=== PATIENT | male | born 1935 | race Caucasian/White ===

== ENCOUNTER 2017-03-13 10:00 | Outpatient (RCR) | payer MEDICARE, SELFPAY ==
[2017-02-26 01:10] VITALS: BP 102/69; PULSE 99; RESP 16; TEMP 37.5; BMI 26.2
[2017-02-27 10:50] VITALS: BP 118/73; PULSE 98; RESP 16; TEMP 37.2; BMI 26.2
--- NOTE | 2017-02-27 23:27 | PN.PCM_ITS ---
Type of Wound Date of Service: 02/27/17 Chief Complaint: Nonhealing infected pressure sore, Stage IV, left upper medial back/scapular area. History of Wound: Surgery 01/24/17 - Surgical preparation left upper medial back /scapular area with incision and drainage and excision infected pressure sore, Stage IV, including necrotic muscle (76 cm2). Wound care - VAC. Operative culture - Staphylococcus haemolyticus, Methicillin resistant. He was placed on Doxycycline and has finished them. Urine culture - Pseudomonas aeroginosa. He was placed on Levaquin and has finished them. Prealbumin from 01/25/17 was 17.0. He takes nutritional supplementation with protein to help the healing process. Progress of Wound: Improved. - Physical Exam Vital Signs Temp Pulse Resp BP 98.9 F 98 16 118/73 02/27/17 10:50 02/27/17 10:50 02/27/17 10:50 02/27/17 10:50 Wound Measurements and Assessment WC - Nurse 1 - General Ulcer Measurement Start: 02/27/17 10:50 Freq: Status: Active Protocol: Activity Type Activity Date Activity User E-Sign Co-Sign Detail Recorded Client Recorded Date Recorded By Document 02/27/17 10:50 [facility] [id number] 02/27/17 11:04 [facility] 02/27/17 10:50 Wound Center Nurse 1 [Ulcer Assessment Protocol: WC.WD.LOC] #1- LT UPPER BACK -Combined with other wound No -Current Size (cm) - Length 5.8 -Current Size (cm) - Width 7.2 -Current Size (cm) - Depth 0.7 -Total Square Cm 41.76 -Date of Last Picture (Recall this 02/27/17 field) -Photo Taken Yes -Epithelialization Small 1-33% -Tunneling No -Undermining/Tunneling Yes -Undermining/Tunneling Starts (O' 4 clock) -Undermining/Tunneling Ends (O'clock) 9 -Maximum Distance (cm) 0.3 -Exudate Amt Large (67-100%) -Exudate Type Serosanguineous -Wound Margin Distinct, Outline Attached -Granulation Amt Large (67-100%) -Granulation Quality Pale Red -Slough/Fibrin Yes -Necrosis Amt Small (1-33%) -Necrotic Tissue Type Adherent Slough -Texture (Nilda-wound Skin Appearance) Scarring -Moisture (Nilda-wound Skin Appearance Maceration ) -Color (Nilda-wound Skin Appearance) Erythema -Temperature (Nilda-wound Skin No Abnormality Appearance) (Pt Warm) -Tenderness on Palpation (Nilda-wound No Skin Appearance) -Ulcer Cleansing Rinsed/ Irrigated with Saline -Foul Odor after Cleansing No -Anesthetic Used 4% Lidocaine Solution - Nurse 2 - General Ulcer CM Notes Start: 02/27/17 10:50 Freq: Status: Active Protocol: Activity Type Activity Date Activity User E-Sign Co-Sign Detail Recorded Client Recorded Date Recorded By Document 02/27/17 11:35 [id number] 02/27/17 11:36 02/27/17 11:35 Wound Center Nurse 2 [Procedure/Treatment] -Time 11:35 -Correct Patient Yes -Correct Side, Site, Position Yes -Correct Procedure Yes -Procedure Performed Yes -Type of Procedure Debridement -Clinical Debridement Subcutaneous -Post Debridement Size (cm) - Length 5.8 -Post Debridement Size (cm) - Width 7.3 -Post Debridement Size (cm) - Depth 0.7 -Total Square Cm 42.34 -Wound/Ulcer Outcome Not Healed -Ulcer Cleansing Rinsed/ Irrigated with Saline -Foul Odor after Cleansing No -Cetacaine [place] No -Bleeding Controlled with Pressure -Treatment Response Procedure Tolerated Well [See Physician Procedure note for Specifics] Pain Scale: 0-10 Numeric [Pain] -Is Patient Pain Free? Yes Debridement Note Post-Debridement Measurements/Treatment - Nurse 2 - General Ulcer CM Notes Start: 02/27/17 10:50 Freq: Status: Active Protocol: Activity Type Activity Date Activity User E-Sign Co-Sign Detail Recorded Client Recorded Date Recorded By Document 02/27/17 11:35 [id number] 02/27/17 11:36 02/27/17 11:35 Wound Center Nurse 2 #1- LT UPPER BACK -Time 11:35 -Correct Patient Yes -Correct Side, Site, Position Yes -Correct Procedure Yes -Procedure Performed Yes -Type of Procedure Debridement -Clinical Debridement Subcutaneous -Post Debridement Size (cm) - Length 5.8 -Post Debridement Size (cm) - Width 7.3 -Post Debridement Size (cm) - Depth 0.7 -Total Square Cm 42.34 -Wound/Ulcer Outcome Not Healed -Ulcer Cleansing Rinsed/ Irrigated with Saline -Foul Odor after Cleansing No -Cetacaine [place] No -Bleeding Controlled with Pressure -Treatment Response Procedure Tolerated Well Pain Scale: 0-10 Numeric Is Patient Pain Free? Yes Wound debrided: #1 Left upper medial back/scapular area. Laterality: Left Wound Grade/Stage: IV. Type of Debridement: Excisional debridement Anesthesia Used: 4% Lidocaine Solution Depth: Down to and including healthy tissue, in the subcutaneous layer Percentage of wound debrided: 100 Instrument Used: 7mm curette Tissue Removed: subcutaneous tissue. Severity: Fat Layer Exposed Amount of bleeding with debridement: Mild Bleeding Controlled with: Pressure Patient tolerated procedure well Assessment/Plan Assessment: Infected pressure ulcer left upper medial back/scapular area with underlying necrotic muscle, Stage IV. Plan: Continue VAC. Operative culture showed Staphylococcus haemolyticus, Methicillin resistant and urine culture showed Pseudomonas aeroginosa. He was placed on Doxycyline and Levaquin and has finished them. Prealbumin from was 17.0. He takes nutritional supplementation with protein to help the healing process. Patient states he has help at home to assist with the dressing changes. Will begin dischage planning at the [facility]. Followup 2 weeks.
[2017-03-13 10:23] VITALS: BP 123/77; PULSE 95; RESP 18; TEMP 37.1; BMI 26.2
--- NOTE | 2017-03-13 17:57 | PCM.WC.PN ---
Type of Wound Date of Service: 03/13/17 Chief Complaint: Nonhealing infected pressure sore, Stage IV, left upper medial back/scapular area. History of Wound: Surgery 01/24/17 - Surgical preparation left upper medial back/scapular area with incision and drainage and excision infected pressure sore, Stage IV, including necrotic muscle (76 cm2). Wound care - Silver. Operative culture - Staphylococcus haemolyticus, Methicillin resistant. He was placed on Doxycycline and has finished them. Urine culture - Pseudomonas aeroginosa. He was placed on Levaquin and has finished them. Prealbumin from 01/25/17 was 17.0. He takes nutritional supplementation with protein to help the healing process. The patient was recently discharged from the [facility] and is at home. The VAC was changed to Silver dressing changes. Today he denies any fever. His appetite is good. Progress of Wound: Improved. - Physical Exam Vital Signs Temp Pulse Resp BP 98.8 F 95 18 123/77 H 03/13/17 10:23 03/13/17 10:23 03/13/17 10:23 03/13/17 10:23 Wound Measurements and Assessment - Nurse 1 - General Ulcer Measurement Start: 02/27/17 10:50 Freq: Status: Active Protocol: Activity Type Activity Date Activity User E-Sign Co-Sign Detail Recorded Client Recorded Date Recorded By Document 03/13/17 10:23 DL [id number] 03/13/17 10:32 DL 03/13/17 10:23 Wound Center Nurse 1 [Ulcer Assessment Protocol: WC.WD.LOC] #1- LT UPPER BACK -Current Size (cm) - Length 5.9 -Current Size (cm) - Width 6 -Current Size (cm) - Depth 0.1 -Total Square Cm 35.4 -Photo Taken Yes -Undermining/Tunneling No -Exudate Amt Large (67-100%) -Exudate Type Yellow/Green -Wound Margin Distinct, Outline Attached -Granulation Amt Medium (34-66%) -Granulation Quality Hyper- granulation [place] -Necrosis Amt Medium (34-66%) -Necrotic Tissue Type Adherent Slough -Structure Exposed N/A -Texture (Nilda-wound Skin Appearance) Scarring -Moisture (Nilda-wound Skin Appearance No Abnormality ) -Color (Nilda-wound Skin Appearance) No Abnormality -Temperature (Nilda-wound Skin No Abnormality Appearance) (Pt Warm) -Tenderness on Palpation (Nilda-wound No Skin Appearance) -Ulcer Cleansing Wound Cleanser -Foul Odor after Cleansing No -Anesthetic Used 4% Lidocaine Solution - Nurse 2 - General Ulcer CM Notes Start: 02/27/17 10:50 Freq: Status: Active Protocol: Activity Type Activity Date Activity User E-Sign Co-Sign Detail Recorded Client Recorded Date Recorded By Document 03/13/17 10:56 [id number] 03/13/17 10:57 03/13/17 10:56 Wound Center Nurse 2 [Procedure/Treatment] -Time 10:56 -Correct Patient Yes -Correct Side, Site, Position Yes -Correct Procedure Yes -Procedure Performed Yes -Type of Procedure Debridement -Clinical Debridement Subcutaneous -Post Debridement Size (cm) - Length 6.0 -Post Debridement Size (cm) - Width 6 -Post Debridement Size (cm) - Depth 0.1 -Total Square Cm 36.0 -Wound/Ulcer Outcome Not Healed -Ulcer Cleansing Rinsed/ Irrigated with Saline -Foul Odor after Cleansing No -Bioengineered Tissue No -Cetacaine [place] No -Bleeding Controlled with Pressure -Treatment Response Procedure Tolerated Well [See Physician Procedure note for Specifics] Pain Scale: 0-10 Numeric [Pain] -Is Patient Pain Free? Yes Debridement Note Post-Debridement Measurements/Treatment - Nurse 2 - General Ulcer CM Notes Start: 02/27/17 10:50 Freq: Status: Active Protocol: Activity Type Activity Date Activity User E-Sign Co-Sign Detail Recorded Client Recorded Date Recorded By Document 02/27/17 11:35 [id number] 02/27/17 11:36 Document 03/13/17 10:56 [id number] 03/13/17 10:57 02/27/17 03/13/17 11:35 10:56 Wound Center Nurse 2 #1- LT UPPER BACK -Time 11:35 10:56 -Correct Patient Yes Yes -Correct Side, Site, Position Yes Yes -Correct Procedure Yes Yes -Procedure Performed Yes Yes -Type of Procedure Debridement Debridement -Clinical Debridement Subcutaneous Subcutaneous -Post Debridement Size (cm) - Length 5.8 6.0 -Post Debridement Size (cm) - Width 7.3 6 -Post Debridement Size (cm) - Depth 0.7 0.1 -Total Square Cm 42.34 36.0 -Wound/Ulcer Outcome Not Healed Not Healed -Ulcer Cleansing Rinsed/ Rinsed/ Irrigated with Irrigated with Saline Saline -Foul Odor after Cleansing No No -Bioengineered Tissue No -Cetacaine [place] No No -Bleeding Controlled with Pressure Pressure -Treatment Response Procedure Procedure Tolerated Well Tolerated Well Pain Scale: 0-10 Numeric Is Patient Pain Free? Yes Yes Wound debrided: #1 Left upper medial back/scapular area. Laterality: Left Wound Grade/Stage: IV. Type of Debridement: Excisional debridement Anesthesia Used: 4% Lidocaine Solution Depth: Down to and including healthy tissue, in the subcutaneous layer Percentage of wound debrided: 100 Instrument Used: 7mm curette Tissue Removed: subcutaneous tissue. Severity: Fat Layer Exposed Amount of bleeding with debridement: Mild Bleeding Controlled with: Pressure Patient tolerated procedure well Assessment/Plan Assessment: Infected pressure ulcer left upper medial back/scapular area with underlying necrotic muscle, Stage IV. Plan: Continue Silver dressing changes daily. Patient is at home and is doing ok. Operative culture showed Staphylococcus haemolyticus, Methicillin resistant and urine culture showed Pseudomonas aeroginosa. He was placed on Doxycyline and Levaquin and has finished them. Prealbumin from 01/25/17 was 17.0. He takes nutritional supplementation with protein to help the healing process. Followup 3 weeks.
== END 2017-03-26 23:59 ==
LOC: WC 10:00
PROVIDERS: Family Provider Family Medicine Geriatric Medicine; PCP Family Medicine Geriatric Medicine; Visit Provider Surgery
DX: L89.124 Pressure ulcer of left upper back, stage 4 (principal)
CPT/HCPCS: 11042; 11045

== ENCOUNTER 2017-04-24 10:30 | Outpatient (RCR) | payer MEDICARE, SELFPAY ==
[2017-03-27 01:20] VITALS: BP 123/77; PULSE 95; RESP 18; TEMP 37.1; BMI 26.2
[2017-04-24 11:01] VITALS: BP 146/84; PULSE 93; RESP 16; TEMP 36; BMI 26.2
--- NOTE | 2017-04-24 20:08 | PCM.WC.PN ---
Type of Wound Date of Service: 04/24/17 Chief Complaint: Nonhealing infected pressure sore, Stage IV, left upper medial back/scapular area. History of Wound: Surgery 01/24/17 - Surgical preparation left upper medial back/scapular area with incision and drainage and excision infected pressure sore, Stage IV, including necrotic muscle (76 cm2). Wound care - VAC. Operative culture - Staphylococcus haemolyticus, Methicillin resistant. He was placed on Doxycycline and has finished them. Urine culture - Pseudomonas aeroginosa. He was placed on Levaquin and has finished them. Prealbumin from 01/25/17 was 17.0. He takes nutritional supplementation with protein to help the healing process. - Physical Exam Vital Signs Temp Pulse Resp BP 96.8 F L 93 16 146/84 H 04/24/17 11:01 04/24/17 11:01 04/24/17 11:01 04/24/17 11:01 Debridement Note Post-Debridement Measurements/Treatment WC - Nurse 2 - General Ulcer CM Notes Start: 04/24/17 11:01 Freq: Status: Active Protocol: Activity Type Activity Date Activity User E-Sign Co-Sign Detail Recorded Client Recorded Date Recorded By Document 04/24/17 11:45 [id number] 04/24/17 11:46 [email or web address] 04/24/17 11:45 Wound Center Nurse 2 #1- LT UPPER BACK -Time 11:45 -Correct Patient Yes -Correct Side, Site, Position Yes -Correct Procedure Yes -Procedure Performed Yes -Type of Procedure Debridement -Clinical Debridement Subcutaneous -Post Debridement Size (cm) - Length 1.5 -Post Debridement Size (cm) - Width 0.8 -Post Debridement Size (cm) - Depth 0.1 -Total Square Cm 1.20 -Wound/Ulcer Outcome Not Healed -Ulcer Cleansing Rinsed/ Irrigated with Saline -Foul Odor after Cleansing No -Bioengineered Tissue No -Cetacaine [place] No -Bleeding Controlled with Pressure -Treatment Response Procedure Tolerated Well Pain Scale: 0-10 Numeric Is Patient Pain Free? Yes Wound debrided: #1 Left upper medial back/scapular area. Laterality: Left Wound Grade/Stage: IV. Type of Debridement: Excisional debridement Anesthesia Used: 4% Lidocaine Solution Depth: Down to and including healthy tissue, in the subcutaneous layer Percentage of wound debrided: 100 Instrument Used: 5mm curette Tissue Removed: subcutaneous tissue. Severity: Fat Layer Exposed Amount of bleeding with debridement: Mild Bleeding Controlled with: Pressure Patient tolerated procedure well Assessment/Plan Assessment: Infected pressure ulcer left upper medial back/scapular area with underlying necrotic muscle, Stage IV. Plan: Continue VAC. Operative culture showed Staphylococcus haemolyticus, Methicillin resistant and urine culture showed Pseudomonas aeroginosa. He was placed on Doxycyline and Levaquin and has finished them. Prealbumin from 01/25/17 was 17.0. He takes nutritional supplementation with protein to help the healing process. Followup 3 weeks.
--- NOTE | 2017-04-27 21:49 | PN.PCM_ITS ---
Type of Wound Date of Service: 04/24/17 Chief Complaint: Nonhealing infected pressure sore, Stage IV, left upper medial back/scapular area. History of Wound: Surgery 01/24/17 - Surgical preparation left upper medial back /scapular area with incision and drainage and excision infected pressure sore, Stage IV, including necrotic muscle (76 cm2). Wound care - VAC. Operative culture - Staphylococcus haemolyticus, Methicillin resistant. He was placed on Doxycycline and has finished them. Urine culture - Pseudomonas aeroginosa. He was placed on Levaquin and has finished them. Prealbumin from 01/25/17 was 17.0. He takes nutritional supplementation with protein to help the healing process. - Physical Exam Vital Signs Temp Pulse Resp BP 96.8 F L 93 16 146/84 H 04/24/17 11:01 04/24/17 11:01 04/24/17 11:01 04/24/17 11:01 Debridement Note Post-Debridement Measurements/Treatment WC - Nurse 2 - General Ulcer CM Notes Start: 04/24/17 11:01 Freq: Status: Active Protocol: Activity Type Activity Date Activity User E-Sign Co-Sign Detail Recorded Client Recorded Date Recorded By Document 04/24/17 11:45 [id number] 04/24/17 11:46 [email or web address] 04/24/17 11:45 Wound Center Nurse 2 #1- LT UPPER BACK -Time 11:45 -Correct Patient Yes -Correct Side, Site, Position Yes -Correct Procedure Yes -Procedure Performed Yes -Type of Procedure Debridement -Clinical Debridement Subcutaneous -Post Debridement Size (cm) - Length 1.5 -Post Debridement Size (cm) - Width 0.8 -Post Debridement Size (cm) - Depth 0.1 -Total Square Cm 1.20 -Wound/Ulcer Outcome Not Healed -Ulcer Cleansing Rinsed/ Irrigated with Saline -Foul Odor after Cleansing No -Bioengineered Tissue No -Cetacaine [place] No -Bleeding Controlled with Pressure -Treatment Response Procedure Tolerated Well Pain Scale: 0-10 Numeric Is Patient Pain Free? Yes Wound debrided: #1 Left upper medial back/scapular area. Laterality: Left Wound Grade/Stage: IV. Type of Debridement: Excisional debridement Anesthesia Used: 4% Lidocaine Solution Depth: Down to and including healthy tissue, in the subcutaneous layer Percentage of wound debrided: 100 Instrument Used: 5mm curette Tissue Removed: subcutaneous tissue. Severity: Fat Layer Exposed Amount of bleeding with debridement: Mild Bleeding Controlled with: Pressure Patient tolerated procedure well Assessment/Plan Assessment: Infected pressure ulcer left upper medial back/scapular area with underlying necrotic muscle, Stage IV. Plan: Continue VAC. Operative culture showed Staphylococcus haemolyticus, Methicillin resistant and urine culture showed Pseudomonas aeroginosa. He was placed on Doxycyline and Levaquin and has finished them. Prealbumin from was 17.0. He takes nutritional supplementation with protein to help the healing process. Followup 3 weeks.
== END 2017-04-26 23:59 ==
LOC: WC 10:30
PROVIDERS: Family Provider Family Medicine Geriatric Medicine; PCP Family Medicine Geriatric Medicine; Visit Provider Surgery
DX: L89.124 Pressure ulcer of left upper back, stage 4 (principal); L08.9 Local infection of the skin and subcutaneous tissue, unspecified
CPT/HCPCS: 11042

== ENCOUNTER 2017-05-15 10:49 | Outpatient (RCR) | payer MEDICARE, SELFPAY ==
[2017-04-24 11:01] VITALS: BP 146/84
[2017-04-27 00:45] VITALS: PULSE 93; RESP 16; TEMP 36
[2017-05-15 11:01] VITALS: BP 143/82; PULSE 94; RESP 16; TEMP 37.6; BMI 26.2
--- NOTE | 2017-05-15 19:22 | PCM.WC.PN ---
Type of Wound Date of Service: 05/15/17 Chief Complaint: Nonhealing infected pressure sore, Stage IV, left upper medial back/scapular area. History of Wound: Surgery 01/24/17 - Surgical preparation left upper medial back/scapular area with incision and drainage and excision infected pressure sore, Stage IV, including necrotic muscle (76 cm2). Wound care - Silver. Operative culture - Staphylococcus haemolyticus, Methicillin resistant. He was placed on Doxycycline and has finished them. Urine culture - Pseudomonas aeroginosa. He was placed on Levaquin and has finished them. Prealbumin from 01/25/17 was 17.0. He takes nutritional supplementation with protein to help the healing process. The patient was recently discharged from the [facility] and is at home. The VAC was changed to Silver dressing changes. Today he denies any fever. His appetite is good. - Physical Exam Vital Signs Temp Pulse Resp BP 99.6 F H 94 16 143/82 H 05/15/17 11:01 05/15/17 11:01 05/15/17 11:01 05/15/17 11:01 General: Alert, Oriented x3 HEENT: PERRLA, EOMI Neck: Supple Lungs: Clear to auscultation Cardiovascular: Regular rate, Regular Rhythm Abdomen: Soft, Non-Distended Wound Measurements and Assessment WC - Nurse 1 - General Ulcer Measurement Start: 05/15/17 11:00 Freq: Status: Active Protocol: Activity Type Activity Date Activity User E-Sign Co-Sign Detail Recorded Client Recorded Date Recorded By Document 05/15/17 11:01 [facility] [id number] 05/15/17 11:07 [facility] 05/15/17 11:01 Wound Center Nurse 1 [Ulcer Assessment] #1- LT UPPER BACK -Combined with other wound No -Current Size (cm) - Length 0 -Current Size (cm) - Width 0 -Current Size (cm) - Depth 0 -Total Square Cm 0 -Date of Last Picture (Recall this 05/15/17 field) -Photo Taken Yes -Epithelialization Large 67-100% WC - Nurse 2 - General Ulcer CM Notes Start: 05/15/17 11:00 Freq: Status: Active Protocol: Activity Type Activity Date Activity User E-Sign Co-Sign Detail Recorded Client Recorded Date Recorded By Document 05/15/17 11:24 [id number] 05/15/17 11:25 05/15/17 11:24 Wound Center Nurse 2 [Procedure/Treatment] -Correct Patient No -Correct Side, Site, Position No -Correct Procedure No -Procedure Performed No [See Physician Procedure note for Specifics] Pain Scale: 0-10 Numeric [Pain] -Is Patient Pain Free? Yes Neurological: Cranial nerves II-XII grossly intact Psych/Mental Status: Normal Affect, Appropriate Debridement Note Post-Debridement Measurements/Treatment WC - Nurse 2 - General Ulcer CM Notes Start: 05/15/17 11:00 Freq: Status: Active Protocol: Activity Type Activity Date Activity User E-Sign Co-Sign Detail Recorded Client Recorded Date Recorded By Document 05/15/17 11:24 [id number] 05/15/17 11:25 05/15/17 11:24 Wound Center Nurse 2 #1- LT UPPER BACK -Correct Patient No -Correct Side, Site, Position No -Correct Procedure No -Procedure Performed No Pain Scale: 0-10 Numeric Is Patient Pain Free? Yes Wound debrided: #1 Left upper medial back/scapular area. Laterality: Left Wound Grade/Stage: IV. No debridement was completed today - the ulcer has healed. Assessment/Plan Assessment: Infected pressure ulcer left upper medial back/scapular area with underlying necrotic muscle, Stage IV. Plan: Continue Silver dressing changes daily. Patient is at home and is doing ok. Operative culture showed Staphylococcus haemolyticus, Methicillin resistant and urine culture showed Pseudomonas aeroginosa. He was placed on Doxycyline and Levaquin and has finished them. Prealbumin from 01/25/17 was 17.0. He takes nutritional supplementation with protein to help the healing process. Followup 3 weeks.
== END 2017-05-24 23:59 ==
LOC: WC 10:49
PROVIDERS: Family Provider Family Medicine Geriatric Medicine; PCP Family Medicine Geriatric Medicine; Visit Provider Surgery
DX: L89.124 Pressure ulcer of left upper back, stage 4 (principal); Z86.14 Personal history of Methicillin resistant Staphylococcus aureus infection
CPT/HCPCS: 99213; G0463

== ENCOUNTER → 2017-10-11 10:47 | Outpatient (CLI) | payer MEDICARE, SELFPAY ==
[2017-10-11 13:17] LABS: Absolute Lymphocyte Count 1.17 X10^3/ul (0.83-4.51); Absolute Neutrophil Count 5.7 X10^3/uL (2.0-7.7); Basophil# 0.01 X10^3/uL; Basophil% 0.1 % (0-1); Eosinophil# 0.16 X10^3/uL; Eosinophils% 2.1 % (0-5); Hematocrit 38.8 % (40-54); Hemoglobin 12.3 g/dl (13.0-16.5); Lymphocyte # 1.17 X10^3/ul (4.0); Lymphocyte % 15.5 % (19-41); Mean Corp Hgb Conc 31.7 g/gl (32-36); Mean Corpuscular Hgb 30.2 pg (27.0-32.0); Mean Corpuscular Volume 95.3 fL (80-94); Mean Platelet Vol. 10.4 fl (6.2-12.0); Monocyte# 0.51 X10^3/uL; Monocyte% 6.8 % (0-10); Neutrophil # 5.69 X10^3/uL (2.7-7.7); Neutrophil % 75.4 % (47-70); Platelet Count 234 K/mm3 (150-450); RBC Distribution Width CV 13.9 % (11.6-14.6); Red Blood Count 4.07 M/mm3 (4.6-6.2); White Blood Count 7.6 K/mm3 (4.4-11.0)
[2017-10-11 13:26] LABS: Vitamin D,25 Hydroxy 29.4 ng/mL (29.95-100.01)
[2017-10-11 13:29] LABS: POSITIVE COUNT NO; POSITIVE DIFFERENTIAL NO; POSITIVE MORPHOLOGY NO
[2017-10-11 13:34] LABS: ALB/GLOB Ratio 0.9 RATIO (0.9-2.4); AST(SGOT) 19 U/L (15-37); Alanine Aminotransfer ALT/SGPT 24 U/L (16-61); Alkaline Phosphatase 108 U/L (45-117); Anion Gap 7 (5-15); BUN 38 mg/dL (7-18); BUN/Creat Ratio 21.7 RATIO (10-20); Calcium,Total 9.3 mg/dL (8.5-10.1); Chloride 114 mmol/L (98-107); Creatinine, Serum 1.75 mg/dL (0.70-1.30); EST Glomerular Filtration Rate 40 mL/min (>60); Est Glom Filt Rate - Afr Amer 48 mL/min (>60); Globulin 4.7 g/dL (2.2-4.2); Glucose 93 mg/dL (74-106); Potassium 4.9 mmol/L (3.5-5.1); Protein, Total 8.7 g/dL (6.4-8.2); Sodium Level 146 mmol/L (136-145); Thyroid Stim Hormone (TSH) 0.86 uIU/mL (0.358-3.74)
== END ==
PROVIDERS: Family Provider Family Medicine Geriatric Medicine; PCP Family Medicine Geriatric Medicine; Visit Provider Family Medicine Geriatric Medicine
DX: I10 Essential (primary) hypertension (principal); E55.9 Vitamin D deficiency, unspecified
CPT/HCPCS: 36415; 80053; 82306; 84443; 85025

== ENCOUNTER 2018-09-10 10:59 | Inpatient (IN) | payer MEDICARE, SELFPAY ==
[2018-09-10] VITALS (18 sets, daily range): BP systolic 82–107; BP diastolic 40–85; PULSE 101–136; RESP 18–30; TEMP 36.1–37.3; O2SAT 94–99; BMI 19.3; BMI 20.1
--- NOTE | 2018-09-10 11:15 | CT_ITS ---
STUDY: CT BRAIN WITHOUT CONTRAST REASON FOR EXAM: Male, 83 years old. Add injury due to a fall. Urinary and fecal incontinence since fall. RADIATION DOSAGE (If Supplied By Facility): CTDIvol = ( 60.81 ) mGy, DLP = ( 1158.30 ) mGycm TECHNIQUE: Transaxial CT imaging of the brain was performed without administration of intravenous contrast material. Individualized dose optimization techniques were used for this CT. COMPARISON: Comparison is made with prior study dated January 19, 2017. FINDINGS: Normal soft tissue structures. Normal calvarium. There is moderate cerebral atrophy with widening of the extra-axial spaces and ventricular dilatation. There are areas of decreased attenuation within the white matter tracts of the supratentorial brain, consistent with microvascular disease changes. Normal basal ganglia and thalami. Normal brainstem. There is moderate cerebellar atrophy. There is no intracranial hemorrhage. There are no findings of an acute ischemic infarction. Normal visualized paranasal sinuses. CT/Brain/Head without Contrast IMPRESSION: Chronic involutional changes of the brain. Electronically Signed: Marc Owens, at 12:48 EDT , Service support ,
--- NOTE | 2018-09-10 11:15 | CT_ITS ---
STUDY: CT CERVICAL SPINE WITHOUT CONTRAST REASON FOR EXAM: Male, 83 years old. History of fall. RADIATION DOSAGE (If Supplied By Facility): CTDIvol = ( 25.88 ) mGy, DLP = ( 562.74 ) mGycm TECHNIQUE: High resolution transaxial imaging was performed without contrast material. Sagittal and coronal images were reconstructed. Individualized dose optimization techniques were used for this CT. COMPARISON: None FINDINGS: Normal craniovertebral junction. There are degenerative changes of the anterior atlantoaxial articulation. Normal odontoid process. Normal cervical lordosis. Normal vertebral bodies and posterior osseous elements. C2-3: Moderate degree of disc space narrowing. Facet joint osteoarthritis and hypertrophy worse on the left side. Posterior spondylosis. C3-4: Marked degree of disc space narrowing. Facet joint osteoarthritis and hypertrophy worse on the left side. No significant stenosis is seen. C4-5: Moderate degree of disc space narrowing and disc degeneration. Uncovertebral arthrosis. Left neural foraminal stenosis. Facet joint osteoarthritis and hypertrophy worse on the left side. Bilateral neural foraminal stenosis. C5-6: There is fusion at the C5-C6 level. Facet joint osteoarthritis and hypertrophy. Moderate degree of bilateral neural foraminal stenosis. C6-7: Normal endplates. Normal disc height and morphology. Normal central canal and intervertebral neuroforamina. C7-T1: Normal endplates. Normal disc height and morphology. Normal central canal and intervertebral neuroforamina. Diffuse enlargement of both lobes of the thyroid gland with a substernal extension and a focal areas of calcification. CT/Spine Cervical without Contras IMPRESSION: Multilevel degenerative changes, as described above. 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 Electronically Signed: Marc Owens, at 12:53 EDT , Service support ,
--- NOTE | 2018-09-10 11:16 | EKG12_ITS ---
Test Reason : TACHY Blood Pressure : / mmHG Vent. Rate : 136 BPM Atrial Rate : 357 BPM P-R Int : 000 ms QRS Dur : 080 ms QT Int : 294 ms P-R-T Axes : 000 000 132 degrees QTc Int : 442 ms Atrial fibrillation with rapid ventricular response Possible Inferior infarct , age undetermined Abnormal ECG Confirmed by JERI LEWIS, GONZALO ([id number]), social media editor MARC PRAKASH ([id number]) on 09/12/2018 11:53:59 AM Referred By: Nae Frederick Confirmed By:GONZALO WILCOX MD
[2018-09-10 11:29] LABS: Mucous, Urine 0 SEEN /hpf (<or=2+); Squamous Epithelial Cells - UA 0 SEEN /hpf (0-5)
[2018-09-10 11:31] LABS: Color, Urine Brown (Yellow); Glucose, Dipstick Normal (Normal); Ketone-Dipstick Negative (Negative); Leukocyte Esterase-Dipstick 100 /ul (Negative); Nitrite-Dipstick Positive (Negative); Occult Blood-Urine 250 /ul (Negative); Protein-Dipstick 100 mg/dl (Negative); Urine Bilirubin Dipstick Negative (Negative); Urine Clarity Cloudy (Clear); Urine Urobilinogen Normal (Normal)
[2018-09-10 11:33] LABS: Absolute Lymphocyte Count 0.47 X10^3/ul (0.83-4.51); Absolute Neutrophil Count 9.4 X10^3/uL (2.0-7.7); Differential Indicated SCAN CRITERIA MET; Eosinophil# 0.01 X10^3/uL; Eosinophils% 0.1 % (0-5); Hematocrit 35.3 % (40-54); Lymphocyte # 0.47 X10^3/ul (4.0); Lymphocyte % 4.7 % (19-41); Mean Corpuscular Hgb 30.2 pg (27.0-32.0); Mean Corpuscular Volume 88.9 fL (80-94); Monocyte# 0.16 X10^3/uL; Monocyte% 1.6 % (0-10); Neutrophil # 9.37 X10^3/uL (2.7-7.7); Neutrophil % 93.4 % (47-70); POSITIVE COUNT NO; POSITIVE DIFFERENTIAL YES; POSITIVE MORPHOLOGY YES; Platelet Count 140 K/mm3 (150-450); RBC Distribution Width CV 14.1 % (11.6-14.6); RBC Distribution Width SD 46.3 fl (35.1-43.9); Red Blood Count 3.97 M/mm3 (4.6-6.2)
[2018-09-10] MEDS: 0.9% Normal Saline 1,000 ML 1000 ML IV (11:33)
[2018-09-10 11:35] LABS: International Normalized Ratio 1.2
[2018-09-10 11:36] LABS: Bacteria 1+ /hpf (None Seen); Partial Thromboplast Time 33.2 Seconds (24.1-36.2); Red Blood Cells-Urine 25-50 SEEN /hpf (0-5); White Blood Cells 10-25 SEEN /hpf (0-5)
--- NOTE | 2018-09-10 11:36 | ED.RN ---
able to get clean catch urine. catheter held at this time per
[2018-09-10 11:38] LABS: Amorphous Sediment 2+ URATE
[2018-09-10 11:49] LABS: Burr Cells 1+
[2018-09-10 11:59] LABS: ALB/GLOB Ratio 0.6 RATIO (0.9-2.4); AST(SGOT) 24 U/L (15-37); Alanine Aminotransfer ALT/SGPT 35 U/L (16-61); Albumin, Serum 2.6 g/dL (3.2-5.0); Alkaline Phosphatase 90 U/L (45-117); Anion Gap 17 (5-15); BUN 133 mg/dL (7-18); BUN/Creat Ratio 26.3 RATIO (10-20); CPK Total, Creatine Kinase 88 U/L (39-308); Calcium,Total 7.9 mg/dL (8.5-10.1); Chloride 111 mmol/L (98-107); Creatinine, Serum 5.05 mg/dL (0.70-1.30); EST Glomerular Filtration Rate 12 mL/min (>60); Est Glom Filt Rate - Afr Amer 14 mL/min (>60); Estimated Creatinine Clearance 9.71 ml/min; Globulin 4.7 g/dL (2.2-4.2); Glucose 133 mg/dL (74-106); Lipase 565 U/L (73-393); Potassium 4.3 mmol/L (3.5-5.1); Protein, Total 7.3 g/dL (6.4-8.2); Sodium Level 142 mmol/L (136-145)
--- NOTE | 2018-09-10 12:01 | NURSING ---
LAB CALLED WITH A CRITICAL RESULT OF A BUN OF 133.
[2018-09-10 12:04] LABS: Lactic Acid 1.1 mmol/L (0.4-2.0)
--- NOTE | 2018-09-10 12:10 | ED.RN ---
called pharmacy for maggy
--- NOTE | 2018-09-10 12:21 | RAD_ITS ---
STUDY: X-RAY - UNILATERAL RIBS ( RIGHT ) REASON FOR EXAM: Male, 83 years old. Right-sided rib pain. TECHNIQUE: 3 view(s) of the ribs. COMPARISON: None. FINDINGS: Normal visualized ribs without a demonstrated fracture. Mild increased pulmonary markings suggestive of possible scarring. RAD/Ribs Unil 2V No CXR IMPRESSION: Normal x-ray examination of the ribs. Electronically Signed: Marc Owens, at 12:50 EDT , Service support ,
--- NOTE | 2018-09-10 12:24 | ED.RN ---
pt remains in imaging.
[2018-09-10] MEDS: 0.9% Normal Saline 1,000 ML 999 ML IV (12:28)
[2018-09-10] MEDS: Ceftriaxone 1 GM/50 ML BAG IV (12:28)
--- NOTE | 2018-09-10 12:29 | ED.DCSUM_ITS ---
- ER Visit Summary Date of Service: 09/10/18 Chief Complaint: Fall History of Present Illness: The patient is a 83 M who presents from home. The patient normally uses a cane to ambulate. He says he fell 5 days ago. He does not remember the details of the fall, but he complains of head, right side neck, and right-sided rib pain. Patient is denying any other complaints here, but his history is limited. He was incontinent of stool and urine for nursing. Patient has a history of malnutrition, chronic kidney disease, septic shock, hypertension, atrial fibrillation, BPH, UTI, rhabdomyolysis, and others. Physical Examination: Blood pressure 94/59 and heart rate 136. Respiratory rate 30. Afebrile. 95% on room air. Head and neck are atraumatic. HEENT exam unremarkable except for dry mucous membranes. Neck is nontender. Heart is irregular and tachycardic. Lungs are diminished bilaterally. Abdomen is soft and nontender. Extremities nontender with no edema. Patient is alert and oriented to person and place. Cranial nerves grossly intact. Normal strength and sensation. Depressed mood and flat affect. Test Results and ED Course: EKG showed atrial fibrillation at a rate of 136. Hemoglobin 12 and platelets 140. CO2 14, anion gap 17, glucose 133, BUN 133. Creatinine 5.05. Lipase 565. Otherwise lactate, troponin, and CK are unremarkable. Urinalysis shows signs of infection. Cultures are pending. Patient meets criteria for sepsis, but is not in shock. His maps have been above 65 after only 1/2 L of normal saline. We will continue to hydrate. Patient started on Rocephin to cover for UTI. Imaging results of his chest and ribs as well as brain and C-spine are pending. Chest x-ray and ribs were normal. Brain showed chronic changes. C-spine showed no fracture but he does have an enlarged thyroid. On reevaluation, heart rate 117 and blood pressure 101 systolic. His mean arterial pressure has been greater than 65. Lactate normal. He does not show signs of shock. Patient will be admitted to the hospitalist for further care. Treatment Plan: IV fluids, Rocephin Disposition: Admission Impression: 1. UTI 2. Severe sepsis 3. Chronic kidney disease 4. Enlarged thyroid This note was generated with [employer]ation software. It may contain incorrect words, spelling, and punctuation that were not noted in review of the chart prior to signing ED Disposition - Plan for ED Patient: Referrals: Rigo Lan Chi, MD [Primary Care Provider] -
--- NOTE | 2018-09-10 13:32 | HP.PCM_ITS ---
Problem List (1) Sepsis Status: Acute Qualifiers: Sepsis type: sepsis due to unspecified organism Qualified Code(s): A41.9 - Sepsis, unspecified organism (2) UTI (urinary tract infection) Status: Acute Qualifiers: Urinary tract infection type: site unspecified (3) Encephalopathy acute Status: Acute (4) BIRGIT (acute kidney injury) Status: Acute (5) Atrial fibrillation with RVR Status: Acute (6) Abnormal imaging of thyroid Status: Acute (7) CKD (chronic kidney disease), stage IV Status: Chronic (8) HTN (hypertension) Status: Chronic Qualifiers: Hypertension type: essential hypertension Qualified Code(s): I10 - Essential (primary) hypertension (9) HLD (hyperlipidemia) Status: Chronic Qualifiers: Hyperlipidemia type: unspecified Qualified Code(s): E78.5 - Hyperlipidemia, unspecified (10) Anxiety and depression Status: Chronic (11) Malnutrition Status: Chronic Qualifiers: Malnutrition type: protein-calorie malnutrition Protein-calorie malnutrition severity: severe Qualified Code(s): E43 - Unspecified severe protein-calorie malnutrition History of Present Illness Date of Admission: 09/10/18 Chief Complaint: Fall, Debility, Incontinence The patient is a 83 y/o M w/ PMHx: HTN, PAF, Hx SVT, Depression and Anxiety, BPH w/ obstructive history, OA, Mild , Hx Chronic Decubitous ulcers, Diastolic CHF, Hx Pseudomonas bacteremia from UTI prior previously following with wound care who presents to the [facility] ED on 09/10/18 from home with severe debility, he normally uses a cane to ambulate but notes he fell approximately 4 days prior does not remember specific details but states that he was trying to pick something up and became wedged and fell hitting his head as well as the right side of his neck and right lateral ribs with no other complaints but states that he has been incontinent of both stool and urine. He denies any recent specific suprapubic discomfort, nausea, vomiting, abdominal pain, URI symptoms, cough or congestion. Work-up in the ED included T 97, heart rate initially 136, BP 93/58, respiratory rate 20, 97% on room air--> improvement of heart rate to low 100s, BP 101/61, respiratory rate 26, 99% on room air following initial 1 L bolus, BC with W BC 10, heme globin 12, platelet 140 with left shift, coags with PT 15 otherwise not marked appearing, CMP with chloride 111, carbon dioxide 14, anion gap 17, BUN/creatinine 133/5.05, glucose 133, lactic acid 1.1, lipase 565, creatinine kinase 88, troponin 0 0.033, EKG with atrial fibrillation with RVR, CT brain with no acute intercranial findings, CT cervical spine with multilevel degenerative changes with a diffuse enlargement of both lobes of the thyroid gland with substernal extension, pain film of the ribs were unremarkable. In the ED patient administered 2 L normal saline as well as IV Rocephin. Past Medical History Past Medical History (Chronic Problems): Chronic Problems CKD (chronic kidney disease), stage IV (Chronic) HTN (hypertension) (Chronic) HLD (hyperlipidemia) (Chronic) Anxiety and depression (Chronic) Malnutrition (Chronic) Stage 4 chronic kidney disease due to hypertension (Chronic) Depression (Chronic) Hypoalbuminemia (Chronic) Decubitus ulcers (Chronic) left upper back Paroxysmal atrial fibrillation with rapid ventricular response (Chronic) Mild aortic stenosis (Chronic) BPH with obstruction/lower urinary tract symptoms (Chronic) Pseudomonas Benign essential hypertension (Chronic) Chronic osteoarthritis (Chronic) History of supraventricular tachycardia (Chronic) Allergies No Known Allergies Allergy (Verified 02/06/17 09:54) Home Medications: Ambulatory Orders Medication Instructions Recorded Lisinopril/Hydrochlorothiazide 1 each PO DAILY 09/10/18 [Lisinopril-Hctz 20-12.5 mg Tab] Surgical History: arthscropcy, hip, arthroscopy, knee, herniorrhaphy, - - Cystoscopy with bilateral ureteral stent placement Psychiatric History: Depression Lives: Alone Smoking Status: Never smoker Tobacco Use: Non-smoker Alcohol: Occasional Drugs: None - *Family History Maternal History Items: Heart Disease Paternal History Items: Heart Disease Review of Systems Constitutional: Reports: Anorexia, Malaise, Weakness, Fatigue. Denies: Chills, Fever, Weight Change HEENT: Reports: Head Aches. Denies: Sinus Congestion, Sinus Drainage Cardiovascular: Reports: Chest Pain. Denies: Palpitations Respiratory: Reports: Pleuritic Pain. Denies: Cough, Shortness of breath at rest, Sputum production Gastrointestinal: Denies: Abdominal Pain, Nausea, Vomiting Genitourinary: Reports: Incontinence. Denies: Dysuria Musculoskeletal: Reports: Back Pain, Joint Pain. Denies: Joint Tenderness Skin: Reports: Skin Changes. Denies: Rash, Wounds Neurological: Denies: Numbness, Tingling, Focal weakness Psychiatric: Reports: Anxiety, Depression. Denies: Homicidal Ideations, Suicidal Ideations Hematologic/ Lymphatic: Reports: Anemia, Easy Bruising, Easy Bleeding VTE Information - Inpt Only VTE Present on Admission: No VTE Mechan Device Prophylaxis: SCD's VTE Pharm Prophylaxis ordered?: Yes Patient Problems: Active and Suspected Problems Sepsis (Acute) UTI (urinary tract infection) (Acute) Encephalopathy acute (Acute) BIRGIT (acute kidney injury) (Acute) Atrial fibrillation with RVR (Acute) Abnormal imaging of thyroid (Acute) Subjective: Seated upright in the ED bed, notes feeling mildly improved, able to tell me where he is, month, year, president. Objective: Physical Examination: General: awake, alert, oriented to self, place, month, year, president, notably improved from initial ED presentation examinations, cooperative, seated upright in bed in no apparent distress. Skin: normal color, turgor, no icterus, cyanosis except occasional staged ecchymoses to the extremity, recent right-sided fall. HEENT: AT/NC, EOMI, PERRLA, dry MM, poor dentition, no carotid bruits or JVD noted, enlarged thyroid. Lungs: CTA bilaterally, moderate effort, moderate decrease BL bases, no rales, ronchi or wheezing. Heart: Irregular irregular; no gallop, rub audible. Abdomen: soft, thin cachectic habitus, NTTP, ND, normal BS, no HSM. Extremities: no cyanosis, clubbing, or edema, disheveled and evidence of unclear last timeline of bathing. Neurological: patient awake, alert, oriented proved as noted; cognitive function suspect nearing baseline intact; pupils equally reactive to light and accomodation; cranial nerves II-XII grossly normal, moving all 4 extremities, no focal deficits, strength proving, remains moderately to severely global decrease. Psychiatric: affect appears fatigued, was lethargic prior, improved now, no acute evidence of depressive or anxiety feelings. - Physical Exam Vital Signs Temp Pulse Resp BP Pulse Ox 97.5 F L 116 H 26 H 101/61 99 09/10/18 13:02 09/10/18 13:02 09/10/18 13:02 09/10/18 13:02 09/10/18 13:02 Oxygen Delivery Method Room Air Weight: 134 lb 4.184 oz Body Mass Index (BMI) 19.3 Finger Stick Blood Glucose 127 Laboratory Tests Past 24 Hrs 09/10/18 09/10/18 09/10/18 11:05 11:05 11:05 WBC 10.0 RBC 3.97 L Hgb 12.0 L Hct 35.3 L MCV 88.9 MCH 30.2 MCHC 34.0 RDW 14.1 RDW Differential 46.3 H Plt Count 140 L MPV 11.0 Immature Gran % (Auto) 0.200 Neut % (Auto) 93.4 H Lymph % (Auto) 4.7 L [place] % (Auto) 1.6 Eos % (Auto) 0.1 Baso % (Auto) 0.0 Absolute Neuts (auto) 9.4 H Absolute Lymphs (auto) 0.47 L Total Counted Not Reportable Kevin Cells 1+ PT 15.0 H INR 1.2 APTT 33.2 Sodium 142 Potassium 4.3 Chloride 111 H Carbon Dioxide 14.0 L Anion Gap 17 H BUN 133 H* Creatinine 5.05 H Estim Creat Clear Calc 9.71 Est GFR (MDRD) Af Amer 14 L Est GFR (MDRD) Non-Af 12 L BUN/Creatinine Ratio 26.3 H Glucose 133 H Lactic Acid Calcium 7.9 L Total Bilirubin 0.40 AST 24 ALT 35 Alkaline Phosphatase 90 Total Creatine Kinase 88 Troponin I 0.033 Total Protein 7.3 Albumin 2.6 L Globulin 4.7 H Albumin/Globulin Ratio 0.6 L Lipase 565 H Urine Color Urine Clarity Urine pH Ur Specific [place] Urine Protein Urine Glucose (UA) Urine Ketones Urine Occult Blood Urine Nitrite Urine Bilirubin Urine Urobilinogen Ur Leukocyte Esterase Urine RBC Urine WBC Ur Squamous Epith Cells Amorphous Sediment Urine Bacteria Urine Mucus 09/10/18 09/10/18 11:05 11:25 WBC RBC Hgb Hct MCV MCH MCHC RDW RDW Differential Plt Count MPV Immature Gran % (Auto) Neut % (Auto) Lymph % (Auto) [place] % (Auto) Eos % (Auto) Baso % (Auto) Absolute Neuts (auto) Absolute Lymphs (auto) Total Counted [place] Cells PT INR APTT Sodium Potassium Chloride Carbon Dioxide Anion Gap BUN Creatinine Estim Creat Clear Calc Est GFR (MDRD) Af Amer Est GFR (MDRD) Non-Af BUN/Creatinine Ratio Glucose Lactic Acid 1.1 Calcium Total Bilirubin AST ALT Alkaline Phosphatase Total Creatine Kinase Troponin I Total Protein Albumin Globulin Albumin/Globulin Ratio Lipase Urine Color Brown Urine Clarity Cloudy Urine pH 5.0 Ur Specific [place] 1.010 Urine Protein 100 H Urine Glucose (UA) Normal Urine Ketones Negative Urine Occult Blood 250 H Urine Nitrite Positive H Urine Bilirubin Negative Urine Urobilinogen Normal Ur Leukocyte Esterase 100 H Urine RBC 25-50 SEEN Urine WBC 10-25 SEEN Ur Squamous Epith Cells 0 SEEN Amorphous Sediment 2+ URATE Urine Bacteria 1+ Urine Mucus 0 SEEN Assessment/Plan All Active Problems Sepsis (Acute) UTI (urinary tract infection) (Acute) Encephalopathy acute (Acute) BIRGIT (acute kidney injury) (Acute) Atrial fibrillation with RVR (Acute) Abnormal imaging of thyroid (Acute) Septic shock due Pseudomonas (Acute) Bacteremia (Acute) Acute kidney injury (Resolved) Anasarca associated with disorder of kidney (Resolved) Bacterial infection due to Proteus mirabilis (Resolved) Demand ischemia (Resolved) The patient is a 83 y/o M w/ PMHx: HTN, PAF, Hx SVT, Depression and Anxiety, BPH w/ obstructive history, OA, Mild , Hx Chronic Decubitous ulcers, Diastolic CHF, Hx Pseudomonas bacteremia from UTI prior previously following with wound care who presents to the [facility] ED on 09/10/18 from home with severe debility, he normally uses a cane to ambulate but notes he fell approximately 4 days prior does not remember specific details but states that he was trying to pick something up and became wedged and fell hitting his head as well as the right side of his neck and right lateral ribs. (1) Acute Sepsis secondary to Acute Urinary Tract Infection: Will admit to PCU as noted, UA upon ED evaluation remarkable, pending UCx, continue IVFs, monitor I/Os, continue IV cefepime given pseudomonas history with bacteremia prior w/ transition as able pending sensitivities and speciation. Bld cx x 2 obtained in the ED. (2) Paroxsymal atrial fibrillation: EKG in ED w/ atrial fibrillation w/ RVR. Will maintain on telemetry, administer metoprolol low dose BID to start given hypotension as able, obtain cardiac enzyme serial set, obtain magnesium level, obtain ECHO, obtain TSH level, FT4 and FT3 as well as thyroid US given findings on imaging. Given history of ? DM, ? Diastolic CHF, HTN, CHADs scoring appropriate for anticoagulation start at this time, will initiate heparin drip. (3) Acute kidney injury on CKD III/IV: Secondary to #1, #2. Admission BUN/Cr 133/5.05, prior baseline creatinine noted to be 2-2.3. Will hydrate, hold nephrotoxic medications and repeat chemistry in AM, obtain FeNa assessment and renal US, bladder scans and hamilton if retention noted w/ #2. (4) Elevated Lipase w/ ? Mild Pancreatitis: Lipase 565, normal LFTs, no severe epigastric discomfort complaints, suspect likely associated w/ acute presentation sepsis, UTI, BIRGIT, will continue to hydrate, allow clears only, maintain on PPI, IV/po pain control, trend lipase, CMP. Will obtain RUQ US, FLP, further assess for EtOH consumption risk as etiology for pancreatitis. (5) Abnormal thyroid: CT cervical spine with multilevel degenerative changes with a diffuse enlargement of both lobes of the thyroid gland with substernal extension, pain film of the ribs were unremarkable. Will obtain TSH, free T4, free T3, thyroid ultrasound. (6) Acute Encephalopathy, Infectious and Metabolic: Secondary to as noted #1, #2, #3, #4, #5, continue treatments as noted, improving already upon re- evaluation in the ED. (7) ? Diastolic CHF: Noted history prior, will initiate on aspirin, beta-lyndsay low-dose as noted given hypotension and proximal atrial fibrillation with RVR, defer VILMA inhibitor versus ARB given BIRGIT presentation, defer statin with AM FLP pending, mag pending, repeat echo as noted above. Will need to closely monitor given aggressive hydration. (8) Hyperglycemia with ? Diabetes mellitus type II Hx: Noted prior discharge on insulin, no HgBA1c noted, does have chronic anemia but will obtain HgbA1c and repeat BMP in AM, fasting given time obtained to ascertain needs, add ISS and accu checks if appropriate. (9) Mechanical Fall without Injury: CT head, rib imaging as well as neck imaging with no acute trauma secondary to recent fall. CK normal range, likely secondary to BIRGIT, UTI as noted, continue treatments as noted above, fall precautions, aspiration precautions, PT, OT, CM for discharge planning. (10) Severe protein calorie malnutrition: Evidence per habitus, BMI, obvious m uscle and fat loss, nutrition consulted. (11) Chronic normocytic anemia: Admission Hgb 12, increased from prior, will obtain Fe panel, ferritin, vitamin B12 and folic acid levels. (12) Hypertension: Patient acute presentation with hypotension, improved with IV fluids, adding low-dose metoprolol primarily for paroxysmal atrial for ablation with RVR as noted, holding patient lisinopril-hydrochlorthiazide combination regimen, PRN hydralazine. (13) Depression and anxiety: Likely contributing to current presentation, poor self-care, prior admissions with attempts to use Remeron to increase appetite with notable sedation S regimen at that time had been deferred. Case management consulted. (14) BPH with history of obstruction: Prior stents placed per Dr. Farrar, currently we will start bladder scans, renal ultrasound as noted pending, resume flomax. (15) DVT Prophylaxis: SCDs, heparin drip. (16) CODE status: Patient mental status markedly improved, recognizes self, birthdate, place, month, president, year discussed CODE status at length including difference between FULL code, DNR-CCA and DNR-CC status. Following discussions about the differences in these status, requested Full Code status. From current discussions does not have HCPOA nor living will in place. Advanced Care Planning Face to Face Time: 16 minutes. Code Visit Inpatient E&M: 41686 Init Hosp L3 Procedures: 15280 Advncd Care Plan 30 Min
--- NOTE | 2018-09-10 14:55 | US_ITS ---
STUDY: THYROID ULTRASOUND REASON FOR EXAM: Male, 83 years old. Thyromegaly TECHNIQUE: Ultrasound evaluation of the thyroid was performed with real-time and static [place]-scale imaging. COMPARISON: None. FINDINGS: RIGHT LOBE: The right lobe of the thyroid gland measures 8.0 x 3.1 x 4.2 cm. There is a heterogeneous echotexture. There is a nodule measuring 0.9 x 0.8 x 0.5 cm. There is a nodule measuring 1.0 x 0.9 x 0.7 cm. LEFT LOBE: The left lobe of the thyroid gland measures 7.1 x 3.8 x 3.3 cm. There is a heterogeneous echotexture. There is a nodule measuring 0.7 x 0.7 x 0.5 cm. ISTHMUS: The isthmus measures 4 . The regional lymph nodes are normal. US/Thyroid IMPRESSION: Enlarged thyroid. Bilateral well circumscribed nodules. Recommend correlation with laboratory values. 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 Electronically Signed: Jerri Alonso MD at 2:00 EDT Tel , Service support ,
--- NOTE | 2018-09-10 14:55 | US_ITS ---
STUDY: ABDOMINAL ULTRASOUND - RIGHT UPPER QUADRANT REASON FOR VISIT: Male, 83 years old. Pancreatitis TECHNIQUE: Ultrasound evaluation of the right upper quadrant was performed with real-time and static [place]-scale imaging. TECHNICAL QUALITY: Adequate. COMPARISON: October 23, 2016 CT scan abdomen and pelvis FINDINGS: Liver: The liver measures 14.8 cm. There is increased echogenicity consistent with fatty infiltration. The bile ducts are within normal limits. There is hepatic color flow. The direction of portal flow is hepatopetal. There is no demonstrated mass lesion. Gallbladder: The gallbladder appears partially contracted the wall measures 3.7 mm. There is a trace amount of sludge in the gallbladder. There is a negative sonographic Campos's sign. There is no pericholecystic fluid. Common Bile Duct (C.B.D.): The common bile duct measures 4.3 mm. Pancreas: Partially visualized,the pancreas appears atrophied and echogenic. Right Kidney: Normal size of the right kidney. The right kidney measures 9.0 x 3 point by 4.4 cm. Normal renal cortex. The right cortex measures 1.1 cm. There is a lower pole exophytic cyst measuring 0.9 x 1.0 cm. There is no right hydronephrosis. US/Gallbladder IMPRESSION: Nonspecific partially contracted gallbladder with mild wall thickening. Trace sludge. The pancreas is not well-visualized. Benign-appearing right renal cyst. Electronically Signed: Jerri Alonso MD at 19:14 EDT Tel , Service support ,
--- NOTE | 2018-09-10 14:55 | ECHOD_ITS ---
Reason For Study: AFIB Procedure This was a 2D Doppler, Color Flow transthoracic echocardiogram. Technically difficult due to body habitus / laying in supine position. The study was technically difficult. Exam performed portable in ICU/CCU. Left Ventricle Normal LV size. Left ventricular systolic function is normal. The estimated ejection fraction is 65 %. Unable to assess diastolic dysfunction. No regional wall motion abnormalities noted. Right Ventricle Normal RV size. Normal systolic function. Atria The left atrium is moderately enlarged. Normal right atrium. No doppler evidence for ASD. Mitral Valve There is no mitral annular calcification. Mild diffuse mitral valve thickening. Mild (1+) mitral valve insufficiency. Tricuspid Valve Normal tricuspid valve. Mild tricuspid valve insufficiency. Right ventricular systolic pressure estimated to be 28 mmHg. Aortic Valve Trisinus/trileaflet aortic valve. Mild diffuse aortic valve thickening. Moderate diffuse aortic valve calcification. Mild aortic stenosis. Pulmonic Valve The pulmonic valve is not well visualized. Great Vessels Normal sized aortic root. Pericardium/Pleural No pericardial effusion. MMode/2D Measurements & Calculations LVIDd: 3.8 cm IVSd: 1.2 cm LVOT diam: 2.0 cm LVIDs: 2.6 cm LVPWd: 1.3 cm LVOT area: 3.1 cm2 FS: 30.6 % Ao root diam: 3.8 cm LAV(MOD-bp): 76.3 ml LVAd ap4: 25.0 cm2 LAV(MOD-bp) Indexed: 43.4 ml/m2 EDV(MOD-sp4): 66.5 ml LAV(MOD-sp2): 54.1 ml EDV(sp4-el): 72.0 ml LAV(MOD-sp4): 92.3 ml LVAs ap4: 14.5 cm2 ESV(MOD-sp4): 26.4 ml ESV(sp4-el): 26.4 ml EF(MOD-sp4): 60.3 % EF(sp4-el): 63.3 % SV(MOD-sp4): 40.1 ml SV(sp4-el): 45.5 ml LA A4 area: 27.4 cm2 RA A4 area: 21.0 cm2 Doppler Measurements & Calculations MV E max joesph: 103.5 cm/sec MV V2 max: 116.9 cm/sec Ao V2 max: 276.9 cm/sec MV max P.5 mmHg Ao max P.0 mmHg MV V2 mean: 67.7 cm/sec Ao V2 mean: 194.5 cm/sec MV mean P.2 mmHg Ao mean P.1 mmHg MV V2 VTI: 23.5 cm Ao V2 VTI: 45.6 cm MVA(VTI): 2.9 cm2 MUKESH(I,D): 1.5 cm2 MUKESH(V,D): 1.4 cm2 LV V1 max: 123.5 cm/sec SV(LVOT): 68.9 ml TR max joesph: 247.9 cm/sec LV V1 max P.2 mmHg TR max P.8 mmHg LV V1 mean P.9 mmHg LV V1 mean: 93.5 cm/sec LV V1 VTI: 22.5 cm Interpretation Summary The study was technically difficult . Left ventricular systolic function is normal. The estimated ejection fraction is 65 %. The left atrium is moderately enlarged. Mild diffuse mitral valve thickening. Mild (1+) mitral valve insufficiency. Mild tricuspid valve insufficiency. Mild aortic stenosis. Right ventricular systolic pressure estimated to be 28 mmHg. Unable to assess diastolic dysfunction. Ordering Physician: Nae Frederick Referring Physician: VIRAL DOYLE CHI Performed By: Ivette Foster, RDCS, RVT
--- NOTE | 2018-09-10 14:55 | US_ITS ---
STUDY: RENAL ULTRASOUND - COMPLETE REASON FOR EXAM: Male, 83 years old. Acute renal failure TECHNIQUE: Ultrasound evaluation of the kidneys was performed with real-time and static leahy-scale imaging. COMPARISON: Limited comparison CT pelvis October 23, 2016 FINDINGS: RIGHT KIDNEY: Normal location of the right kidney, which is normal in size. The right kidney measures 9.0 x 3.6 x 3.8 cm. There is a hyperechoic appearance of the right renal cortex suggestive of underlying medical renal disease. The renal cortex measures 1.4 cm. Is a right renal cyst measuring 1.5 x 1.2 x 1.1 cm. There are no right renal calculi. There is no right hydronephrosis. DISTAL RIGHT URETER: There is non-visualization of the distal right ureter. There is no demonstrated right ureterovesical junction calculus. There is no demonstrated right ureteral jet. LEFT KIDNEY: Normal location of the left kidney, which is normal in size. The left kidney measures 10.8 x 4.2 x 4.7 cm. There is a normal cortex of the left kidney. The renal cortex measures 1.3 cm. There is no left renal mass or cyst. There are no left renal calculi. There is no left hydronephrosis. DISTAL LEFT URETER: There is non-visualization of the distal left ureter. There is no demonstrated left ureterovesical junction calculus. There is no demonstrated left ureteral jet. BLADDER: The distended urinary bladder has a volume of 103.6 ml. There is an inhomogeneous thickened appearance of the wall of the bladder with increased echogenicity. There are areas of thickening and shadowing. This may represent debris or possibly stones. US/Kidney and Bladder IMPRESSION: Findings are suspicious for cystitis. There is inhomogeneous appearance of the wall the bladder with thickening. Multiple stones are seen in the posterior aspect of the bladder on a prior CT. There is focal thickening of the base of the bladder transverse image and may measure up to 1.8 x 0.8 cm. This may represent focal edema potentially a bladder cancer. Recommend consideration for cystoscopy when appropriate. Increased echogenicity of the right kidney suspicious for medical renal disease. Benign-appearing cyst right kidney. Electronically Signed: Jerri Alonso MD at 23:08 EDT Tel , Service support ,
[2018-09-10] MEDS: 0.9% Normal Saline 1,000 ML 125 ML IV (15:20)
[2018-09-10 15:25] LABS: Bedside Glucose 105 mg/dL (70-110)
[2018-09-10 15:39] LABS: Free T3 1.5 pg/mL (2.18-3.98); Magnesium 2.5 mg/dL (1.6-2.6); T4 Free Direct 1.11 ng/dL (0.76-1.46); Thyroid Stim Hormone (TSH) 0.66 uIU/mL (0.358-3.74)
[2018-09-10] MEDS: HEPARIN/D5w 25,000 UNITS 25,000 UNITS/250 ML IV.SOLN. 8 UNITS IV (15:48)
[2018-09-10 15:49] LABS: Ferritin 1783 ng/mL (26-388); Iron 14 ug/dL (65-175); Iron Binding Capacity,Total 119 ug/dL (250-450); PERCENT IRON SATURATION 11.8 % (15.0-55.0); Phosphorus 3.4 mg/dL (2.5-4.9)
[2018-09-10] MEDS: Heparin Injection (Vial) 5,000 UNIT/ML VIAL 4000 UNIT IV (15:49)
[2018-09-10 16:10] LABS: Vitamin B12 1694 pg/mL (211-911)
[2018-09-10] MEDS: Tamsulosin HCl 0.4 MG Capsule PO (18:54)
[2018-09-10 20:37] LABS: Urine Sodium 45 mmol/L (Not Establ.)
--- NOTE | 2018-09-10 21:40 | NURSING ---
Vital signs late on this patient due to blood vitals on another patient and a new admission with [facility] that needed completed.
[2018-09-10] MEDS: Pantoprazole Sodium 20 MG Tablet PO (21:49)
[2018-09-10 22:23] LABS: Partial Thromboplast Time 65.8 Seconds (24.1-36.2)
[2018-09-11] VITALS (29 sets, daily range): BP systolic 80–103; BP diastolic 48–70; PULSE 91–116; RESP 12–31; TEMP 36.4–37.1; O2SAT 95–99
[2018-09-11] MEDS: 0.9% Normal Saline 1,000 ML 125 ML IV ×2 (00:24→08:58)
--- NOTE | 2018-09-11 01:40 | NURSING ---
Report called to JASE Garrido in ICU
[2018-09-11 04:46] LABS: Partial Thromboplast Time 56.8 Seconds (24.1-36.2)
[2018-09-11 04:50] LABS: Absolute Lymphocyte Count 0.74 X10^3/ul (0.83-4.51); Absolute Neutrophil Count 4.9 X10^3/uL (2.0-7.7); Basophil# 0.01 X10^3/uL; Basophil% 0.2 % (0-1); Eosinophil# 0.07 X10^3/uL; Eosinophils% 1.2 % (0-5); Hematocrit 27.3 % (40-54); Hemoglobin 9.4 g/dl (13.0-16.5); Lymphocyte # 0.74 X10^3/ul (4.0); Lymphocyte % 12.2 % (19-41); Mean Corp Hgb Conc 34.4 g/gl (32-36); Mean Corpuscular Hgb 30.9 pg (27.0-32.0); Mean Corpuscular Volume 89.8 fL (80-94); Mean Platelet Vol. 11.1 fl (6.2-12.0); Monocyte# 0.37 X10^3/uL; Monocyte% 6.1 % (0-10); Neutrophil # 4.88 X10^3/uL (2.7-7.7); Neutrophil % 80.1 % (47-70); Platelet Count 116 K/mm3 (150-450); RBC Distribution Width CV 13.9 % (11.6-14.6); RBC Distribution Width SD 43.8 fl (35.1-43.9); Red Blood Count 3.04 M/mm3 (4.6-6.2); White Blood Count 6.1 K/mm3 (4.4-11.0)
[2018-09-11 04:53] LABS: POSITIVE COUNT NO; POSITIVE DIFFERENTIAL NO; POSITIVE MORPHOLOGY NO
[2018-09-11 05:03] LABS: ALB/GLOB Ratio 0.5 RATIO (0.9-2.4); AST(SGOT) 33 U/L (15-37); Alanine Aminotransfer ALT/SGPT 36 U/L (16-61); Alkaline Phosphatase 69 U/L (45-117); Anion Gap 14 (5-15); BUN 131 mg/dL (7-18); Calcium,Total 7.5 mg/dL (8.5-10.1); Chloride 119 mmol/L (98-107); Cholesterol 87 mg/dL (200); Creatinine, Serum 4.37 mg/dL (0.70-1.30); EST Glomerular Filtration Rate 14 mL/min (>60); Est Glom Filt Rate - Afr Amer 17 mL/min (>60); Estimated Creatinine Clearance 11.71 ml/min; Globulin 3.8 g/dL (2.2-4.2); Glucose 136 mg/dL (74-106); High Density Lipoprotein 13 mg/dL; Lipase 460 U/L (73-393); Magnesium 2.4 mg/dL (1.6-2.6); Potassium 4.3 mmol/L (3.5-5.1); Protein, Total 5.8 g/dL (6.4-8.2); Sodium Level 146 mmol/L (136-145); Triglycerides 182 mg/dL; Very Low Density Lipoprotein 36 mg/dL (5-40)
[2018-09-11 05:06] LABS: Phosphorus 4.1 mg/dL (2.5-4.9)
[2018-09-11] MEDS: HYDROcodone Bitartrate/Apap 5/325 Tablet PO (08:38)
[2018-09-11] MEDS: Tamsulosin HCl 0.4 MG Capsule PO ×2 (08:39→18:01)
[2018-09-11] MEDS: Aspirin 81 MG TAB.CHEW PO (08:39)
[2018-09-11] MEDS: Pantoprazole Sodium 20 MG Tablet PO ×2 (09:37→20:31)
--- NOTE | 2018-09-11 10:21 | CON.PCM_ITS ---
Reason for Consult Date of Consultation: 09/11/18 Reason for Consultation: Gram-negative sepsis History of Present Illness: The patient is an 83-year-old male, with a history as outlined below, who presented to the emergency department on September 10 after sustaining a fall in his home environment several days prior to his presentation. The patient has a history of BPH with obstructive uropathy, paroxysmal atrial fibrillation, hypertension, and chronic decubitus ulcers. He also has a history of chronic systolic heart failure with an ejection fraction last known to be 35% in September 2016. On presentation to the emergency department, the patient was noted to be tachycardic and mildly hypotensive. He was also tachypneic, but able to maintain appropriate oxygen saturations on room air. Initial laboratory evaluation revealed no evidence of a leukocytosis. The patient's platelet count was low at 140,000. INR was noted to be 1.2. Chemistry profile was significant for a chloride of 111, bicarbonate of 14, anion gap of 17, BUN of 133 and creatinine of 5.05. Total CK was within normal limits. Troponin was negative. Lipase was elevated to 565. Urinalysis was positive for nitrites and leukocyte esterase. Head CT revealed chronic involutional changes of the brain. While in the emergency department, the patient received supplemental IV fluids and ceftriaxone. The patient was subsequently admitted to the progressive care unit for ongoing management. Overnight, the patient was transferred from the PCU to the medical intensive care unit due to tenuous hemodynamics. The patient is currently documented to be overall net +3 L for the admission. Past Medical History Past Medical History (Chronic Problems): Chronic Problems Acute kidney injury superimposed on chronic kidney disease (Chronic) CKD (chronic kidney disease), stage IV (Chronic) HTN (hypertension) (Chronic) HLD (hyperlipidemia) (Chronic) Anxiety and depression (Chronic) Malnutrition (Chronic) Stage 4 chronic kidney disease due to hypertension (Chronic) Depression (Chronic) Decubitus ulcers (Chronic) left upper back Paroxysmal atrial fibrillation with rapid ventricular response (Chronic) Mild aortic stenosis (Chronic) BPH with obstruction/lower urinary tract symptoms (Chronic) Pseudomonas Benign essential hypertension (Chronic) Chronic osteoarthritis (Chronic) History of supraventricular tachycardia (Chronic) Allergies No Known Allergies Allergy (Verified 02/06/17 09:54) Home Medications: Ambulatory Orders Medication Instructions Recorded Lisinopril/Hydrochlorothiazide 1 each PO DAILY 09/10/18 [Lisinopril-Hctz 20-12.5 mg Tab] Surgical History: arthscropcy, hip, arthroscopy, knee, herniorrhaphy, - - Cystoscopy with bilateral ureteral stent placement Psychiatric History: Depression Lives: Alone Smoking Status: Never smoker Tobacco Use: Non-smoker Alcohol: Occasional Drugs: None - *Family History Maternal History Items: Heart Disease Paternal History Items: Heart Disease Review of Systems Constitutional: Reports: Weakness, Fatigue Eyes: Denies: Blurred vision, Double vision HEENT: Denies: Head Aches, Sinus Congestion, Sinus Drainage Cardiovascular: Denies: Chest Pain, Palpitations Respiratory: Denies: Cough, Shortness of Breath Gastrointestinal: Reports: Abdominal Pain Genitourinary: Reports: Incontinence Musculoskeletal: Reports: Muscle pain Skin: Reports: Wounds Neurological: Reports: Balance problems Psychiatric: Reports: Anxiety Hematologic/ Lymphatic: Reports: Anemia Patient Problems: Active and Suspected Problems Sepsis (Acute) UTI (urinary tract infection) (Acute) Encephalopathy acute (Acute) BIRGIT (acute kidney injury) (Acute) Atrial fibrillation with RVR (Acute) Abnormal imaging of thyroid (Acute) Objective: The patient's most recent lab work, culture data and imaging studies have all been personally reviewed. Preliminary blood cultures were positive for gram- negative rods. - Physical Exam General: Alert, Cooperative, - - Unkempt in appearance HEENT: Atraumatic, PERRLA, Normocephalic Oral: Dry Mucosa, - - Poor dentition Neck: Supple, No Nodes, Trachea Midline Lungs: No rhonchi, No wheeze, No rales, Diminished Cardiovascular: Normal S1, Normal S2, Irregular Rate, Murmur, Tachycardic Abdomen: Bowel Sounds Present, Soft Extremities: No clubbing, No cyanosis, No edema Skin: No rashes Musculoskeletal: Cachexia, Muscle Wasting Lymphatic: No Cervical, Supraclavicular, or Inguinal Adenopathy Neurological: Neuro grossly intact Psych/Mental Status: Flat Affect Vital Signs Temp Pulse Resp BP Pulse Ox 98.1 F 116 H 24 H 95/63 95 09/11/18 10:00 09/11/18 10:00 09/11/18 10:00 09/11/18 10:00 09/11/18 10:00 Oxygen Flow Rate (L/min) 2 Oxygen Delivery Method Room Air Weight: 138 lb 3.677 oz Body Mass Index (BMI) 20.0 Finger Stick Blood Glucose 127 Intake and Output for Last 24 Hours 09/09/18 09/10/18 09/11/18 23:59 23:59 23:59 Intake Total 1543.7 / 1543.7 Balance 1543.7 / 1543.7 Microbiology Past 72 Hours 09/10/18 11:25 Blood Culture - Preliminary Blood Culture (Wb) - Left Wrist 09/10/18 11:35 Blood Culture - Preliminary Blood Culture (Wb) - Right Forearm Laboratory Tests Past 24 Hrs 09/10/18 09/10/18 09/10/18 11:05 11:05 11:05 WBC 10.0 RBC 3.97 L Hgb 12.0 L Hct 35.3 L MCV 88.9 MCH 30.2 MCHC 34.0 RDW 14.1 RDW Differential 46.3 H Plt Count 140 L MPV 11.0 Immature Gran % (Auto) 0.200 Neut % (Auto) 93.4 H Lymph % (Auto) 4.7 L Hale % (Auto) 1.6 Eos % (Auto) 0.1 Baso % (Auto) 0.0 Absolute Neuts (auto) 9.4 H Absolute Lymphs (auto) 0.47 L Total Counted Not Reportable Gilliam Cells 1+ PT 15.0 H INR 1.2 APTT 33.2 Sodium 142 Potassium 4.3 Chloride 111 H Carbon Dioxide 14.0 L Anion Gap 17 H BUN 133 H* Creatinine 5.05 H Estim Creat Clear Calc 9.71 Est GFR (MDRD) Af Amer 14 L Est GFR (MDRD) Non-Af 12 L BUN/Creatinine Ratio 26.3 H Glucose 133 H Lactic Acid Calcium 7.9 L Phosphorus Magnesium Iron TIBC Iron Saturation Ferritin Total Bilirubin 0.40 AST 24 ALT 35 Alkaline Phosphatase 90 Total Creatine Kinase 88 Troponin I 0.033 Total Protein 7.3 Albumin 2.6 L Globulin 4.7 H Albumin/Globulin Ratio 0.6 L Triglycerides Cholesterol LDL Cholesterol VLDL Cholesterol HDL Cholesterol Lipase 565 H Vitamin B12 Folate TSH Free T4 Free T3 pg/dL Urine Color Urine Clarity Urine pH Ur Specific Century Urine Protein Urine Glucose (UA) Urine Ketones Urine Occult Blood Urine Nitrite Urine Bilirubin Urine Urobilinogen Ur Leukocyte Esterase Urine RBC Urine WBC Ur Squamous Epith Cells Amorphous Sediment Urine Bacteria Urine Mucus Ur Random Sodium Urine Creatinine 09/10/18 09/10/18 09/10/18 11:05 11:05 11:05 WBC RBC Hgb Hct MCV MCH MCHC RDW RDW Differential Plt Count MPV Immature Gran % (Auto) Neut % (Auto) Lymph % (Auto) Hale % (Auto) Eos % (Auto) Baso % (Auto) Absolute Neuts (auto) Absolute Lymphs (auto) Total Counted Kevin Cells PT INR APTT Sodium Potassium Chloride Carbon Dioxide Anion Gap BUN Creatinine Estim Creat Clear Calc Est GFR (MDRD) Af Amer Est GFR (MDRD) Non-Af BUN/Creatinine Ratio Glucose Lactic Acid Calcium Phosphorus 3.4 Magnesium 2.5 Iron 14 L TIBC 119 L Iron Saturation 11.8 L Ferritin 1783 H Total Bilirubin AST ALT Alkaline Phosphatase Total Creatine Kinase Troponin I Total Protein Albumin Globulin Albumin/Globulin Ratio Triglycerides Cholesterol LDL Cholesterol VLDL Cholesterol HDL Cholesterol Lipase Vitamin B12 Folate 18.20 TSH 0.66 Free T4 1.11 Free T3 pg/dL 1.5 L Urine Color Brown Urine Clarity Cloudy Urine pH 5.0 Ur Specific Century 1.010 Urine Protein 100 H Urine Glucose (UA) Normal Urine Ketones Negative Urine Occult Blood 250 H Urine Nitrite Positive H Urine Bilirubin Negative Urine Urobilinogen Normal Ur Leukocyte Esterase 100 H Urine RBC 25-50 SEEN Urine WBC 10-25 SEEN Ur Squamous Epith Cells 0 SEEN Amorphous Sediment 2+ URATE Urine Bacteria 1+ Urine Mucus 0 SEEN Ur Random Sodium Urine Creatinine 09/10/18 09/10/18 09/10/18 11:25 15:20 15:20 WBC RBC Hgb Hct MCV MCH MCHC RDW RDW Differential Plt Count MPV Immature Gran % (Auto) Neut % (Auto) Lymph % (Auto) Hale % (Auto) Eos % (Auto) Baso % (Auto) Absolute Neuts (auto) Absolute Lymphs (auto) Total Counted Gilliam Cells PT INR APTT Sodium Potassium Chloride Carbon Dioxide Anion Gap BUN Creatinine Estim Creat Clear Calc Est GFR (MDRD) Af Amer Est GFR (MDRD) Non-Af BUN/Creatinine Ratio Glucose Lactic Acid 1.1 Calcium Phosphorus Magnesium Iron TIBC Iron Saturation Ferritin Total Bilirubin AST ALT Alkaline Phosphatase Total Creatine Kinase Troponin I 0.044 Total Protein Albumin Globulin Albumin/Globulin Ratio Triglycerides Cholesterol LDL Cholesterol VLDL Cholesterol HDL Cholesterol Lipase Vitamin B12 1694 H Folate TSH Free T4 Free T3 pg/dL Urine Color Urine Clarity Urine pH Ur Specific Century Urine Protein Urine Glucose (UA) Urine Ketones Urine Occult Blood Urine Nitrite Urine Bilirubin Urine Urobilinogen Ur Leukocyte Esterase Urine RBC Urine WBC Ur Squamous Epith Cells Amorphous Sediment Urine Bacteria Urine Mucus Ur Random Sodium Urine Creatinine 09/10/18 09/10/18 09/10/18 18:25 19:00 19:00 WBC RBC Hgb Hct MCV MCH MCHC RDW RDW Differential Plt Count MPV Immature Gran % (Auto) Neut % (Auto) Lymph % (Auto) Hale % (Auto) Eos % (Auto) Baso % (Auto) Absolute Neuts (auto) Absolute Lymphs (auto) Total Counted Kevin Cells PT INR APTT Sodium Potassium Chloride Carbon Dioxide Anion Gap BUN Creatinine Estim Creat Clear Calc Est GFR (MDRD) Af Amer Est GFR (MDRD) Non-Af BUN/Creatinine Ratio Glucose Lactic Acid Calcium Phosphorus Magnesium Iron TIBC Iron Saturation Ferritin Total Bilirubin AST ALT Alkaline Phosphatase Total Creatine Kinase Troponin I 0.035 Total Protein Albumin Globulin Albumin/Globulin Ratio Triglycerides Cholesterol LDL Cholesterol VLDL Cholesterol HDL Cholesterol Lipase Vitamin B12 Folate TSH Free T4 Free T3 pg/dL Urine Color Urine Clarity Urine pH Ur Specific Century Urine Protein Urine Glucose (UA) Urine Ketones Urine Occult Blood Urine Nitrite Urine Bilirubin Urine Urobilinogen Ur Leukocyte Esterase Urine RBC Urine WBC Ur Squamous Epith Cells Amorphous Sediment Urine Bacteria Urine Mucus Ur Random Sodium 45 Urine Creatinine 73.40 09/10/18 09/11/18 09/11/18 21:55 03:53 03:53 WBC 6.1 RBC 3.04 L Hgb 9.4 L Hct 27.3 L MCV 89.8 MCH 30.9 MCHC 34.4 RDW 13.9 RDW Differential 43.8 Plt Count 116 L MPV 11.1 Immature Gran % (Auto) 0.200 Neut % (Auto) 80.1 H Lymph % (Auto) 12.2 L Hale % (Auto) 6.1 Eos % (Auto) 1.2 Baso % (Auto) 0.2 Absolute Neuts (auto) 4.9 Absolute Lymphs (auto) 0.74 L Total Counted Not Reportable Gilliam Cells PT INR APTT 65.8 H Sodium 146 H Potassium 4.3 Chloride 119 H Carbon Dioxide 13.0 L Anion Gap 14 BUN 131 H* Creatinine 4.37 H Estim Creat Clear Calc 11.71 Est GFR (MDRD) Af Amer 17 L Est GFR (MDRD) Non-Af 14 L BUN/Creatinine Ratio 30.0 H Glucose 136 H Lactic Acid Calcium 7.5 L Phosphorus Magnesium 2.4 Iron TIBC Iron Saturation Ferritin Total Bilirubin 0.30 AST 33 ALT 36 Alkaline Phosphatase 69 Total Creatine Kinase Troponin I Total Protein 5.8 L Albumin 2.0 L Globulin 3.8 Albumin/Globulin Ratio 0.5 L Triglycerides 182 Cholesterol 87 LDL Cholesterol 38 VLDL Cholesterol 36 HDL Cholesterol 13 L Lipase 460 H Vitamin B12 Folate TSH Free T4 Free T3 pg/dL Urine Color Urine Clarity Urine pH Ur Specific Century Urine Protein Urine Glucose (UA) Urine Ketones Urine Occult Blood Urine Nitrite Urine Bilirubin Urine Urobilinogen Ur Leukocyte Esterase Urine RBC Urine WBC Ur Squamous Epith Cells Amorphous Sediment Urine Bacteria Urine Mucus Ur Random Sodium Urine Creatinine 09/11/18 09/11/18 09/11/18 03:53 03:53 10:00 WBC RBC Hgb Hct MCV MCH MCHC RDW RDW Differential Plt Count MPV Immature Gran % (Auto) Neut % (Auto) Lymph % (Auto) Hale % (Auto) Eos % (Auto) Baso % (Auto) Absolute Neuts (auto) Absolute Lymphs (auto) Total Counted Kevin Cells PT INR APTT 56.8 H Pending Sodium Potassium Chloride Carbon Dioxide Anion Gap BUN Creatinine Estim Creat Clear Calc Est GFR (MDRD) Af Amer Est GFR (MDRD) Non-Af BUN/Creatinine Ratio Glucose Lactic Acid Calcium Phosphorus 4.1 Magnesium Iron TIBC Iron Saturation Ferritin Total Bilirubin AST ALT Alkaline Phosphatase Total Creatine Kinase Troponin I Total Protein Albumin Globulin Albumin/Globulin Ratio Triglycerides Cholesterol LDL Cholesterol VLDL Cholesterol HDL Cholesterol Lipase Vitamin B12 Folate TSH Free T4 Free T3 pg/dL Urine Color Urine Clarity Urine pH Ur Specific Century Urine Protein Urine Glucose (UA) Urine Ketones Urine Occult Blood Urine Nitrite Urine Bilirubin Urine Urobilinogen Ur Leukocyte Esterase Urine RBC Urine WBC Ur Squamous Epith Cells Amorphous Sediment Urine Bacteria Urine Mucus Ur Random Sodium Urine Creatinine POC Glucose 09/10/18 15:04 POC Glucose 105 Clinical Impression(s) from Imaging Studies Brain CT 09/10/18 11:15 IMPRESSION: Chronic involutional changes of the brain. Electronically Signed: Marc Owens, at 12:48 EDT , Service support , Cervical Spine CT 09/10/18 11:15 IMPRESSION: Multilevel degenerative changes, as described above. 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 Electronically Signed: Marc Owens, at 12:53 EDT , Service support , Ribs X-Ray 09/10/18 12:21 IMPRESSION: Normal x-ray examination of the ribs. Electronically Signed: Marc Moraomar, at 12:50 EDT , Service support , Gallbladder Ultrasound 09/10/18 14:55 IMPRESSION: Nonspecific partially contracted gallbladder with mild wall thickening. Trace sludge. The pancreas is not well-visualized. Benign-appearing right renal cyst. Electronically Signed: Jerri Alonso MD at 19:14 EDT Tel , Service support , Renal Ultrasound 09/10/18 14:55 IMPRESSION: Findings are suspicious for cystitis. There is inhomogeneous appearance of the wall the bladder with thickening. Multiple stones are seen in the posterior aspect of the bladder on a prior CT. There is focal thickening of the base of the bladder transverse image and may measure up to 1.8 x 0.8 cm. This may represent focal edema potentially a bladder cancer. Recommend consideration for cystoscopy when appropriate. Increased echogenicity of the right kidney suspicious for medical renal disease. Benign-appearing cyst right kidney. Electronically Signed: Jerri Alonso MD at 23:08 EDT Tel , Service support , Thyroid Ultrasound 09/10/18 14:55 IMPRESSION: Enlarged thyroid. Bilateral well circumscribed nodules. Recommend correlation with laboratory values. 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 Electronically Signed: Jerri Alonso MD at 2:00 EDT Tel , Service support , Assessment/Plan Active and Suspected Problems Sepsis (Acute) UTI (urinary tract infection) (Acute) Encephalopathy acute (Acute) BIRGIT (acute kidney injury) (Acute) Atrial fibrillation with RVR (Acute) Abnormal imaging of thyroid (Acute) RECOMMENDATIONS: 1. Continue broad-spectrum antimicrobial coverage for now. 2. Obtain and send urine for culture. 3. Repeat blood cultures. 4. Discontinue melatonin and morphine. 5. Await repeat echocardiogram. 6. The patient will require physical therapy evaluation and potential placement. IMPRESSIONS: 1. Gram-negative sepsis Presumed urinary source with subsequent seeding of bloodstream. Preliminary blood cultures were positive for gram-negative rods. Recommend sending urine for culture. Continue broad antimicrobial coverage for now. Hold home antihypertensives, given tenuous hemodynamics. Conservative use of supplemental IV fluids given previously documented ejection fraction of 35%. 2. Acute on chronic kidney disease Likely prerenal in etiology and related to #1. Given the patient's uremia, decreased urine output and metabolic acidosis, will ask nephrology to evaluate the patient. Continue to monitor urine output. No indication for renal replacement therapy at this time. 3. Paroxysmal atrial fibrillation While the patient does have paroxysmal atrial fibrillation, his rate is not currently an issue. He is not an ideal candidate for systemic anticoagulation. Avoid beta-blockers for now given borderline hemodynamics. 4. Metabolic encephalopathy Likely related to numbers 1 and 2 with underlying infection and metabolic derangements contributing. Anticipate improvement with correction of the aforementioned. Nephrology consultation is currently pending. Continue antibiotics to address the patient's underlying infectious process. 5. Anemia/history of heart failure/hypertension/depression/anxiety/BPH Complicates care, management, recovery and prognosis. Continue to hold antihypertensives as noted above. The patient will require evaluation by physical therapy. This note was generated with [employer] dictation software. It may contain incorrect words, spelling, and punctuation that were not noted in checking the note before signing. Code Visit Inpatient E&M: 80258 Init Hosp L3
--- NOTE | 2018-09-11 10:26 | PCM.PROGNOTE ---
Patient Problems: Active and Suspected Problems Sepsis (Acute) UTI (urinary tract infection) (Acute) Encephalopathy acute (Acute) BIRGIT (acute kidney injury) (Acute) Atrial fibrillation with RVR (Acute) Abnormal imaging of thyroid (Acute) Subjective: Chief complaint: Follow-up after admission for sepsis secondary to acute cystitis, acute kidney injury double stage III chronic kidney disease, new onset atrial fibrillation, probable mild pancreatitis and abnormal thyroid. Patient seen and examined. No acute events overnight. This morning, patient complained of low back pain from being on the bed overnight. Denied chest pain or shortness of breath. Denied abdominal pain, nausea or vomiting. Denied cough or sputum production. Denies fever or chills. He remained in A. fib with RVR, heart rate has been around 110, afebrile, blood pressure is borderline, pulse ox is maintained on 2 L. - Physical Exam General: Alert, Oriented x3, Cooperative, No apparent distress HEENT: Atraumatic, PERRLA, EOMI, Normocephalic Oral: Moist Mucosa, No Gingival or Mucosal Lesions/ Ulcerations Neck: Supple, No JVD, Negative Carotid Bruits, Trachea Midline, Thyroid Normal Size and Texture Lungs: Clear to auscultation, No wheeze, No rales, Diminished, Rhonchi Cardiovascular: Normal S1, Normal S2, No Ectopic Activity, PMI Normal, Irregular Rate, Murmur - Systolic murmur., Tachycardic Abdomen: Soft, Non Tender, Non-Distended, No Hepato-splenomegaly Extremities: No clubbing, No cyanosis, Edema Skin: No rashes, No breakdown Lymphatic: No Cervical, Supraclavicular, or Inguinal Adenopathy Neurological: Cranial nerves II-XII grossly intact, Motor Exam 5/5 strength throughout Psych/Mental Status: Normal Affect, Appropriate Vital Signs Temp Pulse Resp BP Pulse Ox 98.1 F 116 H 24 H 95/63 95 09/11/18 10:00 09/11/18 10:00 09/11/18 10:00 09/11/18 10:09/11/18 10:00 Oxygen Flow Rate (L/min) 2 Oxygen Delivery Method Room Air Weight: 138 lb 3.677 oz Body Mass Index (BMI) 20.0 Finger Stick Blood Glucose 127 Intake and Output for Last 24 Hours 09/09/18 09/10/18 09/11/18 23:59 23:59 23:59 Intake Total 1543.7 / 1543.7 Balance 1543.7 / 1543.7 Microbiology Past 72 Hours 09/10/18 11:25 Blood Culture - Preliminary Blood Culture (Wb) - Left Wrist 09/10/18 11:35 Blood Culture - Preliminary Blood Culture (Wb) - Right Forearm Laboratory Tests Past 24 Hrs 09/10/18 09/10/18 09/10/18 11:05 11:05 11:05 WBC 10.0 RBC 3.97 L Hgb 12.0 L Hct 35.3 L MCV 88.9 MCH 30.2 MCHC 34.0 RDW 14.1 RDW Differential 46.3 H Plt Count 140 L MPV 11.0 Immature Gran % (Auto) 0.200 Neut % (Auto) 93.4 H Lymph % (Auto) 4.7 L [place] % (Auto) 1.6 Eos % (Auto) 0.1 Baso % (Auto) 0.0 Absolute Neuts (auto) 9.4 H Absolute Lymphs (auto) 0.47 L Total Counted Not Reportable [place] Cells 1+ PT 15.0 H INR 1.2 APTT 33.2 Sodium 142 Potassium 4.3 Chloride 111 H Carbon Dioxide 14.0 L Anion Gap 17 H BUN 133 H* Creatinine 5.05 H Estim Creat Clear Calc 9.71 Est GFR (MDRD) Af Amer 14 L Est GFR (MDRD) Non-Af 12 L BUN/Creatinine Ratio 26.3 H Glucose 133 H Lactic Acid Calcium 7.9 L Phosphorus Magnesium Iron TIBC Iron Saturation Ferritin Total Bilirubin 0.40 AST 24 ALT 35 Alkaline Phosphatase 90 Total Creatine Kinase 88 Troponin I 0.033 Total Protein 7.3 Albumin 2.6 L Globulin 4.7 H Albumin/Globulin Ratio 0.6 L Triglycerides Cholesterol LDL Cholesterol VLDL Cholesterol HDL Cholesterol Lipase 565 H Vitamin B12 Folate TSH Free T4 Free T3 pg/dL Urine Color Urine Clarity Urine pH Ur Specific [place] Urine Protein Urine Glucose (UA) Urine Ketones Urine Occult Blood Urine Nitrite Urine Bilirubin Urine Urobilinogen Ur Leukocyte Esterase Urine RBC Urine WBC Ur Squamous Epith Cells Amorphous Sediment Urine Bacteria Urine Mucus Ur Random Sodium Urine Creatinine 09/10/18 09/10/18 09/10/18 11:05 11:05 11:05 WBC RBC Hgb Hct MCV MCH MCHC RDW RDW Differential Plt Count MPV Immature Gran % (Auto) Neut % (Auto) Lymph % (Auto) [place] % (Auto) Eos % (Auto) Baso % (Auto) Absolute Neuts (auto) Absolute Lymphs (auto) Total Counted [place] Cells PT INR APTT Sodium Potassium Chloride Carbon Dioxide Anion Gap BUN Creatinine Estim Creat Clear Calc Est GFR (MDRD) Af Amer Est GFR (MDRD) Non-Af BUN/Creatinine Ratio Glucose Lactic Acid Calcium Phosphorus 3.4 Magnesium 2.5 Iron 14 L TIBC 119 L Iron Saturation 11.8 L Ferritin 1783 H Total Bilirubin AST ALT Alkaline Phosphatase Total Creatine Kinase Troponin I Total Protein Albumin Globulin Albumin/Globulin Ratio Triglycerides Cholesterol LDL Cholesterol VLDL Cholesterol HDL Cholesterol Lipase Vitamin B12 Folate 18.20 TSH 0.66 Free T4 1.11 Free T3 pg/dL 1.5 L Urine Color Brown Urine Clarity Cloudy Urine pH 5.0 Ur Specific [place] 1.010 Urine Protein 100 H Urine Glucose (UA) Normal Urine Ketones Negative Urine Occult Blood 250 H Urine Nitrite Positive H Urine Bilirubin Negative Urine Urobilinogen Normal Ur Leukocyte Esterase 100 H Urine RBC 25-50 SEEN Urine WBC 10-25 SEEN Ur Squamous Epith Cells 0 SEEN Amorphous Sediment 2+ URATE Urine Bacteria 1+ Urine Mucus 0 SEEN Ur Random Sodium Urine Creatinine 09/10/18 09/10/18 09/10/18 11:25 15:20 15:20 WBC RBC Hgb Hct MCV MCH MCHC RDW RDW Differential Plt Count MPV Immature Gran % (Auto) Neut % (Auto) Lymph % (Auto) [place] % (Auto) Eos % (Auto) Baso % (Auto) Absolute Neuts (auto) Absolute Lymphs (auto) Total Counted [place] Cells PT INR APTT Sodium Potassium Chloride Carbon Dioxide Anion Gap BUN Creatinine Estim Creat Clear Calc Est GFR (MDRD) Af Amer Est GFR (MDRD) Non-Af BUN/Creatinine Ratio Glucose Lactic Acid 1.1 Calcium Phosphorus Magnesium Iron TIBC Iron Saturation Ferritin Total Bilirubin AST ALT Alkaline Phosphatase Total Creatine Kinase Troponin I 0.044 Total Protein Albumin Globulin Albumin/Globulin Ratio Triglycerides Cholesterol LDL Cholesterol VLDL Cholesterol HDL Cholesterol Lipase Vitamin B12 1694 H Folate TSH Free T4 Free T3 pg/dL Urine Color Urine Clarity Urine pH Ur Specific [place] Urine Protein Urine Glucose (UA) Urine Ketones Urine Occult Blood Urine Nitrite Urine Bilirubin Urine Urobilinogen Ur Leukocyte Esterase Urine RBC Urine WBC Ur Squamous Epith Cells Amorphous Sediment Urine Bacteria Urine Mucus Ur Random Sodium Urine Creatinine 09/10/18 09/10/18 09/10/18 18:25 19:00 19:00 WBC RBC Hgb Hct MCV MCH MCHC RDW RDW Differential Plt Count MPV Immature Gran % (Auto) Neut % (Auto) Lymph % (Auto) [place] % (Auto) Eos % (Auto) Baso % (Auto) Absolute Neuts (auto) Absolute Lymphs (auto) Total Counted Kevin Cells PT INR APTT Sodium Potassium Chloride Carbon Dioxide Anion Gap BUN Creatinine Estim Creat Clear Calc Est GFR (MDRD) Af Amer Est GFR (MDRD) Non-Af BUN/Creatinine Ratio Glucose Lactic Acid Calcium Phosphorus Magnesium Iron TIBC Iron Saturation Ferritin Total Bilirubin AST ALT Alkaline Phosphatase Total Creatine Kinase Troponin I 0.035 Total Protein Albumin Globulin Albumin/Globulin Ratio Triglycerides Cholesterol LDL Cholesterol VLDL Cholesterol HDL Cholesterol Lipase Vitamin B12 Folate TSH Free T4 Free T3 pg/dL Urine Color Urine Clarity Urine pH Ur Specific [place] Urine Protein Urine Glucose (UA) Urine Ketones Urine Occult Blood Urine Nitrite Urine Bilirubin Urine Urobilinogen Ur Leukocyte Esterase Urine RBC Urine WBC Ur Squamous Epith Cells Amorphous Sediment Urine Bacteria Urine Mucus Ur Random Sodium 45 Urine Creatinine 73.40 09/10/18 09/11/18 09/11/18 21:55 03:53 03:53 WBC 6.1 RBC 3.04 L Hgb 9.4 L Hct 27.3 L MCV 89.8 MCH 30.9 MCHC 34.4 RDW 13.9 RDW Differential 43.8 Plt Count 116 L MPV 11.1 Immature Gran % (Auto) 0.200 Neut % (Auto) 80.1 H Lymph % (Auto) 12.2 L [place] % (Auto) 6.1 Eos % (Auto) 1.2 Baso % (Auto) 0.2 Absolute Neuts (auto) 4.9 Absolute Lymphs (auto) 0.74 L Total Counted Not Reportable [place] Cells PT INR APTT 65.8 H Sodium 146 H Potassium 4.3 Chloride 119 H Carbon Dioxide 13.0 L Anion Gap 14 BUN 131 H* Creatinine 4.37 H Estim Creat Clear Calc 11.71 Est GFR (MDRD) Af Amer 17 L Est GFR (MDRD) Non-Af 14 L BUN/Creatinine Ratio 30.0 H Glucose 136 H Lactic Acid Calcium 7.5 L Phosphorus Magnesium 2.4 Iron TIBC Iron Saturation Ferritin Total Bilirubin 0.30 AST 33 ALT 36 Alkaline Phosphatase 69 Total Creatine Kinase Troponin I Total Protein 5.8 L Albumin 2.0 L Globulin 3.8 Albumin/Globulin Ratio 0.5 L Triglycerides 182 Cholesterol 87 LDL Cholesterol 38 VLDL Cholesterol 36 HDL Cholesterol 13 L Lipase 460 H Vitamin B12 Folate TSH Free T4 Free T3 pg/dL Urine Color Urine Clarity Urine pH Ur Specific [place] Urine Protein Urine Glucose (UA) Urine Ketones Urine Occult Blood Urine Nitrite Urine Bilirubin Urine Urobilinogen Ur Leukocyte Esterase Urine RBC Urine WBC Ur Squamous Epith Cells Amorphous Sediment Urine Bacteria Urine Mucus Ur Random Sodium Urine Creatinine 09/11/18 09/11/18 09/11/18 03:53 03:53 10:00 WBC RBC Hgb Hct MCV MCH MCHC RDW RDW Differential Plt Count MPV Immature Gran % (Auto) Neut % (Auto) Lymph % (Auto) [place] % (Auto) Eos % (Auto) Baso % (Auto) Absolute Neuts (auto) Absolute Lymphs (auto) Total Counted Kevin Cells PT INR APTT 56.8 H Pending Sodium Potassium Chloride Carbon Dioxide Anion Gap BUN Creatinine Estim Creat Clear Calc Est GFR (MDRD) Af Amer Est GFR (MDRD) Non-Af BUN/Creatinine Ratio Glucose Lactic Acid Calcium Phosphorus 4.1 Magnesium Iron TIBC Iron Saturation Ferritin Total Bilirubin AST ALT Alkaline Phosphatase Total Creatine Kinase Troponin I Total Protein Albumin Globulin Albumin/Globulin Ratio Triglycerides Cholesterol LDL Cholesterol VLDL Cholesterol HDL Cholesterol Lipase Vitamin B12 Folate TSH Free T4 Free T3 pg/dL Urine Color Urine Clarity Urine pH Ur Specific [place] Urine Protein Urine Glucose (UA) Urine Ketones Urine Occult Blood Urine Nitrite Urine Bilirubin Urine Urobilinogen Ur Leukocyte Esterase Urine RBC Urine WBC Ur Squamous Epith Cells Amorphous Sediment Urine Bacteria Urine Mucus Ur Random Sodium Urine Creatinine POC Glucose 09/10/18 15:04 POC Glucose 105 Clinical Impression(s) from Imaging Studies Brain CT 09/10/18 11:15 IMPRESSION: Chronic involutional changes of the brain. Electronically Signed: Marc Owens, at 12:48 EDT , Service support , Cervical Spine CT 09/10/18 11:15 IMPRESSION: Multilevel degenerative changes, as described above. 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 Electronically Signed: Marc Owens, at 12:53 EDT , Service support , Ribs X-Ray 09/10/18 12:21 IMPRESSION: Normal x-ray examination of the ribs. Electronically Signed: Marc Owens, at 12:50 EDT , Service support , Gallbladder Ultrasound 09/10/18 14:55 IMPRESSION: Nonspecific partially contracted gallbladder with mild wall thickening. Trace sludge. The pancreas is not well-visualized. Benign-appearing right renal cyst. Electronically Signed: Jerri Alonso MD at 19:14 EDT Tel , Service support , Renal Ultrasound 09/10/18 14:55 IMPRESSION: Findings are suspicious for cystitis. There is inhomogeneous appearance of the wall the bladder with thickening. Multiple stones are seen in the posterior aspect of the bladder on a prior CT. There is focal thickening of the base of the bladder transverse image and may measure up to 1.8 x 0.8 cm. This may represent focal edema potentially a bladder cancer. Recommend consideration for cystoscopy when appropriate. Increased echogenicity of the right kidney suspicious for medical renal disease. Benign-appearing cyst right kidney. Electronically Signed: Jerri Alonso MD at 23:08 EDT Tel , Service support , Thyroid Ultrasound 09/10/18 14:55 IMPRESSION: Enlarged thyroid. Bilateral well circumscribed nodules. Recommend correlation with laboratory values. 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 Electronically Signed: Jerri Alonso MD at 2:00 EDT Tel , Service support , Medical Necessity - Tobacco Use Smoking Status: Never smoker Tobacco Use: Non-smoker Assessment/Plan All Active Problems Sepsis (Acute) UTI (urinary tract infection) (Acute) Encephalopathy acute (Acute) BIRGIT (acute kidney injury) (Acute) Atrial fibrillation with RVR (Acute) Abnormal imaging of thyroid (Acute) Bacteremia (Acute) This is an 83 years old male patient presented to the emergency room because of fall, frequency and urinary incontinence, found to have sepsis secondary to acute cystitis, A. fib with RVR, acute kidney injury on top of stage IV chronic kidney disease, gram-negative bacteremia and probable mild acute pancreatitis. #1 acute sepsis/acute cystitis: He is on IV cefepime. He has been afebrile, white blood cell count is normal. Blood pressure is borderline and he is tachycardic. Lactic acid was normal. Blood culture revealed gram-negative rods, urine cultures pending. Plan: Continue same treatment, critical care consult. #2 gram-negative bacteremia: Likely source is the acute cystitis. He is on IV cefepime as above. Plan as above. #3 acute kidney injury on top of stage IV chronic kidney disease: Baseline BUN has been around 40 to 60 mg/dL. Baseline creatinine has been around 2 to 4 mg/dL. Admission creatinine is 5.05, improved down to 4.37 today. It is likely due to sepsis and infection as well as lisinopril and HCTZ that patient has been taking at home. Kidney ultrasound revealed normal kidney size, no evidence of kidney stones, hydronephrosis or hydroureter, revealed bladder stones. Plan: Nephrology consult. #4 A. fib with RVR: Patient apparently had a history of paroxysmal A. fib. At this time, he is in A. fib with RVR, heart rate has been around 110/min, blood pressure is borderline. He is on IV heparin drip for anticoagulation. 2D echocardiogram ordered. Serum electrolytes are within normal limits. #5 elevated lipase/probable mild pancreatitis: Unclear etiology, patient denies any abdominal pain. LFT was normal. Lipase is trending down. Plan to continue IV fluids, trend. #6 encephalopathy: Likely metabolic because of infection and worsening kidney function. CT scan brain showed no acute findings. Patient is alert and oriented x3 this morning. #7 abnormal thyroid gland: This is an incidental finding on CT scan cervical spine. TSH and free T4 were normal. Free T3 was slightly low. Ultrasound thyroid revealed bilateral well-circumscribed nodules likely due to goiter. #8 mechanical fall: Without evidence of significant trauma. CT scan brain, CT scan cervical spine, rib x-ray was unremarkable. #9 chronic diastolic CHF: Clinically stable, compensated. He is on IV fluids for acute on chronic renal failure. Plan for close monitoring of volume status. #10 chronic anemia: It is normocytic anemia likely due to anemia of chronic disease. Baseline hemoglobin has been around 7 to 10 g/dL. Today's hemoglobin is 9.4, stable at baseline. #11 hypertension: Blood pressure is borderline, HCTZ and lisinopril held. #12 depression/anxiety: He is not on any medication at this time. #13 benign prostatic hypertrophy: Continue Flomax. #14 DVT prophylaxis: On IV heparin drip. This note was generated with [employer] dictation software. It may contain incorrect words, spelling, and punctuation that were not noted in checking the note before signing. Code Visit Inpatient E&M: 46421 Subs Hosp L3
[2018-09-11 10:35] LABS: Partial Thromboplast Time 56.9 Seconds (24.1-36.2)
[2018-09-11 12:00] LABS: Hemoglobin A1c 6.1 % (4.2-6.3)
[2018-09-11] MEDS: 0.45% Normal Saline 1,000 ML 125 ML IV (12:02)
--- NOTE | 2018-09-11 13:20 | CHAPLAIN ---
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
[2018-09-11] MEDS: HEPARIN/D5w 25,000 UNITS 25,000 UNITS/250 ML IV.SOLN. 8 UNITS IV (16:11)
--- NOTE | 2018-09-11 16:39 | PCM.CONS.R ---
Problem List (1) Acute kidney injury superimposed on chronic kidney disease Status: Chronic Consultation - Renal PCP/ Referring MD: Requesting physician: [] Primary care physician: Rigo Lan MD - History of Present Illness History of Present Illness: The patient is a 83 year old M past medical history of chronic kidney disease stage IV with baseline creatinine around 2 mg/dL,hypertension, A. fib, BPH, history of acute kidney injury in 017 requiring dialysis, anxiety, depression history of Pseudomonas bacteremia. Patient presented to [facility] with the complaining of severe weakness.patient was found to have UTI along with worsening kidney function. at admission,creatinine was 5 mg deciliter. Patient also a possibility with bicarbonate level of 14. patient received 2 L of normal saline in the emergency room and was kept on IV fluid normal saline 1 25 mg/dL. Creatinine today is 4.3 mg/dL. BUN still high at 133. HCO3 is 14. Patient said she is making urine. no NSAID use. No urinary obstructive symptoms. Breathing is stable. review of system: 12 systems review is negative - Allergies Allergies: Allergies No Known Allergies Allergy (Verified 02/06/17 09:54) - Current Medications Current Medications: Current Medications Acetaminophen (Tylenol) 650 mg PO Q6H PRN PRN PRN Reason: Non-cardiac pain (mod-severe) Al Hydroxide/Mg Hydroxide (Mylanta Ii) 15 - 30 ml PO Q4H PRN PRN PRN Reason: INDIGESTION Albuterol Sulfate (Ventolin Aerosols) 2.5 mg INHALATION Q2H PRN PRN PRN Reason: dyspnea, wheezing Aspirin (Aspirin, Baby) 81 mg PO DAILY@0800 [facility] Last Admin: 09/11/18 08:39 Dose: 81 mg Documented by: Dextrose (D50w Syringe) 0 gm IV X1 PRN; Protocol PRN Reason: Hypoglycemia Glucagon () 1 mg IM .X1 PRN PRN Reason: Hypoglycemia Guaifenesin (Robitussin) 20 ml PO Q4H PRN PRN PRN Reason: COUGH Heparin Sodium (Porcine) (Heparin Na) 0 unit IV UD PRN; Protocol Hydralazine HCl (Apresoline Iv) 10 mg IV Q4H PRN PRN PRN Reason: SBP > 160 Cefepime HCl 1 gm/ Sodium (Chloride) 50 mls @ 100 mls/hr IV Q24 [facility] Last Admin: 09/11/18 09:37 Dose: 100 mls/hr Documented by: Heparin Sodium/Dextrose () 25,000 units in 250 mls @ 8 mls/hr IV .[id number] [facility]; Protocol Last Admin: 09/11/18 16:11 Dose: 8 mls/hr Documented by: Sodium Chloride () 1,000 mls @ 125 mls/hr IV .Q8H [facility] Last Admin: 09/11/18 12:02 Dose: 125 mls/hr Documented by: Magnesium Hydroxide (Milk Of Magnesia) 30 ml PO DAILY PRN PRN PRN Reason: Constipation Nutritional Formula (Lactose Free) (Ensure Enlive) 120 ml PO 4X/DAY [facility] Last Admin: 09/11/18 14:16 Dose: 120 ml Documented by: Ondansetron HCl (Zofran) 4 mg IV Q8H PRN PRN PRN Reason: NAUSEA/VOMITING Pantoprazole Sodium (Protonix) 20 mg PO BID [facility] Last Admin: 09/11/18 09:37 Dose: 20 mg Documented by: Psyllium Hydrophilic Mucilloid (Metamucil) 1 packet PO DAILY PRN PRN PRN Reason: Constipation Sodium Chloride () 5 - 15 ml IV UD PRN PRN Reason: SALINE FLUSH Tamsulosin HCl (Flomax) 0.4 mg PO BID@0830,1730 [facility] Last Admin: 09/11/18 08:39 Dose: 0.4 mg Documented by: - Past Medical History Past Medical History (Chronic Problems): Chronic Problems Acute kidney injury superimposed on chronic kidney disease (Chronic) CKD (chronic kidney disease), stage IV (Chronic) HTN (hypertension) (Chronic) HLD (hyperlipidemia) (Chronic) Anxiety and depression (Chronic) Malnutrition (Chronic) Stage 4 chronic kidney disease due to hypertension (Chronic) Depression (Chronic) Decubitus ulcers (Chronic) left upper back Paroxysmal atrial fibrillation with rapid ventricular response (Chronic) Mild aortic stenosis (Chronic) BPH with obstruction/lower urinary tract symptoms (Chronic) Pseudomonas Benign essential hypertension (Chronic) Chronic osteoarthritis (Chronic) History of supraventricular tachycardia (Chronic) - Past Surgical History Surgical History: arthscropcy, hip, arthroscopy, knee, herniorrhaphy, - - Cystoscopy with bilateral ureteral stent placement - Social History Smoking Status: Never smoker Alcohol: Occasional Drugs: None - Family History Maternal History Items: Heart Disease Paternal History Items: Heart Disease Patient Problems: Active and Suspected Problems Sepsis (Acute) UTI (urinary tract infection) (Acute) Encephalopathy acute (Acute) BIRGIT (acute kidney injury) (Acute) Atrial fibrillation with RVR (Acute) Abnormal imaging of thyroid (Acute) - Physical Exam General: Alert, Cooperative HEENT: Atraumatic Oral: Moist Mucosa Neck: Supple, No JVD Lungs: Clear to auscultation, Normal air movement, No rhonchi Cardiovascular: Regular rate, Regular Rhythm, Normal S1 Abdomen: Bowel Sounds Present, Soft, Non Tender Extremities: No clubbing, No cyanosis, No edema Skin: No rashes Musculoskeletal: No Tenderness to Palpation of Joints or Extremities Lymphatic: No Cervical, Supraclavicular, or Inguinal Adenopathy Neurological: Cranial nerves II-XII grossly intact, Neuro grossly intact Psych/Mental Status: Appropriate Vital Signs Temp Pulse Resp BP Pulse Ox 98 F 103 H 24 H 91/70 97 09/11/18 16:00 09/11/18 16:00 09/11/18 16:00 09/11/18 16:00 09/11/18 16:00 Oxygen Flow Rate (L/min) 2 Oxygen Delivery Method Room Air Weight: 62.7 kg Body Mass Index (BMI) 20.0 Finger Stick Blood Glucose 127 Intake and Output for Last 24 Hours 09/09/18 09/10/18 09/11/18 23:59 23:59 23:59 Intake Total 3215.7 / 3215.7 Output Total 200 / 200 Balance 3015.7 / 3015.7 Microbiology Past 72 Hours 09/10/18 11:35 Blood Culture - Preliminary Blood Culture (Wb) - Right Forearm 09/10/18 11:25 Blood Culture - Preliminary Blood Culture (Wb) - Left Wrist Laboratory Tests Past 24 Hrs 09/10/18 09/10/18 09/10/18 18:25 19:00 19:00 WBC RBC Hgb Hct MCV MCH MCHC RDW RDW Differential Plt Count MPV Immature Gran % (Auto) Neut % (Auto) Lymph % (Auto) [place] % (Auto) Eos % (Auto) Baso % (Auto) Absolute Neuts (auto) Absolute Lymphs (auto) Total Counted APTT Sodium Potassium Chloride Carbon Dioxide Anion Gap BUN Creatinine Estim Creat Clear Calc Est GFR (MDRD) Af Amer Est GFR (MDRD) Non-Af BUN/Creatinine Ratio Glucose Hemoglobin A1c Calcium Phosphorus Magnesium Total Bilirubin AST ALT Alkaline Phosphatase Troponin I 0.035 Total Protein Albumin Globulin Albumin/Globulin Ratio Triglycerides Cholesterol LDL Cholesterol VLDL Cholesterol HDL Cholesterol Lipase Ur Random Sodium 45 Urine Creatinine 73.40 09/10/18 09/11/18 09/11/18 21:55 03:53 03:53 WBC 6.1 RBC 3.04 L Hgb 9.4 L Hct 27.3 L MCV 89.8 MCH 30.9 MCHC 34.4 RDW 13.9 RDW Differential 43.8 Plt Count 116 L MPV 11.1 Immature Gran % (Auto) 0.200 Neut % (Auto) 80.1 H Lymph % (Auto) 12.2 L [place] % (Auto) 6.1 Eos % (Auto) 1.2 Baso % (Auto) 0.2 Absolute Neuts (auto) 4.9 Absolute Lymphs (auto) 0.74 L Total Counted Not Reportable APTT 65.8 H Sodium 146 H Potassium 4.3 Chloride 119 H Carbon Dioxide 13.0 L Anion Gap 14 BUN 131 H* Creatinine 4.37 H Estim Creat Clear Calc 11.71 Est GFR (MDRD) Af Amer 17 L Est GFR (MDRD) Non-Af 14 L BUN/Creatinine Ratio 30.0 H Glucose 136 H Hemoglobin A1c Calcium 7.5 L Phosphorus Magnesium 2.4 Total Bilirubin 0.30 AST 33 ALT 36 Alkaline Phosphatase 69 Troponin I Total Protein 5.8 L Albumin 2.0 L Globulin 3.8 Albumin/Globulin Ratio 0.5 L Triglycerides 182 Cholesterol 87 LDL Cholesterol 38 VLDL Cholesterol 36 HDL Cholesterol 13 L Lipase 460 H Ur Random Sodium Urine Creatinine 09/11/18 09/11/18 09/11/18 03:53 03:53 03:53 WBC RBC Hgb Hct MCV MCH MCHC RDW RDW Differential Plt Count MPV Immature Gran % (Auto) Neut % (Auto) Lymph % (Auto) [place] % (Auto) Eos % (Auto) Baso % (Auto) Absolute Neuts (auto) Absolute Lymphs (auto) Total Counted APTT 56.8 H Sodium Potassium Chloride Carbon Dioxide Anion Gap BUN Creatinine Estim Creat Clear Calc Est GFR (MDRD) Af Amer Est GFR (MDRD) Non-Af BUN/Creatinine Ratio Glucose Hemoglobin A1c 6.1 Calcium Phosphorus 4.1 Magnesium Total Bilirubin AST ALT Alkaline Phosphatase Troponin I Total Protein Albumin Globulin Albumin/Globulin Ratio Triglycerides Cholesterol LDL Cholesterol VLDL Cholesterol HDL Cholesterol Lipase Ur Random Sodium Urine Creatinine 09/11/18 09/11/18 10:00 16:00 WBC RBC Hgb Hct MCV MCH MCHC RDW RDW Differential Plt Count MPV Immature Gran % (Auto) Neut % (Auto) Lymph % (Auto) [place] % (Auto) Eos % (Auto) Baso % (Auto) Absolute Neuts (auto) Absolute Lymphs (auto) Total Counted APTT 56.9 H Pending Sodium Potassium Chloride Carbon Dioxide Anion Gap BUN Creatinine Estim Creat Clear Calc Est GFR (MDRD) Af Amer Est GFR (MDRD) Non-Af BUN/Creatinine Ratio Glucose Hemoglobin A1c Calcium Phosphorus Magnesium Total Bilirubin AST ALT Alkaline Phosphatase Troponin I Total Protein Albumin Globulin Albumin/Globulin Ratio Triglycerides Cholesterol LDL Cholesterol VLDL Cholesterol HDL Cholesterol Lipase Ur Random Sodium Urine Creatinine Assessment/Plan All Active Problems Sepsis (Acute) UTI (urinary tract infection) (Acute) Encephalopathy acute (Acute) BIRGIT (acute kidney injury) (Acute) Atrial fibrillation with RVR (Acute) Abnormal imaging of thyroid (Acute) Bacteremia (Acute) 1-acute kidney injury on chronic kidney disease. Patient has chronic kidney disease stage IV with baseline around 2.0 mg deciliter. UA showed 100 protein nitrite positive white cell count 10-25. Acute kidney injury is most probably from sepsis induced ATN. Creatinine improved slightly today. Last creatinine 4.3 mg deciliter.BUN still significantly elevated at 131. No indication for renal replacement therapy. Please continue IV fluid at the same rate. Avoid VILMA inhibitor/ARB. Keep me after pressure more than 65. 2-normal anion gap metabolic acidosis. From most probably normal saline advanced chronic kidney disease. I'll switch IV fluids sodium bicarbonate drip isotonic at the same rate. 3-hypernatremia. Most probably iatrogenic from IV normal saline. I'll continue to monitor for now 4-severe sepsis from UTI. Patient and cefepime which is appropriately dosedfor the current kidney function. thank you for the consult. Renal team will continue to follow. Please call if any question at [phone]
[2018-09-11 18:07] LABS: Partial Thromboplast Time 53.1 Seconds (24.1-36.2)
[2018-09-11] MEDS: Heparin Injection (Vial) 5,000 UNIT/ML VIAL IV (18:14)
[2018-09-11] MEDS: Acetaminophen 325 MG Tablet 650 MG PO (20:26)
[2018-09-12] VITALS (29 sets, daily range): BP systolic 83–114; BP diastolic 39–71; PULSE 68–111; RESP 18–28; TEMP 36.3–36.8; O2SAT 93–100
[2018-09-12 00:19] LABS: Partial Thromboplast Time 54.7 Seconds (24.1-36.2)
[2018-09-12] MEDS: Heparin Injection (Vial) 5,000 UNIT/ML VIAL IV ×3 (00:37→21:17)
[2018-09-12] MEDS: Acetaminophen 325 MG Tablet 650 MG PO ×3 (06:10→21:18)
[2018-09-12 06:40] LABS: Absolute Lymphocyte Count 0.77 X10^3/ul (0.83-4.51); Absolute Neutrophil Count 3.2 X10^3/uL (2.0-7.7); Eosinophil# 0.11 X10^3/uL; Eosinophils% 2.4 % (0-5); Hematocrit 24.8 % (40-54); Hemoglobin 8.3 g/dl (13.0-16.5); Lymphocyte # 0.77 X10^3/ul (4.0); Mean Corp Hgb Conc 33.5 g/gl (32-36); Mean Corpuscular Hgb 30.1 pg (27.0-32.0); Mean Corpuscular Volume 89.9 fL (80-94); Monocyte% 8.8 % (0-10); Neutrophil # 3.24 X10^3/uL (2.7-7.7); Neutrophil % 71.6 % (47-70); Platelet Count 121 K/mm3 (150-450); RBC Distribution Width CV 14.1 % (11.6-14.6); RBC Distribution Width SD 44.2 fl (35.1-43.9); Red Blood Count 2.76 M/mm3 (4.6-6.2); White Blood Count 4.5 K/mm3 (4.4-11.0)
[2018-09-12 06:42] LABS: POSITIVE COUNT NO; POSITIVE DIFFERENTIAL NO; POSITIVE MORPHOLOGY NO
[2018-09-12 06:44] LABS: Partial Thromboplast Time 83.2 Seconds (24.1-36.2)
[2018-09-12 07:04] LABS: Anion Gap 12 (5-15); BUN 120 mg/dL (7-18); BUN/Creat Ratio 30.3 RATIO (10-20); Calcium,Total 7.4 mg/dL (8.5-10.1); Chloride 116 mmol/L (98-107); Creatinine, Serum 3.96 mg/dL (0.70-1.30); EST Glomerular Filtration Rate 16 mL/min (>60); Est Glom Filt Rate - Afr Amer 19 mL/min (>60); Estimated Creatinine Clearance 13.28 ml/min; Glucose 171 mg/dL (74-106); Lipase 436 U/L (73-393); Potassium 4.2 mmol/L (3.5-5.1); Sodium Level 145 mmol/L (136-145)
[2018-09-12] MEDS: Aspirin 81 MG TAB.CHEW PO (08:19)
[2018-09-12] MEDS: Tamsulosin HCl 0.4 MG Capsule PO ×2 (08:19→17:10)
--- NOTE | 2018-09-12 08:22 | PN_ITS ---
Subjective: The patient was seen and examined at the bedside this morning. Events from the last 24 hours have been reviewed. The patient is currently afebrile, hemodynamically stable and maintaining appropriate oxygen saturations on room air. The patient is currently overall net +5.4 L for the admission. The patient remains on a bicarbonate infusion per nephrology recommendations. Creatinine is improving. The patient does report the presence of neck pain this morning. However, he reports subjective improvement in his pain complaints with the use of Tylenol. The patient was able to get out of bed and ambulate with the assistance of physical therapy yesterday. Objective: The patient's most recent lab work, culture data and imaging studies have all been personally reviewed. Surface echocardiogram revealed normal LV size and function with an ejection fraction of 65%. Preliminary blood cultures revealed gram-negative rods. Urine culture is currently pending. General: Alert, Cooperative, No apparent distress HEENT: Atraumatic, PERRLA, Normocephalic Oral: Moist Mucosa, - - Poor dentition Neck: Supple, No Nodes, Trachea Midline Lungs: No rhonchi, No wheeze, No rales, Diminished Cardiovascular: Regular rate, Regular Rhythm, Normal S1, Normal S2, Murmur, - - Currently in normal sinus rhythm Abdomen: Bowel Sounds Present, Soft, Non Tender Extremities: No clubbing, No cyanosis, Edema Skin: - - No significant change from previous Musculoskeletal: Cachexia Lymphatic: No Cervical, Supraclavicular, or Inguinal Adenopathy Neurological: Cranial nerves II-XII grossly intact, Neuro grossly intact Psych/Mental Status: Normal Affect, Appropriate Vital Signs Temp Pulse Resp BP Pulse Ox 97.5 F L 85 21 H 91/50 L 96 09/12/18 08:00 09/12/18 08:00 09/12/18 08:00 09/12/18 08:00 09/12/18 08:00 Oxygen Flow Rate (L/min) 2 Oxygen Delivery Method Room Air Weight: 143 lb 15.39 oz Body Mass Index (BMI) 20.0 Finger Stick Blood Glucose 127 Intake and Output for Last 24 Hours 09/10/18 09/11/18 09/12/18 23:59 23:59 23:59 Intake Total 5315.7 / 5315.7 1007.3 / 1007.3 Output Total 625 / 625 300 / 300 Balance 4690.7 / 4690.7 707.3 / 707.3 Labs (Last 48 Hours) 09/10/18 09/10/18 09/10/18 11:05 11:05 11:05 WBC 10.0 RBC 3.97 L Hgb 12.0 L Hct 35.3 L MCV 88.9 MCH 30.2 MCHC 34.0 RDW 14.1 RDW Differential 46.3 H Plt Count 140 L MPV 11.0 Immature Gran % (Auto) 0.200 Neut % (Auto) 93.4 H Lymph % (Auto) 4.7 L [place] % (Auto) 1.6 Eos % (Auto) 0.1 Baso % (Auto) 0.0 Absolute Neuts (auto) 9.4 H Absolute Lymphs (auto) 0.47 L Total Counted Not Reportable Kevin Cells 1+ PT 15.0 H INR 1.2 APTT 33.2 Sodium 142 Potassium 4.3 Chloride 111 H Carbon Dioxide 14.0 L Anion Gap 17 H BUN 133 H* Creatinine 5.05 H Estim Creat Clear Calc 9.71 Est GFR (MDRD) Af Amer 14 L Est GFR (MDRD) Non-Af 12 L BUN/Creatinine Ratio 26.3 H Glucose 133 H Hemoglobin A1c Lactic Acid Calcium 7.9 L Phosphorus Magnesium Iron TIBC Iron Saturation Ferritin Total Bilirubin 0.40 AST 24 ALT 35 Alkaline Phosphatase 90 Total Creatine Kinase 88 Troponin I 0.033 Total Protein 7.3 Albumin 2.6 L Globulin 4.7 H Albumin/Globulin Ratio 0.6 L Triglycerides Cholesterol LDL Cholesterol VLDL Cholesterol HDL Cholesterol Lipase 565 H Vitamin B12 Folate TSH Free T4 Free T3 pg/dL Urine Color Urine Clarity Urine pH Ur Specific [place] Urine Protein Urine Glucose (UA) Urine Ketones Urine Occult Blood Urine Nitrite Urine Bilirubin Urine Urobilinogen Ur Leukocyte Esterase Urine RBC Urine WBC Ur Squamous Epith Cells Amorphous Sediment Urine Bacteria Urine Mucus Ur Random Sodium Urine Creatinine POC Glucose 09/10/18 09/10/18 09/10/18 11:05 11:05 11:05 WBC RBC Hgb Hct MCV MCH MCHC RDW RDW Differential Plt Count MPV Immature Gran % (Auto) Neut % (Auto) Lymph % (Auto) [place] % (Auto) Eos % (Auto) Baso % (Auto) Absolute Neuts (auto) Absolute Lymphs (auto) Total Counted Kevin Cells PT INR APTT Sodium Potassium Chloride Carbon Dioxide Anion Gap BUN Creatinine Estim Creat Clear Calc Est GFR (MDRD) Af Amer Est GFR (MDRD) Non-Af BUN/Creatinine Ratio Glucose Hemoglobin A1c Lactic Acid Calcium Phosphorus 3.4 Magnesium 2.5 Iron 14 L TIBC 119 L Iron Saturation 11.8 L Ferritin 1783 H Total Bilirubin AST ALT Alkaline Phosphatase Total Creatine Kinase Troponin I Total Protein Albumin Globulin Albumin/Globulin Ratio Triglycerides Cholesterol LDL Cholesterol VLDL Cholesterol HDL Cholesterol Lipase Vitamin B12 Folate 18.20 TSH 0.66 Free T4 1.11 Free T3 pg/dL 1.5 L Urine Color Brown Urine Clarity Cloudy Urine pH 5.0 Ur Specific [place] 1.010 Urine Protein 100 H Urine Glucose (UA) Normal Urine Ketones Negative Urine Occult Blood 250 H Urine Nitrite Positive H Urine Bilirubin Negative Urine Urobilinogen Normal Ur Leukocyte Esterase 100 H Urine RBC 25-50 SEEN Urine WBC 10-25 SEEN Ur Squamous Epith Cells 0 SEEN Amorphous Sediment 2+ URATE Urine Bacteria 1+ Urine Mucus 0 SEEN Ur Random Sodium Urine Creatinine POC Glucose 09/10/18 09/10/18 09/10/18 11:25 15:04 15:20 WBC RBC Hgb Hct MCV MCH MCHC RDW RDW Differential Plt Count MPV Immature Gran % (Auto) Neut % (Auto) Lymph % (Auto) [place] % (Auto) Eos % (Auto) Baso % (Auto) Absolute Neuts (auto) Absolute Lymphs (auto) Total Counted [place] Cells PT INR APTT Sodium Potassium Chloride Carbon Dioxide Anion Gap BUN Creatinine Estim Creat Clear Calc Est GFR (MDRD) Af Amer Est GFR (MDRD) Non-Af BUN/Creatinine Ratio Glucose Hemoglobin A1c Lactic Acid 1.1 Calcium Phosphorus Magnesium Iron TIBC Iron Saturation Ferritin Total Bilirubin AST ALT Alkaline Phosphatase Total Creatine Kinase Troponin I Total Protein Albumin Globulin Albumin/Globulin Ratio Triglycerides Cholesterol LDL Cholesterol VLDL Cholesterol HDL Cholesterol Lipase Vitamin B12 1694 H Folate TSH Free T4 Free T3 pg/dL Urine Color Urine Clarity Urine pH Ur Specific [place] Urine Protein Urine Glucose (UA) Urine Ketones Urine Occult Blood Urine Nitrite Urine Bilirubin Urine Urobilinogen Ur Leukocyte Esterase Urine RBC Urine WBC Ur Squamous Epith Cells Amorphous Sediment Urine Bacteria Urine Mucus Ur Random Sodium Urine Creatinine POC Glucose 105 09/10/18 09/10/18 09/10/18 15:20 18:25 19:00 WBC RBC Hgb Hct MCV MCH MCHC RDW RDW Differential Plt Count MPV Immature Gran % (Auto) Neut % (Auto) Lymph % (Auto) [place] % (Auto) Eos % (Auto) Baso % (Auto) Absolute Neuts (auto) Absolute Lymphs (auto) Total Counted [place] Cells PT INR APTT Sodium Potassium Chloride Carbon Dioxide Anion Gap BUN Creatinine Estim Creat Clear Calc Est GFR (MDRD) Af Amer Est GFR (MDRD) Non-Af BUN/Creatinine Ratio Glucose Hemoglobin A1c Lactic Acid Calcium Phosphorus Magnesium Iron TIBC Iron Saturation Ferritin Total Bilirubin AST ALT Alkaline Phosphatase Total Creatine Kinase Troponin I 0.044 0.035 Total Protein Albumin Globulin Albumin/Globulin Ratio Triglycerides Cholesterol LDL Cholesterol VLDL Cholesterol HDL Cholesterol Lipase Vitamin B12 Folate TSH Free T4 Free T3 pg/dL Urine Color Urine Clarity Urine pH Ur Specific [place] Urine Protein Urine Glucose (UA) Urine Ketones Urine Occult Blood Urine Nitrite Urine Bilirubin Urine Urobilinogen Ur Leukocyte Esterase Urine RBC Urine WBC Ur Squamous Epith Cells Amorphous Sediment Urine Bacteria Urine Mucus Ur Random Sodium Urine Creatinine 73.40 POC Glucose 09/10/18 09/10/18 09/11/18 19:00 21:55 03:53 WBC 6.1 RBC 3.04 L Hgb 9.4 L Hct 27.3 L MCV 89.8 MCH 30.9 MCHC 34.4 RDW 13.9 RDW Differential 43.8 Plt Count 116 L MPV 11.1 Immature Gran % (Auto) 0.200 Neut % (Auto) 80.1 H Lymph % (Auto) 12.2 L [place] % (Auto) 6.1 Eos % (Auto) 1.2 Baso % (Auto) 0.2 Absolute Neuts (auto) 4.9 Absolute Lymphs (auto) 0.74 L Total Counted Not Reportable [place] Cells PT INR APTT 65.8 H Sodium Potassium Chloride Carbon Dioxide Anion Gap BUN Creatinine Estim Creat Clear Calc Est GFR (MDRD) Af Amer Est GFR (MDRD) Non-Af BUN/Creatinine Ratio Glucose Hemoglobin A1c Lactic Acid Calcium Phosphorus Magnesium Iron TIBC Iron Saturation Ferritin Total Bilirubin AST ALT Alkaline Phosphatase Total Creatine Kinase Troponin I Total Protein Albumin Globulin Albumin/Globulin Ratio Triglycerides Cholesterol LDL Cholesterol VLDL Cholesterol HDL Cholesterol Lipase Vitamin B12 Folate TSH Free T4 Free T3 pg/dL Urine Color Urine Clarity Urine pH Ur Specific [place] Urine Protein Urine Glucose (UA) Urine Ketones Urine Occult Blood Urine Nitrite Urine Bilirubin Urine Urobilinogen Ur Leukocyte Esterase Urine RBC Urine WBC Ur Squamous Epith Cells Amorphous Sediment Urine Bacteria Urine Mucus Ur Random Sodium 45 Urine Creatinine POC Glucose 09/11/18 09/11/18 09/11/18 03:53 03:53 03:53 WBC RBC Hgb Hct MCV MCH MCHC RDW RDW Differential Plt Count MPV Immature Gran % (Auto) Neut % (Auto) Lymph % (Auto) [place] % (Auto) Eos % (Auto) Baso % (Auto) Absolute Neuts (auto) Absolute Lymphs (auto) Total Counted Kevin Cells PT INR APTT 56.8 H Sodium 146 H Potassium 4.3 Chloride 119 H Carbon Dioxide 13.0 L Anion Gap 14 BUN 131 H* Creatinine 4.37 H Estim Creat Clear Calc 11.71 Est GFR (MDRD) Af Amer 17 L Est GFR (MDRD) Non-Af 14 L BUN/Creatinine Ratio 30.0 H Glucose 136 H Hemoglobin A1c Lactic Acid Calcium 7.5 L Phosphorus 4.1 Magnesium 2.4 Iron TIBC Iron Saturation Ferritin Total Bilirubin 0.30 AST 33 ALT 36 Alkaline Phosphatase 69 Total Creatine Kinase Troponin I Total Protein 5.8 L Albumin 2.0 L Globulin 3.8 Albumin/Globulin Ratio 0.5 L Triglycerides 182 Cholesterol 87 LDL Cholesterol 38 VLDL Cholesterol 36 HDL Cholesterol 13 L Lipase 460 H Vitamin B12 Folate TSH Free T4 Free T3 pg/dL Urine Color Urine Clarity Urine pH Ur Specific [place] Urine Protein Urine Glucose (UA) Urine Ketones Urine Occult Blood Urine Nitrite Urine Bilirubin Urine Urobilinogen Ur Leukocyte Esterase Urine RBC Urine WBC Ur Squamous Epith Cells Amorphous Sediment Urine Bacteria Urine Mucus Ur Random Sodium Urine Creatinine POC Glucose 09/11/18 09/11/18 09/11/18 03:53 10:00 16:00 WBC RBC Hgb Hct MCV MCH MCHC RDW RDW Differential Plt Count MPV Immature Gran % (Auto) Neut % (Auto) Lymph % (Auto) [place] % (Auto) Eos % (Auto) Baso % (Auto) Absolute Neuts (auto) Absolute Lymphs (auto) Total Counted [place] Cells PT INR APTT 56.9 H Cancelled Sodium Potassium Chloride Carbon Dioxide Anion Gap BUN Creatinine Estim Creat Clear Calc Est GFR (MDRD) Af Amer Est GFR (MDRD) Non-Af BUN/Creatinine Ratio Glucose Hemoglobin A1c 6.1 Lactic Acid Calcium Phosphorus Magnesium Iron TIBC Iron Saturation Ferritin Total Bilirubin AST ALT Alkaline Phosphatase Total Creatine Kinase Troponin I Total Protein Albumin Globulin Albumin/Globulin Ratio Triglycerides Cholesterol LDL Cholesterol VLDL Cholesterol HDL Cholesterol Lipase Vitamin B12 Folate TSH Free T4 Free T3 pg/dL Urine Color Urine Clarity Urine pH Ur Specific [place] Urine Protein Urine Glucose (UA) Urine Ketones Urine Occult Blood Urine Nitrite Urine Bilirubin Urine Urobilinogen Ur Leukocyte Esterase Urine RBC Urine WBC Ur Squamous Epith Cells Amorphous Sediment Urine Bacteria Urine Mucus Ur Random Sodium Urine Creatinine POC Glucose 09/11/18 09/11/18 09/12/18 17:15 23:45 06:00 WBC RBC Hgb Hct MCV MCH MCHC RDW RDW Differential Plt Count MPV Immature Gran % (Auto) Neut % (Auto) Lymph % (Auto) [place] % (Auto) Eos % (Auto) Baso % (Auto) Absolute Neuts (auto) Absolute Lymphs (auto) Total Counted Kevin Cells PT INR APTT 53.1 H 54.7 H 83.2 H Sodium Potassium Chloride Carbon Dioxide Anion Gap BUN Creatinine Estim Creat Clear Calc Est GFR (MDRD) Af Amer Est GFR (MDRD) Non-Af BUN/Creatinine Ratio Glucose Hemoglobin A1c Lactic Acid Calcium Phosphorus Magnesium Iron TIBC Iron Saturation Ferritin Total Bilirubin AST ALT Alkaline Phosphatase Total Creatine Kinase Troponin I Total Protein Albumin Globulin Albumin/Globulin Ratio Triglycerides Cholesterol LDL Cholesterol VLDL Cholesterol HDL Cholesterol Lipase Vitamin B12 Folate TSH Free T4 Free T3 pg/dL Urine Color Urine Clarity Urine pH Ur Specific [place] Urine Protein Urine Glucose (UA) Urine Ketones Urine Occult Blood Urine Nitrite Urine Bilirubin Urine Urobilinogen Ur Leukocyte Esterase Urine RBC Urine WBC Ur Squamous Epith Cells Amorphous Sediment Urine Bacteria Urine Mucus Ur Random Sodium Urine Creatinine POC Glucose 09/12/18 09/12/18 06:00 06:00 WBC 4.5 RBC 2.76 L Hgb 8.3 L Hct 24.8 L MCV 89.9 MCH 30.1 MCHC 33.5 RDW 14.1 RDW Differential 44.2 H Plt Count 121 L MPV 11.0 Immature Gran % (Auto) 0.200 Neut % (Auto) 71.6 H Lymph % (Auto) 17.0 L [place] % (Auto) 8.8 Eos % (Auto) 2.4 Baso % (Auto) 0.0 Absolute Neuts (auto) 3.2 Absolute Lymphs (auto) 0.77 L Total Counted Not Reportable [place] Cells PT INR APTT Sodium 145 Potassium 4.2 Chloride 116 H Carbon Dioxide 17.0 L Anion Gap 12 BUN 120 H* Creatinine 3.96 H Estim Creat Clear Calc 13.28 Est GFR (MDRD) Af Amer 19 L Est GFR (MDRD) Non-Af 16 L BUN/Creatinine Ratio 30.3 H Glucose 171 H Hemoglobin A1c Lactic Acid Calcium 7.4 L Phosphorus Magnesium Iron TIBC Iron Saturation Ferritin Total Bilirubin AST ALT Alkaline Phosphatase Total Creatine Kinase Troponin I Total Protein Albumin Globulin Albumin/Globulin Ratio Triglycerides Cholesterol LDL Cholesterol VLDL Cholesterol HDL Cholesterol Lipase 436 H Vitamin B12 Folate TSH Free T4 Free T3 pg/dL Urine Color Urine Clarity Urine pH Ur Specific [place] Urine Protein Urine Glucose (UA) Urine Ketones Urine Occult Blood Urine Nitrite Urine Bilirubin Urine Urobilinogen Ur Leukocyte Esterase Urine RBC Urine WBC Ur Squamous Epith Cells Amorphous Sediment Urine Bacteria Urine Mucus Ur Random Sodium Urine Creatinine POC Glucose Microbiology 09/10/18 11:25 Blood Culture (Wb) - Left Wrist Blood Culture - Preliminary 09/10/18 11:35 Blood Culture (Wb) - Right Forearm Blood Culture - Preliminary Clinical Impression(s) from Imaging Studies Brain CT 09/10/18 11:15 IMPRESSION: Chronic involutional changes of the brain. Electronically Signed: Marc Owens, at 12:48 EDT , Service support , Cervical Spine CT 09/10/18 11:15 IMPRESSION: Multilevel degenerative changes, as described above. 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 Electronically Signed: Marc Owens, at 12:53 EDT , Service support , Ribs X-Ray 09/10/18 12:21 IMPRESSION: Normal x-ray examination of the ribs. Electronically Signed: Marc Owens, at 12:50 EDT , Service support , Gallbladder Ultrasound 09/10/18 14:55 IMPRESSION: Nonspecific partially contracted gallbladder with mild wall thickening. Trace sludge. The pancreas is not well-visualized. Benign-appearing right renal cyst. Electronically Signed: Jerri Alonso MD at 19:14 EDT Tel , Service support , Renal Ultrasound 09/10/18 14:55 IMPRESSION: Findings are suspicious for cystitis. There is inhomogeneous appearance of the wall the bladder with thickening. Multiple stones are seen in the posterior aspect of the bladder on a prior CT. There is focal thickening of the base of the bladder transverse image and may measure up to 1.8 x 0.8 cm. This may represent focal edema potentially a bladder cancer. Recommend consideration for cystoscopy when appropriate. Increased echogenicity of the right kidney suspicious for medical renal disease. Benign-appearing cyst right kidney. Electronically Signed: Jerri Alonso MD at 23:08 EDT Tel , Service support , Thyroid Ultrasound 09/10/18 14:55 IMPRESSION: Enlarged thyroid. Bilateral well circumscribed nodules. Recommend correlation with laboratory values. 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 Electronically Signed: Jerri Alonso MD at 2:00 EDT Tel , Service support , Medical Necessity - Tobacco Use Smoking Status: Never smoker Tobacco Use: Non-smoker Assessment/Plan All Active Problems Sepsis (Acute) UTI (urinary tract infection) (Acute) Encephalopathy acute (Acute) BIRGIT (acute kidney injury) (Acute) Atrial fibrillation with RVR (Acute) Abnormal imaging of thyroid (Acute) Bacteremia (Acute) RECOMMENDATIONS: 1. Continue antibiotics as ordered, pending finalized culture results. 2. Obtain repeat blood cultures. 3. Physical therapy to work with patient. 4. Bicarbonate infusion per nephrology recommendations. IMPRESSIONS: 1. Gram-negative sepsis Presumed urinary source with subsequent seeding of bloodstream. Preliminary blood cultures were positive for gram-negative rods. Urine culture is currently pending. Continue antibiotics as ordered, pending finalized culture results. The patient remains relatively stable from a hemodynamic perspective. 2. Acute on chronic kidney disease Likely prerenal in etiology and related to #1. Given the patient's uremia, decreased urine output and metabolic acidosis, nephrology is following. Continue bicarbonate infusion per their recommendations. Continue to monitor urine output. No indication for renal replacement therapy at this time. 3. Paroxysmal atrial fibrillation While the patient was noted to be in atrial fibrillation for period of time, he spontaneously converted back to normal sinus rhythm. He does not seem to be an ideal candidate for systemic anticoagulation from my perspective. 4. Metabolic encephalopathy Improved. Likely related to numbers 1 and 2 with underlying infection and metabolic derangements contributing. 5. Anemia/history of heart failure/hypertension/depression/anxiety/BPH Complicates care, management, recovery and prognosis. Continue to hold antihypertensives as noted above. Physical therapy to continue to work with the patient. This note was generated with [employer] dictation software. It may contain incorrect words, spelling, and punctuation that were not noted in checking the note before signing. Code Visit Inpatient E&M: 92708 Subs Hosp L3
[2018-09-12] MEDS: Pantoprazole Sodium 20 MG Tablet PO ×2 (09:20→21:17)
--- NOTE | 2018-09-12 09:51 | PCM.PROGNOTE ---
Patient Problems: Active and Suspected Problems Sepsis (Acute) UTI (urinary tract infection) (Acute) Encephalopathy acute (Acute) BIRGIT (acute kidney injury) (Acute) Atrial fibrillation with RVR (Acute) Abnormal imaging of thyroid (Acute) Subjective: Chief complaint: Follow-up after admission for sepsis secondary to acute cystitis, acute kidney injury double stage III chronic kidney disease, new onset atrial fibrillation, probable mild pancreatitis and abnormal thyroid. Patient seen and examined. No acute events overnight. He denies any significant complaints. He feels better. He denies chest pain or shortness of breath. Denied abdominal pain, nausea or vomiting. He converted back to sinus rhythm, rate is controlled, blood pressure still borderline, systolic has been around 80-90, pulse ox is 96% on room air. - Physical Exam General: Alert, Oriented x3, Cooperative, No apparent distress HEENT: Atraumatic, PERRLA, EOMI, Normocephalic Oral: Moist Mucosa, No Gingival or Mucosal Lesions/ Ulcerations Neck: Supple, No JVD, Negative Carotid Bruits, Trachea Midline, Thyroid Normal Size and Texture Lungs: No wheeze, No rales, Diminished, Rhonchi Cardiovascular: Regular rate, Regular Rhythm, Normal S1, Normal S2, PMI Normal, Murmur - Systolic murmur. Abdomen: Bowel Sounds Present, Soft, Non Tender, Non-Distended, No Hepato-splenomegaly Extremities: No clubbing, No cyanosis, Edema Skin: No rashes, No breakdown Lymphatic: No Cervical, Supraclavicular, or Inguinal Adenopathy Neurological: Cranial nerves II-XII grossly intact, Neuro grossly intact Psych/Mental Status: Normal Affect, Appropriate Vital Signs Temp Pulse Resp BP Pulse Ox 97.5 F L 80 23 H 94/61 96 09/12/18 08:00 09/12/18 09:00 09/12/18 09:00 09/12/18 09:00 09/12/18 09:00 Oxygen Flow Rate (L/min) 2 Oxygen Delivery Method Room Air Weight: 143 lb 15.39 oz Body Mass Index (BMI) 20.0 Finger Stick Blood Glucose 127 Intake and Output for Last 24 Hours 09/10/18 09/11/18 09/12/18 23:59 23:59 23:59 Intake Total 5315.7 / 5315.7 1007.3 / 1007.3 Output Total 625 / 625 300 / 300 Balance 4690.7 / 4690.7 707.3 / 707.3 Microbiology Past 72 Hours 09/10/18 11:25 Blood Culture - Preliminary Blood Culture (Wb) - Left Wrist 09/10/18 11:35 Blood Culture - Preliminary Blood Culture (Wb) - Right Forearm Laboratory Tests Past 24 Hrs 09/11/18 09/11/18 09/11/18 03:53 10:00 16:00 WBC RBC Hgb Hct MCV MCH MCHC RDW RDW Differential Plt Count MPV Immature Gran % (Auto) Neut % (Auto) Lymph % (Auto) [place] % (Auto) Eos % (Auto) Baso % (Auto) Absolute Neuts (auto) Absolute Lymphs (auto) Total Counted APTT 56.9 H Cancelled Sodium Potassium Chloride Carbon Dioxide Anion Gap BUN Creatinine Estim Creat Clear Calc Est GFR (MDRD) Af Amer Est GFR (MDRD) Non-Af BUN/Creatinine Ratio Glucose Hemoglobin A1c 6.1 Calcium Lipase 09/11/18 09/11/18 09/12/18 17:15 23:45 06:00 WBC RBC Hgb Hct MCV MCH MCHC RDW RDW Differential Plt Count MPV Immature Gran % (Auto) Neut % (Auto) Lymph % (Auto) [place] % (Auto) Eos % (Auto) Baso % (Auto) Absolute Neuts (auto) Absolute Lymphs (auto) Total Counted APTT 53.1 H 54.7 H 83.2 H Sodium Potassium Chloride Carbon Dioxide Anion Gap BUN Creatinine Estim Creat Clear Calc Est GFR (MDRD) Af Amer Est GFR (MDRD) Non-Af BUN/Creatinine Ratio Glucose Hemoglobin A1c Calcium Lipase 09/12/18 09/12/18 06:00 06:00 WBC 4.5 RBC 2.76 L Hgb 8.3 L Hct 24.8 L MCV 89.9 MCH 30.1 MCHC 33.5 RDW 14.1 RDW Differential 44.2 H Plt Count 121 L MPV 11.0 Immature Gran % (Auto) 0.200 Neut % (Auto) 71.6 H Lymph % (Auto) 17.0 L [place] % (Auto) 8.8 Eos % (Auto) 2.4 Baso % (Auto) 0.0 Absolute Neuts (auto) 3.2 Absolute Lymphs (auto) 0.77 L Total Counted Not Reportable APTT Sodium 145 Potassium 4.2 Chloride 116 H Carbon Dioxide 17.0 L Anion Gap 12 BUN 120 H* Creatinine 3.96 H Estim Creat Clear Calc 13.28 Est GFR (MDRD) Af Amer 19 L Est GFR (MDRD) Non-Af 16 L BUN/Creatinine Ratio 30.3 H Glucose 171 H Hemoglobin A1c Calcium 7.4 L Lipase 436 H Medical Necessity - Tobacco Use Smoking Status: Never smoker Tobacco Use: Non-smoker Assessment/Plan All Active Problems Sepsis (Acute) UTI (urinary tract infection) (Acute) Encephalopathy acute (Acute) BIRGIT (acute kidney injury) (Acute) Atrial fibrillation with RVR (Acute) Abnormal imaging of thyroid (Acute) Bacteremia (Acute) This is an 83 years old male patient presented to the emergency room because of fall, frequency and urinary incontinence, found to have sepsis secondary to acute cystitis, A. fib with RVR, acute kidney injury on top of stage IV chronic kidney disease, gram-negative bacteremia and probable mild acute pancreatitis. #1 acute sepsis/acute cystitis: Remained on IV cefepime. He has been afebrile, white blood cell count is normal. Blood pressure is borderline to low, heart rate stabilized. He converted back to sinus rhythm. Lactic acid was normal. Urine cultures pending. Blood culture revealed gram-negative rods, final is pending. Plan: Continue same treatment. #2 gram-negative bacteremia: Likely source is the acute cystitis. Blood culture revealed gram-negative rods, final is pending. Repeat blood culture was done today and it is pending. He is on IV cefepime as above. Plan as above. #3 acute kidney injury on top of stage IV chronic kidney disease: He is on IV sodium bicarb infusion. Urine output is borderline. BUN and creatinine continued to improve slowly. Today's BUN is 120, creatinine is 3.96. Kidney ultrasound revealed normal kidney size, no evidence of kidney stones, hydronephrosis or hydroureter, revealed bladder stones. Nephrology on the case. #4 A. fib with RVR: Converted back to sinus rhythm, rate is controlled. He is not on any medication for rate control because of borderline blood pressure. He is on IV heparin drip for anticoagulation. 2D echocardiogram revealed ejection fraction of 65%, mild aortic stenosis, RVSP of 28.. Serum electrolytes are within normal limits. #5 elevated lipase/probable mild pancreatitis: Unclear etiology, patient denies any abdominal pain. LFT was normal. Lipase continue to drop down slowly. Plan to continue IV fluids, trend. #6 encephalopathy: Likely metabolic because of infection and worsening kidney function. CT scan brain showed no acute findings. Patient is alert and oriented x3. #7 abnormal thyroid gland: This is an incidental finding on CT scan cervical spine. TSH and free T4 were normal. Free T3 was slightly low. Ultrasound thyroid revealed bilateral well-circumscribed nodules likely due to goiter. #8 mechanical fall: Without evidence of significant trauma. CT scan brain, CT scan cervical spine, rib x-ray was unremarkable. #9 chronic diastolic CHF: Clinically stable, compensated. He is on IV fluids for acute on chronic renal failure. Plan for close monitoring of volume status. #10 chronic anemia/chronic thrombocytopenia: It is normocytic anemia likely due to anemia of chronic disease. Baseline hemoglobin has been around 7 to 10 g/dL. Today's hemoglobin is 8.3, stable at baseline. Today's platelet count is 121,000, stable at baseline, no bleeding. #11 hypertension: Blood pressure is borderline, HCTZ and lisinopril held. #12 depression/anxiety: He is not on any medication at this time. #13 benign prostatic hypertrophy: Continue Flomax. #14 DVT prophylaxis: On IV heparin drip. This note was generated with [employer] dictation software. It may contain incorrect words, spelling, and punctuation that were not noted in checking the note before signing. Code Visit Inpatient E&M: 89483 Subs Hosp L3
--- NOTE | 2018-09-12 10:00 | CASEMGMT ---
RN GREGORY Assessment Presentation: Sepsis, UTI. CKD Stage IV. Intro role of CM and purpose of RN CM assessment to patient in room. Pt is awake, alert and able to participate in assessment. Pt is known to CM from previous admission. Lives in same remote home, is reclusive and does not like people coming to his home. He cares for animals and prefers independent, solitary lifestyle. Pt states I like being by myself; I do fine at home when I'm feeling well. He has friend who checks on him and assists with transportation and caring for animals when pt is in hospital. Pt. Demographics, PCP and Pharmacy verified. Pt voiced concerns re: dc planning and wishing to return home. RN GREGORY discussed his previous admission with short stay @ SNF. Pt did agree it helped him get stronger and stated I did well at home after that. Now pt becomes distressed when discussing dc needs and states I just want to go home and I think I can. RN CM let pt know we would follow PT/OT notes and if safety concerns arise, would discuss dc options with him. PCP: Dr. Lan. Pt states he sees physician once a year and has appt in September, Specialists: Nephrology, Dr. Suazo Preferred Pharmacy: [facility] Insurance: [facility] Prescription Benefit: yes. Pt states is on few medications, no difficulty affording. LNOK: sister, Mackenzie Loja Living Arrangements: Lives independently in remote home and cares for his animals. Pt does admit to falls, but is adamant that when feeling well, is independent in daily care needs. One story home. Transportation: friend drives to grocery, physician appts. DME: canes, walker. States he did not use prior to admission, but has at home HHC: none. Did not discuss during this visit as pt becomes anxious when discussing someone coming to his home. Patient DC goals: Home DC PLAN: Home vs Home with HHS. Tatum ROSASN RN ACM
[2018-09-12] MEDS: 0.9% NaCl Peripheral Flush Adult/Peds IV (14:06)
--- NOTE | 2018-09-12 14:51 | PCM.PN.REN ---
Patient Problems: Active and Suspected Problems Sepsis (Acute) UTI (urinary tract infection) (Acute) Encephalopathy acute (Acute) BIRGIT (acute kidney injury) (Acute) Atrial fibrillation with RVR (Acute) Abnormal imaging of thyroid (Acute) Subjective: Good UO Creatinine down to 3 on bicarb drip +5L - Physical Exam General: Alert, Oriented x3, Cooperative HEENT: Atraumatic, PERRLA, EOMI, Normocephalic Neck: Supple, No JVD, Negative Carotid Bruits Lungs: Clear to auscultation, Normal air movement Cardiovascular: Regular rate, No murmurs Abdomen: Bowel Sounds Present Vital Signs Temp Pulse Resp BP Pulse Ox 97.6 F L 71 19 H 96/54 L 97 09/12/18 14:00 09/12/18 14:00 09/12/18 14:00 09/12/18 14:00 09/12/18 14:00 Oxygen Flow Rate (L/min) 2 Oxygen Delivery Method Room Air Weight: 65.3 kg Body Mass Index (BMI) 20.0 Finger Stick Blood Glucose 127 Intake and Output for Last 24 Hours 09/10/18 09/11/18 09/12/18 23:59 23:59 23:59 Intake Total 5315.7 / 5315.7 2166.3 / 2166.3 Output Total 625 / 625 650 / 650 Balance 4690.7 / 4690.7 1516.3 / 1516.3 Microbiology Past 72 Hours 09/10/18 11:35 Blood Culture - Preliminary Blood Culture (Wb) - Right Forearm Gram negative omi 09/10/18 11:25 Blood Culture - Preliminary Blood Culture (Wb) - Left Wrist Gram negative omi Laboratory Tests Past 24 Hrs 09/11/18 09/11/18 09/11/18 16:00 17:15 23:45 WBC RBC Hgb Hct MCV MCH MCHC RDW RDW Differential Plt Count MPV Immature Gran % (Auto) Neut % (Auto) Lymph % (Auto) [place] % (Auto) Eos % (Auto) Baso % (Auto) Absolute Neuts (auto) Absolute Lymphs (auto) Total Counted APTT Cancelled 53.1 H 54.7 H Sodium Potassium Chloride Carbon Dioxide Anion Gap BUN Creatinine Estim Creat Clear Calc Est GFR (MDRD) Af Amer Est GFR (MDRD) Non-Af BUN/Creatinine Ratio Glucose Calcium Lipase 09/12/18 09/12/18 09/12/18 06:00 06:00 06:00 WBC 4.5 RBC 2.76 L Hgb 8.3 L Hct 24.8 L MCV 89.9 MCH 30.1 MCHC 33.5 RDW 14.1 RDW Differential 44.2 H Plt Count 121 L MPV 11.0 Immature Gran % (Auto) 0.200 Neut % (Auto) 71.6 H Lymph % (Auto) 17.0 L [place] % (Auto) 8.8 Eos % (Auto) 2.4 Baso % (Auto) 0.0 Absolute Neuts (auto) 3.2 Absolute Lymphs (auto) 0.77 L Total Counted Not Reportable APTT 83.2 H Sodium 145 Potassium 4.2 Chloride 116 H Carbon Dioxide 17.0 L Anion Gap 12 BUN 120 H* Creatinine 3.96 H Estim Creat Clear Calc 13.28 Est GFR (MDRD) Af Amer 19 L Est GFR (MDRD) Non-Af 16 L BUN/Creatinine Ratio 30.3 H Glucose 171 H Calcium 7.4 L Lipase 436 H 09/12/18 13:25 WBC RBC Hgb Hct MCV MCH MCHC RDW RDW Differential Plt Count MPV Immature Gran % (Auto) Neut % (Auto) Lymph % (Auto) [place] % (Auto) Eos % (Auto) Baso % (Auto) Absolute Neuts (auto) Absolute Lymphs (auto) Total Counted APTT 53.0 H Sodium Potassium Chloride Carbon Dioxide Anion Gap BUN Creatinine Estim Creat Clear Calc Est GFR (MDRD) Af Amer Est GFR (MDRD) Non-Af BUN/Creatinine Ratio Glucose Calcium Lipase Medical Necessity - Tobacco Use Smoking Status: Never smoker Tobacco Use: Non-smoker Assessment/Plan All Active Problems Sepsis (Acute) UTI (urinary tract infection) (Acute) Encephalopathy acute (Acute) BIRGIT (acute kidney injury) (Acute) Atrial fibrillation with RVR (Acute) Abnormal imaging of thyroid (Acute) Bacteremia (Acute) 1-acute kidney injury on chronic kidney disease. Patient has chronic kidney disease stage IV with baseline around 2.0 mg deciliter. UA showed 100 protein nitrite positive white cell count 10-25. Acute kidney injury is most probably from sepsis induced ATN. Creatinine improved slightly today. Last creatinine 3.8 mg deciliter.BUN still significantly elevated No indication for renal replacement therapy. Please continue IV fluid at the same rate. Avoid VILMA inhibitor/ARB. Keep me after pressure more than 65. 2-normal anion gap metabolic acidosis. From most probably normal saline advanced chronic kidney disease. on IV fluids sodium bicarbonate drip isotonic at the same rate. 3-hypernatremia. Most probably iatrogenic from IV normal saline. I'll continue to monitor for now 4-severe sepsis from UTI. Patient and cefepime which is appropriately dosed the current kidney function.
[2018-09-12] MEDS: HEPARIN/D5w 25,000 UNITS 25,000 UNITS/250 ML IV.SOLN. 8 UNITS IV (15:00)
[2018-09-12 20:30] LABS: Partial Thromboplast Time 52.7 Seconds (24.1-36.2)
[2018-09-13] VITALS (27 sets, daily range): BP systolic 89–114; BP diastolic 40–66; PULSE 61–142; RESP 16–28; TEMP 36.6–37.5; O2SAT 90–96
[2018-09-13 04:06] LABS: Absolute Lymphocyte Count 0.73 X10^3/ul (0.83-4.51); Basophil# 0.01 X10^3/uL; Basophil% 0.2 % (0-1); Eosinophils% 1.9 % (0-5); Hematocrit 23.2 % (40-54); Hemoglobin 7.7 g/dl (13.0-16.5); Lymphocyte # 0.73 X10^3/ul (4.0); Lymphocyte % 14.1 % (19-41); Mean Corp Hgb Conc 33.2 g/gl (32-36); Mean Corpuscular Volume 90.3 fL (80-94); Mean Platelet Vol. 11.9 fl (6.2-12.0); Monocyte# 0.34 X10^3/uL; Monocyte% 6.6 % (0-10); Neutrophil # 3.97 X10^3/uL (2.7-7.7); Platelet Count 136 K/mm3 (150-450); RBC Distribution Width CV 14.2 % (11.6-14.6); RBC Distribution Width SD 44.6 fl (35.1-43.9); Red Blood Count 2.57 M/mm3 (4.6-6.2); White Blood Count 5.2 K/mm3 (4.4-11.0)
[2018-09-13 04:07] LABS: POSITIVE COUNT NO; POSITIVE DIFFERENTIAL NO; POSITIVE MORPHOLOGY NO
[2018-09-13 04:32] LABS: Anion Gap 10 (5-15); BUN 111 mg/dL (7-18); BUN/Creat Ratio 29.9 RATIO (10-20); Calcium,Total 7.1 mg/dL (8.5-10.1); Chloride 112 mmol/L (98-107); Creatinine, Serum 3.71 mg/dL (0.70-1.30); EST Glomerular Filtration Rate 17 mL/min (>60); Est Glom Filt Rate - Afr Amer 20 mL/min (>60); Estimated Creatinine Clearance 14.18 ml/min; Glucose 157 mg/dL (74-106); Potassium 4.6 mmol/L (3.5-5.1); Sodium Level 144 mmol/L (136-145)
[2018-09-13] MEDS: 0.9% NaCl Peripheral Flush Adult/Peds IV (05:04)
--- NOTE | 2018-09-13 06:58 | PCM.PN.INT ---
Subjective: The patient was seen and examined at the bedside this morning. Events from the last 24 hours have been reviewed. The patient is currently afebrile, hemodynamically stable and maintaining appropriate oxygen saturations on room air. Per nursing account, each of the last several times the patient has attempted to work with physical therapy he was noted to become tachycardic with heart rates in the 130s and 40s. He is currently in normal sinus rhythm. The patient is currently documented to be overall net +8 L for the admission. His hemoglobin this morning was noted to be 7.7 g/dL. BUN and creatinine are slowly improving. Objective: The patient's most recent lab work, culture data and imaging studies have all been personally reviewed. Surface echocardiogram revealed normal LV size and function with an ejection fraction of 65%. Preliminary blood cultures revealed gram-negative rods. Urine culture is currently pending. General: Alert, Cooperative, No apparent distress HEENT: Atraumatic, PERRLA, Normocephalic Oral: Dry Mucosa, - - Poor dentition Neck: Supple, No Nodes, Trachea Midline Lungs: No rhonchi, No wheeze, No rales, Diminished Cardiovascular: Regular rate, Regular Rhythm, Normal S1, Normal S2, Murmur Abdomen: Bowel Sounds Present, Soft, Non Tender Extremities: No clubbing, No cyanosis, Edema Skin: - - No significant change from previous Musculoskeletal: Cachexia Lymphatic: No Cervical, Supraclavicular, or Inguinal Adenopathy Neurological: Neuro grossly intact Psych/Mental Status: Normal Affect, Appropriate Vital Signs Temp Pulse Resp BP Pulse Ox 98.9 F 78 27 H 92/61 94 09/13/18 04:00 09/13/18 06:00 09/13/18 06:00 09/13/18 06:00 09/13/18 06:00 Oxygen Flow Rate (L/min) 2 Oxygen Delivery Method Room Air Weight: 147 lb 14.883 oz Body Mass Index (BMI) 20.0 Finger Stick Blood Glucose 127 Intake and Output for Last 24 Hours 09/11/18 09/12/18 09/13/18 23:59 23:59 23:59 Intake Total 5315.7 / 5315.7 4327.4 / 4327.4 935 / 935 Output Total 625 / 625 1475 / 1475 400 / 400 Balance 4690.7 / 4690.7 2852.4 / 2852.4 535 / 535 Labs (Last 48 Hours) 09/11/18 09/11/18 09/11/18 03:53 10:00 16:00 WBC RBC Hgb Hct MCV MCH MCHC RDW RDW Differential Plt Count MPV Immature Gran % (Auto) Neut % (Auto) Lymph % (Auto) [place] % (Auto) Eos % (Auto) Baso % (Auto) Absolute Neuts (auto) Absolute Lymphs (auto) Total Counted APTT 56.9 H Cancelled Sodium Potassium Chloride Carbon Dioxide Anion Gap BUN Creatinine Estim Creat Clear Calc Est GFR (MDRD) Af Amer Est GFR (MDRD) Non-Af BUN/Creatinine Ratio Glucose Hemoglobin A1c 6.1 Calcium Magnesium Lipase 09/11/18 09/11/18 09/12/18 17:15 23:45 06:00 WBC RBC Hgb Hct MCV MCH MCHC RDW RDW Differential Plt Count MPV Immature Gran % (Auto) Neut % (Auto) Lymph % (Auto) [place] % (Auto) Eos % (Auto) Baso % (Auto) Absolute Neuts (auto) Absolute Lymphs (auto) Total Counted APTT 53.1 H 54.7 H 83.2 H Sodium Potassium Chloride Carbon Dioxide Anion Gap BUN Creatinine Estim Creat Clear Calc Est GFR (MDRD) Af Amer Est GFR (MDRD) Non-Af BUN/Creatinine Ratio Glucose Hemoglobin A1c Calcium Magnesium Lipase 09/12/18 09/12/18 09/12/18 06:00 06:00 13:25 WBC 4.5 RBC 2.76 L Hgb 8.3 L Hct 24.8 L MCV 89.9 MCH 30.1 MCHC 33.5 RDW 14.1 RDW Differential 44.2 H Plt Count 121 L MPV 11.0 Immature Gran % (Auto) 0.200 Neut % (Auto) 71.6 H Lymph % (Auto) 17.0 L [place] % (Auto) 8.8 Eos % (Auto) 2.4 Baso % (Auto) 0.0 Absolute Neuts (auto) 3.2 Absolute Lymphs (auto) 0.77 L Total Counted Not Reportable APTT 53.0 H Sodium 145 Potassium 4.2 Chloride 116 H Carbon Dioxide 17.0 L Anion Gap 12 BUN 120 H* Creatinine 3.96 H Estim Creat Clear Calc 13.28 Est GFR (MDRD) Af Amer 19 L Est GFR (MDRD) Non-Af 16 L BUN/Creatinine Ratio 30.3 H Glucose 171 H Hemoglobin A1c Calcium 7.4 L Magnesium Lipase 436 H 09/12/18 09/13/18 09/13/18 20:10 03:20 03:20 WBC 5.2 RBC 2.57 L Hgb 7.7 L Hct 23.2 L MCV 90.3 MCH 30.0 MCHC 33.2 RDW 14.2 RDW Differential 44.6 H Plt Count 136 L MPV 11.9 Immature Gran % (Auto) 0.200 Neut % (Auto) 77.0 H Lymph % (Auto) 14.1 L [place] % (Auto) 6.6 Eos % (Auto) 1.9 Baso % (Auto) 0.2 Absolute Neuts (auto) 4.0 Absolute Lymphs (auto) 0.73 L Total Counted Not Reportable APTT 52.7 H Sodium 144 Potassium 4.6 Chloride 112 H Carbon Dioxide 22.0 Anion Gap 10 BUN 111 H* Creatinine 3.71 H Estim Creat Clear Calc 14.18 Est GFR (MDRD) Af Amer 20 L Est GFR (MDRD) Non-Af 17 L BUN/Creatinine Ratio 29.9 H Glucose 157 H Hemoglobin A1c Calcium 7.1 L Magnesium 2.0 Lipase 09/13/18 03:20 WBC RBC Hgb Hct MCV MCH MCHC RDW RDW Differential Plt Count MPV Immature Gran % (Auto) Neut % (Auto) Lymph % (Auto) [place] % (Auto) Eos % (Auto) Baso % (Auto) Absolute Neuts (auto) Absolute Lymphs (auto) Total Counted APTT 81.0 H Sodium Potassium Chloride Carbon Dioxide Anion Gap BUN Creatinine Estim Creat Clear Calc Est GFR (MDRD) Af Amer Est GFR (MDRD) Non-Af BUN/Creatinine Ratio Glucose Hemoglobin A1c Calcium Magnesium Lipase Microbiology 09/10/18 11:35 Blood Culture (Wb) - Right Forearm Blood Culture - Preliminary Gram negative omi 09/10/18 11:25 Blood Culture (Wb) - Left Wrist Blood Culture - Preliminary Gram negative omi Clinical Impression(s) from Imaging Studies Brain CT 09/10/18 11:15 IMPRESSION: Chronic involutional changes of the brain. Electronically Signed: Marc Owens, at 12:48 EDT , Service support , Cervical Spine CT 09/10/18 11:15 IMPRESSION: Multilevel degenerative changes, as described above. 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 Electronically Signed: Marc Owens, at 12:53 EDT , Service support , Ribs X-Ray 09/10/18 12:21 IMPRESSION: Normal x-ray examination of the ribs. Electronically Signed: Marc Moraisabellavictor m, at 12:50 EDT , Service support , Gallbladder Ultrasound 09/10/18 14:55 IMPRESSION: Nonspecific partially contracted gallbladder with mild wall thickening. Trace sludge. The pancreas is not well-visualized. Benign-appearing right renal cyst. Electronically Signed: Jerri Alonso MD at 19:14 EDT Tel , Service support , Renal Ultrasound 09/10/18 14:55 IMPRESSION: Findings are suspicious for cystitis. There is inhomogeneous appearance of the wall the bladder with thickening. Multiple stones are seen in the posterior aspect of the bladder on a prior CT. There is focal thickening of the base of the bladder transverse image and may measure up to 1.8 x 0.8 cm. This may represent focal edema potentially a bladder cancer. Recommend consideration for cystoscopy when appropriate. Increased echogenicity of the right kidney suspicious for medical renal disease. Benign-appearing cyst right kidney. Electronically Signed: Jerri Alonso MD at 23:08 EDT Tel , Service support , Thyroid Ultrasound 09/10/18 14:55 IMPRESSION: Enlarged thyroid. Bilateral well circumscribed nodules. Recommend correlation with laboratory values. 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 Electronically Signed: Jerri Alonso MD at 2:00 EDT Tel , Service support , Medical Necessity - Tobacco Use Smoking Status: Never smoker Tobacco Use: Non-smoker Assessment/Plan All Active Problems Sepsis (Acute) UTI (urinary tract infection) (Acute) Encephalopathy acute (Acute) BIRGIT (acute kidney injury) (Acute) Atrial fibrillation with RVR (Acute) Abnormal imaging of thyroid (Acute) Bacteremia (Acute) RECOMMENDATIONS: 1. Continue antibiotics as ordered, pending finalized culture results. 2. Stop continuous bicarbonate infusion, as the patient is becoming significantly volume positive for the admission. 3. Send type and screen today. 4. Encourage incentive spirometer use and mobilize patient as tolerated. 5. Check H&H daily. Plan to transfuse if hemoglobin drops below 7 g/dL. 6. Discontinue heparin drip. IMPRESSIONS: 1. Gram-negative sepsis Preliminary blood cultures were positive for gram-negative rods. Urine culture is currently pending. Continue antibiotics as ordered, pending finalized culture results. The patient remains relatively stable from a hemodynamic perspective. 2. Acute on chronic kidney disease Likely prerenal in etiology and related to #1. Given the patient's uremia, decreased urine output and metabolic acidosis, nephrology is following. Continue bicarbonate infusion per their recommendations. Continue to monitor urine output. No indication for renal replacement therapy at this time. 3. Paroxysmal atrial fibrillation While the patient was noted to be in atrial fibrillation for period of time, he spontaneously converted back to normal sinus rhythm. He does not seem to be an ideal candidate for systemic anticoagulation from my perspective. Okay to discontinue heparin drip. 4. Metabolic encephalopathy Improved. Likely related to numbers 1 and 2 with underlying infection and metabolic derangements contributing. 5. Anemia/history of heart failure/hypertension/depression/anxiety/BPH Complicates care, management, recovery and prognosis. Continue to hold antihypertensives as noted above. Physical therapy to continue to work with the patient. This note was generated with [employer] software. It may contain incorrect words, spelling, and punctuation that were not noted in checking the note before signing. Code Visit Inpatient E&M: 20711 Subs Hosp L3
--- NOTE | 2018-09-13 09:33 | PCM.PROGNOTE ---
Patient Problems: Active and Suspected Problems Sepsis (Acute) UTI (urinary tract infection) (Acute) Encephalopathy acute (Acute) BIRGIT (acute kidney injury) (Acute) Atrial fibrillation with RVR (Acute) Abnormal imaging of thyroid (Acute) Subjective: Chief complaint: Follow-up after admission for sepsis secondary to acute cystitis, acute kidney injury double stage III chronic kidney disease, A. fib with RVR, probable mild pancreatitis and abnormal thyroid. Patient seen and examined. No acute events overnight. Apart from weakness, patient denies any other symptoms. Nursing staff reported that patient has been more tachycardic upon ambulation. He is afebrile, heart stable at rest, blood pressure improved, pulse ox is 92% on room air. - Physical Exam General: Alert, Oriented x3, Cooperative, No apparent distress HEENT: Atraumatic, PERRLA, EOMI, Normocephalic Oral: Moist Mucosa, No Gingival or Mucosal Lesions/ Ulcerations Neck: Supple, No JVD, Negative Carotid Bruits, Trachea Midline, Thyroid Normal Size and Texture Lungs: No wheeze, No rales, Diminished, Rhonchi Cardiovascular: Regular rate, Regular Rhythm, Normal S1, Normal S2, PMI Normal, Murmur - Systolic murmur. Abdomen: Bowel Sounds Present, Soft, Non Tender, Non-Distended, No Hepato-splenomegaly Extremities: No clubbing, No cyanosis, Edema Skin: No rashes, No breakdown Lymphatic: No Cervical, Supraclavicular, or Inguinal Adenopathy Neurological: Cranial nerves II-XII grossly intact, Neuro grossly intact Psych/Mental Status: Normal Affect, Appropriate Vital Signs Temp Pulse Resp BP Pulse Ox 98.9 F 82 26 H 107/58 L 92 09/13/18 04:00 09/13/18 08:00 09/13/18 08:00 09/13/18 08:00 09/13/18 08:00 Oxygen Flow Rate (L/min) 2 Oxygen Delivery Method Room Air Weight: 147 lb 14.883 oz Body Mass Index (BMI) 20.0 Finger Stick Blood Glucose 127 Intake and Output for Last 24 Hours 09/11/18 09/12/18 09/13/18 23:59 23:59 23:59 Intake Total 5315.7 / 5315.7 4327.4 / 4327.4 935 / 935 Output Total 625 / 625 1475 / 1475 400 / 400 Balance 4690.7 / 4690.7 2852.4 / 2852.4 535 / 535 Microbiology Past 72 Hours 09/11/18 10:30 Urine Culture - Preliminary Urine Catheter - Catheter Culture exhibits no growth. 09/10/18 11:25 Blood Culture - Preliminary Blood Culture (Wb) - Left Wrist Gram negative omi 09/10/18 11:35 Blood Culture - Preliminary Blood Culture (Wb) - Right Forearm Gram negative omi Laboratory Tests Past 24 Hrs 09/12/18 09/12/18 09/13/18 13:25 20:10 03:20 WBC 5.2 RBC 2.57 L Hgb 7.7 L Hct 23.2 L MCV 90.3 MCH 30.0 MCHC 33.2 RDW 14.2 RDW Differential 44.6 H Plt Count 136 L MPV 11.9 Immature Gran % (Auto) 0.200 Neut % (Auto) 77.0 H Lymph % (Auto) 14.1 L [place] % (Auto) 6.6 Eos % (Auto) 1.9 Baso % (Auto) 0.2 Absolute Neuts (auto) 4.0 Absolute Lymphs (auto) 0.73 L Total Counted Not Reportable APTT 53.0 H 52.7 H Sodium Potassium Chloride Carbon Dioxide Anion Gap BUN Creatinine Estim Creat Clear Calc Est GFR (MDRD) Af Amer Est GFR (MDRD) Non-Af BUN/Creatinine Ratio Glucose Calcium Magnesium Blood Type Antibody Screen 09/13/18 09/13/18 09/13/18 03:20 03:20 08:45 WBC RBC Hgb Hct MCV MCH MCHC RDW RDW Differential Plt Count MPV Immature Gran % (Auto) Neut % (Auto) Lymph % (Auto) [place] % (Auto) Eos % (Auto) Baso % (Auto) Absolute Neuts (auto) Absolute Lymphs (auto) Total Counted APTT 81.0 H Sodium 144 Potassium 4.6 Chloride 112 H Carbon Dioxide 22.0 Anion Gap 10 BUN 111 H* Creatinine 3.71 H Estim Creat Clear Calc 14.18 Est GFR (MDRD) Af Amer 20 L Est GFR (MDRD) Non-Af 17 L BUN/Creatinine Ratio 29.9 H Glucose 157 H Calcium 7.1 L Magnesium 2.0 Blood Type Cancelled Antibody Screen Cancelled POC Glucose 06/20/19 00:38 POC Glucose Cancelled Medical Necessity - Tobacco Use Smoking Status: Never smoker Tobacco Use: Non-smoker Assessment/Plan All Active Problems Sepsis (Acute) UTI (urinary tract infection) (Acute) Encephalopathy acute (Acute) BIRGIT (acute kidney injury) (Acute) Atrial fibrillation with RVR (Acute) Abnormal imaging of thyroid (Acute) Bacteremia (Acute) This is an 83 years old male patient presented to the emergency room because of fall, frequency and urinary incontinence, found to have sepsis secondary to acute cystitis, A. fib with RVR, acute kidney injury on top of stage IV chronic kidney disease, gram-negative bacteremia and probable mild acute pancreatitis. #1 acute sepsis/acute cystitis: IVC filter being discontinued, now on IV ciprofloxacin. He has been afebrile, white blood cell count is normal. Blood pressure improved, stabilized. He remains in sinus rhythm, heart rate has been around 100. Lactic acid was normal. Urine cultures showed no growth. Blood culture revealed gram-negative rods, final is pending. Plan: Transfer to PCU, continue same treatment. #2 gram-negative bacteremia: Likely source is the acute cystitis. Blood culture revealed gram-negative rods, final is pending. Repeat blood culture was done yesterday and it is pending. He is on IV ciprofloxacin as above. Plan as above. #3 acute kidney injury on top of stage IV chronic kidney disease: He is on IV sodium bicarb infusion. Urine output is borderline. BUN and creatinine continued to improve slowly. Today's BUN is 111, creatinine is 3.71. Kidney ultrasound revealed normal kidney size, no evidence of kidney stones, hydronephrosis or hydroureter, revealed bladder stones. Nephrology on the case. #4 A. fib with RVR: Remained sinus rhythm, rate is controlled. He is not on any medication for rate control because of borderline blood pressure. He is on IV heparin drip for anticoagulation. 2D echocardiogram revealed ejection fraction of 65%, mild aortic stenosis, RVSP of 28.. Serum electrolytes are within normal limits. Patient had a history of A. fib in the past so this is not new. Plan to DC IV heparin drip, may need to start on beta-blockers when blood pressure allows. #5 elevated lipase/probable mild pancreatitis: Unclear etiology, patient denies any abdominal pain. LFT was normal. Lipase continue to drop down slowly. Patient is tolerating diet. #6 encephalopathy: Likely metabolic because of infection and worsening kidney function. CT scan brain showed no acute findings. Patient is alert and oriented x3. #7 abnormal thyroid gland: This is an incidental finding on CT scan cervical spine. TSH and free T4 were normal. Free T3 was slightly low. Ultrasound thyroid revealed bilateral well-circumscribed nodules likely due to goiter. #8 mechanical fall: Without evidence of significant trauma. CT scan brain, CT scan cervical spine, rib x-ray was unremarkable. #9 chronic diastolic CHF: Clinically stable, compensated. He is on IV fluids for acute on chronic renal failure. Plan for close monitoring of volume status. #10 Acute on chronic anemia/chronic thrombocytopenia: It is normocytic anemia likely due to anemia of chronic disease. Baseline hemoglobin has been around 7 to 10 g/dL. Today's hemoglobin is 7.7, keep declining. No evidence of active bleeding. Today's platelet count is 136,000, stable at baseline, no bleeding. #11 hypertension: Blood pressure improved , HCTZ and lisinopril held. #12 depression/anxiety: He is not on any medication at this time. #13 benign prostatic hypertrophy: Continue Flomax. #14 DVT prophylaxis: DC IV heparin drip, start subcu heparin. This note was generated with [employer] dictation software. It may contain incorrect words, spelling, and punctuation that were not noted in checking the note before signing. Code Visit Inpatient E&M: 08307 Subs Hosp L2
[2018-09-13] MEDS: Aspirin 81 MG TAB.CHEW PO (09:52)
[2018-09-13] MEDS: Tamsulosin HCl 0.4 MG Capsule PO ×2 (09:53→16:27)
[2018-09-13] MEDS: Pantoprazole Sodium 20 MG Tablet PO ×2 (09:55→22:31)
--- NOTE | 2018-09-13 10:36 | CASEMGMT ---
JASE JENKINS Note: participated in interdisciplinary rounds and followed up with patient after rounds. Per physical therapy, pt ambulated 200 feet but had difficulty with getting in/out of bed yesterday. Pt is adamant he wishes to return home. Becomes emotional when speaking of taking care of his cabin and animals. JASE JENKINS offered emotional support and let pt know he would again be working with therapy today and goal is for pt to return home. JASE JENKINS discussed options of Outpt therapy Home Health and Pt declined both. Tatum MELLO RN ACM
--- NOTE | 2018-09-13 12:05 | PCM.PN.REN ---
Patient Problems: Active and Suspected Problems Sepsis (Acute) UTI (urinary tract infection) (Acute) Encephalopathy acute (Acute) BIRGIT (acute kidney injury) (Acute) Atrial fibrillation with RVR (Acute) Abnormal imaging of thyroid (Acute) Subjective: Tx out of ICU stable - Physical Exam General: Alert, Oriented x3, Cooperative HEENT: Atraumatic, PERRLA, EOMI, Normocephalic Neck: Supple, No JVD, Negative Carotid Bruits Lungs: Clear to auscultation, Normal air movement Cardiovascular: Regular rate, No murmurs Abdomen: Bowel Sounds Present, Soft, Non Tender Extremities: No edema, Capillary Refill Less than 3 Seconds Skin: No rashes, No breakdown Musculoskeletal: No Tenderness to Palpation of Joints or Extremities Neurological: Cranial nerves II-XII grossly intact Psych/Mental Status: Normal Affect, Appropriate Vital Signs Temp Pulse Resp BP Pulse Ox 98.9 F 67 18 94/63 94 09/13/18 10:59 09/13/18 10:59 09/13/18 10:59 09/13/18 10:59 09/13/18 10:59 Oxygen Flow Rate (L/min) 2 Oxygen Delivery Method Room Air Weight: 67.1 kg Body Mass Index (BMI) 20.0 Finger Stick Blood Glucose 127 Intake and Output for Last 24 Hours 09/11/18 09/12/18 09/13/18 23:59 23:59 23:59 Intake Total 5315.7 / 5315.7 4327.4 / 4327.4 935 / 935 Output Total 625 / 625 1475 / 1475 400 / 400 Balance 4690.7 / 4690.7 2852.4 / 2852.4 535 / 535 Microbiology Past 72 Hours 09/11/18 10:30 Urine Culture - Preliminary Urine Catheter - Catheter Culture exhibits no growth. 09/10/18 11:25 Blood Culture - Preliminary Blood Culture (Wb) - Left Wrist Gram negative omi 09/10/18 11:35 Blood Culture - Preliminary Blood Culture (Wb) - Right Forearm Gram negative omi Laboratory Tests Past 24 Hrs 09/12/18 09/12/18 09/13/18 13:25 20:10 03:20 WBC 5.2 RBC 2.57 L Hgb 7.7 L Hct 23.2 L MCV 90.3 MCH 30.0 MCHC 33.2 RDW 14.2 RDW Differential 44.6 H Plt Count 136 L MPV 11.9 Immature Gran % (Auto) 0.200 Neut % (Auto) 77.0 H Lymph % (Auto) 14.1 L [place] % (Auto) 6.6 Eos % (Auto) 1.9 Baso % (Auto) 0.2 Absolute Neuts (auto) 4.0 Absolute Lymphs (auto) 0.73 L Total Counted Not Reportable APTT 53.0 H 52.7 H Sodium Potassium Chloride Carbon Dioxide Anion Gap BUN Creatinine Estim Creat Clear Calc Est GFR (MDRD) Af Amer Est GFR (MDRD) Non-Af BUN/Creatinine Ratio Glucose Calcium Magnesium Blood Type Antibody Screen 09/13/18 09/13/18 09/13/18 03:20 03:20 08:45 WBC RBC Hgb Hct MCV MCH MCHC RDW RDW Differential Plt Count MPV Immature Gran % (Auto) Neut % (Auto) Lymph % (Auto) [place] % (Auto) Eos % (Auto) Baso % (Auto) Absolute Neuts (auto) Absolute Lymphs (auto) Total Counted APTT 81.0 H Sodium 144 Potassium 4.6 Chloride 112 H Carbon Dioxide 22.0 Anion Gap 10 BUN 111 H* Creatinine 3.71 H Estim Creat Clear Calc 14.18 Est GFR (MDRD) Af Amer 20 L Est GFR (MDRD) Non-Af 17 L BUN/Creatinine Ratio 29.9 H Glucose 157 H Calcium 7.1 L Magnesium 2.0 Blood Type Cancelled Antibody Screen Cancelled 09/13/18 09:40 WBC RBC Hgb Hct MCV MCH MCHC RDW RDW Differential Plt Count MPV Immature Gran % (Auto) Neut % (Auto) Lymph % (Auto) [place] % (Auto) Eos % (Auto) Baso % (Auto) Absolute Neuts (auto) Absolute Lymphs (auto) Total Counted APTT Sodium Potassium Chloride Carbon Dioxide Anion Gap BUN Creatinine Estim Creat Clear Calc Est GFR (MDRD) Af Amer Est GFR (MDRD) Non-Af BUN/Creatinine Ratio Glucose Calcium Magnesium Blood Type O POSITIVE Antibody Screen NEGATIVE POC Glucose 09/13/18 00:38 POC Glucose Cancelled Medical Necessity - Tobacco Use Smoking Status: Never smoker Tobacco Use: Non-smoker Assessment/Plan All Active Problems Sepsis (Acute) UTI (urinary tract infection) (Acute) Encephalopathy acute (Acute) BIRGIT (acute kidney injury) (Acute) Atrial fibrillation with RVR (Acute) Abnormal imaging of thyroid (Acute) Bacteremia (Acute) 1-acute kidney injury on chronic kidney disease. Patient has chronic kidney disease stage IV with baseline around 2.0 mg deciliter. UA showed 100 protein nitrite positive white cell count 10-25. Acute kidney injury is most probably from sepsis induced ATN. Creatinine improved slightly today. solute stable No indication for renal replacement therapy. Hold IVF Avoid VILMA inhibitor/ARB. Keep me after pressure more than 65. 2-normal anion gap metabolic acidosis. From most probably normal saline advanced chronic kidney disease. on IV fluids sodium bicarbonate drip isotonic at the same rate.improved now -DC drip 3-hypernatremia. Most probably iatrogenic from IV normal saline. I'll continue to monitor for now 4-severe sepsis from UTI. Patient and cefepime which is appropriately dosed the current kidney function.
[2018-09-13] MEDS: Ferrous Sulfate 325 MG Tablet PO ×2 (12:46→16:27)
[2018-09-13] MEDS: Ciprofloxacin 400 MG/200 ML BAG 200 MG IV (12:46)
--- NOTE | 2018-09-13 13:30 | EKG12_ITS ---
Test Reason : Blood Pressure : / mmHG Vent. Rate : 142 BPM Atrial Rate : 288 BPM P-R Int : 000 ms QRS Dur : 084 ms QT Int : 342 ms P-R-T Axes : 000 -05 073 degrees QTc Int : 526 ms Atrial flutter with variable A-V block with premature ventricular or aberrantly conducted complexes Left ventricular hypertrophy with repolarization abnormality Abnormal ECG When compared with ECG of 10-SEP-2018 11:09, Atrial flutter has replaced Atrial fibrillation Confirmed by VADIM LEWIS, JONG ([id number]), field map editor MARC PRAKASH ([id number]) on 09/17/2018 11:55:55 AM Referred By: Nae Frederick Confirmed By:GLORY FIERRO MD
--- NOTE | 2018-09-13 14:00 | NURSING ---
Notified Dr. De Leon of patient having bursts of what appeared to be SVT or A/flutter. Pt remained asymptomatic, denied SOB or CP. BP stable 114/57. EKG obtained that showed questionable ST elevation. Dr. De Leon came to see patient and looked at EKG and decided there was now ST elevation on EKG. He ordered stat Troponin x1, start patient on 12.5mg PO metoprolol first dose now, repeat EKG at 1800.
[2018-09-13] MEDS: Metoprolol Tartrate 25 MG Tablet 12.5 MG PO (14:27)
--- NOTE | 2018-09-13 14:31 | PCM.PN.BLA ---
Progress Note The nurse called because patient's heart rate went to 140s, was in atrial flutter. EKG performed and was concerning for acute ST elevation. EKG reviewed, revealed atrial flutter, no obvious acute ST elevation. Case discussed with cardiology. Heart rate slowed down to 90s spontaneously. Blood pressure stable. Patient denies any chest pain or shortness of breath. Plan: Troponin x1, will give 1 dose of metoprolol 12.5 mg p.o. x1 now, repeat EKG in 4 hours, start metoprolol 12 mg p.o. twice daily tomorrow morning.
--- NOTE | 2018-09-13 18:00 | EKG12_ITS ---
Test Reason : AM EKG Blood Pressure : / mmHG Vent. Rate : 072 BPM Atrial Rate : 072 BPM P-R Int : 146 ms QRS Dur : 084 ms QT Int : 428 ms P-R-T Axes : 064 007 037 degrees QTc Int : 468 ms Sinus rhythm with Premature atrial complexes Otherwise normal ECG When compared with ECG of 13-SEP-2018 19:12, MANUAL COMPARISON REQUIRED, DATA IS UNCONFIRMED Confirmed by ESTEFANI LEWIS, JOHN ([id number]), editor map MARC PRAKASH ([id number]) on 09/18/2018 8:12:15 AM Referred By: Nae Frederick Confirmed By:JOHN JARA MD
[2018-09-13] MEDS: guaiFENesin 10 ML UDC (200MG/10ML) 20 ML PO (20:35)
[2018-09-13] MEDS: Heparin Injection (Vial) 5,000 UNIT/ML VIAL 5000 UNIT SC (22:31)
[2018-09-14] VITALS (19 sets, daily range): BP systolic 104–119; BP diastolic 57–67; PULSE 61–77; RESP 13–20; TEMP 36.3–37.7; O2SAT 86–98
--- NOTE | 2018-09-14 05:55 | EKG12_ITS ---
Test Reason : 4 HR POST MEDICATION Blood Pressure : / mmHG Vent. Rate : 089 BPM Atrial Rate : 131 BPM P-R Int : 154 ms QRS Dur : 082 ms QT Int : 380 ms P-R-T Axes : 029 -03 026 degrees QTc Int : 462 ms Sinus tachycardia with Blocked Premature atrial complexes Inferior infarct , age undetermined Abnormal ECG When compared with ECG of 13-SEP-2018 13:37, MANUAL COMPARISON REQUIRED, DATA IS UNCONFIRMED Confirmed by ESTEFANI LEWIS, JOHN ([id number]), managing editor MARC PRAKASH ([id number]) on 09/18/2018 8:14:17 AM Referred By: Nae Frederick Confirmed By:JOHN JARA MD
[2018-09-14 06:04] LABS: Absolute Lymphocyte Count 0.93 X10^3/ul (0.83-4.51); Absolute Neutrophil Count 2.6 X10^3/uL (2.0-7.7); Basophil# 0.02 X10^3/uL; Basophil% 0.5 % (0-1); Eosinophil# 0.13 X10^3/uL; Eosinophils% 3.2 % (0-5); Hematocrit 24.4 % (40-54); Hemoglobin 7.7 g/dl (13.0-16.5); Lymphocyte # 0.93 X10^3/ul (4.0); Mean Corp Hgb Conc 31.6 g/gl (32-36); Mean Corpuscular Hgb 28.9 pg (27.0-32.0); Mean Corpuscular Volume 91.7 fL (80-94); Mean Platelet Vol. 10.7 fl (6.2-12.0); Monocyte# 0.33 X10^3/uL; Monocyte% 8.2 % (0-10); Neutrophil # 2.61 X10^3/uL (2.7-7.7); Neutrophil % 64.6 % (47-70); Platelet Count 137 K/mm3 (150-450); RBC Distribution Width SD 45.6 fl (35.1-43.9); Red Blood Count 2.66 M/mm3 (4.6-6.2)
[2018-09-14 06:09] LABS: POSITIVE COUNT NO; POSITIVE DIFFERENTIAL NO; POSITIVE MORPHOLOGY NO
[2018-09-14 06:25] LABS: International Normalized Ratio 1.2
[2018-09-14 06:30] LABS: Anion Gap 8 (5-15); BUN 101 mg/dL (7-18); Calcium,Total 7.4 mg/dL (8.5-10.1); Chloride 114 mmol/L (98-107); Creatinine, Serum 3.48 mg/dL (0.70-1.30); EST Glomerular Filtration Rate 18 mL/min (>60); Est Glom Filt Rate - Afr Amer 22 mL/min (>60); Estimated Creatinine Clearance 15.28 ml/min; Glucose 102 mg/dL (74-106); Potassium 4.1 mmol/L (3.5-5.1); Sodium Level 146 mmol/L (136-145)
--- NOTE | 2018-09-14 08:17 | PN_ITS ---
Patient Problems: Active and Suspected Problems Sepsis (Acute) UTI (urinary tract infection) (Acute) Encephalopathy acute (Acute) BIRGIT (acute kidney injury) (Acute) Atrial fibrillation with RVR (Acute) Abnormal imaging of thyroid (Acute) Subjective: Chief complaint: Follow-up after admission for sepsis secondary to acute cystitis, acute kidney injury double stage III chronic kidney disease, A. fib with RVR, probable mild pancreatitis and abnormal thyroid. Patient seen and examined. No acute events overnight. This morning, he denies any complaints. Denied chest pain or shortness of breath. Denied abdominal pain, nausea or vomiting. He is afebrile, blood pressure has been borderline, pulse ox is maintained on room air. - Physical Exam General: Alert, Oriented x3, Cooperative, No apparent distress HEENT: Atraumatic, PERRLA, EOMI, Normocephalic Oral: Moist Mucosa, No Gingival or Mucosal Lesions/ Ulcerations Neck: Supple, No JVD, Negative Carotid Bruits, Trachea Midline, Thyroid Normal Size and Texture Lungs: Clear to auscultation, No rhonchi, No wheeze, No rales, Diminished Cardiovascular: Regular rate, Regular Rhythm, Normal S1, Normal S2, Murmur Abdomen: Bowel Sounds Present, Soft, Non Tender, Non-Distended, No Hepato- splenomegaly Extremities: No clubbing, No cyanosis, Edema - Trace edema. Skin: No rashes, No breakdown Lymphatic: No Cervical, Supraclavicular, or Inguinal Adenopathy Neurological: Cranial nerves II-XII grossly intact, Neuro grossly intact Psych/Mental Status: Normal Affect, Appropriate Vital Signs Temp Pulse Resp BP Pulse Ox 97.4 F L 76 16 104/60 92 09/14/18 04:28 09/14/18 04:28 09/14/18 04:28 09/14/18 04:28 09/14/18 04:42 Oxygen Flow Rate (L/min) 2 Oxygen Delivery Method Room Air Weight: 145 lb 8.081 oz Body Mass Index (BMI) 20.0 Finger Stick Blood Glucose 127 Intake and Output for Last 24 Hours 09/12/18 09/13/18 09/14/18 23:59 23:59 23:59 Intake Total 4327.4 / 4327.4 995 / 995 Output Total 1475 / 1475 950 / 950 400 / 400 Balance 2852.4 / 2852.4 45 / 45 -400 / -400 Microbiology Past 72 Hours 09/10/18 11:35 Blood Culture - Final Blood Culture (Wb) - Right Forearm Y. enterocolitica/frederikseni 09/10/18 11:25 Blood Culture - Final Blood Culture (Wb) - Left Wrist Y. enterocolitica/frederikseni 09/11/18 10:30 Urine Culture - Preliminary Urine Catheter - Catheter Culture exhibits no growth. Laboratory Tests Past 24 Hrs 09/13/18 09/13/18 09/13/18 08:45 09:40 09:40 WBC RBC Hgb Hct MCV MCH MCHC RDW RDW Differential Plt Count MPV Immature Gran % (Auto) Neut % (Auto) Lymph % (Auto) [place] % (Auto) Eos % (Auto) Baso % (Auto) Absolute Neuts (auto) Absolute Lymphs (auto) Total Counted PT INR Sodium Potassium Chloride Carbon Dioxide Anion Gap BUN Creatinine Estim Creat Clear Calc Est GFR (MDRD) Af Amer Est GFR (MDRD) Non-Af BUN/Creatinine Ratio Glucose Calcium Troponin I Blood Type Cancelled O POSITIVE Antibody Screen Cancelled NEGATIVE Crossmatch See Detail 09/13/18 09/14/18 09/14/18 14:03 05:37 05:37 WBC 4.0 L RBC 2.66 L Hgb 7.7 L Hct 24.4 L MCV 91.7 MCH 28.9 MCHC 31.6 L RDW 14.0 RDW Differential 45.6 H Plt Count 137 L MPV 10.7 Immature Gran % (Auto) 0.500 Neut % (Auto) 64.6 Lymph % (Auto) 23.0 [place] % (Auto) 8.2 Eos % (Auto) 3.2 Baso % (Auto) 0.5 Absolute Neuts (auto) 2.6 Absolute Lymphs (auto) 0.93 Total Counted Not Reportable PT 15.0 H INR 1.2 Sodium Potassium Chloride Carbon Dioxide Anion Gap BUN Creatinine Estim Creat Clear Calc Est GFR (MDRD) Af Amer Est GFR (MDRD) Non-Af BUN/Creatinine Ratio Glucose Calcium Troponin I < 0.015 Blood Type Antibody Screen Crossmatch 09/14/18 05:37 WBC RBC Hgb Hct MCV MCH MCHC RDW RDW Differential Plt Count MPV Immature Gran % (Auto) Neut % (Auto) Lymph % (Auto) [place] % (Auto) Eos % (Auto) Baso % (Auto) Absolute Neuts (auto) Absolute Lymphs (auto) Total Counted PT INR Sodium 146 H Potassium 4.1 Chloride 114 H Carbon Dioxide 24.0 Anion Gap 8 BUN 101 H* Creatinine 3.48 H Estim Creat Clear Calc 15.28 Est GFR (MDRD) Af Amer 22 L Est GFR (MDRD) Non-Af 18 L BUN/Creatinine Ratio 29.0 H Glucose 102 Calcium 7.4 L Troponin I Blood Type Antibody Screen Crossmatch POC Glucose 09/13/18 00:38 POC Glucose Cancelled Medical Necessity - Tobacco Use Smoking Status: Never smoker Tobacco Use: Non-smoker Assessment/Plan All Active Problems Sepsis (Acute) UTI (urinary tract infection) (Acute) Encephalopathy acute (Acute) BIRGIT (acute kidney injury) (Acute) Atrial fibrillation with RVR (Acute) Abnormal imaging of thyroid (Acute) Bacteremia (Acute) This is an 83 years old male patient presented to the emergency room because of fall, frequency and urinary incontinence, found to have sepsis secondary to acute cystitis, A. fib with RVR, acute kidney injury on top of stage IV chronic kidney disease, gram-negative bacteremia and probable mild acute pancreatitis. #1 acute sepsis/acute cystitis: He is on IV ciprofloxacin. Remained afebrile, white blood cell count is normal. Blood pressure improved, stabilized, remains in sinus rhythm, heart rate has been in the 70s. Urine cultures showed no growth. Blood culture revealed Yersinia enterocolitica. Infectious disease consulted, awaiting their recommendations. Plan to continue same treatment. #2 Yersinia enterocolitica bacteremia: He is on IV ciprofloxacin as above. Final results of the blood culture revealed Yersinia enterocolitica likely source is the acute cystitis. Repeat blood culture is pending. Awaiting infectious disease recommendations. #3 acute kidney injury on top of stage IV chronic kidney disease: He is of IV fluids.. Urine output improved. BUN and creatinine continued to improve slowly. Today's BUN is 101, creatinine is 3.48. Kidney ultrasound revealed normal kidney size, no evidence of kidney stones, hydronephrosis or hydroureter, revealed bladder stones. Nephrology on the case. #4 A. fib with RVR: Remained sinus rhythm, rate is controlled. Started on small dose of metoprolol yesterday. Yesterday, patient developed atrial flutter and there was questionable new EKG changes. He was given 1 dose of metoprolol. Repeat EKG from today revealed normal sinus rhythm with PACs, no acute ischemic changes. Patient was on IV heparin drip which was discontinued. 2D echocardiogram revealed ejection fraction of 65%, mild aortic stenosis, RVSP of 28.. Serum electrolytes are within normal limits. I do not think this patient is a candidate for anticoagulation. He did have this paroxysmal atrial fibrillation in the past but never been on anticoagulation. #5 elevated lipase/probable mild pancreatitis: Unclear etiology, patient denies any abdominal pain. LFT was normal. Lipase continue to drop down slowly. Patient is tolerating diet. #6 encephalopathy: Likely metabolic because of infection and worsening kidney function. CT scan brain showed no acute findings. Patient is alert and oriented x3. #7 abnormal thyroid gland: This is an incidental finding on CT scan cervical spine. TSH and free T4 were normal. Free T3 was slightly low. Ultrasound thyroid revealed bilateral well-circumscribed nodules likely due to goiter. #8 mechanical fall: Without evidence of significant trauma. CT scan brain, CT scan cervical spine, rib x-ray was unremarkable. #9 chronic diastolic CHF: Clinically stable, compensated. He is on IV fluids for acute on chronic renal failure. Plan for close monitoring of volume status. #10 Acute on chronic anemia/chronic thrombocytopenia: It is normocytic anemia likely due to anemia of chronic disease. Baseline hemoglobin has been around 7 to 10 g/dL. Today's hemoglobin remained at 7.7. No evidence of active bleeding. Today's platelet count is 137,000, stable at baseline, no bleeding. Plan to transfuse 1 unit of packed RBCs today. Repeat CBC tomorrow morning. #11 hypertension: Blood pressure improved , HCTZ and lisinopril held. #12 depression/anxiety: He is not on any medication at this time. #13 benign prostatic hypertrophy: Continue Flomax. #14 DVT prophylaxis: Subcu heparin. This note was generated with [employer] dictation software. It may contain incorrect words, spelling, and punctuation that were not noted in checking the note before signing. Code Visit Inpatient E&M: 88652 Subs Hosp L2
[2018-09-14] MEDS: 0.9% NaCl Peripheral Flush Adult/Peds IV ×2 (08:56→22:24)
[2018-09-14] MEDS: Tamsulosin HCl 0.4 MG Capsule PO ×2 (08:56→18:40)
[2018-09-14] MEDS: Aspirin 81 MG TAB.CHEW PO (08:56)
[2018-09-14] MEDS: Ciprofloxacin 400 MG/200 ML BAG 200 MG IV (08:56)
[2018-09-14] MEDS: Heparin Injection (Vial) 5,000 UNIT/ML VIAL 5000 UNIT SC ×2 (08:57→22:24)
[2018-09-14] MEDS: Metoprolol Tartrate 25 MG Tablet 12.5 MG PO ×2 (08:58→22:25)
[2018-09-14] MEDS: Pantoprazole Sodium 20 MG Tablet PO ×2 (09:03→22:31)
--- NOTE | 2018-09-14 10:36 | PCM.PN.REN ---
Patient Problems: Active and Suspected Problems Sepsis (Acute) UTI (urinary tract infection) (Acute) Encephalopathy acute (Acute) BIRGIT (acute kidney injury) (Acute) Atrial fibrillation with RVR (Acute) Abnormal imaging of thyroid (Acute) Subjective: Denied chest pain or shortness of breath. Denied abdominal pain, nausea or vomiting. - Physical Exam General: Alert, Oriented x3, Cooperative HEENT: Atraumatic, PERRLA, EOMI, Normocephalic Neck: Supple, No JVD, Negative Carotid Bruits Lungs: Clear to auscultation, Normal air movement Cardiovascular: Regular rate, No murmurs Abdomen: Bowel Sounds Present, Soft, Non Tender Extremities: No edema, Capillary Refill Less than 3 Seconds Skin: No rashes, No breakdown Musculoskeletal: No Tenderness to Palpation of Joints or Extremities Neurological: Cranial nerves II-XII grossly intact Psych/Mental Status: Normal Affect, Appropriate Vital Signs Temp Pulse Resp BP Pulse Ox 99.6 F H 67 14 113/62 95 09/14/18 09:58 09/14/18 09:58 09/14/18 09:58 09/14/18 09:58 09/14/18 09:58 Oxygen Flow Rate (L/min) 2 Oxygen Delivery Method Nasal Cannula Weight: 66 kg Body Mass Index (BMI) 20.0 Finger Stick Blood Glucose 127 Intake and Output for Last 24 Hours 09/12/18 09/13/18 09/14/18 23:59 23:59 23:59 Intake Total 4327.4 / 4327.4 995 / 995 0 / 0 Output Total 1475 / 1475 950 / 950 400 / 400 Balance 2852.4 / 2852.4 45 / 45 -400 / -400 Microbiology Past 72 Hours 09/11/18 10:30 Urine Culture - Final Urine Catheter - Catheter Culture exhibits no growth. 09/10/18 11:35 Blood Culture - Final Blood Culture (Wb) - Right Forearm Y. enterocolitica/frederikseni 09/10/18 11:25 Blood Culture - Final Blood Culture (Wb) - Left Wrist Y. enterocolitica/frederikseni Laboratory Tests Past 24 Hrs 09/13/18 09/13/18 09/13/18 09:40 09:40 14:03 WBC RBC Hgb Hct MCV MCH MCHC RDW RDW Differential Plt Count MPV Immature Gran % (Auto) Neut % (Auto) Lymph % (Auto) [place] % (Auto) Eos % (Auto) Baso % (Auto) Absolute Neuts (auto) Absolute Lymphs (auto) Total Counted PT INR Sodium Potassium Chloride Carbon Dioxide Anion Gap BUN Creatinine Estim Creat Clear Calc Est GFR (MDRD) Af Amer Est GFR (MDRD) Non-Af BUN/Creatinine Ratio Glucose Calcium Troponin I < 0.015 Blood Type O POSITIVE Antibody Screen NEGATIVE Crossmatch See Detail 09/14/18 09/14/18 09/14/18 05:37 05:37 05:37 WBC 4.0 L RBC 2.66 L Hgb 7.7 L Hct 24.4 L MCV 91.7 MCH 28.9 MCHC 31.6 L RDW 14.0 RDW Differential 45.6 H Plt Count 137 L MPV 10.7 Immature Gran % (Auto) 0.500 Neut % (Auto) 64.6 Lymph % (Auto) 23.0 [place] % (Auto) 8.2 Eos % (Auto) 3.2 Baso % (Auto) 0.5 Absolute Neuts (auto) 2.6 Absolute Lymphs (auto) 0.93 Total Counted Not Reportable PT 15.0 H INR 1.2 Sodium 146 H Potassium 4.1 Chloride 114 H Carbon Dioxide 24.0 Anion Gap 8 BUN 101 H* Creatinine 3.48 H Estim Creat Clear Calc 15.28 Est GFR (MDRD) Af Amer 22 L Est GFR (MDRD) Non-Af 18 L BUN/Creatinine Ratio 29.0 H Glucose 102 Calcium 7.4 L Troponin I Blood Type Antibody Screen Crossmatch Medical Necessity - Tobacco Use Smoking Status: Never smoker Tobacco Use: Non-smoker Assessment/Plan All Active Problems Sepsis (Acute) UTI (urinary tract infection) (Acute) Encephalopathy acute (Acute) BIRGIT (acute kidney injury) (Acute) Atrial fibrillation with RVR (Acute) Abnormal imaging of thyroid (Acute) Bacteremia (Acute) 1-acute kidney injury on chronic kidney disease. Patient has chronic kidney disease stage IV with baseline around 2.0 mg deciliter. UA showed 100 protein nitrite positive white cell count 10-25. Acute kidney injury is most probably from sepsis induced ATN. Creatinine improved slightly today. solute stable No indication for renal replacement therapy. Hold IVF Avoid VILMA inhibitor/ARB. Keep me after pressure more than 65. 2-normal anion gap metabolic acidosis. From most probably normal saline advanced chronic kidney disease. on IV fluids sodium bicarbonate drip isotonic at the same rate.improved now -DC drip 3-hypernatremia. Most probably iatrogenic from IV normal saline. I'll continue to monitor for now 4-severe sepsis from UTI. Patient and cefepime which is appropriately dosed the current kidney function.
--- NOTE | 2018-09-14 11:20 | PCM.PN.PUL ---
Patient Problems: Active and Suspected Problems Yersinia infection (Acute) Sepsis (Acute) UTI (urinary tract infection) (Acute) Encephalopathy acute (Acute) BIRGIT (acute kidney injury) (Acute) Atrial fibrillation with RVR (Acute) Abnormal imaging of thyroid (Acute) Subjective: The patient was seen and examined at the bedside this morning. Events from the last 24 hours have been reviewed. The patient is currently afebrile, hemodynamically stable and maintaining appropriate oxygen saturations on 2 L/min via nasal cannula. He denies the presence of shortness of breath or cough. Objective: The patient's most recent lab work, culture data and imaging studies have all been personally reviewed. Surface echocardiogram revealed normal LV size and function with an ejection fraction of 65%. Blood cultures appear to be growing your Y. enterocolitica. Urine culture has not demonstrated any growth to date. - Physical Exam General: Alert, Cooperative, No apparent distress HEENT: Atraumatic, PERRLA, Normocephalic Oral: Moist Mucosa, - - Poor generalized dentition Neck: Supple, No Nodes, Trachea Midline Lungs: No rhonchi, No wheeze, No rales, Diminished Cardiovascular: Regular rate, Regular Rhythm, Normal S1, Normal S2, Murmur Abdomen: Bowel Sounds Present, Soft, Non Tender Extremities: No clubbing, No cyanosis Skin: - - No significant change from previous Musculoskeletal: No Tenderness to Palpation of Joints or Extremities Lymphatic: No Cervical, Supraclavicular, or Inguinal Adenopathy Neurological: Neuro grossly intact Psych/Mental Status: Normal Affect, Appropriate Vital Signs Temp Pulse Resp BP Pulse Ox 99.0 F 62 14 117/65 97 09/14/18 10:58 09/14/18 10:58 09/14/18 10:58 09/14/18 10:58 09/14/18 10:58 Oxygen Flow Rate (L/min) 2 Oxygen Delivery Method Nasal Cannula Weight: 145 lb 8.081 oz Body Mass Index (BMI) 20.0 Finger Stick Blood Glucose 127 Intake and Output for Last 24 Hours 09/12/18 09/13/18 09/14/18 23:59 23:59 23:59 Intake Total 4327.4 / 4327.4 995 / 995 0 / 0 Output Total 1475 / 1475 950 / 950 400 / 400 Balance 2852.4 / 2852.4 45 / 45 -400 / -400 Microbiology Past 72 Hours 09/11/18 10:30 Urine Culture - Final Urine Catheter - Catheter Culture exhibits no growth. 09/10/18 11:35 Blood Culture - Final Blood Culture (Wb) - Right Forearm Y. enterocolitica/frederikseni 09/10/18 11:25 Blood Culture - Final Blood Culture (Wb) - Left Wrist Y. enterocolitica/frederikseni Laboratory Tests Past 24 Hrs 09/13/18 09/13/18 09/14/18 09:40 14:03 05:37 WBC 4.0 L RBC 2.66 L Hgb 7.7 L Hct 24.4 L MCV 91.7 MCH 28.9 MCHC 31.6 L RDW 14.0 RDW Differential 45.6 H Plt Count 137 L MPV 10.7 Immature Gran % (Auto) 0.500 Neut % (Auto) 64.6 Lymph % (Auto) 23.0 [place] % (Auto) 8.2 Eos % (Auto) 3.2 Baso % (Auto) 0.5 Absolute Neuts (auto) 2.6 Absolute Lymphs (auto) 0.93 Total Counted Not Reportable PT INR Sodium Potassium Chloride Carbon Dioxide Anion Gap BUN Creatinine Estim Creat Clear Calc Est GFR (MDRD) Af Amer Est GFR (MDRD) Non-Af BUN/Creatinine Ratio Glucose Calcium Troponin I < 0.015 Crossmatch See Detail 09/14/18 09/14/18 05:37 05:37 WBC RBC Hgb Hct MCV MCH MCHC RDW RDW Differential Plt Count MPV Immature Gran % (Auto) Neut % (Auto) Lymph % (Auto) [place] % (Auto) Eos % (Auto) Baso % (Auto) Absolute Neuts (auto) Absolute Lymphs (auto) Total Counted PT 15.0 H INR 1.2 Sodium 146 H Potassium 4.1 Chloride 114 H Carbon Dioxide 24.0 Anion Gap 8 BUN 101 H* Creatinine 3.48 H Estim Creat Clear Calc 15.28 Est GFR (MDRD) Af Amer 22 L Est GFR (MDRD) Non-Af 18 L BUN/Creatinine Ratio 29.0 H Glucose 102 Calcium 7.4 L Troponin I Crossmatch Clinical Impression(s) from Imaging Studies Brain CT 09/10/18 11:15 IMPRESSION: Chronic involutional changes of the brain. Electronically Signed: Marc Moraisabellavictor m, at 12:48 EDT , Service support , Cervical Spine CT 09/10/18 11:15 IMPRESSION: Multilevel degenerative changes, as described above. 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 Electronically Signed: Marc Moraomar, at 12:53 EDT , Service support , Ribs X-Ray 09/10/18 12:21 IMPRESSION: Normal x-ray examination of the ribs. Electronically Signed: Marc Torressaud, at 12:50 EDT , Service support , Gallbladder Ultrasound 09/10/18 14:55 IMPRESSION: Nonspecific partially contracted gallbladder with mild wall thickening. Trace sludge. The pancreas is not well-visualized. Benign-appearing right renal cyst. Electronically Signed: Jerri Alonso MD at 19:14 EDT Tel , Service support , Renal Ultrasound 09/10/18 14:55 IMPRESSION: Findings are suspicious for cystitis. There is inhomogeneous appearance of the wall the bladder with thickening. Multiple stones are seen in the posterior aspect of the bladder on a prior CT. There is focal thickening of the base of the bladder transverse image and may measure up to 1.8 x 0.8 cm. This may represent focal edema potentially a bladder cancer. Recommend consideration for cystoscopy when appropriate. Increased echogenicity of the right kidney suspicious for medical renal disease. Benign-appearing cyst right kidney. Electronically Signed: Jerri Alonso MD at 23:08 EDT Tel , Service support , Thyroid Ultrasound 09/10/18 14:55 IMPRESSION: Enlarged thyroid. Bilateral well circumscribed nodules. Recommend correlation with laboratory values. 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 Electronically Signed: Jerri Alonso MD at 2:00 EDT Tel , Service support , Medical Necessity - Tobacco Use Smoking Status: Never smoker Tobacco Use: Non-smoker Assessment/Plan All Active Problems Yersinia infection (Acute) Sepsis (Acute) UTI (urinary tract infection) (Acute) Encephalopathy acute (Acute) BIRGIT (acute kidney injury) (Acute) Atrial fibrillation with RVR (Acute) Abnormal imaging of thyroid (Acute) Bacteremia (Acute) RECOMMENDATIONS: 1. Continue antibiotics per ID recommendations. 2. Monitor blood counts daily. Transfuse if hemoglobin is less than 7 g/dL. 3. Wean supplemental oxygen to maintain saturations at or above 90%. 4. Encourage incentive spirometer use and mobilize patient as tolerated. IMPRESSIONS: 1. Gram-negative sepsis The patient's blood cultures were found to be positive for Y. Enterocolitica. The patient has been responding clinically to the use of antibiotics. He remains hemodynamically stable. Infectious diseases to evaluate patient and assist with antibiotic management. 2. Acute on chronic kidney disease Likely prerenal in etiology and related to #1. Given the patient's uremia, decreased urine output and metabolic acidosis, nephrology is following. Continue to monitor urine output. No indication for renal replacement therapy at this time. 3. Paroxysmal atrial fibrillation While the patient was noted to be in atrial fibrillation for period of time, he spontaneously converted back to normal sinus rhythm. He does not seem to be an ideal candidate for systemic anticoagulation from my perspective. Okay to discontinue heparin drip. 4. Metabolic encephalopathy Improved. Likely related to numbers 1 and 2 with underlying infection and metabolic derangements contributing. 5. Anemia/history of heart failure/hypertension/depression/anxiety/BPH Complicates care, management, recovery and prognosis. Physical therapy to continue to work with the patient. Continue to monitor blood counts and transfuse if hemoglobin drops below 7 g/dL. This note was generated with [employer] software. It may contain incorrect words, spelling, and punctuation that were not noted in checking the note before signing. Code Visit Inpatient E&M: 39767 Subs Hosp L2
[2018-09-14] MEDS: Ferrous Sulfate 325 MG Tablet PO ×2 (12:49→18:39)
--- NOTE | 2018-09-14 13:14 | PCM.HP.ID ---
Problem List (1) Yersinia infection Status: Acute Reason for Consult: yersinia Consulted by: Dr. Fabian History of Present Illness: The patient is a 83 year old M who lives at home, presented 09/10 fall at home, down on floor for several days with some head/neck trauma when he fell. Reports had been feeling fine prior to that point. Admitted in 2017 with PsA bacteremia after fall at home. Admitted on ceftriaxone, Bcx with GNR, broadened to cefepime, then changed to cipro. Feeling better, wants to go home. Denies any abd pain, dysuria, SOB. He has kept foxes and wolves in cages at home for years. He feeds them raw meat. He does not let them out of their cages. A friend is currently in charge of feeding them, but he wants to go home to be able to take care of them. Full ROS performed and neg except as noted above. Denies any diarrhea or sore throat. - Medical History Past Medical History (Chronic Problems): Chronic Problems Acute kidney injury superimposed on chronic kidney disease (Chronic) CKD (chronic kidney disease), stage IV (Chronic) HTN (hypertension) (Chronic) HLD (hyperlipidemia) (Chronic) Anxiety and depression (Chronic) Malnutrition (Chronic) Stage 4 chronic kidney disease due to hypertension (Chronic) Depression (Chronic) Decubitus ulcers (Chronic) left upper back Paroxysmal atrial fibrillation with rapid ventricular response (Chronic) Mild aortic stenosis (Chronic) BPH with obstruction/lower urinary tract symptoms (Chronic) Pseudomonas Benign essential hypertension (Chronic) Chronic osteoarthritis (Chronic) History of supraventricular tachycardia (Chronic) Allergies/Adverse Reactions: Allergies No Known Allergies Allergy (Verified 02/06/17 09:54) Home Medications: Ambulatory Orders Medication Instructions Recorded Lisinopril/Hydrochlorothiazide 1 each PO DAILY 09/10/18 [Lisinopril-Hctz 20-12.5 mg Tab] - Social History SMOKING STATUS:: Never smoker Vital Signs Temp Pulse Resp BP Pulse Ox 99.0 F 64 15 115/63 98 09/14/18 11:58 09/14/18 11:58 09/14/18 11:58 09/14/18 11:58 09/14/18 11:58 Oxygen Flow Rate (L/min) 2 Oxygen Delivery Method Room Air Weight: 66 kg Body Mass Index (BMI) 20.0 Finger Stick Blood Glucose 127 Microbiology Past 72 Hours 09/12/18 08:30 Blood Culture - Preliminary Blood Culture (Wb) - Left Wrist No growth in 48 hours. 09/12/18 08:40 Blood Culture - Preliminary Blood Culture (Wb) - Right Wrist No growth in 48 hours. 09/11/18 10:30 Urine Culture - Final Urine Catheter - Catheter Culture exhibits no growth. 09/10/18 11:35 Blood Culture - Final Blood Culture (Wb) - Right Forearm Y. enterocolitica/frederikseni 09/10/18 11:25 Blood Culture - Final Blood Culture (Wb) - Left Wrist Y. enterocolitica/frederikseni Laboratory Tests Past 24 Hrs 09/13/18 09/13/18 09/14/18 09:40 14:03 05:37 WBC 4.0 L RBC 2.66 L Hgb 7.7 L Hct 24.4 L MCV 91.7 MCH 28.9 MCHC 31.6 L RDW 14.0 RDW Differential 45.6 H Plt Count 137 L MPV 10.7 Immature Gran % (Auto) 0.500 Neut % (Auto) 64.6 Lymph % (Auto) 23.0 [place] % (Auto) 8.2 Eos % (Auto) 3.2 Baso % (Auto) 0.5 Absolute Neuts (auto) 2.6 Absolute Lymphs (auto) 0.93 Total Counted Not Reportable PT INR Sodium Potassium Chloride Carbon Dioxide Anion Gap BUN Creatinine Estim Creat Clear Calc Est GFR (MDRD) Af Amer Est GFR (MDRD) Non-Af BUN/Creatinine Ratio Glucose Calcium Troponin I < 0.015 Crossmatch See Detail 09/14/18 09/14/18 05:37 05:37 WBC RBC Hgb Hct MCV MCH MCHC RDW RDW Differential Plt Count MPV Immature Gran % (Auto) Neut % (Auto) Lymph % (Auto) [place] % (Auto) Eos % (Auto) Baso % (Auto) Absolute Neuts (auto) Absolute Lymphs (auto) Total Counted PT 15.0 H INR 1.2 Sodium 146 H Potassium 4.1 Chloride 114 H Carbon Dioxide 24.0 Anion Gap 8 BUN 101 H* Creatinine 3.48 H Estim Creat Clear Calc 15.28 Est GFR (MDRD) Af Amer 22 L Est GFR (MDRD) Non-Af 18 L BUN/Creatinine Ratio 29.0 H Glucose 102 Calcium 7.4 L Troponin I Crossmatch - Other Studies Radiology: [] Other Studies: [] Route of nutrition/ use of supplements: [] Nutritional Intake: [] IV Site: [] [place] Catheter: [] - Physical Exam General: Cooperative, No apparent distress HEENT: Atraumatic, PERRLA, EOMI Neck: Supple, No Nodes Lungs: Clear to auscultation, Normal air movement Cardiovascular: Regular rate, Regular Rhythm, Murmur Abdomen: Soft, Non Tender, Non-Distended Extremities: No edema Skin: No rashes IV Site: Peripheral, without redness Musculoskeletal: No Tenderness to Palpation of Joints or Extremities Neurological: Cranial nerves II-XII grossly intact - Assessment/Plan Antibiotics: [] Assessment/Plan: [] Active and Suspected Problems Sepsis (Acute) UTI (urinary tract infection) (Acute) Encephalopathy acute (Acute) BIRGIT (acute kidney injury) (Acute) Atrial fibrillation with RVR (Acute) Abnormal imaging of thyroid (Acute) Yersinia entercolitica bacteremia - pt reports he keeps foxes and wolves in cages at home and feeds them meat. Exposure to contaminated raw meat is a typical risk factor. Did not report any abd pain or diarrhea. Cont cipro. Will change to po. Plan on one more week of abx, stop date 09/21. Will follow, thank you.
[2018-09-14] MEDS: Ciprofloxacin 250 MG Tablet PO (22:24)
[2018-09-15] VITALS (13 sets, daily range): BP systolic 106–117; BP diastolic 58–69; PULSE 60–72; RESP 15–20; TEMP 36.8–36.9; O2SAT 92–95
[2018-09-15 08:05] LABS: Absolute Lymphocyte Count 1.04 X10^3/ul (0.83-4.51); Basophil# 0.02 X10^3/uL; Basophil% 0.4 % (0-1); Eosinophil# 0.12 X10^3/uL; Eosinophils% 2.5 % (0-5); Hematocrit 28.4 % (40-54); Hemoglobin 9.2 g/dl (13.0-16.5); Lymphocyte # 1.04 X10^3/ul (4.0); Lymphocyte % 21.8 % (19-41); Mean Corp Hgb Conc 32.4 g/gl (32-36); Mean Corpuscular Hgb 30.1 pg (27.0-32.0); Mean Corpuscular Volume 92.8 fL (80-94); Mean Platelet Vol. 10.5 fl (6.2-12.0); Monocyte# 0.54 X10^3/uL; Monocyte% 11.3 % (0-10); Neutrophil # 3.03 X10^3/uL (2.7-7.7); Neutrophil % 63.6 % (47-70); Platelet Count 163 K/mm3 (150-450); RBC Distribution Width CV 14.2 % (11.6-14.6); RBC Distribution Width SD 46.9 fl (35.1-43.9); Red Blood Count 3.06 M/mm3 (4.6-6.2); White Blood Count 4.8 K/mm3 (4.4-11.0)
[2018-09-15 08:10] LABS: POSITIVE COUNT NO; POSITIVE DIFFERENTIAL NO; POSITIVE MORPHOLOGY NO
--- NOTE | 2018-09-15 08:11 | PCM.PN.PUL ---
Patient Problems: Active and Suspected Problems Yersinia infection (Acute) Sepsis (Acute) UTI (urinary tract infection) (Acute) Encephalopathy acute (Acute) BIRGIT (acute kidney injury) (Acute) Atrial fibrillation with RVR (Acute) Abnormal imaging of thyroid (Acute) Subjective: The patient was seen and examined at the bedside this morning. Events from the last 24 hours have been reviewed. The patient is currently afebrile, hemodynamically stable and maintaining appropriate oxygen saturations on room air. The patient did receive 1 unit of packed red blood cells yesterday. Hemoglobin is stable this morning at 9.2. Objective: The patient's most recent lab work, culture data and imaging studies have all been personally reviewed. Surface echocardiogram revealed normal LV size and function with an ejection fraction of 65%. Blood cultures appear to be growing your Y. enterocolitica. Urine culture has not demonstrated any growth to date. - Physical Exam General: Alert, Cooperative, No apparent distress HEENT: Atraumatic, PERRLA, Normocephalic Oral: Moist Mucosa, - - Poor dentition Neck: Supple, No Nodes, Trachea Midline Lungs: No rhonchi, No wheeze, No rales, Diminished Cardiovascular: Regular rate, Normal S1, Normal S2, Irregular Rate, Murmur Abdomen: Bowel Sounds Present, Soft, Non Tender Extremities: No clubbing, No cyanosis Skin: - - No change from previous. Musculoskeletal: No Tenderness to Palpation of Joints or Extremities Lymphatic: No Cervical, Supraclavicular, or Inguinal Adenopathy Neurological: Neuro grossly intact Psych/Mental Status: Normal Affect, Appropriate Vital Signs Temp Pulse Resp BP Pulse Ox 98.3 F 67 20 H 107/61 92 09/15/18 04:20 09/15/18 07:49 09/15/18 04:20 09/15/18 04:20 09/15/18 04:20 Oxygen Flow Rate (L/min) 2 Oxygen Delivery Method Room Air Weight: 145 lb 15.136 oz Body Mass Index (BMI) 20.0 Finger Stick Blood Glucose 127 Intake and Output for Last 24 Hours 09/13/18 09/14/18 09/15/18 23:59 23:59 23:59 Intake Total 995 / 995 1645 / 1645 Output Total 950 / 950 1450 / 1450 325 / 325 Balance 45 / 45 195 / 195 -325 / -325 Microbiology Past 72 Hours 09/12/18 08:30 Blood Culture - Preliminary Blood Culture (Wb) - Left Wrist No growth in 48 hours. 09/12/18 08:40 Blood Culture - Preliminary Blood Culture (Wb) - Right Wrist No growth in 48 hours. 09/11/18 10:30 Urine Culture - Final Urine Catheter - Catheter Culture exhibits no growth. 09/10/18 11:35 Blood Culture - Final Blood Culture (Wb) - Right Forearm Y. enterocolitica/frederikseni 09/10/18 11:25 Blood Culture - Final Blood Culture (Wb) - Left Wrist Y. enterocolitica/frederikseni Laboratory Tests Past 24 Hrs 09/13/18 09/15/18 09/15/18 09:40 07:45 07:45 WBC 4.8 RBC 3.06 L Hgb 9.2 L Hct 28.4 L MCV 92.8 MCH 30.1 MCHC 32.4 RDW 14.2 RDW Differential 46.9 H Plt Count 163 MPV 10.5 Immature Gran % (Auto) 0.400 Neut % (Auto) 63.6 Lymph % (Auto) 21.8 [place] % (Auto) 11.3 H Eos % (Auto) 2.5 Baso % (Auto) 0.4 Absolute Neuts (auto) 3.0 Absolute Lymphs (auto) 1.04 Total Counted Not Reportable Sodium Pending Potassium Pending Chloride Pending Carbon Dioxide Pending Anion Gap Pending BUN Pending Creatinine Pending Est GFR (MDRD) Af Amer Pending Est GFR (MDRD) Non-Af Pending BUN/Creatinine Ratio Pending Glucose Pending Calcium Pending Crossmatch See Detail Clinical Impression(s) from Imaging Studies Brain CT 09/10/18 11:15 IMPRESSION: Chronic involutional changes of the brain. Electronically Signed: Marc Owens, at 12:48 EDT , Service support , Cervical Spine CT 09/10/18 11:15 IMPRESSION: Multilevel degenerative changes, as described above. 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 Electronically Signed: Marc Owens, at 12:53 EDT , Service support , Ribs X-Ray 09/10/18 12:21 IMPRESSION: Normal x-ray examination of the ribs. Electronically Signed: Marc Moraomar, at 12:50 EDT , Service support , Gallbladder Ultrasound 09/10/18 14:55 IMPRESSION: Nonspecific partially contracted gallbladder with mild wall thickening. Trace sludge. The pancreas is not well-visualized. Benign-appearing right renal cyst. Electronically Signed: Jerri Alonso MD at 19:14 EDT Tel , Service support , Renal Ultrasound 09/10/18 14:55 IMPRESSION: Findings are suspicious for cystitis. There is inhomogeneous appearance of the wall the bladder with thickening. Multiple stones are seen in the posterior aspect of the bladder on a prior CT. There is focal thickening of the base of the bladder transverse image and may measure up to 1.8 x 0.8 cm. This may represent focal edema potentially a bladder cancer. Recommend consideration for cystoscopy when appropriate. Increased echogenicity of the right kidney suspicious for medical renal disease. Benign-appearing cyst right kidney. Electronically Signed: Jerri Alonso MD at 23:08 EDT Tel , Service support , Thyroid Ultrasound 09/10/18 14:55 IMPRESSION: Enlarged thyroid. Bilateral well circumscribed nodules. Recommend correlation with laboratory values. 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 Electronically Signed: Jerri Alonso MD at 2:00 EDT Tel , Service support , Medical Necessity - Tobacco Use Smoking Status: Never smoker Tobacco Use: Non-smoker Assessment/Plan All Active Problems Yersinia infection (Acute) Sepsis (Acute) UTI (urinary tract infection) (Acute) Encephalopathy acute (Acute) BIRGIT (acute kidney injury) (Acute) Atrial fibrillation with RVR (Acute) Abnormal imaging of thyroid (Acute) Bacteremia (Acute) RECOMMENDATIONS: 1. Continue antibiotics per ID recommendations. 2. Monitor blood counts daily. Transfuse if hemoglobin is less than 7 g/dL. 3. Encourage incentive spirometer use and mobilize patient as tolerated. IMPRESSIONS: 1. Gram-negative sepsis The patient's blood cultures were found to be positive for Y. Enterocolitica. The patient has been responding clinically to the use of antibiotics. He remains hemodynamically stable. Infectious diseases is following to assist with antibiotic management. 2. Acute on chronic kidney disease Likely prerenal in etiology and related to #1. Nephrology is following. Continue to monitor urine output. No indication for renal replacement therapy at this time. 3. Paroxysmal atrial fibrillation While the patient was noted to be in atrial fibrillation for period of time, he spontaneously converted back to normal sinus rhythm. He does not seem to be an ideal candidate for systemic anticoagulation from my perspective. Okay to discontinue heparin drip. Continue beta lyndsay therapy. 4. Metabolic encephalopathy Improved. Likely related to numbers 1 and 2 with underlying infection and metabolic derangements contributing. 5. Anemia/history of heart failure/hypertension/depression/anxiety/BPH Complicates care, management, recovery and prognosis. Physical therapy to continue to work with the patient. Continue to monitor blood counts and transfuse if hemoglobin drops below 7 g/dL. This note was generated with [employer] dictation software. It may contain incorrect words, spelling, and punctuation that were not noted in checking the note before signing. DISPOSITION: Given the patient's lack of further ICU or pulmonary needs, will sign off. Please call with any additional questions. Code Visit Inpatient E&M: 41796 Subs Hosp L2
[2018-09-15 08:16] LABS: Anion Gap 7 (5-15); BUN 94 mg/dL (7-18); BUN/Creat Ratio 28.1 RATIO (10-20); Calcium,Total 7.6 mg/dL (8.5-10.1); Chloride 116 mmol/L (98-107); Creatinine, Serum 3.35 mg/dL (0.70-1.30); EST Glomerular Filtration Rate 19 mL/min (>60); Est Glom Filt Rate - Afr Amer 23 mL/min (>60); Estimated Creatinine Clearance 15.92 ml/min; Glucose 106 mg/dL (74-106); Potassium 4.5 mmol/L (3.5-5.1); Sodium Level 147 mmol/L (136-145)
--- NOTE | 2018-09-15 09:01 | PCM.PROGNOTE ---
Patient Problems: Active and Suspected Problems Yersinia infection (Acute) Sepsis (Acute) UTI (urinary tract infection) (Acute) Encephalopathy acute (Acute) BIRGIT (acute kidney injury) (Acute) Atrial fibrillation with RVR (Acute) Abnormal imaging of thyroid (Acute) Subjective: Chief complaint: Follow-up after admission for sepsis secondary to acute cystitis, bacteremia, acute kidney injury double stage III chronic kidney disease, A. fib with RVR, probable mild pancreatitis and abnormal thyroid. Patient seen and examined. No acute events overnight. He remained stable, no complaints. His vital signs are stable. - Physical Exam General: Alert, Oriented x3, Cooperative, No apparent distress HEENT: Atraumatic, PERRLA, EOMI, Normocephalic Oral: Moist Mucosa, No Gingival or Mucosal Lesions/ Ulcerations Neck: Supple, No JVD, Negative Carotid Bruits, Trachea Midline, Thyroid Normal Size and Texture Lungs: Clear to auscultation, No rhonchi, No wheeze, No rales, Diminished Cardiovascular: Regular rate, Regular Rhythm, Normal S1, Normal S2, PMI Normal, Murmur Abdomen: Bowel Sounds Present, Soft, Non Tender, Non-Distended, No Hepato-splenomegaly Extremities: No clubbing, No cyanosis, Edema Skin: No rashes, No breakdown Lymphatic: No Cervical, Supraclavicular, or Inguinal Adenopathy Neurological: Cranial nerves II-XII grossly intact, Neuro grossly intact Psych/Mental Status: Normal Affect, Appropriate, Alert and oriented to time, place, person, mood and affect Vital Signs Temp Pulse Resp BP Pulse Ox 98.3 F 67 20 H 107/61 93 09/15/18 04:20 09/15/18 07:49 09/15/18 04:20 09/15/18 04:20 09/15/18 07:33 Oxygen Flow Rate (L/min) 2 Oxygen Delivery Method Room Air Weight: 145 lb 15.136 oz Body Mass Index (BMI) 20.0 Finger Stick Blood Glucose 127 Intake and Output for Last 24 Hours 09/13/18 09/14/18 09/15/18 23:59 23:59 23:59 Intake Total 995 / 995 1645 / 1645 Output Total 950 / 950 1450 / 1450 325 / 325 Balance 45 / 45 195 / 195 -325 / -325 Microbiology Past 72 Hours 09/12/18 08:30 Blood Culture - Preliminary Blood Culture (Wb) - Left Wrist No growth in 48 hours. 09/12/18 08:40 Blood Culture - Preliminary Blood Culture (Wb) - Right Wrist No growth in 48 hours. 09/11/18 10:30 Urine Culture - Final Urine Catheter - Catheter Culture exhibits no growth. 09/10/18 11:35 Blood Culture - Final Blood Culture (Wb) - Right Forearm Y. enterocolitica/frederikseni 09/10/18 11:25 Blood Culture - Final Blood Culture (Wb) - Left Wrist Y. enterocolitica/frederikseni Laboratory Tests Past 24 Hrs 09/13/18 09/15/18 09/15/18 09:40 07:45 07:45 WBC 4.8 RBC 3.06 L Hgb 9.2 L Hct 28.4 L MCV 92.8 MCH 30.1 MCHC 32.4 RDW 14.2 RDW Differential 46.9 H Plt Count 163 MPV 10.5 Immature Gran % (Auto) 0.400 Neut % (Auto) 63.6 Lymph % (Auto) 21.8 [place] % (Auto) 11.3 H Eos % (Auto) 2.5 Baso % (Auto) 0.4 Absolute Neuts (auto) 3.0 Absolute Lymphs (auto) 1.04 Total Counted Not Reportable Sodium 147 H Potassium 4.5 Chloride 116 H Carbon Dioxide 24.0 Anion Gap 7 BUN 94 H Creatinine 3.35 H Estim Creat Clear Calc 15.92 Est GFR (MDRD) Af Amer 23 L Est GFR (MDRD) Non-Af 19 L BUN/Creatinine Ratio 28.1 H Glucose 106 Calcium 7.6 L Crossmatch See Detail Microbiology 09/12/18 08:30 Blood Culture (Wb) - Left Wrist Blood Culture - Preliminary No growth in 48 hours. 09/12/18 08:40 Blood Culture (Wb) - Right Wrist Blood Culture - Preliminary No growth in 48 hours. 09/11/18 10:30 Urine Catheter - Catheter Urine Culture - Final Culture exhibits no growth. 09/10/18 11:35 Blood Culture (Wb) - Right Forearm Blood Culture - Final Y. enterocolitica/frederikseni 09/10/18 11:25 Blood Culture (Wb) - Left Wrist Blood Culture - Final Y. enterocolitica/frederikseni Medical Necessity - Tobacco Use Smoking Status: Never smoker Tobacco Use: Non-smoker Assessment/Plan All Active Problems Yersinia infection (Acute) Sepsis (Acute) UTI (urinary tract infection) (Acute) Encephalopathy acute (Acute) BIRGIT (acute kidney injury) (Acute) Atrial fibrillation with RVR (Acute) Abnormal imaging of thyroid (Acute) Bacteremia (Acute) This is an 83 years old male patient presented to the emergency room because of fall, frequency and urinary incontinence, found to have sepsis secondary to acute cystitis, A. fib with RVR, acute kidney injury on top of stage IV chronic kidney disease, gram-negative bacteremia and probable mild acute pancreatitis. #1 acute sepsis/acute cystitis: He is on oral ciprofloxacin. Remained afebrile, white blood cell count is normal. Vital signs stabilized, has been afebrile. Urine cultures showed no growth. Blood culture revealed Yersinia enterocolitica. Repeat blood culture showed no growth in 48 hours. Plan to continue p.o. ciprofloxacin. #2 Yersinia enterocolitica bacteremia: He is on oral ciprofloxacin as above. Final results of the blood culture revealed Yersinia enterocolitica. Repeat blood culture revealed no growth in 48 hours.. Awaiting infectious disease recommendations, plan to stop ciprofloxacin on September 21.. #3 acute kidney injury on top of stage IV chronic kidney disease: Patient has been off IV fluids. Urine output improved. BUN and creatinine continued to improve slowly. Today's BUN is 94, creatinine is 3.35. Kidney ultrasound revealed normal kidney size, no evidence of kidney stones, hydronephrosis or hydroureter, revealed bladder stones. Nephrology on the case. Plan to resume gentle IV fluids for hydration, repeat BMP tomorrow morning, possible DC home tomorrow. #4 A. fib with RVR: Remained sinus rhythm, rate is controlled. He is on metoprolol . 2D echocardiogram revealed ejection fraction of 65%, mild aortic stenosis, RVSP of 28.. Serum electrolytes are within normal limits. I do not think this patient is a candidate for anticoagulation. He did have this paroxysmal atrial fibrillation in the past but never been on anticoagulation. #5 elevated lipase/probable mild pancreatitis: Unclear etiology, patient denies any abdominal pain. LFT was normal. Lipase continue to drop down slowly. Patient is tolerating diet. #6 encephalopathy: Likely metabolic because of infection and worsening kidney function. CT scan brain showed no acute findings. Patient is alert and oriented x3. #7 abnormal thyroid gland: This is an incidental finding on CT scan cervical spine. TSH and free T4 were normal. Free T3 was slightly low. Ultrasound thyroid revealed bilateral well-circumscribed nodules likely due to goiter. #8 mechanical fall: Without evidence of significant trauma. CT scan brain, CT scan cervical spine, rib x-ray was unremarkable. #9 chronic diastolic CHF: Clinically stable, compensated. He is only on beta-blockers. VILMA inhibitors discontinued because of worsening kidney function. Plan for close monitoring of volume status. #10 Acute on chronic anemia/chronic thrombocytopenia: It is normocytic anemia likely due to anemia of chronic disease. Baseline hemoglobin has been around 7 to 10 g/dL. Today's hemoglobin remained at 9.2 after he received 1 unit of packed RBCs.. No evidence of active bleeding. Today's platelet count is 163,000, back to normal. We will repeat H&H tomorrow morning. #11 hypertension: Blood pressure improved , HCTZ and lisinopril held. #12 depression/anxiety: He is not on any medication at this time. #13 benign prostatic hypertrophy: Continue Flomax. #14 DVT prophylaxis: Subcu heparin. This note was generated with [email or web address] dictation software. It may contain incorrect words, spelling, and punctuation that were not noted in checking the note before signing. Code Visit Inpatient E&M: 03422 Subs Hosp L2
[2018-09-15] MEDS: 0.45% Normal Saline 1,000 ML 75 ML IV (09:53)
[2018-09-15] MEDS: Aspirin 81 MG TAB.CHEW PO (09:56)
[2018-09-15] MEDS: Pantoprazole Sodium 20 MG Tablet PO ×2 (09:57→21:18)
[2018-09-15] MEDS: Ciprofloxacin 250 MG Tablet PO ×2 (09:57→21:18)
[2018-09-15] MEDS: Tamsulosin HCl 0.4 MG Capsule PO ×2 (09:57→18:08)
[2018-09-15] MEDS: Metoprolol Tartrate 25 MG Tablet 12.5 MG PO ×2 (09:58→21:18)
[2018-09-15] MEDS: Heparin Injection (Vial) 5,000 UNIT/ML VIAL 5000 UNIT SC ×2 (10:01→21:18)
[2018-09-15] MEDS: Ferrous Sulfate 325 MG Tablet PO ×2 (13:00→18:08)
--- NOTE | 2018-09-15 17:57 | PCM.PN.REN ---
Patient Problems: Active and Suspected Problems Yersinia infection (Acute) Sepsis (Acute) UTI (urinary tract infection) (Acute) Encephalopathy acute (Acute) BIRGIT (acute kidney injury) (Acute) Atrial fibrillation with RVR (Acute) Abnormal imaging of thyroid (Acute) Subjective: Patient is doing fine. Denies nausea vomiting or shortness of breath. On IV fluid half-normal saline at 50 cc/h - Physical Exam General: Alert, Cooperative HEENT: Atraumatic Oral: Moist Mucosa Neck: Supple, No JVD Lungs: Clear to auscultation, Normal air movement, No rhonchi, No wheeze Cardiovascular: Regular rate, Regular Rhythm, Normal S1, Normal S2 Abdomen: Bowel Sounds Present, Soft, Non Tender, Non-Distended Extremities: No clubbing, No cyanosis, No edema Skin: No rashes Musculoskeletal: No Tenderness to Palpation of Joints or Extremities Lymphatic: No Cervical, Supraclavicular, or Inguinal Adenopathy Neurological: Neuro grossly intact Psych/Mental Status: Appropriate Vital Signs Temp Pulse Resp BP Pulse Ox 98.3 F 71 15 109/58 L 93 09/15/18 15:21 09/15/18 15:41 09/15/18 15:21 09/15/18 15:21 09/15/18 15:21 Oxygen Flow Rate (L/min) 2 Oxygen Delivery Method Room Air Weight: 66.2 kg Body Mass Index (BMI) 20.0 Finger Stick Blood Glucose 127 Intake and Output for Last 24 Hours 09/13/18 09/14/18 09/15/18 23:59 23:59 23:59 Intake Total 995 / 995 1645 / 1645 887 / 887 Output Total 950 / 950 1450 / 1450 925 / 925 Balance 45 / 45 195 / 195 -38 / -38 Microbiology Past 72 Hours 09/12/18 08:30 Blood Culture - Preliminary Blood Culture (Wb) - Left Wrist No growth in 48 hours. 09/12/18 08:40 Blood Culture - Preliminary Blood Culture (Wb) - Right Wrist No growth in 48 hours. 09/11/18 10:30 Urine Culture - Final Urine Catheter - Catheter Culture exhibits no growth. 09/10/18 11:35 Blood Culture - Final Blood Culture (Wb) - Right Forearm Y. enterocolitica/frederikseni 09/10/18 11:25 Blood Culture - Final Blood Culture (Wb) - Left Wrist Y. enterocolitica/frederikseni Laboratory Tests Past 24 Hrs 09/15/18 09/15/18 07:45 07:45 WBC 4.8 RBC 3.06 L Hgb 9.2 L Hct 28.4 L MCV 92.8 MCH 30.1 MCHC 32.4 RDW 14.2 RDW Differential 46.9 H Plt Count 163 MPV 10.5 Immature Gran % (Auto) 0.400 Neut % (Auto) 63.6 Lymph % (Auto) 21.8 [place] % (Auto) 11.3 H Eos % (Auto) 2.5 Baso % (Auto) 0.4 Absolute Neuts (auto) 3.0 Absolute Lymphs (auto) 1.04 Total Counted Not Reportable Sodium 147 H Potassium 4.5 Chloride 116 H Carbon Dioxide 24.0 Anion Gap 7 BUN 94 H Creatinine 3.35 H Estim Creat Clear Calc 15.92 Est GFR (MDRD) Af Amer 23 L Est GFR (MDRD) Non-Af 19 L BUN/Creatinine Ratio 28.1 H Glucose 106 Calcium 7.6 L Medical Necessity - Tobacco Use Smoking Status: Never smoker Tobacco Use: Non-smoker Assessment/Plan All Active Problems Yersinia infection (Acute) Sepsis (Acute) UTI (urinary tract infection) (Acute) Encephalopathy acute (Acute) BIRGIT (acute kidney injury) (Acute) Atrial fibrillation with RVR (Acute) Abnormal imaging of thyroid (Acute) Bacteremia (Acute) 1-Acute kidney injury on chronic kidney disease. Patient has chronic kidney disease stage IV with baseline around 2.0 mg deciliter. Acute kidney injury is most probably from sepsis induced ATN. Did not need renal replacement therapy. Kidney function continues to improve slowly. Last 24-hour creatinine trend 3.48-3.35. We will have high BUN nonoliguric No indication for renal replacement therapy. Agree with IV fluid Avoid VILMA inhibitor/ARB. Keep mean arterial pressure more than 65. 2-normal anion gap metabolic acidosis. Resolved. Off sodium bicarb drip 3-hypernatremia. I agree with half-normal saline at 50 cc/h. Check sodium level in a.m.. I encourage oral water intake 4-severe sepsis from UTI. Improved. Patient is out of ICU. On antibiotics as per the primary service thank you for the consult. Renal team will continue to follow. Please call if any question at [phone]
--- NOTE | 2018-09-16 01:45 | PCM.PN.BLA ---
Progress Note Noted by nursing team the patient has positive stool occult blood. Notably patient has received transfusion during his admission. Heparin for DVT prophylaxis discontinued. SCD ordered. Change Protonix 20 MG PO to 40 mg IV twice daily. Next H&H in a.m.
[2018-09-16 03:15] VITALS: BP 116/60; PULSE 64; RESP 18; TEMP 36.6; O2SAT 94
[2018-09-16] MEDS: 0.9% NaCl Peripheral Flush Adult/Peds IV (03:46)
[2018-09-16 03:47] VITALS: PULSE 62
[2018-09-16 06:40] LABS: Hematocrit 29.1 % (40-54)
[2018-09-16 06:47] LABS: Anion Gap 4 (5-15); BUN 86 mg/dL (7-18); BUN/Creat Ratio 29.8 RATIO (10-20); Calcium,Total 7.6 mg/dL (8.5-10.1); Chloride 115 mmol/L (98-107); Creatinine, Serum 2.89 mg/dL (0.70-1.30); EST Glomerular Filtration Rate 22 mL/min (>60); Est Glom Filt Rate - Afr Amer 27 mL/min (>60); Estimated Creatinine Clearance 18.45 ml/min; Glucose 105 mg/dL (74-106); Potassium 4.8 mmol/L (3.5-5.1); Sodium Level 144 mmol/L (136-145)
[2018-09-16 07:13] VITALS: PULSE 65
[2018-09-16 07:40] VITALS: O2SAT 94
--- NOTE | 2018-09-16 08:42 | DCINST_ITS ---
- Discharge Diagnoses Current Active Problems: Current Active and Chronic Problems Acute kidney injury superimposed on chronic kidney disease (Chronic) Yersinia infection (Acute) Sepsis (Acute) UTI (urinary tract infection) (Acute) Encephalopathy acute (Acute) BIRGIT (acute kidney injury) (Acute) CKD (chronic kidney disease), stage IV (Chronic) Atrial fibrillation with RVR (Acute) HTN (hypertension) (Chronic) HLD (hyperlipidemia) (Chronic) Anxiety and depression (Chronic) Abnormal imaging of thyroid (Acute) You will use the following diet at home:: Cardiac Your food should be the consistency of: Regular Discharge Activity: Return to Normal Activity Weight Bearing Status: Weight bearing as tolerated Call your doctor if you observe: Fever of 101 or Higher, Shortness of breath, Dizziness, Fainting spells, Swelling in the ankles, Chest pain, Increased palpitations (irregular heartbeat), Uncontrolled pain Allergies/Adverse Reactions: Allergies No Known Allergies Allergy (Verified 02/06/17 09:54) Medications to take at Discharge Aspirin [Aspirin, Baby] 81 mg PO DAILY@0800 #90 tab.chew 09/16/18 Ciprofloxacin [Cipro] 250 mg PO BID #12 tab 09/16/18 Ferrous Sulfate 325 mg PO 1200,1700 #90 tab 09/16/18 Metoprolol Tartrate [Lopressor (beta lyndsay)] 12.5 mg PO BID #90 tab 09/16/18 Pantoprazole Sodium [Protonix] 40 mg PO DAILY #30 tab 09/16/18 Tamsulosin HCl [Flomax] 0.4 mg PO DAILY #90 cap 09/16/18 The following prescriptions were given: Aspirin [Aspirin, Baby] 81 mg PO DAILY@0800 #90 tab.chew Transmission Status: Pending to [facility] Ciprofloxacin [Cipro] 250 mg PO BID #12 tab Transmission Status: Pending to [facility] Ferrous Sulfate 325 mg PO 1200,1700 #90 tab Transmission Status: Pending to [facility] Tamsulosin HCl [Flomax] 0.4 mg PO DAILY #90 cap Transmission Status: Pending to [facility] #30 Metoprolol Tartrate [Lopressor (beta lyndsay)] 12.5 mg PO BID #90 tab Transmission Status: Pending to [facility] Pantoprazole Sodium [Protonix] 40 mg PO DAILY #30 tab Transmission Status: Pending to [facility] Primary Care Physician: Rigo Lan Chi, MD [Primary Care Provider] - Please follow up with your Primary Care Physician in: 1 week. Test Results: Test results from this visit will be discussed in further detail at your follow- up appointment, if applicable. Please Follow Up With: Landen Guillermo MD When: 2 weeks.
[2018-09-16 10:32] VITALS: BP 123/65; PULSE 76; RESP 18; TEMP 36.8; O2SAT 94
[2018-09-16] MEDS: Ferrous Sulfate 325 MG Tablet PO (10:37)
[2018-09-16] MEDS: Ciprofloxacin 250 MG Tablet PO (10:37)
[2018-09-16 10:38] VITALS: BP 123/65; PULSE 76
[2018-09-16] MEDS: Aspirin 81 MG TAB.CHEW PO (10:38)
[2018-09-16] MEDS: Tamsulosin HCl 0.4 MG Capsule PO (10:38)
[2018-09-16] MEDS: Metoprolol Tartrate 25 MG Tablet 12.5 MG PO (10:38)
[2018-09-16] MEDS: Pantoprazole Sodium 40 MG Tablet PO (10:42)
--- NOTE | 2018-09-16 14:32 | DS.PCM_ITS ---
Discharge Date and Diagnosis Date of Admission: 09/10/18 Date of Discharge: 09/16/18 - Primary Discharge Diagnosis #1 acute cystitis, sepsis. #2 Yersinia enterocolitica bacteremia. #3 acute kidney injury on top of stage IV chronic kidney disease. #4 A. fib with RVR. #5 probable mild pancreatitis. #6 encephalopathy, metabolic. #7 abnormal thyroid gland, likely due to goiter. - Secondary Discharge Diagnosis Chronic Problems Acute kidney injury superimposed on chronic kidney disease (Chronic) CKD (chronic kidney disease), stage IV (Chronic) HTN (hypertension) (Chronic) HLD (hyperlipidemia) (Chronic) Anxiety and depression (Chronic) Malnutrition (Chronic) Stage 4 chronic kidney disease due to hypertension (Chronic) Depression (Chronic) Decubitus ulcers (Chronic) left upper back Paroxysmal atrial fibrillation with rapid ventricular response (Chronic) Mild aortic stenosis (Chronic) BPH with obstruction/lower urinary tract symptoms (Chronic) Pseudomonas Benign essential hypertension (Chronic) Chronic osteoarthritis (Chronic) History of supraventricular tachycardia (Chronic) Hospital Course and Treatment Imaging Results: Clinical Impression(s) from Imaging Studies Brain CT 09/10/18 11:15 IMPRESSION: Chronic involutional changes of the brain. Electronically Signed: Marc Owens, at 12:48 EDT , Service support , Cervical Spine CT 09/10/18 11:15 IMPRESSION: Multilevel degenerative changes, as described above. 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 Electronically Signed: Marc Owens, at 12:53 EDT , Service support , Ribs X-Ray 09/10/18 12:21 IMPRESSION: Normal x-ray examination of the ribs. Electronically Signed: Marc Owens, at 12:50 EDT , Service support , Gallbladder Ultrasound 09/10/18 14:55 IMPRESSION: Nonspecific partially contracted gallbladder with mild wall thickening. Trace sludge. The pancreas is not well-visualized. Benign-appearing right renal cyst. Electronically Signed: Jerri Alonso MD at 19:14 EDT Tel , Service support , Renal Ultrasound 09/10/18 14:55 IMPRESSION: Findings are suspicious for cystitis. There is inhomogeneous appearance of the wall the bladder with thickening. Multiple stones are seen in the posterior aspect of the bladder on a prior CT. There is focal thickening of the base of the bladder transverse image and may measure up to 1.8 x 0.8 cm. This may represent focal edema potentially a bladder cancer. Recommend consideration for cystoscopy when appropriate. Increased echogenicity of the right kidney suspicious for medical renal disease. Benign-appearing cyst right kidney. Electronically Signed: Jerri Alonso MD at 23:08 EDT Tel , Service support , Thyroid Ultrasound 09/10/18 14:55 IMPRESSION: Enlarged thyroid. Bilateral well circumscribed nodules. Recommend correlation with laboratory values. 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 Electronically Signed: Jerri Alonso MD at 2:00 EDT Tel , Service support , Dr. Fabian, critical care. Dr. Britton, infectious disease. Dr. Guillermo, Dr. Suazo, nephrology. Operations: None, - - Incision and drainage and excision of infected pressure sore left upper back area stage IV including necrotic muscle Procedures: 2-D Echocardiogram, Blood transfusion, EKG Summary of Care Provided: Patient seen and examined on the day of discharge and appeared to be stable to be discharged home. He denied any complaints. His vital signs are stable. He continued to deny any home needs. This is an 83 years old male patient presented to the emergency room because of fall, frequency and urinary incontinence, found to have sepsis secondary to acute cystitis, A. fib with RVR, acute kidney injury on top of stage IV chronic kidney disease, gram-negative bacteremia and probable mild acute pancreatitis. #1 acute sepsis/acute cystitis: Initially, he was treated with IV cefepime. He remained afebrile throughout the admission and he had no leukocytosis. Urine culture showed no growth. Patient discharged on ciprofloxacin with complete day on September 21, 2018 according to infectious disease recommendation. #2 Yersinia enterocolitica bacteremia: Probable source is raising animals at home including foxes and wolves. Initially, treated with cefepime and later, he was started on ciprofloxacin. Infectious disease consulted, recommended to complete oral ciprofloxacin on September 21, 2018 as mentioned above. #3 acute kidney injury on top of stage IV chronic kidney disease: Secondary to ATN secondary to sepsis and dehydration. Treated with IV fluids as well as IV sodium bicarb drip. Urine output improved. On admission, BUN was 133 and creatinine was 5.05. Kidney ultrasound revealed normal kidney size, no evidence of kidney stones, hydronephrosis or hydroureter, revealed bladder stones. There was no indication to start hemodialysis. Upon discharge, BUN came down to 86 and creatinine came down to 2.89. Lisinopril and HCTZ discontinued upon discharge, plan to follow-up with nephrology in 2 weeks. #4 A. fib with RVR: With past history of chronic atrial fibrillation. Patient converted to sinus rhythm and he remained in sinus rhythm. He was continued on metoprolol. 2D echocardiogram revealed ejection fraction of 65%, mild aortic stenosis, RVSP of 28.. Serum electrolytes are within normal limits. I do not think this patient is a candidate for anticoagulation. He did have this paroxysmal atrial fibrillation in the past but never been on anticoagulation. #5 elevated lipase/probable mild pancreatitis: Unclear etiology, patient denies any abdominal pain. LFT was normal. Lipase improved with IV fluids. #6 encephalopathy: Likely metabolic because of infection and worsening kidney function. CT scan brain showed no acute findings. #7 abnormal thyroid gland: This is an incidental finding on CT scan cervical spine. TSH and free T4 were normal. Free T3 was slightly low. Ultrasound thyroid revealed bilateral well-circumscribed nodules likely due to goiter. #9 chronic diastolic CHF: Clinically stable, compensated. Discharged on on beta-blockers. VILMA inhibitors discontinued because of worsening kidney function. #10 Acute on chronic anemia/chronic thrombocytopenia: It is normocytic anemia likely due to anemia of chronic disease. Baseline hemoglobin has been around 7 to 10 g/dL. Hemoglobin came down to 7.7 g/dL, received 1 unit of packed RBCs and it came up to 9 g/dL upon discharge. His stool was positive for occult blood. Patient was discharged on Protonix, recommend outpatient upper EGD. #11 hypertension: Blood pressure was low to borderline during this admission. HCTZ and lisinopril discontinued upon discharge, maintained on metoprolol. #12 benign prostatic hypertrophy: Continued on Flomax. Patient discharged home in a stable medical condition, was seen by PT OT and patient denied any home needs, discharged on ciprofloxacin 250 mg p.o. twice daily with completion day of September 21, 2018, discharged on metoprolol, discharged on iron supplement as well as Flomax and Protonix, plan to follow-up with PCP in 1 week and follow-up with nephrology in 2 weeks. This note was generated with [employer] dictation software. It may contain incorrect words, spelling, and punctuation that were not noted in checking the note before signing. - Physical Exam General: Alert, Oriented x3, Cooperative, No apparent distress HEENT: Atraumatic, PERRLA, EOMI, Normocephalic Oral: Moist Mucosa, No Gingival or Mucosal Lesions/ Ulcerations Neck: Supple, No JVD, Negative Carotid Bruits, Trachea Midline, Thyroid Normal Size and Texture Lungs: Clear to auscultation, Normal air movement, No rhonchi, No wheeze, No rales, Diminished Cardiovascular: Regular rate, Regular Rhythm, Normal S1, Normal S2, PMI Normal, Murmur Abdomen: Bowel Sounds Present, Soft, Non Tender, Non-Distended, No Hepato- splenomegaly Extremities: No clubbing, No cyanosis, No edema Skin: No rashes, No breakdown Lymphatic: No Cervical, Supraclavicular, or Inguinal Adenopathy Neurological: Cranial nerves II-XII grossly intact, Neuro grossly intact Psych/Mental Status: Normal Affect, Appropriate Vital Signs Temp Pulse Resp BP Pulse Ox 98.3 F 76 18 123/65 H 94 09/16/18 10:32 09/16/18 10:38 09/16/18 10:32 09/16/18 10:38 09/16/18 10:32 Oxygen Flow Rate (L/min) 2 Oxygen Delivery Method Room Air Weight: 147 lb 11.355 oz Body Mass Index (BMI) 20.0 Finger Stick Blood Glucose 127 Intake and Output for Last 24 Hours 09/14/18 09/15/18 09/16/18 23:59 23:59 23:59 Intake Total 1645 / 1645 1996 1195 / 1195 Output Total 1450 / 1450 1650 / 1650 1050 / 1050 Balance 195 / 195 347 / 347 145 / 145 Microbiology Past 72 Hours 09/15/18 22:52 Stool Occult Blood (TRANG) - Final Stool Occult Blood Positive 09/12/18 08:30 Blood Culture - Preliminary Blood Culture (Wb) - Left Wrist No growth in 48 hours. 09/12/18 08:40 Blood Culture - Preliminary Blood Culture (Wb) - Right Wrist No growth in 48 hours. 09/11/18 10:30 Urine Culture - Final Urine Catheter - Catheter Culture exhibits no growth. 09/10/18 11:35 Blood Culture - Final Blood Culture (Wb) - Right Forearm Y. enterocolitica/frederikseni 09/10/18 11:25 Blood Culture - Final Blood Culture (Wb) - Left Wrist Y. enterocolitica/frederikseni Laboratory Tests Past 24 Hrs 09/16/18 09/16/18 06:10 06:10 Hgb 9.0 L Hct 29.1 L Sodium 144 Potassium 4.8 Chloride 115 H Carbon Dioxide 25.0 Anion Gap 4 L BUN 86 H Creatinine 2.89 H Estim Creat Clear Calc 18.45 Est GFR (MDRD) Af Amer 27 L Est GFR (MDRD) Non-Af 22 L BUN/Creatinine Ratio 29.8 H Glucose 105 Calcium 7.6 L Discharge Activity: Return to Normal Activity Weight Bearing Status: Weight bearing as tolerated Call your doctor if you observe: Fever of 101 or Higher, Shortness of breath, Dizziness, Fainting spells, Swelling in the ankles, Chest pain, Increased palpitations (irregular heartbeat), Uncontrolled pain Home Medications: Medications to take at Discharge Aspirin [Aspirin, Baby] 81 mg PO DAILY@0800 #90 tab.chew 09/16/18 Ciprofloxacin [Cipro] 250 mg PO BID #12 tab 09/16/18 Ferrous Sulfate 325 mg PO 1200,1700 #90 tab 09/16/18 Metoprolol Tartrate [Lopressor (beta lyndsay)] 12.5 mg PO BID #90 tab 09/16/18 Pantoprazole Sodium [Protonix] 40 mg PO DAILY #30 tab 09/16/18 Tamsulosin HCl [Flomax] 0.4 mg PO DAILY #90 cap 09/16/18 Following Prescrptions Were Given to Patient: Aspirin [Aspirin, Baby] 81 mg PO DAILY@0800 #90 tab.chew Transmission Status: Received by [facility] Ciprofloxacin [Cipro] 250 mg PO BID #12 tab Transmission Status: Received by [facility]30 Ferrous Sulfate 325 mg PO 1200,1700 #90 tab Transmission Status: Received by [facility]30 Tamsulosin HCl [Flomax] 0.4 mg PO DAILY #90 cap Transmission Status: Received by [facility] #30 Metoprolol Tartrate [Lopressor (beta lyndsay)] 12.5 mg PO BID #90 tab Transmission Status: Received by [facility]30 Pantoprazole Sodium [Protonix] 40 mg PO DAILY #30 tab Transmission Status: Received by [facility]30 Primary Care Physician: Rigo Lan Chi, MD [Primary Care Provider] - Please follow up with your Primary Care Physician in: 1 week. Please Follow Up With: Landen Guillermo MD When: 2 weeks. Disposition: Home Minutes spent on discharge:: 38 Patient Condition:: Stable Medical Necessity - Tobacco Use Smoking Status: Never smoker Tobacco Use: Non-smoker Meaningful Use Info Meaningful Use Diagnoses (Choose all that apply): None applicable Code Visit Inpatient E&M: 47348 Disch Hosp
--- NOTE | 2018-09-17 13:14 | CASEMGMT ---
JASE CM DC PHONE CALL DC DATE: 09/16/18 DC Disposition: Home LACE/STRATA: 12 Attempted call to pt's phone. Number is not working. Tatum ROSASN RN ACM
== END 2018-09-16 13:50 | disposition home or self-care (01) | DRG 871 ==
LOC: ED 12:56 → ICU 09-11 02:19 → PCU 09-11 10:36 → ICU 09-12 13:19 → PCU 09-13 10:27
PROVIDERS: Admitting Provider Family Medicine; Emergency Provider Emergency Medicine; Family Provider Family Medicine Geriatric Medicine; PCP Family Medicine Geriatric Medicine; Referring Provider Family Medicine; Visit Provider Hospitalist
DX: A41.59 Other Gram-negative sepsis (principal); G93.41 Metabolic encephalopathy; K85.90 Acute pancreatitis without necrosis or infection, unspecified; N17.0 Acute kidney failure with tubular necrosis; N30.00 Acute cystitis without hematuria; N18.4 Chronic kidney disease, stage 4 (severe); I50.22 Chronic systolic (congestive) heart failure; I13.0 Hypertensive heart and chronic kidney disease with heart failure and stage 1 through stage 4 chronic kidney disease, or unspecified chronic kidney disease; E87.0 Hyperosmolality and hypernatremia; E87.2 Acidosis; N13.8 Other obstructive and reflux uropathy; E46 Unspecified protein-calorie malnutrition; R65.20 Severe sepsis without septic shock; E04.9 Nontoxic goiter, unspecified; F32.9 Major depressive disorder, single episode, unspecified; E78.5 Hyperlipidemia, unspecified; E86.0 Dehydration; I35.0 Nonrheumatic aortic (valve) stenosis; I48.0 Paroxysmal atrial fibrillation; N40.1 Benign prostatic hyperplasia with lower urinary tract symptoms; M19.90 Unspecified osteoarthritis, unspecified site; D69.6 Thrombocytopenia, unspecified; R19.5 Other fecal abnormalities; Z68.20 Body mass index [BMI] 20.0-20.9, adult; D63.8 Anemia in other chronic diseases classified elsewhere; Z91.81 History of falling
CPT/HCPCS: 36415; 70450; 71100; 72125; 76536; 76705; 76770; 80048; 80053; 80061; 81001; 82274; 82550; 82570; 82607; 82728; 82746; 82962; 83036; 83540; 83550; 83605; 83690; 83735; 84100; 84300; 84439; 84443; 84481; 84484; 85014; 85018; 85025; 85610; 85730; 86850; 86900; 86920; 87040; 87077; 87086; 87186; 93005; 93306; 94002; 97110; 97162; 97166; 97530; 97802; 99285; J7030; P9016; A4216; J0744

== ENCOUNTER → 2018-09-19 11:23 | Outpatient (CLI) | payer MEDICARE, SELFPAY ==
[2018-09-19 12:21] LABS: Absolute Lymphocyte Count 0.87 X10^3/ul (0.83-4.51); Absolute Neutrophil Count 4.2 X10^3/uL (2.0-7.7); Basophil# 0.03 X10^3/uL; Basophil% 0.5 % (0-1); Eosinophil# 0.07 X10^3/uL; Eosinophils% 1.3 % (0-5); Hematocrit 32.4 % (40-54); Hemoglobin 10.1 g/dl (13.0-16.5); Lymphocyte # 0.87 X10^3/ul (4.0); Lymphocyte % 15.7 % (19-41); Mean Corp Hgb Conc 31.2 g/gl (32-36); Mean Corpuscular Hgb 30.3 pg (27.0-32.0); Mean Corpuscular Volume 97.3 fL (80-94); Mean Platelet Vol. 9.8 fl (6.2-12.0); Monocyte# 0.31 X10^3/uL; Monocyte% 5.6 % (0-10); Neutrophil # 4.23 X10^3/uL (2.7-7.7); Neutrophil % 76.5 % (47-70); Platelet Count 216 K/mm3 (150-450); RBC Distribution Width CV 14.3 % (11.6-14.6); RBC Distribution Width SD 47.5 fl (35.1-43.9); Red Blood Count 3.33 M/mm3 (4.6-6.2); White Blood Count 5.5 K/mm3 (4.4-11.0)
[2018-09-19 12:34] LABS: POSITIVE COUNT NO; POSITIVE DIFFERENTIAL NO; POSITIVE MORPHOLOGY NO
[2018-09-19 12:35] LABS: Amylase 98 U/L (25-115); Anion Gap 10 (5-15); BUN 48 mg/dL (7-18); BUN/Creat Ratio 18.3 RATIO (10-20); Calcium,Total 8.6 mg/dL (8.5-10.1); Chloride 114 mmol/L (98-107); Creatinine, Serum 2.62 mg/dL (0.70-1.30); EST Glomerular Filtration Rate 25 mL/min (>60); Est Glom Filt Rate - Afr Amer 30 mL/min (>60); Glucose 91 mg/dL (74-106); Lipase 365 U/L (73-393); Potassium 4.5 mmol/L (3.5-5.1); Sodium Level 147 mmol/L (136-145)
== END ==
PROVIDERS: Family Provider Family Medicine Geriatric Medicine; PCP Family Medicine Geriatric Medicine; Visit Provider Family Medicine Geriatric Medicine
DX: N17.9 Acute kidney failure, unspecified (principal); K85.90 Acute pancreatitis without necrosis or infection, unspecified; I10 Essential (primary) hypertension
CPT/HCPCS: 36415; 80048; 82150; 83690; 85025

== ENCOUNTER → 2019-10-17 11:22 | Outpatient (CLI) | payer MEDICARE, SELFPAY ==
[2019-10-17 12:34] LABS: Absolute Lymphocyte Count 1.03 X10^3/uL (0.83-4.51); Absolute Neutrophil Count 5.7 X10^3/uL (2.0-7.7); Basophil# 0.02 X10^3/uL; Basophil% 0.3 % (0-1); Eosinophil# 0.13 X10^3/uL; Eosinophils% 1.8 % (0-5); Hematocrit 33.6 % (40-54); Hemoglobin 10.4 g/dL (13.0-16.5); Lymphocyte # 1.03 X10^3/ul (4.0); Lymphocyte % 14.2 % (19-41); Mean Corpuscular Hgb 29.9 pg (27.0-32.0); Mean Corpuscular Volume 96.6 fL (80-94); Mean Platelet Vol. 11.1 fl (6.2-12.0); Monocyte% 5.5 % (0-10); NRBC Flagged by Analyzer 0 % (0-5); Neutrophil # 5.66 X10^3/uL (2.7-7.7); Neutrophil % 77.8 % (47-70); Platelet Count 209 K/mm3 (150-450); RBC Distribution Width CV 14.3 % (11.6-14.6); RBC Distribution Width SD 50.7 fl (35.1-43.9); Red Blood Count 3.48 M/mm3 (4.6-6.2); White Blood Count 7.3 K/mm3 (4.4-11.0)
[2019-10-17 12:48] LABS: Vitamin D,25 Hydroxy 24.2 ng/mL
[2019-10-17 13:14] LABS: ALB/GLOB Ratio 0.8 RATIO (0.9-2.4); AST(SGOT) 9 U/L (15-37); Alanine Aminotransfer ALT/SGPT 21 U/L (16-61); Albumin, Serum 3.4 g/dL (3.2-5.0); Alkaline Phosphatase 82 U/L (45-117); Anion Gap 7 (5-15); BUN 134 mg/dL (7-18); BUN/Creat Ratio 42.5 RATIO (10-20); Calcium,Total 8.3 mg/dL (8.5-10.1); Chloride 120 mmol/L (98-107); Creatinine, Serum 3.15 mg/dL (0.70-1.30); EST Glomerular Filtration Rate 20 mL/min (>60); Est Glom Filt Rate - Afr Amer 24 mL/min (>60); Globulin 4.1 g/dL (2.2-4.2); Glucose 176 mg/dL (74-106); Protein, Total 7.5 g/dL (6.4-8.2); Sodium Level 141 mmol/L (136-145); Thyroid Stim Hormone (TSH) 1.59 uIU/mL (0.358-3.74)
== END ==
PROVIDERS: PCP Family Medicine Geriatric Medicine; Visit Provider Family Medicine Geriatric Medicine
DX: I10 Essential (primary) hypertension (principal); E55.9 Vitamin D deficiency, unspecified; R94.4 Abnormal results of kidney function studies
CPT/HCPCS: 36415; 80053; 82306; 84443; 85025; 87086

== ENCOUNTER → 2019-10-17 15:13 | Outpatient (CLI) | payer MEDICARE, SELFPAY ==
--- NOTE | 2019-10-17 15:34 | US_ITS ---
STUDY: RENAL ULTRASOUND - COMPLETE REASON FOR EXAM: Male, 84 years old. AKD TECHNIQUE: Ultrasound evaluation of the kidneys was performed with real-time and static leahy-scale imaging. COMPARISON: 09/10/2018 FINDINGS: RIGHT KIDNEY: Normal location of the right kidney, which is normal in size. The right kidney measures 8.7 cm. There is a normal cortex of the right kidney. The renal cortex measures 1.1 cm. 2 cm cyst lower pole right kidney. There are no right renal calculi. There is mild hydronephrosis of the right kidney. Right ureteral stent. DISTAL RIGHT URETER: There is non-visualization of the distal right ureter. There is no demonstrated right ureterovesical junction calculus. There is a visualized right ureteral jet. LEFT KIDNEY: Normal location of the left kidney, which is normal in size. The left kidney measures 8.8 cm. There is a normal cortex of the left kidney. The renal cortex measures 1.4 cm. 1.6 cm cyst in the midsection left kidney. There are no left renal calculi. There is no left hydronephrosis. DISTAL LEFT URETER: There is non-visualization of the distal left ureter. There is no demonstrated left ureterovesical junction calculus. There is a visualized left ureteral jet. BLADDER: The distended urinary bladder has a volume of ml. The empty urinary bladder has a volume of ml. There is a normal wall thickness of the distended urinary bladder. There is no demonstrated mass within the urinary bladder. There are no demonstrated bladder calculi. Echogenic debris within the bladder may be related to cystitis. US/Kidney and Bladder IMPRESSION: 1. Mild right hydronephrosis despite a ureteral stent. 2. Debris in the bladder possibly from cystitis per Electronically Signed: Clyde Koch MD at 16:27 EDT Tel , Service support ,
== END ==
PROVIDERS: PCP Family Medicine Geriatric Medicine; Referring Provider Family Medicine Geriatric Medicine; Visit Provider Family Medicine Geriatric Medicine
DX: N17.9 Acute kidney failure, unspecified (principal); I10 Essential (primary) hypertension; E55.9 Vitamin D deficiency, unspecified; R94.4 Abnormal results of kidney function studies
CPT/HCPCS: 36415; 76770; 80053; 82306; 84443; 85025; 87086

== ENCOUNTER → 2019-10-18 11:06 | Outpatient (CLI) | payer MEDICARE, SELFPAY ==
[2019-10-18 13:39] LABS: Anion Gap 7 (5-15); BUN 109 mg/dL (7-18); BUN/Creat Ratio 46.4 RATIO (10-20); Chloride 125 mmol/L (98-107); Creatinine, Serum 2.35 mg/dL (0.70-1.30); EST Glomerular Filtration Rate 28 mL/min (>60); Est Glom Filt Rate - Afr Amer 34 mL/min (>60); Glucose 78 mg/dL (74-106); Potassium 5.1 mmol/L (3.5-5.1); Sodium Level 140 mmol/L (136-145)
== END ==
PROVIDERS: PCP Family Medicine Geriatric Medicine; Visit Provider Family Medicine Geriatric Medicine
DX: N17.9 Acute kidney failure, unspecified (principal)
CPT/HCPCS: 36415; 80048

== ENCOUNTER → 2019-10-21 10:25 | Outpatient (CLI) | payer MEDICARE, SELFPAY ==
[2019-10-21 12:46] LABS: Anion Gap 6 (5-15); BUN 85 mg/dL (7-18); BUN/Creat Ratio 37.6 RATIO (10-20); Calcium,Total 8.3 mg/dL (8.5-10.1); Chloride 118 mmol/L (98-107); Creatinine, Serum 2.26 mg/dL (0.70-1.30); EST Glomerular Filtration Rate 30 mL/min (>60); Est Glom Filt Rate - Afr Amer 36 mL/min (>60); Glucose 109 mg/dL (74-106); Potassium 4.4 mmol/L (3.5-5.1); Sodium Level 141 mmol/L (136-145)
== END ==
PROVIDERS: PCP Family Medicine Geriatric Medicine; Visit Provider Family Medicine Geriatric Medicine
DX: E87.2 Acidosis (principal)
CPT/HCPCS: 36415; 80048

== ENCOUNTER → 2019-10-24 06:08 | Outpatient (CLI) | payer MEDICARE, SELFPAY ==
--- NOTE | 2019-10-25 16:01 | STRESSREP ---
Stress Test Report Date: 10/24/2019 Procedure: Pharmacologic stress nuclear imaging study Indications: Chest pain Consent: Per the patient Procedure: The patient underwent pharmacologic (Regadenoson) evaluation with a peak heart rate of 94 beats per minute (68 %predicted maximal heart rate) and a peak blood pressure of 100/62 mmHg. The baseline ECG demonstrated atrial fibrillation. EKG during lexiscan infusion revealed no significant ischemic changes. EKG post infusion revealed no significant ischemic changes. [There were no cardiac dysrhythmias pretest, during pharmacologic infusion, or recovery]. [There was no complaint of chest discomfort during pharmacologic infusion or recovery]. The examination was discontinued secondary to completion of protocol. Impression: 1. Lexiscan stress test test is negative for Lexiscan infusion induced EKG changes of ischemia. 2. Lexiscan stress test test is negative for Lexiscan infusion induced chest pain. 3. Results of the nuclear portion of the test is as below Myocardial perfusion imaging study: Technique: The patient was injected with 11.8 millicuries of technetium 99m Cardiolite and subsequently rest SPECT Cardiolite nuclear imaging was obtained in the horizontal long, vertical long, and short axis views. The patient underwent pharmacologic (Regadenoson) evaluation. Please see above for details. The patient was injected with 33.9 millicuries of technetium 99m Cardiolite and subsequently stress SPECT Cardiolite nuclear imaging was obtained in the horizontal long, vertical long, and short axis views. A gated Cardiolite study at peak stress was obtained. Interpretation: Rest and stress SPECT Cardiolite nuclear imaging status post realignment, normalization, and attenuation correction demonstrate overall normal myocardial radioisotope uptake. Gated images reveal no significant regional wall motion abnormalities. The reported LVEF is greater than 70 %. Impression: 1. There is no evidence of significant ischemia or infarction. 2. Estimated ejection fraction is greater than 70%. This note was generated with [employer] software. It may contain incorrect words, spelling, and punctuation that were not noted in checking the note before signing.
== END ==
PROVIDERS: PCP Family Medicine Geriatric Medicine; Referring Provider Family Medicine Geriatric Medicine; Visit Provider Family Medicine Geriatric Medicine
DX: R07.9 Chest pain, unspecified (principal)
CPT/HCPCS: 78452; 93017; A9500; A4216; J2785

== ENCOUNTER → 2019-11-26 10:55 | Outpatient (CLI) | payer MEDICARE, SELFPAY ==
[2019-11-06 11:59] VITALS: BMI 25.2
[2019-11-26 12:23] LABS: Hematocrit 28.8 % (40-54); Hemoglobin 9.1 g/dL (13.0-16.5); Mean Corp Hgb Conc 31.6 g/dL (32-36); Mean Corpuscular Hgb 31.8 pg (27.0-32.0); Mean Corpuscular Volume 100.7 fL (80-94); Mean Platelet Vol. 10.6 fl (6.2-12.0); Platelet Count 220 K/mm3 (150-450); RBC Distribution Width CV 16.5 % (11.6-14.6); RBC Distribution Width SD 59.5 fl (35.1-43.9); Red Blood Count 2.86 M/mm3 (4.6-6.2); White Blood Count 8.6 K/mm3 (4.4-11.0)
[2019-11-26 12:41] LABS: Albumin, Serum 3.2 g/dL (3.2-5.0); BUN 46 mg/dL (7-18); Calcium,Total 8.5 mg/dL (8.5-10.1); Chloride 121 mmol/L (98-107); Creatinine, Serum 1.77 mg/dL (0.70-1.30); EST Glomerular Filtration Rate 39 mL/min (>60); Est Glom Filt Rate - Afr Amer 47 mL/min (>60); Glucose 94 mg/dL (74-106); Iron 52 ug/dL (65-175); Iron Binding Capacity,Total 212 ug/dL (250-450); Phosphorus 3.3 mg/dL (2.5-4.9); Potassium 4.8 mmol/L (3.5-5.1); Sodium Level 146 mmol/L (136-145)
[2019-11-26 12:54] LABS: PTHIN 87.4 pg/mL (18.4-80.1)
== END ==
PROVIDERS: PCP Family Medicine Geriatric Medicine; Visit Provider Internal Medicine Nephrology
DX: N18.4 Chronic kidney disease, stage 4 (severe) (principal); D50.9 Iron deficiency anemia, unspecified
CPT/HCPCS: 36415; 80069; 83540; 83550; 83970; 85027

== ENCOUNTER → 2019-11-26 11:04 | Outpatient (CLI) | payer MEDICARE, SELFPAY ==
[2019-11-06 11:59] VITALS: BMI 25.2
--- NOTE | 2019-11-26 11:07 | VDLE_ITS ---
Reason For Study: Edema RIGHT GSV is normal. CFV is compressible, spontaneous, phasic, competent and demonstrates normal augmentation. FV is compressible, spontaneous, phasic, competent and demonstrates normal augmentation. POP V is compressible, spontaneous, phasic, competent and demonstrates normal augmentation. T/P Trunk is compressible. PTV is compressible. RT PerV is compressible. Procedure Exam performed in department. A preliminary report was called and/or faxed to [facility]. Interpretation Summary Deep veins of the right lower extremity are patent and compressible segmentally. There is no evidence of right lower extremity deep vein thrombosis. Valvular competence appears intact within the proximal deep venous system on the right . The right great saphenous vein appears patent and compressible segmentally. Ordering Physician: Rigo Lan Referring Physician: Rigo Lan Chi Performed By: Bruna Enamroado RVT and Student
== END ==
PROVIDERS: PCP Family Medicine Geriatric Medicine; Referring Provider Family Medicine Geriatric Medicine; Visit Provider Family Medicine Geriatric Medicine
DX: R60.0 Localized edema (principal); N18.4 Chronic kidney disease, stage 4 (severe); D50.9 Iron deficiency anemia, unspecified
CPT/HCPCS: 36415; 80069; 83540; 83550; 83970; 85027; 93971

== ENCOUNTER 2020-04-04 12:03 | Inpatient (IN) | payer MEDICARE, SELFPAY ==
[2019-12-18 09:47] VITALS: BMI 24.7
[2020-04-04] VITALS (20 sets, daily range): BP systolic 83–110; BP diastolic 52–70; PULSE 64–88; RESP 12–20; TEMP 36–36.6; O2SAT 94–100; BMI 21.9; BMI 22.1
--- NOTE | 2020-04-04 12:18 | RAD_ITS ---
STUDY: X-RAY CHEST REASON FOR EXAM: Male, 85 years old. WEAKNESS TECHNIQUE: Single AP portable view of the chest. COMPARISON: 01/19/2017 FINDINGS: The lungs are clear and expanded. There is no demonstrated pleural abnormality. Normal size heart. Normal mediastinum and nia. Normal visualized pulmonary arteries. There is atherosclerotic tortuosity of the aortic arch and descending thoracic aorta. The osseous structures are unchanged. There is no demonstrated abnormality of the visualized soft tissue structures of the upper abdomen. RAD/Chest 1 View (Portable) IMPRESSION: No active pulmonary disease. Electronically Signed: Garcia Heaton MD at 13:18 EST Tel , Service support ,
--- NOTE | 2020-04-04 12:20 | ED.DCSUM_ITS ---
- ER Visit Summary Date of Service: 04/04/20 Chief Complaint: [Weakness] History of Present Illness: The patient is a 85 M [presents to the emergency department complaint of generalized weakness over the last week. Patient states that friends check his blood pressure this morning and it was low at 89/47. Patient denies recent illness. He denies fever or cough. He denies any COVID- 19 exposures. He denies blood in the stool or black tarry stool. He denies any chest pain although sometimes he has some heaviness in his shoulders. Patient has history of aortic stenosis as well as chronic kidney disease, hypertension, high cholesterol, and atrial fibrillation. He does not know if he is on anticoagulation.] Physical Examination: [HEENT-PERRLA, EOMI. Cranial nerves II through XII grossly intact. TMs clear. Mucous membranes moist. No adenopathy. Cardiovascular-regular rate and rhythm with 3 out of 6 systolic ejection murmur Lungs-clear to auscultation, chest wall stable without crepitus or subcu emphysema Abdomen-normoactive bowel sounds, soft, nontender, no rebound or rigidity, no peritoneal signs. Extremities-intact ?4, normal range of motion, normal pulses, atraumatic] Test Results: [EKG obtained on arrival shows sinus rhythm with a ventricular rate of [address] changes and some subtly peaked T waves. CBC with differential showed a white count 7.8, hemoglobin 9.0, hematocrit was 29, platelets 191. Chemistry shows sodium 141, potassium 6.9, chloride 119, CO2 12, glucose 128, BUN 140 and creatinine 6.97. Troponin is less than 0.015. Chest x-ray obtained read by myself 1 view as no acute disease process. Radiology in agreement.] Emergency Department Course and Treatment: [ Established on arrival. He was ordered 500 cc fluid bolus and normal saline as well. Marlow catheter will be placed. I discussed case with nephrology Dr. Bledsoe who will see patient and also will discuss case with hospitalist to evaluate patient for admission to the intensive care unit. Patient was ordered calcium gluconate as well as sodium bicarb as well as Kayexalate as well as dextrose and insulin and an albuterol aerosol.] Treatment Plan: [Admit] Disposition: [Admit] Impression: [Acute renal failure Hyperkalemia] This note was generated with Dragon dictation software. It may contain incorrect words, spelling, and punctuation that were not noted in review of the chart prior to signing ED Disposition - Plan for ED Patient: Referrals: Rigo Lan Chi, MD [Primary Care Provider] -
[2020-04-04 12:42] LABS: Absolute Lymphocyte Count 0.94 X10^3/uL (0.83-4.51); Absolute Neutrophil Count 6.4 X10^3/uL (2.0-7.7); Basophil# 0.02 X10^3/uL; Basophil% 0.3 % (0-1); Eosinophils% 1.3 % (0-5); Hematocrit 28.8 % (40-54); Lymphocyte # 0.94 X10^3/ul (4.0); Mean Corp Hgb Conc 31.3 g/dL (32-36); Mean Corpuscular Hgb 30.1 pg (27.0-32.0); Mean Corpuscular Volume 96.3 fL (80-94); Mean Platelet Vol. 10.3 fl (6.2-12.0); Monocyte# 0.33 X10^3/uL; Monocyte% 4.2 % (0-10); NRBC Flagged by Analyzer 0 % (0-5); Neutrophil % 81.8 % (47-70); Platelet Count 191 K/mm3 (150-450); RBC Distribution Width CV 15.7 % (11.6-14.6); RBC Distribution Width SD 54.9 fl (35.1-43.9); Red Blood Count 2.99 M/mm3 (4.6-6.2); White Blood Count 7.8 K/mm3 (4.4-11.0)
[2020-04-04 13:03] LABS: Lactic Acid 1.4 mmol/L (0.4-1.9)
[2020-04-04 13:07] LABS: ALB/GLOB Ratio 0.8 RATIO (0.9-2.4); AST(SGOT) 8 U/L (15-37); Alanine Aminotransfer ALT/SGPT 19 U/L (16-61); Albumin, Serum 3.5 g/dL (3.2-5.0); Alkaline Phosphatase 104 U/L (45-117); Anion Gap 10 (5-15); BUN 140 mg/dL (7-18); BUN/Creat Ratio 20.1 RATIO (10-20); Calcium,Total 8.2 mg/dL (8.5-10.1); Chloride 119 mmol/L (98-107); Creatinine, Serum 6.97 mg/dL (0.70-1.30); EST Glomerular Filtration Rate 8 mL/min (>60); Est Glom Filt Rate - Afr Amer 10 mL/min (>60); Estimated Creatinine Clearance 6.28 ml/min; Globulin 4.3 g/dL (2.2-4.2); Glucose 128 mg/dL (74-106); Potassium 6.9 mmol/L (3.5-5.1); Protein, Total 7.8 g/dL (6.4-8.2); Sodium Level 141 mmol/L (136-145)
[2020-04-04] MEDS: 0.9% Normal Saline 1,000 ML 150 ML IV (13:09)
--- NOTE | 2020-04-04 13:09 | EKG12_ITS ---
Test Reason : Blood Pressure : / mmHG Vent. Rate : 069 BPM Atrial Rate : 069 BPM P-R Int : 164 ms QRS Dur : 086 ms QT Int : 396 ms P-R-T Axes : 017 -01 027 degrees QTc Int : 424 ms Normal sinus rhythm Nonspecific ST abnormality Abnormal ECG Confirmed by ESTEFANI LEWIS, JOHN ([id number]), scientific editor DEBORAH LOWE ([id number]) on 04/06/2020 10:24:22 AM Referred By: RENÉ Confirmed By:JOHN JARA MD
[2020-04-04] MEDS: Albuterol 2.5 MG/3 ML VIAL.NEB. INHALATION (13:21)
[2020-04-04] MEDS: Insulin Lispro 5 UNIT in Syringe 0 ML 3 UNIT IV (13:26)
[2020-04-04] MEDS: Calcium Gluconate 1 GM/10 ML Vial IV (13:26)
[2020-04-04] MEDS: Dextrose 50%-Water 25 GM/50 ML DISP.SYRIN IV (13:27)
[2020-04-04] MEDS: Sodium Polystyrene Sulfonate 15 GM/60 ML UDC 30 GM PO (13:27)
--- NOTE | 2020-04-04 13:27 | HP.PCM_ITS ---
History of Present Illness Date of Admission: 04/04/20 The patient is a 85 year old M with PMH as outlined who was admitted with a complaint of generalised malaise. He checked his BP at home and it was in the 80s systolic. HE says he has been urinating well,a nd denied any fever, chills, nausea or vomiting.; he did admit to diarrhea. He says he has been eating well, but not much. Review of systems is otherwise negative. Vitals showed BP of 86/53, Temp of 97.3F and KS of 64 adn RR of 18. Chemistry showed potassium of 6.9, and BUN of 140, as well as Cr of 6.97, and lactic acid of 1.4. CBC was 7.8, with Hb of 9 and platelets of 195. CXR showed no active pulmonary disease.urinalysis showed wbc of 10-25, urine bacteria of 1+. He is being admitted to be managed for Birgit and hyperkalemia. [] Past Medical History Past Medical History (Chronic Problems): Chronic Problems (Last Reviewed 04/05/20 @ 10:[address] Mynor Bolanos MD) Nonrheumatic aortic (valve) stenosis (Chronic) Paroxysmal atrial fibrillation (Chronic) History of supraventricular tachycardia (Chronic) Essential (primary) hypertension (Chronic) HLD (hyperlipidemia) (Chronic) CKD (chronic kidney disease), stage IV (Chronic) Medical History: Medical History (Last Reviewed 04/05/20 @ 10:[address] Mynor Bolanos MD) Nonrheumatic aortic (valve) stenosis (Chronic) I35.0 Paroxysmal atrial fibrillation (Chronic) I48.0 History of supraventricular tachycardia (Chronic) Z86.79 Essential (primary) hypertension (Chronic) I10 HLD (hyperlipidemia) (Chronic) E78.5 CKD (chronic kidney disease), stage IV (Chronic) N18.4 Anxiety and depression F41.9, F32.9 BPH with obstruction/lower urinary tract symptoms N40.1, N13.8 Pseudomonas Chronic osteoarthritis M19.90 Decubitus ulcers L89.90 left upper back Hydronephrosis N13.30 Malnutrition E46 Atrial fibrillation with RVR Onset Date: 09/10/18 I48.91 Bacteremia R78.81 Encephalopathy acute G93.40 Sepsis A41.9 UTI (urinary tract infection) N39.0 Yersinia infection A28.8 Abnormal imaging of thyroid R93.89 Paroxysmal atrial fibrillation with rapid ventricular response I48.0 Allergies No Known Allergies Allergy (Verified 04/04/20 12:06) Home Medications: Ambulatory Orders Medication Instructions Recorded Aspirin [Aspirin, Baby] 81 mg PO DAILY@0800 #90 tab.chew 09/16/18 Ferrous Sulfate 325 mg PO 1200,1700 #90 tab 09/16/18 Metoprolol Tartrate [Lopressor 12.5 mg PO BID #90 tab 09/16/18 (beta lyndsay)] Pantoprazole Sodium [Protonix] 40 mg PO DAILY #30 tab 09/16/18 Tamsulosin HCl [Flomax] 0.4 mg PO DAILY #90 cap 09/16/18 Surgical History: Surgical History (Last Reviewed 11/06/19 @ 14:[address] oJselito Ortiz MD) S/P ureteral stent placement Z96.0 History of knee surgery Z98.890 Surgical History: arthscropcy, hip, arthroscopy, knee, herniorrhaphy, - - Cystoscopy with bilateral ureteral stent placement Psychiatric History: Depression Lives: Alone Smoking Status: Never smoker Alcohol: None - *Family History Maternal Family History: Family History (Last Reviewed 11/06/19 @ 14:[address] Joselito Ortiz MD) Mother CAD (coronary artery disease) Myocardial infarction History Items: Heart Disease Paternal Family History: Family History (Last Reviewed 11/06/19 @ 14:[address] Joselito Ortiz MD) Mother CAD (coronary artery disease) Myocardial infarction History Items: Heart Disease Review of Systems Constitutional: Reports: Malaise, Weakness. Denies: Chills, Fever, Weight Change HEENT: Denies: Head Aches, Sinus Congestion, Sinus Drainage Cardiovascular: Denies: Chest Pain, Palpitations Respiratory: Denies: Cough, Shortness of Breath, Shortness of breath at rest, Sputum production Gastrointestinal: Reports: Diarrhea. Denies: Abdominal Pain, Nausea, Vomiting Genitourinary: Denies: Dysuria Musculoskeletal: Denies: Joint Pain, Joint Tenderness Skin: Denies: Rash, Wounds Neurological: Denies: Numbness, Tingling, Focal weakness Psychiatric: Denies: Anxiety, Depression, Homicidal Ideations, Suicidal Ideations Hematologic/ Lymphatic: Denies: Easy Bruising, Easy Bleeding VTE Information - Inpt Only VTE Present on Admission: No VTE Pharm Prophylaxis ordered?: Yes Patient Problems: Active and Suspected Problems (Last Reviewed 04/05/20 @ 10:[address] Mynor Bolanos MD) BIRGIT (acute kidney injury) (Acute) - Physical Exam Vitals/I&O's: Vital Signs Temp Pulse Resp BP Pulse Ox 97.4 F L 70 14 88/59 L 96 04/04/20 12:04 04/04/20 13:21 04/04/20 13:21 04/04/20 13:08 04/04/20 13:08 Oxygen Delivery Method Room Air Weight: 124 lb Body Mass Index (BMI) 21.9 Finger Stick Blood Glucose 127 General: Alert, Oriented x3, Cooperative, No apparent distress HEENT: Atraumatic, PERRLA, EOMI, Normocephalic Oral: Dry Mucosa Neck: Supple, No JVD, Negative Carotid Bruits Lungs: Clear to auscultation, Normal air movement Cardiovascular: Regular rate, Regular Rhythm, Normal S1, Normal S2, No murmurs Abdomen: Bowel Sounds Present, Soft, Non Tender, Non-Distended, No Hepato- splenomegaly Extremities: No clubbing, No cyanosis, No edema, Capillary Refill Less than 3 Seconds Skin: No rashes, No breakdown Musculoskeletal: No Tenderness to Palpation of Joints or Extremities Lymphatic: No Cervical, Supraclavicular, or Inguinal Adenopathy Neurological: Cranial nerves II-XII grossly intact, Neuro grossly intact, Motor Exam 5/5 strength throughout Psych/Mental Status: Normal Affect, Appropriate, Alert and oriented to time, place, person, mood and affect Laboratory Results 04/04/20 12:30: WBC 7.8, RBC 2.99 L, Hgb 9.0 L, Hct 28.8 L, MCV 96.3 H, MCH 30.1, MCHC 31.3 L, RDW Std Deviation 54.9 H, RDW Coeff of Cathy 15.7 H, Plt Count 191, MPV 10.3, Immature Gran % (Auto) 0.400, Neut % (Auto) 81.8 H, Lymph % (Auto) 12.0 L, [place] % (Auto) 4.2, Eos % (Auto) 1.3, Baso % (Auto) 0.3, Absolute Neuts (auto) 6.4, Absolute Lymphs (auto) 0.94, Nucleated RBC % 0 04/04/20 12:30: Sodium 141, Potassium 6.9 H*, Chloride 119 H, Carbon Dioxide 12.0 L, Anion Gap 10, BUN 140 H*, Creatinine 6.97 H, Estim Creat Clear Calc 6.28, Est GFR (MDRD) Af Amer 10 L, Est GFR (MDRD) Non-Af 8 L, BUN/Creatinine Ratio 20.1 H, Glucose 128 H, Calcium 8.2 L, Total Bilirubin 0.30, AST 8 L, ALT 19, Alkaline Phosphatase 104, Troponin I < 0.015, Total Protein 7.8, Albumin 3.5, Globulin 4.3 H, Albumin/Globulin Ratio 0.8 L 04/04/20 12:30: Lactic Acid 1.4 Diagnostic Data Chest X-Ray 04/04/20 12:18 IMPRESSION: No active pulmonary disease. Electronically Signed: Garcia Heaton MD at 13:18 EST Tel , Service support , Current Medications Sodium Chloride () 1,000 mls @ 150 mls/hr IV .Q6H40M MALICK Last Admin: 04/04/20 13:09 Dose: 150 mls/hr Documented by: Assessment/Plan All Active Problems (Last Reviewed 04/05/20 @ 10:[address] Mynor Bolanos MD) BIRGIT (acute kidney injury) (Acute) BIRGIT (acute kidney injury) (Resolved) Acute kidney injury superimposed on chronic kidney disease (Resolved) 85 y/o admitted with a complaint of weakness and diarrhea. #BIRGIT on CKD 3 * Creatinine is 6.97 with a baseline of around 2-3 * Potassium was also 6.9. * Admit to ICU on account of elevated potassium. * If sodium Kayexalate. IV hydration with fluids at 150 cc/h * Check for urea and abdominopelvic CT scan without contrast ordered. * Insert Marlow catheter and monitor urine output. * Nephrology consulted * #Hyperkalemia * Received calcium gluconate and sodium bicarb as well as dextrose and insulin and albuterol aerosol in the ED. * Trend potassium levels and monitor. * EKG showed normal sinus rhythm with no acute ST changes * #Hypotension * Blood pressure has been in the 80s systolic. Patient is otherwise hemodynamically stable. * He does say he has been having diarrhea at home. Will hold all BP meds and hydrate aggressively with IV fluids. * Start vasopressors if blood pressure does not improve. * #nonanion gap metabolic acidosis * Bicarb of 12. Anion gap is 10 and this likely due to BIRGIT. * Nephrology consulted. Patient being started on bicarb drip. * #Hypertension: Hold metoprolol *History of A. fib and SVT: Metoprolol on hold. Currently in normal sinus rhythm. DVT prophylaxis: Heparin CODE STATUS: Full code * Patient counseled extensively about different types of CODE STATUS including full code, DNR CCA and DNR CCA. Patient elects to be full code. Total [id number] time 17 minutes. * He said to contact his friend Geovani with any concerns or questions, and for any decisions if he is incapacitated. Inpatient E&M: 26450 Init Hosp L3 Procedures: 93989 Advncd Care Plan 30 Min
--- NOTE | 2020-04-04 13:29 | NURSING ---
DR BANDAR LOPEZ
--- NOTE | 2020-04-04 13:31 | NURSING ---
DR BANDAR LOPEZ
--- NOTE | 2020-04-04 13:37 | NURSING ---
ICU ACUTE RENAL FAILURE, HYPERKALEMIA BANDAR
--- NOTE | 2020-04-04 13:43 | NURSING ---
ICU 5
[2020-04-04 13:49] LABS: Color, Urine Yellow (Yellow); Glucose, Dipstick Normal (Normal); Ketone-Dipstick Negative (Negative); Leukocyte Esterase-Dipstick 500 /ul (Negative); Mucous, Urine 0 SEEN /hpf (<or=2+); Nitrite-Dipstick Negative (Negative); Occult Blood-Urine 250 /ul (Negative); Protein-Dipstick 100 mg/dl (Negative); Specific Gravity, Urine 1.015 (1.002-1.030); Urine Bilirubin Dipstick Negative (Negative); Urine Clarity Cloudy (Clear); Urine Urobilinogen Normal (Normal)
[2020-04-04 13:57] LABS: Bacteria 1+ /hpf (None Seen); Red Blood Cells-Urine 10-25 SEEN /hpf (0-5); Squamous Epithelial Cells - UA 0-5 SEEN /hpf (0-5); White Blood Cells 10-25 SEEN /hpf (0-5)
[2020-04-04] MEDS: Sodium Bicarbonate 8.4% 50 ML Syringe 50 MEQ IV (14:05)
--- NOTE | 2020-04-04 16:02 | CON.PCM_ITS ---
Problem List (1) BIRGIT (acute kidney injury) Status: Acute Consultation - Renal 04/04/20 PCP/ Referring MD: Requesting physician: [] Primary care physician: Dr. Rigo Lan MD Reason for Consultation:: BIRGIT - History of Present Illness History of Present Illness: The patient is a 85 year old M who presented to the hospital with complaints of generalized weakness, and other constitutional symptoms. Somewhat poor historian. As per records she has known history of CKD stage IV with baseline creatinine around 2.0-2.2. Does not know his primary care physician's name. Denies any urinary complaints. Could not tell me if he started any new medications recently. Breathing is acceptable. Some nausea. - Allergies Allergies: Allergies No Known Allergies Allergy (Verified 04/04/20 12:06) - Current Medications Current Medications: Current Medications Heparin Sodium (Porcine) (Heparin Injection (Vial) 5,000 Unit/Ml Vial) 5,000 unit SC Q12 MALICK Sodium Chloride () 250 mls @ 15 mls/hr IV .[id number] PRN PRN Reason: Saline Flush Sodium Chloride () 250 mls @ 15 mls/hr IV .[id number] PRN PRN Reason: Additional IVPB Infusion Sodium Bicarbonate 150 meq/ (Dextrose) 1,150 mls @ 125 mls/hr IV .Q9H12M MALICK Nitroglycerin (Nitroglycerin (Inpatient Use) 0.4 Mg Tab.Subl) 0.4 mg SUBLINGUAL Q5M PRN PRN Reason: CARDIAC/CHEST PAIN Ondansetron HCl (Ondansetron 4 Mg/2 Ml Vial) 4 mg IV Q8H PRN PRN PRN Reason: NAUSEA/VOMITING Sodium Chloride (0.9% Saline Lock 10 Ml Syringe) 10 - 40 ml IV UD PRN PRN Reason: SALINE FLUSH - Past Medical History Past Medical History (Chronic Problems): Chronic Problems (Last Reviewed 11/06/19 @ 14:[address] Joselito Otriz MD) Nonrheumatic aortic (valve) stenosis (Chronic) Paroxysmal atrial fibrillation (Chronic) History of supraventricular tachycardia (Chronic) Essential (primary) hypertension (Chronic) HLD (hyperlipidemia) (Chronic) CKD (chronic kidney disease), stage IV (Chronic) - Past Surgical History Surgical History: arthscropcy, hip, arthroscopy, knee, herniorrhaphy, - - Cystoscopy with bilateral ureteral stent placement - Social History Smoking Status: Never smoker Alcohol: None - Family History Maternal Family History: Family History (Last Reviewed 11/06/19 @ 14:[address] Joselito Ortiz MD) Mother CAD (coronary artery disease) Myocardial infarction History Items: Heart Disease Paternal Family History: Family History (Last Reviewed 11/06/19 @ 14:[address] Joselito Ortiz MD) Mother CAD (coronary artery disease) Myocardial infarction History Items: Heart Disease Review of Systems Constitutional: Denies: Chills, Fever, Weight Change HEENT: Denies: Head Aches, Sinus Congestion, Sinus Drainage Cardiovascular: Denies: Chest Pain, Palpitations Respiratory: Denies: Cough, Shortness of breath at rest, Sputum production Gastrointestinal: Denies: Abdominal Pain, Nausea, Vomiting Genitourinary: Denies: Dysuria Musculoskeletal: Denies: Joint Pain, Joint Tenderness Skin: Denies: Rash, Wounds Neurological: Denies: Numbness, Tingling, Focal weakness Psychiatric: Denies: Anxiety, Depression, Homicidal Ideations, Suicidal Ideations Hematologic/ Lymphatic: Denies: Easy Bruising, Easy Bleeding - Physical Exam Vitals/I&O's: Vital Signs Temp Pulse Resp BP Pulse Ox 96.8 F L 67 12 86/57 L 99 04/04/20 14:45 04/04/20 15:15 04/04/20 15:15 04/04/20 15:15 04/04/20 15:15 Oxygen Delivery Method Room Air Weight: 54.888 kg Body Mass Index (BMI) 22.1 Finger Stick Blood Glucose 127 Intake and Output for Last 24 Hours 04/02/20 04/03/20 04/04/20 23:59 23:59 23:59 Intake Total 0.05 / 0.05 Balance 0.05 / 0.05 General: Alert, Oriented x3, Cooperative HEENT: Atraumatic, PERRLA, EOMI, Normocephalic Neck: Supple, No JVD, Negative Carotid Bruits Lungs: Clear to auscultation, Normal air movement Cardiovascular: Regular rate, No murmurs Abdomen: Bowel Sounds Present, Soft, Non Tender Extremities: No edema, Capillary Refill Less than 3 Seconds Skin: No rashes, No breakdown Musculoskeletal: No Tenderness to Palpation of Joints or Extremities Neurological: Cranial nerves II-XII grossly intact Psych/Mental Status: Normal Affect, Appropriate Microbiology Past 72 Hours 04/04/20 13:42 Mucosa - Nose SARS-CoV-2 Antigen (Rapid) - Final Laboratory Results 04/04/20 12:30: WBC 7.8, RBC 2.99 L, Hgb 9.0 L, Hct 28.8 L, MCV 96.3 H, MCH 30.1, MCHC 31.3 L, RDW Std Deviation 54.9 H, RDW Coeff of Cathy 15.7 H, Plt Count 191, MPV 10.3, Immature Gran % (Auto) 0.400, Neut % (Auto) 81.8 H, Lymph % (Auto) 12.0 L, [place] % (Auto) 4.2, Eos % (Auto) 1.3, Baso % (Auto) 0.3, Absolute Neuts (auto) 6.4, Absolute Lymphs (auto) 0.94, Nucleated RBC % 0 04/04/20 12:30: Sodium 141, Potassium 6.9 H*, Chloride 119 H, Carbon Dioxide 12.0 L, Anion Gap 10, BUN 140 H*, Creatinine 6.97 H, Estim Creat Clear Calc 6.28, Est GFR (MDRD) Af Amer 10 L, Est GFR (MDRD) Non-Af 8 L, BUN/Creatinine Ratio 20.1 H, Glucose 128 H, Calcium 8.2 L, Total Bilirubin 0.30, AST 8 L, ALT 19, Alkaline Phosphatase 104, Troponin I < 0.015, Total Protein 7.8, Albumin 3.5, Globulin 4.3 H, Albumin/Globulin Ratio 0.8 L 04/04/20 12:30: Lactic Acid 1.4 04/04/20 13:42: Urine Color Yellow, Urine Clarity Cloudy, Urine pH 5.0, Ur Specific [place] 1.015, Urine Protein 100 H, Urine Glucose (UA) Normal, Urine Ketones Negative, Urine Occult Blood 250 H, Urine Nitrite Negative, Urine Bilirubin Negative, Urine Urobilinogen Normal, Ur Leukocyte Esterase 500 H, Urine RBC 10-25 SEEN, Urine WBC 10-25 SEEN, Ur Squamous Epith Cells 0-5 SEEN, Urine Bacteria 1+, Urine Mucus 0 SEEN Current Medications Heparin Sodium (Porcine) (Heparin Injection (Vial) 5,000 Unit/Ml Vial) 5,000 unit SC Q12 MALICK Sodium Chloride () 250 mls @ 15 mls/hr IV .[id number] PRN PRN Reason: Saline Flush Sodium Chloride () 250 mls @ 15 mls/hr IV .[id number] PRN PRN Reason: Additional IVPB Infusion Sodium Bicarbonate 150 meq/ (Dextrose) 1,150 mls @ 125 mls/hr IV .Q9H12M MALICK Nitroglycerin (Nitroglycerin (Inpatient Use) 0.4 Mg Tab.Subl) 0.4 mg SUBLINGUAL Q5M PRN PRN Reason: CARDIAC/CHEST PAIN Ondansetron HCl (Ondansetron 4 Mg/2 Ml Vial) 4 mg IV Q8H PRN PRN PRN Reason: NAUSEA/VOMITING Sodium Chloride (0.9% Saline Lock 10 Ml Syringe) 10 - 40 ml IV UD PRN PRN Reason: SALINE FLUSH Assessment/Plan All Active Problems (Last Reviewed 11/06/19 @ 14:[address] Joselito Ortiz MD) BIRGIT (acute kidney injury) (Acute) BIRGIT (acute kidney injury) (Resolved) Acute kidney injury superimposed on chronic kidney disease (Resolved) Acute renal failure CKD stage IV Hyperkalemia acidosis Has significant acidosis and hyperkalemia. Does not have any signs of volume overload. Mental status could not be assessed since I do not know his baseline. A Marlow catheter has been placed an hour ago in the ER. Not much urine output yet. Will volume resuscitate for now. Change fluids to IV bicarbonate. He has already received medical treatment for hyperkalemia. Repeat BMP later today. Discussed with hospitalist
--- NOTE | 2020-04-04 16:52 | CT_ITS ---
STUDY: CT ABDOMEN AND PELVIS WITHOUT CONTRAST REASON FOR EXAM: Male, 85 years old. SEVERE BIRGIT RADIATION DOSAGE (If Supplied By Facility): CTDIvol = ( 6.27 ) mGy, DLP = ( 347.56 ) mGycm TECHNIQUE: Transaxial images were obtained from the dome of the diaphragm to the symphysis pubis without oral contrast, and without intravenous contrast. Sagittal and coronal images were reconstructed. Limited by motion artifact and spray artifact from bilateral hip prosthesis. Individualized dose optimization techniques were used for this CT. COMPARISON: CT 10/23/2016 FINDINGS: The visualized lung bases are unremarkable. The visualized portions of the heart are within normal limits. Normal liver. Normal gallbladder and extrahepatic biliary system. Normal spleen. Normal pancreas. Normal bilateral adrenal glands. There are bilateral kidneys extending from the bilateral renal pelvises to the urinary bladder. There is left more than right hydronephrosis with mild left perinephric stranding. The stents (and hydronephrosis) are new since 2017. Normal visualized stomach. Normal small intestine. There is fecal residue throughout the colon including the rectal vault. The appendix is visualized and appears normal. There is atherosclerosis of the abdominal aorta and iliac arteries. Normal inferior vena cava. Normal retroperitoneum. Urinary bladder is not well seen. There appears to be severe prostatomegaly. PAUL catheter is seen traversing the prostate gland with the terminal location not adequately assessed due to spray artifact, although the PAUL balloon appears to be within the urinary bladder abutting the ureteral stents (image 139 of series 2). Normal abdominal wall. Levoscoliosis with multilevel degenerative changes of the thoracolumbar spine. Bilateral hip replacements present. CT/Abdomen/Pelvis without Cont IMPRESSION: 1. Left worse than right hydronephrosis in spite of bilateral ureteral stents. Electronically Signed: Ozzie Curry MD ([place]) at 17:16 EST , Service support ,
[2020-04-04] MEDS: Heparin Injection (Vial) 5,000 UNIT/ML VIAL 5000 UNIT SC (21:34)
[2020-04-05] VITALS (31 sets, daily range): BP systolic 77–111; BP diastolic 50–87; PULSE 65–81; RESP 15–23; TEMP 36.6–36.9; O2SAT 94–100
[2020-04-05 04:18] LABS: Absolute Lymphocyte Count 0.81 X10^3/uL (0.83-4.51); Absolute Neutrophil Count 4.4 X10^3/uL (2.0-7.7); Basophil# 0.02 X10^3/uL; Basophil% 0.4 % (0-1); Eosinophil# 0.15 X10^3/uL; Eosinophils% 2.7 % (0-5); Hematocrit 20.5 % (40-54); Hemoglobin 6.4 g/dL (13.0-16.5); Lymphocyte # 0.81 X10^3/ul (4.0); Lymphocyte % 14.3 % (19-41); Mean Corp Hgb Conc 31.2 g/dL (32-36); Mean Corpuscular Hgb 29.8 pg (27.0-32.0); Mean Corpuscular Volume 95.3 fL (80-94); Mean Platelet Vol. 10.7 fl (6.2-12.0); Monocyte# 0.24 X10^3/uL; Monocyte% 4.2 % (0-10); NRBC Flagged by Analyzer 0 % (0-5); Neutrophil # 4.43 X10^3/uL (2.7-7.7); Neutrophil % 78.2 % (47-70); Platelet Count 134 K/mm3 (150-450); RBC Distribution Width CV 15.6 % (11.6-14.6); RBC Distribution Width SD 54.4 fl (35.1-43.9); Red Blood Count 2.15 M/mm3 (4.6-6.2); White Blood Count 5.7 K/mm3 (4.4-11.0)
[2020-04-05 04:26] LABS: International Normalized Ratio 1.2; Prothrombin Time (Protime)PT. 14.6 SECONDS (11.7-14.9)
[2020-04-05 04:33] LABS: Anion Gap 8 (5-15); BUN/Creat Ratio 21.2 RATIO (10-20); Chloride 117 mmol/L (98-107); Creatinine, Serum 5.86 mg/dL (0.70-1.30); EST Glomerular Filtration Rate 10 mL/min (>60); Est Glom Filt Rate - Afr Amer 12 mL/min (>60); Estimated Creatinine Clearance 7.25 ml/min; Glucose 160 mg/dL (74-106); Potassium 5.6 mmol/L (3.5-5.1); Sodium Level 144 mmol/L (136-145)
[2020-04-05 04:35] LABS: BUN 124 mg/dL (7-18); Calcium,Total 6.5 mg/dL (8.5-10.1)
--- NOTE | 2020-04-05 06:48 | PCM.CON.CC ---
Problem List (1) BIRGIT (acute kidney injury) Status: Acute (2) Nonrheumatic aortic (valve) stenosis Status: Chronic (3) Paroxysmal atrial fibrillation Status: Chronic (4) History of supraventricular tachycardia Status: Chronic (5) Essential (primary) hypertension Status: Chronic (6) HLD (hyperlipidemia) Status: Chronic Qualifiers: Hyperlipidemia type: unspecified Qualified Code(s): E78.5 - Hyperlipidemia, unspecified (7) CKD (chronic kidney disease), stage IV Status: Chronic Reason for Consult Date of Consultation: 04/05/20 Reason for Consultation: Hyperkalemia History of Present Illness: The patient is an 85 year old M, with past medical history listed below, who presented to [facility] on 04/04/2020 secondary to progressive weakness over the last week. Patient reportedly had a friend check his blood pressure this morning and was found to be 89/47. Patient denied any recent fever, chills or COVID-19 exposures. Patient had not had any obvious bleeding. Patient does carry a diagnosis of aortic stenosis and chronic kidney disease. Patient is a relatively poor historian. In the ER, patient was noted to have peaked T waves without leukocytosis of 7.8. Chemistry showed a potassium of 6.9, bicarbonate of 12, BUN of 140 and creatinine of 6.97. Troponins were negative and chest x-ray was unremarkable. Patient was given a fluid bolus and a Marlow catheter was placed. Patient also received calcium gluconate, sodium bicarb and Kayexalate. Patient was admitted to the intensive care unit for further evaluation. Patient did have a CT scan of the abdomen showing signs of hydronephrosis and urology was reportedly consulted. There is no note, so it is unclear if the patient has been evaluated at this time. Patient does have stents and states they were placed years ago. This morning, patient states he feels subjectively slightly improved compared to yesterday. Patient is not reporting any pain, nausea or vomiting. Patient does state that he has a long history of kidney problems. Patient is unclear of any obvious bleeding sources. Patient is not reporting any respiratory distress. Review of systems otherwise negative from a constitutional, HEENT, respiratory, cardiovascular, GI, genitourinary, musculoskeletal, skin, neurologic, psychiatric and hematologic system unless stated above. Past Medical History Past Medical History (Chronic Problems): Chronic Problems (Last Reviewed 11/06/19 @ 14:[address] Joselito Ortiz MD) Nonrheumatic aortic (valve) stenosis (Chronic) Paroxysmal atrial fibrillation (Chronic) History of supraventricular tachycardia (Chronic) Essential (primary) hypertension (Chronic) HLD (hyperlipidemia) (Chronic) CKD (chronic kidney disease), stage IV (Chronic) Medical History: Medical History (Last Reviewed 11/06/19 @ 14:[address] Joselito Ortiz MD) Nonrheumatic aortic (valve) stenosis (Chronic) I35.0 Paroxysmal atrial fibrillation (Chronic) I48.0 History of supraventricular tachycardia (Chronic) Z86.79 Essential (primary) hypertension (Chronic) I10 HLD (hyperlipidemia) (Chronic) E78.5 CKD (chronic kidney disease), stage IV (Chronic) N18.4 Anxiety and depression F41.9, F32.9 BPH with obstruction/lower urinary tract symptoms N40.1, N13.8 Pseudomonas Chronic osteoarthritis M19.90 Decubitus ulcers L89.90 left upper back Hydronephrosis N13.30 Malnutrition E46 Atrial fibrillation with RVR Onset Date: 09/10/18 I48.91 Bacteremia R78.81 Encephalopathy acute G93.40 Sepsis A41.9 UTI (urinary tract infection) N39.0 Yersinia infection A28.8 Abnormal imaging of thyroid R93.89 Paroxysmal atrial fibrillation with rapid ventricular response I48.0 Allergies No Known Allergies Allergy (Verified 04/04/20 12:06) Home Medications: Ambulatory Orders Medication Instructions Recorded Aspirin [Aspirin, Baby] 81 mg PO DAILY@0800 #90 tab.chew 09/16/18 Ferrous Sulfate 325 mg PO 1200,1700 #90 tab 09/16/18 Metoprolol Tartrate [Lopressor 12.5 mg PO BID #90 tab 09/16/18 (beta lyndsay)] Pantoprazole Sodium [Protonix] 40 mg PO DAILY #30 tab 09/16/18 Tamsulosin HCl [Flomax] 0.4 mg PO DAILY #90 cap 09/16/18 Surgical History: Surgical History (Last Reviewed 11/06/19 @ 14:[address] Joselito Ortiz MD) S/P ureteral stent placement Z96.0 History of knee surgery Z98.890 Surgical History: arthscropcy, hip, arthroscopy, knee, herniorrhaphy, - - Cystoscopy with bilateral ureteral stent placement Psychiatric History: Depression Lives: Alone Smoking Status: Never smoker Alcohol: None - *Family History Maternal Family History: Family History (Last Reviewed 11/06/19 @ 14:[address] Joselito Ortiz MD) Mother CAD (coronary artery disease) Myocardial infarction History Items: Heart Disease Paternal Family History: Family History (Last Reviewed 11/06/19 @ 14:[address] Joselito Ortiz MD) Mother CAD (coronary artery disease) Myocardial infarction History Items: Heart Disease Review of Systems Comment: See HPI Patient Problems: Active and Suspected Problems (Last Reviewed 11/06/19 @ 14:[address] Joselito Ortiz MD) BIRGIT (acute kidney injury) (Acute) Objective: All imaging was personally reviewed. Chest x-ray was relatively unremarkable. Patient did have bilateral hydronephrosis on CT of the abdomen despite bilateral ureteral stents. - Physical Exam Vitals/I&O's: Vital Signs Temp Pulse Resp BP Pulse Ox 36.6 C 74 17 91/63 97 04/05/20 04:00 04/05/20 06:00 04/05/20 06:00 04/05/20 06:00 04/05/20 06:00 Oxygen Delivery Method Room Air Weight: 54.888 kg Body Mass Index (BMI) 22.1 Finger Stick Blood Glucose 127 Intake and Output for Last 24 Hours 04/03/20 04/04/20 04/05/20 23:59 23:59 23:59 Intake Total 987.55 / 987.55 1028.75 / 1028.75 Output Total 350 / 350 150 / 150 Balance 637.55 / 637.55 878.75 / 878.75 General: Alert, Oriented x3, Cooperative, No apparent distress, - - Slight build. HEENT: Atraumatic, PERRLA, EOMI, Normocephalic, - - No scleral icterus or injection noted Oral: Moist Mucosa, No Gingival or Mucosal Lesions/ Ulcerations, - - Poor dentition Neck: Supple, No JVD, No Nodes, Trachea Midline Lungs: No rhonchi, No wheeze, No rales, Diminished Cardiovascular: Regular rate, Regular Rhythm, Normal S1, Normal S2, Murmur - Grade 3 out of 6 systolic ejection murmur at the right sternal border, No rub noted, No Gallop Abdomen: Bowel Sounds Present, Soft, Non Tender, Non-Distended Extremities: No clubbing, No cyanosis, No edema Skin: No rashes, No breakdown Musculoskeletal: No Tenderness to Palpation of Joints or Extremities Lymphatic: No Cervical, Supraclavicular, or Inguinal Adenopathy Neurological: Cranial nerves II-XII grossly intact, Neuro grossly intact, Motor Exam 5/5 strength throughout Psych/Mental Status: Alert and oriented to time, place, person, mood and affect Microbiology Past 72 Hours 04/04/20 13:42 Mucosa - Nose SARS-CoV-2 Antigen (Rapid) - Final Laboratory Results 04/04/20 12:30: WBC 7.8, RBC 2.99 L, Hgb 9.0 L, Hct 28.8 L, MCV 96.3 H, MCH 30.1, MCHC 31.3 L, RDW Std Deviation 54.9 H, RDW Coeff of Cathy 15.7 H, Plt Count 191, MPV 10.3, Immature Gran % (Auto) 0.400, Neut % (Auto) 81.8 H, Lymph % (Auto) 12.0 L, Gem % (Auto) 4.2, Eos % (Auto) 1.3, Baso % (Auto) 0.3, Absolute Neuts (auto) 6.4, Absolute Lymphs (auto) 0.94, Nucleated RBC % 0 04/04/20 12:30: Sodium 141, Potassium 6.9 H*, Chloride 119 H, Carbon Dioxide 12.0 L, Anion Gap 10, BUN 140 H*, Creatinine 6.97 H, Estim Creat Clear Calc 6.28, Est GFR (MDRD) Af Amer 10 L, Est GFR (MDRD) Non-Af 8 L, BUN/Creatinine Ratio 20.1 H, Glucose 128 H, Calcium 8.2 L, Total Bilirubin 0.30, AST 8 L, ALT 19, Alkaline Phosphatase 104, Troponin I < 0.015, Total Protein 7.8, Albumin 3.5, Globulin 4.3 H, Albumin/Globulin Ratio 0.8 L 04/04/20 12:30: Lactic Acid 1.4 04/04/20 13:42: Urine Color Yellow, Urine Clarity Cloudy, Urine pH 5.0, Ur Specific [place] 1.015, Urine Protein 100 H, Urine Glucose (UA) Normal, Urine Ketones Negative, Urine Occult Blood 250 H, Urine Nitrite Negative, Urine Bilirubin Negative, Urine Urobilinogen Normal, Ur Leukocyte Esterase 500 H, Urine RBC 10-25 SEEN, Urine WBC 10-25 SEEN, Ur Squamous Epith Cells 0-5 SEEN, Urine Bacteria 1+, Urine Mucus 0 SEEN 04/05/20 04:10: WBC 5.7, RBC 2.15 L, Hgb 6.4 L, Hct 20.5 L, MCV 95.3 H, MCH 29.8, MCHC 31.2 L, RDW Std Deviation 54.4 H, RDW Coeff of Cathy 15.6 H, Plt Count 134 L, MPV 10.7, Immature Gran % (Auto) 0.200, Neut % (Auto) 78.2 H, Lymph % (Auto) 14.3 L, Gem % (Auto) 4.2, Eos % (Auto) 2.7, Baso % (Auto) 0.4, Absolute Neuts (auto) 4.4, Absolute Lymphs (auto) 0.81 L, Nucleated RBC % 0 04/05/20 04:10: Sodium 144, Potassium 5.6 H, Chloride 117 H, Carbon Dioxide 19.0 L, Anion Gap 8, BUN 124 H*, Creatinine 5.86 H, Estim Creat Clear Calc 7.25, Est GFR (MDRD) Af Amer 12 L, Est GFR (MDRD) Non-Af 10 L, BUN/Creatinine Ratio 21.2 H, Glucose 160 H, Calcium 6.5 L* 04/05/20 04:10: PT 14.6, INR 1.2 04/05/20 06:15: Blood Type Pending, Antibody Screen Pending 04/05/20 06:15: Crossmatch See Detail Current Medications Heparin Sodium (Porcine) (Heparin Injection (Vial) 5,000 Unit/Ml Vial) 5,000 unit SC Q12 [facility] Last Admin: 04/04/20 21:34 Dose: 5,000 unit Documented by: Sodium Chloride () 250 mls @ 15 mls/hr IV .[id number] PRN PRN Reason: Saline Flush Sodium Chloride () 250 mls @ 15 mls/hr IV .[id number] PRN PRN Reason: Additional IVPB Infusion Sodium Bicarbonate 150 meq/ (Dextrose) 1,150 mls @ 125 mls/hr IV .[id number] [facility] Last Admin: 04/05/20 00:52 Dose: 125 mls/hr Documented by: Nitroglycerin (Nitroglycerin (Inpatient Use) 0.4 Mg Tab.Subl) 0.4 mg SUBLINGUAL Q5M PRN PRN Reason: CARDIAC/CHEST PAIN Ondansetron HCl (Ondansetron 4 Mg/2 Ml Vial) 4 mg IV Q8H PRN PRN PRN Reason: NAUSEA/VOMITING Sodium Chloride (0.9% Saline Lock 10 Ml Syringe) 10 - 40 ml IV UD PRN PRN Reason: SALINE FLUSH Clinical Impression(s) from Imaging Studies Chest X-Ray 04/04/20 12:18 IMPRESSION: No active pulmonary disease. Electronically Signed: Garcia Heaton MD at 13:18 EST Tel , Service support , Abdomen/Pelvis CT 04/04/20 16:52 IMPRESSION: 1. Left worse than right hydronephrosis in spite of bilateral ureteral stents. Electronically Signed: Ozzie Curry MD ([place]) at 17:16 EST , Service support , Assessment/Plan Active and Suspected Problems (Last Reviewed 11/06/19 @ 14:[address] Joselito Ortiz MD) BIRGIT (acute kidney injury) (Acute) RECOMMENDATIONS: 1. Transfuse 2 units packed red blood cells 2. Await urology recommendations 3. Check urine culture. Hold on antibiotics for now 4. Continue aggressive volume repletion 5. Await nephrology recommendations IMPRESSIONS: 1. Acute kidney injury on CKD stage IV with hyperkalemia Patient has a baseline creatinine of around 2-3. This is significantly elevated on presentation. Unclear if patient has both prerenal and post renal etiologies for renal failure as patient does have some hydronephrosis. Marlow catheter has been placed. Patient is to be evaluated by urology. Continue with aggressive fluid resuscitation. Laboratory data appears to be improving. Defer to nephrology on renal replacement therapy. Coagulation studies are within normal limits. 2. Anemia Unclear if this constitutes a chronic anemia with hemodilution versus acute blood loss anemia. Patient's blood pressures are marginal, so we will transfuse 2 units of packed red blood cells. Continue to monitor respiratory status and clinical signs of bleeding. 3. Hypotension Patient is on antihypertensives at home. Systolics have been in the 80s. Patient likely has an element of metabolic acidosis and anemia adding to current situation. Will transfuse blood products and monitor appropriately. No signs or symptoms of obvious blood loss at this time. 4. History of A. fib/advanced age/poor dentition Complicates care, management, recovery and prognosis. Currently in normal sinus rhythm. Okay to hold metoprolol for now. Inpatient E&M: 36183 Init Hosp L3
--- NOTE | 2020-04-05 07:42 | PN_ITS ---
Patient Problems: Active and Suspected Problems (Last Reviewed 04/05/20 @ 10:[address] Mynor Bolanos MD) BIRGIT (acute kidney injury) (Acute) Subjective: Patient seen and examined. Patient states he is feeling better. He has a Marlow catheter in place and is making good urine. Review of symptoms otherwise negative. CT of the abdomen and pelvis done yesterday showed bilateral hydronephrosis with enlarged prostate. Urology consulted. Potassium is down to 5.6 and creatinine is down to 5.86. Calcium also dropped to 6.5. Of note his hemoglobin also dropped to 6.4 and he is being transfused with 2 units of packed red blood cells. Vitals/I&O's: Vital Signs Temp Pulse Resp BP Pulse Ox 97.9 F 74 17 91/63 97 04/05/20 04:00 04/05/20 06:00 04/05/20 06:00 04/05/20 06:00 04/05/20 06:00 Oxygen Delivery Method Room Air Weight: 121 lb 0.1 oz Body Mass Index (BMI) 22.1 Finger Stick Blood Glucose 127 Intake and Output for Last 24 Hours 04/03/20 04/04/20 04/05/20 23:59 23:59 23:59 Intake Total 987.55 / 987.55 1028.75 / 1028.75 Output Total 350 / 350 150 / 150 Balance 637.55 / 637.55 878.75 / 878.75 General: Alert, Oriented x3, Cooperative, No apparent distress HEENT: Atraumatic, PERRLA, EOMI, Normocephalic Oral: Dry Mucosa Neck: Supple, No JVD, Negative Carotid Bruits Lungs: Clear to auscultation, Normal air movement Cardiovascular: Regular rate, Regular Rhythm, Normal S1, Normal S2, grade 3 systolic murmur in all valvular areas, loudest in the aortic region Abdomen: Bowel Sounds Present, Soft, Non Tender, Non-Distended, No Hepato- splenomegaly Extremities: No clubbing, No cyanosis, No edema, Capillary Refill Less than 3 Seconds Skin: No rashes, No breakdown Musculoskeletal: No Tenderness to Palpation of Joints or Extremities Lymphatic: No Cervical, Supraclavicular, or Inguinal Adenopathy Neurological: Cranial nerves II-XII grossly intact, Neuro grossly intact, Motor Exam 5/5 strength throughout Psych/Mental Status: Normal Affect, Appropriate, Alert and oriented to time, place, person, mood and affect Microbiology Past 72 Hours 04/04/20 13:42 Mucosa - Nose SARS-CoV-2 Antigen (Rapid) - Final Laboratory Results 04/04/20 12:30: WBC 7.8, RBC 2.99 L, Hgb 9.0 L, Hct 28.8 L, MCV 96.3 H, MCH 30.1, MCHC 31.3 L, RDW Std Deviation 54.9 H, RDW Coeff of Cathy 15.7 H, Plt Count 191, MPV 10.3, Immature Gran % (Auto) 0.400, Neut % (Auto) 81.8 H, Lymph % (Auto) 12.0 L, [facility] % (Auto) 4.2, Eos % (Auto) 1.3, Baso % (Auto) 0.3, Absolute Neuts (auto) 6.4, Absolute Lymphs (auto) 0.94, Nucleated RBC % 0 04/04/20 12:30: Sodium 141, Potassium 6.9 H*, Chloride 119 H, Carbon Dioxide 12.0 L, Anion Gap 10, BUN 140 H*, Creatinine 6.97 H, Estim Creat Clear Calc 6.28, Est GFR (MDRD) Af Amer 10 L, Est GFR (MDRD) Non-Af 8 L, BUN/Creatinine Ratio 20.1 H, Glucose 128 H, Calcium 8.2 L, Total Bilirubin 0.30, AST 8 L, ALT 19, Alkaline Phosphatase 104, Troponin I < 0.015, Total Protein 7.8, Albumin 3.5, Globulin 4.3 H, Albumin/Globulin Ratio 0.8 L 04/04/20 12:30: Lactic Acid 1.4 04/04/20 13:42: Urine Color Yellow, Urine Clarity Cloudy, Urine pH 5.0, Ur Specific [place] 1.015, Urine Protein 100 H, Urine Glucose (UA) Normal, Urine Ketones Negative, Urine Occult Blood 250 H, Urine Nitrite Negative, Urine Bilirubin Negative, Urine Urobilinogen Normal, Ur Leukocyte Esterase 500 H, Urine RBC 10-25 SEEN, Urine WBC 10-25 SEEN, Ur Squamous Epith Cells 0-5 SEEN, Urine Bacteria 1+, Urine Mucus 0 SEEN 04/05/20 04:10: WBC 5.7, RBC 2.15 L, Hgb 6.4 L, Hct 20.5 L, MCV 95.3 H, MCH 29.8, MCHC 31.2 L, RDW Std Deviation 54.4 H, RDW Coeff of Cathy 15.6 H, Plt Count 134 L, MPV 10.7, Immature Gran % (Auto) 0.200, Neut % (Auto) 78.2 H, Lymph % (Auto) 14.[address] L, [facility] % (Auto) 4.2, Eos % (Auto) 2.7, Baso % (Auto) 0.4, Absolute Neuts (auto) 4.4, Absolute Lymphs (auto) 0.81 L, Nucleated RBC % 0 04/05/20 04:10: Sodium 144, Potassium 5.6 H, Chloride 117 H, Carbon Dioxide 19.0 L, Anion Gap 8, BUN 124 H*, Creatinine 5.86 H, Estim Creat Clear Calc 7.25, Est GFR (MDRD) Af Amer 12 L, Est GFR (MDRD) Non-Af 10 L, BUN/Creatinine Ratio 21.2 H , Glucose 160 H, Calcium 6.5 L* 04/05/20 04:10: PT 14.6, INR 1.2 04/05/20 06:15: Blood Type Pending, Antibody Screen Pending 04/05/20 06:15: Crossmatch See Detail Current Medications Heparin Sodium (Porcine) (Heparin Injection (Vial) 5,000 Unit/Ml Vial) 5,000 unit SC Q12 [facility] Last Admin: 04/04/20 21:34 Dose: 5,000 unit Documented by: Sodium Chloride () 250 mls @ 15 mls/hr IV .[id number] PRN PRN Reason: Saline Flush Sodium Chloride () 250 mls @ 15 mls/hr IV .[id number] PRN PRN Reason: Additional IVPB Infusion Sodium Bicarbonate 150 meq/ (Dextrose) 1,150 mls @ 125 mls/hr IV .Q9H12M [facility] Last Admin: 04/05/20 00:52 Dose: 125 mls/hr Documented by: Nitroglycerin (Nitroglycerin (Inpatient Use) 0.4 Mg Tab.Subl) 0.4 mg SUBLINGUAL Q5M PRN PRN Reason: CARDIAC/CHEST PAIN Ondansetron HCl (Ondansetron 4 Mg/2 Ml Vial) 4 mg IV Q8H PRN PRN PRN Reason: NAUSEA/VOMITING Sodium Chloride (0.9% Saline Lock 10 Ml Syringe) 10 - 40 ml IV UD PRN PRN Reason: SALINE FLUSH STROKE Vital Signs/Narrative: Vital Signs Temp Pulse Resp BP Pulse Ox 04/05/20 06:00 74 17 91/63 97 04/05/20 05:00 72 17 83/53 L 98 04/05/20 04:00 97.9 F 71 18 85/58 L 99 Medical Necessity - Tobacco Use Smoking Status: Never smoker Assessment/Plan All Active Problems (Last Reviewed 04/05/20 @ 10:[address] 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 * CT of the abdomen pelvis done showed massive prostate with bilateral hydronephrosis worse on the left than the right despite bilateral ureteral stents. * Will give another dose of sodium Kayexalate on account of hyperkalemia. * Continue hydration with IV fluids. * Urology consulted. Nephrology on board. * * #Hyperkalemia * Potassium is down to 5.6 today. Will give sodium Kayexalate and trend. * Nephrology on board. * #Non-anion gap metabolic acidosis likely due to BIRGIT on CKD * Bicarb was 12 with anion gap of 10 on admission. Bicarb is now up to 19. Patient was placed on bicarb drip by nephrology. * Continue trending bicarb levels. * #Anemia: * Hemoglobin dropped to 6.4. Unclear why there is this drop in hemoglobin. * Will hold heparin. Patient receiving 2 units of packed red blood cells. * Check iron panel. * check stool for occult blood. * #Hypotension * BP now up in the 90s systolic. Continue hydration with IV fluids. * #Hypertension: Hold metoprolol on account of hypotension. will get 2D echo due to loud cardiac murmurs mainly in the aortic region, to assess for aortic stenosis *History of A. fib and SVT: Metoprolol on hold. Currently in normal sinus rhythm. DVT prophylaxis: SCDs; hold heparin o/a of anemia CODE STATUS: Full code * Inpatient E&M: 76823 Subs Hosp L3
[2020-04-05 08:08] LABS: Absolute Lymphocyte Count 0.83 X10^3/uL (0.83-4.51); Absolute Neutrophil Count 4.5 X10^3/uL (2.0-7.7); Basophil# 0.01 X10^3/uL; Basophil% 0.2 % (0-1); Eosinophil# 0.12 X10^3/uL; Eosinophils% 2.1 % (0-5); Hematocrit 19.3 % (40-54); Hemoglobin 6.4 g/dL (13.0-16.5); Lymphocyte # 0.83 X10^3/ul (4.0); Lymphocyte % 14.4 % (19-41); Mean Corp Hgb Conc 33.2 g/dL (32-36); Mean Corpuscular Hgb 30.5 pg (27.0-32.0); Mean Corpuscular Volume 91.9 fL (80-94); Mean Platelet Vol. 9.9 fl (6.2-12.0); Monocyte# 0.27 X10^3/uL; Monocyte% 4.7 % (0-10); NRBC Flagged by Analyzer 0 % (0-5); Neutrophil # 4.52 X10^3/uL (2.7-7.7); Neutrophil % 78.4 % (47-70); Platelet Count 136 K/mm3 (150-450); RBC Distribution Width CV 15.2 % (11.6-14.6); RBC Distribution Width SD 51.3 fl (35.1-43.9); White Blood Count 5.8 K/mm3 (4.4-11.0)
[2020-04-05] MEDS: Sodium Polystyrene Sulfonate 15 GM/60 ML UDC 30 GM PO (08:19)
[2020-04-05 08:28] LABS: Anion Gap 7 (5-15); BUN 131 mg/dL (7-18); BUN/Creat Ratio 20.8 RATIO (10-20); Calcium,Total 7.1 mg/dL (8.5-10.1); Chloride 116 mmol/L (98-107); Creatinine, Serum 6.31 mg/dL (0.70-1.30); EST Glomerular Filtration Rate 9 mL/min (>60); Est Glom Filt Rate - Afr Amer 11 mL/min (>60); Estimated Creatinine Clearance 6.73 ml/min; Glucose 135 mg/dL (74-106); PSA,Total- Diagnostic 9.12 ng/mL (0.0-4.0); Potassium 5.7 mmol/L (3.5-5.1); Sodium Level 144 mmol/L (136-145)
--- NOTE | 2020-04-05 10:56 | PCM.CONS.U ---
Problem List (1) BIRGIT (acute kidney injury) Status: Acute Reason for Consult Date of Consultation: 04/05/20 Reason for Consultation: Acute retention of urine and worsening kidney function History of Present Illness: The patient is a 85 year old male who saw my retired partner Dr. Farrar in the past. He was having some difficulty with urination and BPH with obstruction at that point he was prescribed medical therapy. He then presented to the hospital in acute kidney failure and he underwent cystoscopy and bilateral stent placement in 2017. Then unfortunately after this he was lost to follow-up. He now presents to the intensive care unit with a creatinine of 6. CAT scan was done and he still has bilateral stents in place which at this point are 3 years old and need to be removed. The patient is completely unaware of the fact that he has stents in place he is more worried about his log cabin and going home. Explained to the patient he is near dialysis and needs intervention. He ate a full meal this morning. His creatinine is slowly getting better with Marlow placement and he is draining adequate urine output and is been given blood to resuscitate. On CAT scan he does have bilateral hydronephrosis. Past Medical History Past Medical History (Chronic Problems): Chronic Problems (Last Reviewed 11/06/19 @ 14:[address] Joselito Ortiz MD) Nonrheumatic aortic (valve) stenosis (Chronic) Paroxysmal atrial fibrillation (Chronic) History of supraventricular tachycardia (Chronic) Essential (primary) hypertension (Chronic) HLD (hyperlipidemia) (Chronic) CKD (chronic kidney disease), stage IV (Chronic) Medical History: Medical History (Last Reviewed 04/05/20 @ 10:[address] Mynor Bolanos MD) Nonrheumatic aortic (valve) stenosis (Chronic) I35.0 Paroxysmal atrial fibrillation (Chronic) I48.0 History of supraventricular tachycardia (Chronic) Z86.79 Essential (primary) hypertension (Chronic) I10 HLD (hyperlipidemia) (Chronic) E78.5 CKD (chronic kidney disease), stage IV (Chronic) N18.4 Anxiety and depression F41.9, F32.9 BPH with obstruction/lower urinary tract symptoms N40.1, N13.8 Pseudomonas Chronic osteoarthritis M19.90 Decubitus ulcers L89.90 left upper back Hydronephrosis N13.30 Malnutrition E46 Atrial fibrillation with RVR Onset Date: 09/10/18 I48.91 Bacteremia R78.81 Encephalopathy acute G93.40 Sepsis A41.9 UTI (urinary tract infection) N39.0 Yersinia infection A28.8 Abnormal imaging of thyroid R93.89 Paroxysmal atrial fibrillation with rapid ventricular response I48.0 Allergies No Known Allergies Allergy (Verified 04/04/20 12:06) Home Medications: Ambulatory Orders Medication Instructions Recorded Aspirin [Aspirin, Baby] 81 mg PO DAILY@0800 #90 tab.chew 09/16/18 Ferrous Sulfate 325 mg PO 1200,1700 #90 tab 09/16/18 Metoprolol Tartrate [Lopressor 12.5 mg PO BID #90 tab 09/16/18 (beta lyndsay)] Pantoprazole Sodium [Protonix] 40 mg PO DAILY #30 tab 09/16/18 Tamsulosin HCl [Flomax] 0.4 mg PO DAILY #90 cap 09/16/18 Surgical History: Surgical History (Last Reviewed 11/06/19 @ 14:[address] Joselito Ortiz MD) S/P ureteral stent placement Z96.0 History of knee surgery Z98.890 Surgical History: arthscropcy, hip, arthroscopy, knee, herniorrhaphy, - - Cystoscopy with bilateral ureteral stent placement Psychiatric History: Depression Lives: Alone Smoking Status: Never smoker Alcohol: None - *Family History Maternal Family History: Family History (Last Reviewed 11/06/19 @ 14:[address] Joselito Ortiz MD) Mother CAD (coronary artery disease) Myocardial infarction History Items: Heart Disease Paternal Family History: Family History (Last Reviewed 11/06/19 @ 14:[address] Joselito Ortiz MD) Mother CAD (coronary artery disease) Myocardial infarction History Items: Heart Disease Review of Systems Constitutional: Denies: Chills, Fever, Weight Change HEENT: Denies: Head Aches, Sinus Congestion, Sinus Drainage Cardiovascular: Denies: Chest Pain, Palpitations Respiratory: Denies: Cough, Shortness of breath at rest, Sputum production Gastrointestinal: Denies: Abdominal Pain, Nausea, Vomiting Genitourinary: Denies: Dysuria Musculoskeletal: Denies: Joint Pain, Joint Tenderness Skin: Denies: Rash, Wounds Neurological: Denies: Numbness, Tingling, Focal weakness Psychiatric: Denies: Anxiety, Depression, Homicidal Ideations, Suicidal Ideations Hematologic/ Lymphatic: Denies: Easy Bruising, Easy Bleeding Physical Exam - Physical Exam Vital Signs Temp 98 F 04/05/20 08:52 Pulse 81 04/05/20 10:00 Resp 21 H 04/05/20 10:00 BP 89/61 L 04/05/20 10:00 Pulse Ox 100 04/05/20 10:00 Intake & Output 04/03/20 04/04/20 04/05/20 23:59 23:59 23:59 Intake Total 987.55 / 987.55 2185.00 / 218.00 Output Total 350 / 350 150 / 150 Balance 637.55 / 637.55 2035.00 / 2034.00 Weight: 54.888 kg 54.888 kg Intake: Oral 360 / 360 260 / 260 Intake, IV Amount 627.55 / 627.55 1925.00 / 1925.00 0.9% Normal Saline 1,000 ML @ 627.5 / 627.5 150 mls/hr IV .Q6H40M [facility] Rx#: [id number] Humalog (BKC) 5 UNIT In Syringe 0.05 / 0.05 1 ML @ 3 mls/hr IV X1 ONE Rx#: [id number] Sodium Bicarbonate 50 MEQ/50 ML 1924. / 1924.00 In Dextrose 5%-Water 1,000 ML @ 125 mls/hr IV .Q9H12M [facility] Rx# :[id number] Blood Product 0 / 0 Leuko-Reduced Red Blood Cells 0 / 0 Unit [id number] Output: Urine 350 / 350 150 / 150 General: Alert, Oriented x3 HEENT: Atraumatic Oral: Moist Mucosa Neck: Supple Lungs: Normal air movement Cardiovascular: Regular rate Microbiology Past 72 Hours 04/04/20 13:42 SARS-CoV-2 Antigen (Rapid) - Final Mucosa - Nose Laboratory Tests Past 24 Hrs 04/04/20 04/04/20 04/04/20 12:30 12:30 12:30 WBC 7.8 RBC 2.99 L Hgb 9.0 L Hct 28.8 L MCV 96.3 H MCH 30.1 MCHC 31.3 L RDW Std Deviation 54.9 H RDW Coeff of Cathy 15.7 H Plt Count 191 MPV 10.3 Immature Gran % (Auto) 0.400 Neut % (Auto) 81.8 H Lymph % (Auto) 12.0 L [place] % (Auto) 4.2 Eos % (Auto) 1.3 Baso % (Auto) 0.3 Absolute Neuts (auto) 6.4 Absolute Lymphs (auto) 0.94 Nucleated RBC % 0 PT INR Sodium 141 Potassium 6.9 H* Chloride 119 H Carbon Dioxide 12.0 L Anion Gap 10 BUN 140 H* Creatinine 6.97 H Estim Creat Clear Calc 6.28 Est GFR (MDRD) Af Amer 10 L Est GFR (MDRD) Non-Af 8 L BUN/Creatinine Ratio 20.1 H Glucose 128 H Lactic Acid 1.4 Calcium 8.2 L Total Bilirubin 0.30 AST 8 L ALT 19 Alkaline Phosphatase 104 Troponin I < 0.015 Total Protein 7.8 Albumin 3.5 Globulin 4.3 H Albumin/Globulin Ratio 0.8 L Total PSA Urine Color Urine Clarity Urine pH Ur Specific [place] Urine Protein Urine Glucose (UA) Urine Ketones Urine Occult Blood Urine Nitrite Urine Bilirubin Urine Urobilinogen Ur Leukocyte Esterase Urine RBC Urine WBC Ur Squamous Epith Cells Urine Bacteria Urine Mucus Blood Type Antibody Screen Crossmatch 04/04/20 04/05/20 04/05/20 13:42 04:10 04:10 WBC 5.7 RBC 2.15 L Hgb 6.4 L Hct 20.5 L MCV 95.3 H MCH 29.8 MCHC 31.2 L RDW Std Deviation 54.4 H RDW Coeff of Cathy 15.6 H Plt Count 134 L MPV 10.7 Immature Gran % (Auto) 0.200 Neut % (Auto) 78.2 H Lymph % (Auto) 14.3 L [place] % (Auto) 4.2 Eos % (Auto) 2.7 Baso % (Auto) 0.4 Absolute Neuts (auto) 4.4 Absolute Lymphs (auto) 0.81 L Nucleated RBC % 0 PT INR Sodium 144 Potassium 5.6 H Chloride 117 H Carbon Dioxide 19.0 L Anion Gap 8 BUN 124 H* Creatinine 5.86 H Estim Creat Clear Calc 7.25 Est GFR (MDRD) Af Amer 12 L Est GFR (MDRD) Non-Af 10 L BUN/Creatinine Ratio 21.2 H Glucose 160 H Lactic Acid Calcium 6.5 L* Total Bilirubin AST ALT Alkaline Phosphatase Troponin I Total Protein Albumin Globulin Albumin/Globulin Ratio Total PSA Urine Color Yellow Urine Clarity Cloudy Urine pH 5.0 Ur Specific [place] 1.015 Urine Protein 100 H Urine Glucose (UA) Normal Urine Ketones Negative Urine Occult Blood 250 H Urine Nitrite Negative Urine Bilirubin Negative Urine Urobilinogen Normal Ur Leukocyte Esterase 500 H Urine RBC 10-25 SEEN Urine WBC 10-25 SEEN Ur Squamous Epith Cells 0-5 SEEN Urine Bacteria 1+ Urine Mucus 0 SEEN Blood Type Antibody Screen Crossmatch 04/05/20 04/05/20 04/05/20 04:10 06:15 06:15 WBC RBC Hgb Hct MCV MCH MCHC RDW Std Deviation RDW Coeff of Cathy Plt Count MPV Immature Gran % (Auto) Neut % (Auto) Lymph % (Auto) [place] % (Auto) Eos % (Auto) Baso % (Auto) Absolute Neuts (auto) Absolute Lymphs (auto) Nucleated RBC % PT 14.6 INR 1.2 Sodium Potassium Chloride Carbon Dioxide Anion Gap BUN Creatinine Estim Creat Clear Calc Est GFR (MDRD) Af Amer Est GFR (MDRD) Non-Af BUN/Creatinine Ratio Glucose Lactic Acid Calcium Total Bilirubin AST ALT Alkaline Phosphatase Troponin I Total Protein Albumin Globulin Albumin/Globulin Ratio Total PSA Urine Color Urine Clarity Urine pH Ur Specific [place]kinson Urine Protein Urine Glucose (UA) Urine Ketones Urine Occult Blood Urine Nitrite Urine Bilirubin Urine Urobilinogen Ur Leukocyte Esterase Urine RBC Urine WBC Ur Squamous Epith Cells Urine Bacteria Urine Mucus Blood Type O POSITIVE Antibody Screen NEGATIVE Crossmatch See Detail 04/05/20 04/05/20 08:00 08:00 WBC 5.8 RBC 2.10 L Hgb 6.4 L Hct 19.3 L MCV 91.9 MCH 30.5 MCHC 33.2 D RDW Std Deviation 51.3 H RDW Coeff of Cathy 15.2 H Plt Count 136 L MPV 9.9 Immature Gran % (Auto) 0.200 Neut % (Auto) 78.4 H Lymph % (Auto) 14.4 L [place] % (Auto) 4.7 Eos % (Auto) 2.1 Baso % (Auto) 0.2 Absolute Neuts (auto) 4.5 Absolute Lymphs (auto) 0.83 Nucleated RBC % 0 PT INR Sodium 144 Potassium 5.7 H Chloride 116 H Carbon Dioxide 21.0 Anion Gap 7 BUN 131 H* Creatinine 6.31 H Estim Creat Clear Calc 6.73 Est GFR (MDRD) Af Amer 11 L Est GFR (MDRD) Non-Af 9 L BUN/Creatinine Ratio 20.8 H Glucose 135 H Lactic Acid Calcium 7.1 L Total Bilirubin AST ALT Alkaline Phosphatase Troponin I Total Protein Albumin Globulin Albumin/Globulin Ratio Total PSA 9.12 H Urine Color Urine Clarity Urine pH Ur Specific [place] Urine Protein Urine Glucose (UA) Urine Ketones Urine Occult Blood Urine Nitrite Urine Bilirubin Urine Urobilinogen Ur Leukocyte Esterase Urine RBC Urine WBC Ur Squamous Epith Cells Urine Bacteria Urine Mucus Blood Type Antibody Screen Crossmatch Assessment/Plan All Active Problems (Last Reviewed 11/06/19 @ 14:[address] Joselito Ortiz MD) BIRGIT (acute kidney injury) (Acute) BIRGIT (acute kidney injury) (Resolved) Acute kidney injury superimposed on chronic kidney disease (Resolved) 85-year-old male who is in poor health, presents with worsening kidney failure, chronic bilateral stents that are in place patient is not aware that the stents have been removed or replaced he is a poor historian. At this point we can recommend gentle hydration hopefully will monitor his creatinine that should improve once he is stable enough I plan to taken the surgery to remove the current stents, I do not plan to replace the stents since he is a poor historian and also does not follow medical compliance some afraid placing new stents in him he would end up not following up and get chronic stents again so we will can remove the stents also prior note recommended that he had a very large prostate probably would benefit from prostate intervention so I may consider doing a TURP depending on what the prostate look like at the time of stent removal. For now continue with gentle hydration resuscitation we will monitor his creatinine I may add him on for this coming Monday for a diagnostic cystoscopy and bilateral stent removal possible change stents to depending on the findings.
[2020-04-05 15:50] LABS: Hematocrit 24.6 % (40-54); Hemoglobin 8.3 g/dL (13.0-16.5)
[2020-04-05] MEDS: 0.45% Normal Saline 1,000 ML 100 ML IV (17:14)
--- NOTE | 2020-04-05 19:59 | PCM.PN.REN ---
Patient Problems: Active and Suspected Problems (Last Reviewed 04/05/20 @ 10:[address] Mynor Bolanos MD) BIRGIT (acute kidney injury) (Acute) Subjective: no new complaints - Physical Exam Vitals/I&O's: Vital Signs Temp Pulse Resp BP Pulse Ox 98.1 F 68 15 97/63 95 04/05/20 16:00 04/05/20 19:45 04/05/20 19:00 04/05/20 19:00 04/05/20 19:00 Oxygen Delivery Method Room Air Weight: 54.888 kg Body Mass Index (BMI) 22.1 Finger Stick Blood Glucose 127 Intake and Output for Last 24 Hours 04/03/20 04/04/20 04/05/20 23:59 23:59 23:59 Intake Total 987.55 / 987.55 3071.67 / 3071.67 Output Total 350 / 350 750 / 750 Balance 637.55 / 637.55 2321.67 / 2321.67 General: Alert, Oriented x3, Cooperative HEENT: Atraumatic, PERRLA, EOMI, Normocephalic Neck: Supple, No JVD, Negative Carotid Bruits Lungs: Clear to auscultation, Normal air movement Cardiovascular: Regular rate, No murmurs Abdomen: Bowel Sounds Present, Soft, Non Tender Extremities: No edema, Capillary Refill Less than 3 Seconds Skin: No rashes, No breakdown Musculoskeletal: No Tenderness to Palpation of Joints or Extremities Neurological: Cranial nerves II-XII grossly intact Psych/Mental Status: Normal Affect, Appropriate Microbiology Past 72 Hours 04/04/20 13:42 Mucosa - Nose SARS-CoV-2 Antigen (Rapid) - Final Laboratory Results 04/05/20 04:10: WBC 5.7, RBC 2.15 L, Hgb 6.4 L, Hct 20.5 L, MCV 95.3 H, MCH 29.8, MCHC 31.2 L, RDW Std Deviation 54.4 H, RDW Coeff of Cathy 15.6 H, Plt Count 134 L, MPV 10.7, Immature Gran % (Auto) 0.200, Neut % (Auto) 78.2 H, Lymph % (Auto) 14.3 L, [place] % (Auto) 4.2, Eos % (Auto) 2.7, Baso % (Auto) 0.4, Absolute Neuts (auto) 4.4, Absolute Lymphs (auto) 0.81 L, Nucleated RBC % 0 04/05/20 04:10: Sodium 144, Potassium 5.6 H, Chloride 117 H, Carbon Dioxide 19.0 L, Anion Gap 8, BUN 124 H*, Creatinine 5.86 H, Estim Creat Clear Calc 7.25, Est GFR (MDRD) Af Amer 12 L, Est GFR (MDRD) Non-Af 10 L, BUN/Creatinine Ratio 21.2 H, Glucose 160 H, Calcium 6.5 L* 04/05/20 04:10: PT 14.6, INR 1.2 04/05/20 06:15: Blood Type O POSITIVE, Antibody Screen NEGATIVE 04/05/20 06:15: Crossmatch See Detail 04/05/20 08:00: Sodium 144, Potassium 5.7 H, Chloride 116 H, Carbon Dioxide 21.0, Anion Gap 7, BUN 131 H*, Creatinine 6.31 H, Estim Creat Clear Calc 6.73, Est GFR (MDRD) Af Amer 11 L, Est GFR (MDRD) Non-Af 9 L, BUN/Creatinine Ratio 20.8 H, Glucose 135 H, Calcium 7.1 L, Total PSA 9.12 H 04/05/20 08:00: WBC 5.8, RBC 2.10 L, Hgb 6.4 L, Hct 19.3 L, MCV 91.9, MCH 30.5, MCHC 33.2 D, RDW Std Deviation 51.3 H, RDW Coeff of Cathy 15.2 H, Plt Count 136 L, MPV 9.9, Immature Gran % (Auto) 0.200, Neut % (Auto) 78.4 H, Lymph % (Auto) 14.4 L, [place] % (Auto) 4.7, Eos % (Auto) 2.1, Baso % (Auto) 0.2, Absolute Neuts (auto) 4.5, Absolute Lymphs (auto) 0.83, Nucleated RBC % 0 04/05/20 15:38: Hgb 8.3 L, Hct 24.6 L Current Medications Heparin Sodium (Porcine) (Heparin Injection (Vial) 5,000 Unit/Ml Vial) 5,000 unit SC Q12 MALICK Last Admin: 04/04/20 21:34 Dose: 5,000 unit Documented by: Sodium Chloride () 250 mls @ 15 mls/hr IV .[id number] PRN PRN Reason: Saline Flush Sodium Chloride () 250 mls @ 15 mls/hr IV .[id number] PRN PRN Reason: Additional IVPB Infusion Sodium Chloride () 1,000 mls @ 100 mls/hr IV .Q10H [facility] Last Admin: 04/05/20 17:14 Dose: 100 mls/hr Documented by: Nitroglycerin (Nitroglycerin (Inpatient Use) 0.4 Mg Tab.Subl) 0.4 mg SUBLINGUAL Q5M PRN PRN Reason: CARDIAC/CHEST PAIN Nutritional Formula (Nepro Liquid 120 Ml Liquid) 120 ml PO 4X/DAY [facility] Last Admin: 04/05/20 17:18 Dose: Not Given Documented by: Ondansetron HCl (Ondansetron 4 Mg/2 Ml Vial) 4 mg IV Q8H PRN PRN PRN Reason: NAUSEA/VOMITING Sodium Chloride (0.9% Saline Lock 10 Ml Syringe) 10 - 40 ml IV UD PRN PRN Reason: SALINE FLUSH Sodium Chloride (0.9% Saline Lock 10 Ml Syringe) 10 - 40 ml IV UD PRN PRN Reason: SALINE FLUSH Medical Necessity - Tobacco Use Smoking Status: Never smoker Assessment/Plan All Active Problems (Last Reviewed 04/05/20 @ 10:[address] Mynor Bolanos MD) BIRGIT (acute kidney injury) (Acute) BIRGIT (acute kidney injury) (Resolved) Acute kidney injury superimposed on chronic kidney disease (Resolved) Acute renal failure CKD stage IV Hyperkalemia acidosis acidosis better K is better received kayexalate BP is ok CT abd reviewed. Urology on consult now needs surgery
[2020-04-06] VITALS (24 sets, daily range): BP systolic 85–132; BP diastolic 45–71; PULSE 59–70; RESP 15–20; TEMP 36.6–37.2; O2SAT 92–97
[2020-04-06] MEDS: 0.45% Normal Saline 1,000 ML 100 ML IV ×2 (03:26→14:33)
[2020-04-06 03:38] LABS: Absolute Lymphocyte Count 1.03 X10^3/uL (0.83-4.51); Absolute Neutrophil Count 4.7 X10^3/uL (2.0-7.7); Basophil# 0.01 X10^3/uL; Basophil% 0.2 % (0-1); Eosinophil# 0.13 X10^3/uL; Eosinophils% 2.1 % (0-5); Hematocrit 23.1 % (40-54); Hemoglobin 7.6 g/dL (13.0-16.5); Lymphocyte # 1.03 X10^3/ul (4.0); Lymphocyte % 16.8 % (19-41); Mean Corp Hgb Conc 32.9 g/dL (32-36); Mean Corpuscular Hgb 30.5 pg (27.0-32.0); Mean Corpuscular Volume 92.8 fL (80-94); Mean Platelet Vol. 10.3 fl (6.2-12.0); Monocyte# 0.22 X10^3/uL; Monocyte% 3.6 % (0-10); NRBC Flagged by Analyzer 0 % (0-5); Neutrophil # 4.72 X10^3/uL (2.7-7.7); Neutrophil % 77.1 % (47-70); Platelet Count 124 K/mm3 (150-450); RBC Distribution Width CV 15.1 % (11.6-14.6); Red Blood Count 2.49 M/mm3 (4.6-6.2); White Blood Count 6.1 K/mm3 (4.4-11.0)
[2020-04-06 03:53] LABS: Anion Gap 9 (5-15); BUN 120 mg/dL (7-18); BUN/Creat Ratio 21.1 RATIO (10-20); Calcium,Total 6.5 mg/dL (8.5-10.1); Chloride 113 mmol/L (98-107); Creatinine, Serum 5.69 mg/dL (0.70-1.30); EST Glomerular Filtration Rate 10 mL/min (>60); Est Glom Filt Rate - Afr Amer 12 mL/min (>60); Estimated Creatinine Clearance 7.46 ml/min; Glucose 124 mg/dL (74-106); Potassium 4.7 mmol/L (3.5-5.1); Sodium Level 141 mmol/L (136-145)
--- NOTE | 2020-04-06 05:43 | PCM.PN.INT ---
Subjective: The patient was seen and examined at the bedside this morning. Events from the last 24 hours have been reviewed. The patient is currently afebrile, hemodynamically stable and maintaining appropriate oxygen saturations on room air. The patient reports a mild degree of abdominal discomfort but denies the presence of shortness of breath or cough. Objective: The patient's most recent lab work, culture data and imaging studies have all been personally reviewed. Rapid coronavirus antigen testing was negative. Urine culture is pending. General: Alert, Cooperative, No apparent distress HEENT: Atraumatic, Normocephalic Oral: Dry Mucosa, - - Poor dentition Neck: Supple, No Nodes, Trachea Midline Lungs: Diminished Cardiovascular: Regular rate, Regular Rhythm, Murmur Abdomen: Bowel Sounds Present, Soft, Non Tender, Non-Distended Extremities: No clubbing, No cyanosis, No edema Skin: No breakdown Musculoskeletal: No Tenderness to Palpation of Joints or Extremities Lymphatic: No Cervical, Supraclavicular, or Inguinal Adenopathy Neurological: Cranial nerves II-XII grossly intact, Neuro grossly intact Psych/Mental Status: Normal Affect, Appropriate Vital Signs Temp Pulse Resp BP Pulse Ox 97.8 F 62 20 H 93/49 L 93 04/06/20 04:00 04/06/20 05:00 04/06/20 05:00 04/06/20 05:00 04/06/20 05:00 Oxygen Delivery Method Room Air Weight: 121 lb 0.1 oz Body Mass Index (BMI) 22.1 Finger Stick Blood Glucose 127 Intake and Output for Last 24 Hours 04/04/20 04/05/20 04/06/20 23:59 23:59 23:59 Intake Total 987.55 / 987.55 3071.67 / 3251.67 1180 / 1180 Output Total 350 / 350 750 / 1000 250 / 250 Balance 637.55 / 637.55 2321.67 / 2251.67 930 / 930 Labs (Last 48 Hours) 04/04/20 04/04/20 04/04/20 12:30 12:30 12:30 WBC 7.8 RBC 2.99 L Hgb 9.0 L Hct 28.8 L MCV 96.3 H MCH 30.1 MCHC 31.3 L RDW Std Deviation 54.9 H RDW Coeff of Cathy 15.7 H Plt Count 191 MPV 10.3 Immature Gran % (Auto) 0.400 Neut % (Auto) 81.8 H Lymph % (Auto) 12.0 L Lynn % (Auto) 4.2 Eos % (Auto) 1.3 Baso % (Auto) 0.3 Absolute Neuts (auto) 6.4 Absolute Lymphs (auto) 0.94 Nucleated RBC % 0 PT INR Sodium 141 Potassium 6.9 H* Chloride 119 H Carbon Dioxide 12.0 L Anion Gap 10 BUN 140 H* Creatinine 6.97 H Estim Creat Clear Calc 6.28 Est GFR (MDRD) Af Amer 10 L Est GFR (MDRD) Non-Af 8 L BUN/Creatinine Ratio 20.1 H Glucose 128 H Lactic Acid 1.4 Calcium 8.2 L Total Bilirubin 0.30 AST 8 L ALT 19 Alkaline Phosphatase 104 Troponin I < 0.015 Total Protein 7.8 Albumin 3.5 Globulin 4.3 H Albumin/Globulin Ratio 0.8 L Total PSA Urine Color Urine Clarity Urine pH Ur Specific [place] Urine Protein Urine Glucose (UA) Urine Ketones Urine Occult Blood Urine Nitrite Urine Bilirubin Urine Urobilinogen Ur Leukocyte Esterase Urine RBC Urine WBC Ur Squamous Epith Cells Urine Bacteria Urine Mucus Blood Type Antibody Screen Crossmatch 04/04/20 04/05/20 04/05/20 13:42 04:10 04:10 WBC 5.7 RBC 2.15 L Hgb 6.4 L Hct 20.5 L MCV 95.3 H MCH 29.8 MCHC 31.2 L RDW Std Deviation 54.4 H RDW Coeff of Cathy 15.6 H Plt Count 134 L MPV 10.7 Immature Gran % (Auto) 0.200 Neut % (Auto) 78.2 H Lymph % (Auto) 14.3 L Lynn % (Auto) 4.2 Eos % (Auto) 2.7 Baso % (Auto) 0.4 Absolute Neuts (auto) 4.4 Absolute Lymphs (auto) 0.81 L Nucleated RBC % 0 PT INR Sodium 144 Potassium 5.6 H Chloride 117 H Carbon Dioxide 19.0 L Anion Gap 8 BUN 124 H* Creatinine 5.86 H Estim Creat Clear Calc 7.25 Est GFR (MDRD) Af Amer 12 L Est GFR (MDRD) Non-Af 10 L BUN/Creatinine Ratio 21.2 H Glucose 160 H Lactic Acid Calcium 6.5 L* Total Bilirubin AST ALT Alkaline Phosphatase Troponin I Total Protein Albumin Globulin Albumin/Globulin Ratio Total PSA Urine Color Yellow Urine Clarity Cloudy Urine pH 5.0 Ur Specific [place] 1.015 Urine Protein 100 H Urine Glucose (UA) Normal Urine Ketones Negative Urine Occult Blood 250 H Urine Nitrite Negative Urine Bilirubin Negative Urine Urobilinogen Normal Ur Leukocyte Esterase 500 H Urine RBC 10-25 SEEN Urine WBC 10-25 SEEN Ur Squamous Epith Cells 0-5 SEEN Urine Bacteria 1+ Urine Mucus 0 SEEN Blood Type Antibody Screen Crossmatch 04/05/20 04/05/20 04/05/20 04:10 06:15 06:15 WBC RBC Hgb Hct MCV MCH MCHC RDW Std Deviation RDW Coeff of Cathy Plt Count MPV Immature Gran % (Auto) Neut % (Auto) Lymph % (Auto) [place] % (Auto) Eos % (Auto) Baso % (Auto) Absolute Neuts (auto) Absolute Lymphs (auto) Nucleated RBC % PT 14.6 INR 1.2 Sodium Potassium Chloride Carbon Dioxide Anion Gap BUN Creatinine Estim Creat Clear Calc Est GFR (MDRD) Af Amer Est GFR (MDRD) Non-Af BUN/Creatinine Ratio Glucose Lactic Acid Calcium Total Bilirubin AST ALT Alkaline Phosphatase Troponin I Total Protein Albumin Globulin Albumin/Globulin Ratio Total PSA Urine Color Urine Clarity Urine pH Ur Specific [place] Urine Protein Urine Glucose (UA) Urine Ketones Urine Occult Blood Urine Nitrite Urine Bilirubin Urine Urobilinogen Ur Leukocyte Esterase Urine RBC Urine WBC Ur Squamous Epith Cells Urine Bacteria Urine Mucus Blood Type O POSITIVE Antibody Screen NEGATIVE Crossmatch See Detail 04/05/20 04/05/20 04/05/20 08:00 08:00 15:38 WBC 5.8 RBC 2.10 L Hgb 6.4 L 8.3 L Hct 19.3 L 24.6 L MCV 91.9 MCH 30.5 MCHC 33.2 D RDW Std Deviation 51.3 H RDW Coeff of Cathy 15.2 H Plt Count 136 L MPV 9.9 Immature Gran % (Auto) 0.200 Neut % (Auto) 78.4 H Lymph % (Auto) 14.4 L Lynn % (Auto) 4.7 Eos % (Auto) 2.1 Baso % (Auto) 0.2 Absolute Neuts (auto) 4.5 Absolute Lymphs (auto) 0.83 Nucleated RBC % 0 PT INR Sodium 144 Potassium 5.7 H Chloride 116 H Carbon Dioxide 21.0 Anion Gap 7 BUN 131 H* Creatinine 6.31 H Estim Creat Clear Calc 6.73 Est GFR (MDRD) Af Amer 11 L Est GFR (MDRD) Non-Af 9 L BUN/Creatinine Ratio 20.8 H Glucose 135 H Lactic Acid Calcium 7.1 L Total Bilirubin AST ALT Alkaline Phosphatase Troponin I Total Protein Albumin Globulin Albumin/Globulin Ratio Total PSA 9.12 H Urine Color Urine Clarity Urine pH Ur Specific [place] Urine Protein Urine Glucose (UA) Urine Ketones Urine Occult Blood Urine Nitrite Urine Bilirubin Urine Urobilinogen Ur Leukocyte Esterase Urine RBC Urine WBC Ur Squamous Epith Cells Urine Bacteria Urine Mucus Blood Type Antibody Screen Crossmatch 04/06/20 04/06/20 03:20 03:20 WBC 6.1 RBC 2.49 L Hgb 7.6 L Hct 23.1 L MCV 92.8 MCH 30.5 MCHC 32.9 RDW Std Deviation 51.0 H RDW Coeff of Cathy 15.1 H Plt Count 124 L MPV 10.3 Immature Gran % (Auto) 0.200 Neut % (Auto) 77.1 H Lymph % (Auto) 16.8 L [place] % (Auto) 3.6 Eos % (Auto) 2.1 Baso % (Auto) 0.2 Absolute Neuts (auto) 4.7 Absolute Lymphs (auto) 1.03 Nucleated RBC % 0 PT INR Sodium 141 Potassium 4.7 Chloride 113 H Carbon Dioxide 19.0 L Anion Gap 9 BUN 120 H* Creatinine 5.69 H Estim Creat Clear Calc 7.46 Est GFR (MDRD) Af Amer 12 L Est GFR (MDRD) Non-Af 10 L BUN/Creatinine Ratio 21.1 H Glucose 124 H Lactic Acid Calcium 6.5 L* Total Bilirubin AST ALT Alkaline Phosphatase Troponin I Total Protein Albumin Globulin Albumin/Globulin Ratio Total PSA Urine Color Urine Clarity Urine pH Ur Specific [place] Urine Protein Urine Glucose (UA) Urine Ketones Urine Occult Blood Urine Nitrite Urine Bilirubin Urine Urobilinogen Ur Leukocyte Esterase Urine RBC Urine WBC Ur Squamous Epith Cells Urine Bacteria Urine Mucus Blood Type Antibody Screen Crossmatch Microbiology 04/04/20 13:42 Mucosa - Nose SARS-CoV-2 Antigen (Rapid) - Final Clinical Impression(s) from Imaging Studies Chest X-Ray 04/04/20 12:18 IMPRESSION: No active pulmonary disease. Electronically Signed: Garcia Heaton MD at 13:18 EST Tel , Service support , Abdomen/Pelvis CT 04/04/20 16:52 IMPRESSION: 1. Left worse than right hydronephrosis in spite of bilateral ureteral stents. Electronically Signed: Ozzie Curry MD ([place]) at 17:16 EST , Service support , Medical Necessity - Tobacco Use Smoking Status: Never smoker Assessment/Plan All Active Problems (Last Reviewed 04/05/20 @ 10:[address] Mynor Bolanos MD) BIRGIT (acute kidney injury) (Acute) BRIGIT (acute kidney injury) (Resolved) Acute kidney injury superimposed on chronic kidney disease (Resolved) RECOMMENDATIONS: 1. Continue to monitor H&H and transfuse if hemoglobin drops below 7 g/dL. 2. Additional management per nephrology and urology recommendations. 3. Start PPI twice daily. 4. Okay to stop continuous fluids from my perspective. 5. Encourage incentive spirometer use and mobilize patient as tolerated. IMPRESSIONS: 1. Acute on chronic kidney disease Likely multifactorial with prerenal and postobstructive etiologies contributing. The patient did have bilateral hydronephrosis noted on CT abdomen, for which urology is currently following. There are tentative plans for stent removal in the OR. The patient remains on supplemental IV fluid hydration, with slowly improving renal function noted. Will defer need for ongoing fluids to nephrology. 2. Anemia The patient did require transfusion of packed red blood cells. Recommend continuing to monitor H&H and transfuse if hemoglobin drops below 7 g/dL. I would also recommend starting the patient on twice daily PPI therapy. I do anticipate further hemodilution with ongoing supplemental IV fluid administration. 3. History of A. fib/advanced age/poor dentition Complicates care, management, recovery and prognosis. Currently in normal sinus rhythm. Physical therapy to evaluate the patient. This note was generated with [employer] software. It may contain incorrect words, spelling, and punctuation that were not noted in checking the note before signing. Inpatient E&M: [id number] [facility] [[email or web address]] Hosp L3
--- NOTE | 2020-04-06 07:23 | PN_ITS ---
Patient Problems: Active and Suspected Problems (Last Reviewed 04/05/20 @ 10:[address] Mynor Bolanos MD) BIRGIT (acute kidney injury) (Acute) Reason for Visit: Acute kidney injury superimposed on chronic kidney disease Subjective: Patient is an 85-year-old gentleman admitted with weakness and diarrhea found to have acute kidney injury superimposed on chronic kidney disease with hyperkalemia admitted to the intensive care unit for further management Objective: GENERAL: cooperative HEENT: Atraumatic; EYES; Anicteric, Normal Conjunctiva NECK; supple, normal thyroid, RESPIRATORY: Diminished to auscultation CARDIOVASCULAR: Regular S1 S2, loud systolic murmur GI: soft, normoactive bowel sounds, : No Renal angle tenderness; EXTREMITIES: No edema, no clubbing, MUSCULOSKELETAL: no muscle waisting NEURO: Awake; no lateralizing signs. SKIN: No Rash PSYCH; Flat affect Vitals/I&O's: Vital Signs Temp Pulse Resp BP Pulse Ox 97.8 F 62 20 H 93/49 L 93 04/06/20 04:00 04/06/20 05:00 04/06/20 05:00 04/06/20 05:00 04/06/20 05:00 Oxygen Delivery Method Room Air Weight: 60.5 kg Body Mass Index (BMI) 22.1 Finger Stick Blood Glucose 127 Intake and Output for Last 24 Hours 04/04/20 04/05/20 04/06/20 23:59 23:59 23:59 Intake Total 987.55 / 987.55 3071.67 / 3251.67 2040 / 2040 Output Total 350 / 350 750 / 1000 425 / 425 Balance 637.55 / 637.55 2321.67 / 2251.67 1615 / 1615 Microbiology Past 72 Hours 04/04/20 13:42 Mucosa - Nose SARS-CoV-2 Antigen (Rapid) - Final Laboratory Results 04/05/20 06:15: Blood Type O POSITIVE, Antibody Screen NEGATIVE 04/05/20 06:15: Crossmatch See Detail 04/05/20 08:00: Sodium 144, Potassium 5.7 H, Chloride 116 H, Carbon Dioxide 21.0, Anion Gap 7, BUN 131 H*, Creatinine 6.31 H, Estim Creat Clear Calc 6.73, Est GFR (MDRD) Af Amer 11 L, Est GFR (MDRD) Non-Af 9 L, BUN/Creatinine Ratio 20.8 H, Glucose 135 H, Calcium 7.1 L, Total PSA 9.12 H 04/05/20 08:00: WBC 5.8, RBC 2.10 L, Hgb 6.4 L, Hct 19.3 L, MCV 91.9, MCH 30.5, MCHC 33.2 D, RDW Std Deviation 51.3 H, RDW Coeff of Cahty 15.2 H, Plt Count 136 L , MPV 9.9, Immature Gran % (Auto) 0.200, Neut % (Auto) 78.4 H, Lymph % (Auto) 14.4 L, [place] % (Auto) 4.7, Eos % (Auto) 2.1, Baso % (Auto) 0.2, Absolute Neuts (auto) 4.5, Absolute Lymphs (auto) 0.83, Nucleated RBC % 0 04/05/20 15:38: Hgb 8.3 L, Hct 24.6 L 04/06/20 03:20: WBC 6.1, RBC 2.49 L, Hgb 7.6 L, Hct 23.1 L, MCV 92.8, MCH 30.5, MCHC 32.9, RDW Std Deviation 51.0 H, RDW Coeff of Cathy 15.1 H, Plt Count 124 L, MPV 10.3, Immature Gran % (Auto) 0.200, Neut % (Auto) 77.1 H, Lymph % (Auto) 16.8 L, [place] % (Auto) 3.6, Eos % (Auto) 2.1, Baso % (Auto) 0.2, Absolute Neuts (auto) 4.7, Absolute Lymphs (auto) 1.03, Nucleated RBC % 0 04/06/20 03:20: Sodium 141, Potassium 4.7, Chloride 113 H, Carbon Dioxide 19.0 L , Anion Gap 9, BUN 120 H*, Creatinine 5.69 H, Estim Creat Clear Calc 7.46, Est GFR (MDRD) Af Amer 12 L, Est GFR (MDRD) Non-Af 10 L, BUN/Creatinine Ratio 21.1 H , Glucose 124 H, Calcium 6.5 L* Current Medications Heparin Sodium (Porcine) (Heparin Injection (Vial) 5,000 Unit/Ml Vial) 5,000 unit SC Q12 [facility] Last Admin: 01/09/21 21:34 Dose: 5,000 unit Documented by: Sodium Chloride () 250 mls @ 15 mls/hr IV .[id number] PRN PRN Reason: Saline Flush Sodium Chloride () 250 mls @ 15 mls/hr IV .[id number] PRN PRN Reason: Additional IVPB Infusion Sodium Chloride () 1,000 mls @ 100 mls/hr IV .Q10H [facility] Last Admin: 04/06/20 03:26 Dose: 100 mls/hr Documented by: Nitroglycerin (Nitroglycerin (Inpatient Use) 0.4 Mg Tab.Subl) 0.4 mg SUBLINGUAL Q5M PRN PRN Reason: CARDIAC/CHEST PAIN Nutritional Formula (Nepro Liquid 120 Ml Liquid) 120 ml PO 4X/DAY [facility] Last Admin: 04/05/20 21:37 Dose: Not Given Documented by: Ondansetron HCl (Ondansetron 4 Mg/2 Ml Vial) 4 mg IV Q8H PRN PRN PRN Reason: NAUSEA/VOMITING Sodium Chloride (0.9% Saline Lock 10 Ml Syringe) 10 - 40 ml IV UD PRN PRN Reason: SALINE FLUSH Sodium Chloride (0.9% Saline Lock 10 Ml Syringe) 10 - 40 ml IV UD PRN PRN Reason: SALINE FLUSH STROKE Vital Signs/Narrative: Vital Signs Temp Pulse Resp BP Pulse Ox 04/06/20 05:00 62 20 H 93/49 L 93 04/06/20 04:00 97.8 F 63 19 H 85/45 L 95 Medical Necessity - Tobacco Use Smoking Status: Never smoker Assessment/Plan All Active Problems (Last Reviewed 04/05/20 @ 10:[address] Mynor Bolanos MD) BIRGIT (acute kidney injury) (Acute) BIRGIT (acute kidney injury) (Resolved) Acute kidney injury superimposed on chronic kidney disease (Resolved) Patient is an 85-year-old gentleman admitted with weakness and diarrhea found to have acute kidney injury superimposed on chronic kidney disease with hyperkalemia admitted to the intensive care unit for further management 1. Acute kidney injury superimposed on chronic kidney disease stage III ?Secondary to obstructive uropathy CT of the abdomen obtained demonstrated prostatomegaly with bilateral hydronephrosis. Also placed to both nephrology as well as urology patient was seen in consultation by Dr Bolanos and his plan is for diagnostic cystoscopy and bilateral stent removal possible change stents 2. Hyperkalemia ?Secondary to above treated with Kayexalate 3. Non-anion gap metabolic acidosis ?Secondary to acute kidney injury patient was started on bicarb drip by nephrology 4. Anemia - Secondary to chronic disorder monitoring H&H patient was transfused once hemoglobin fell below 7 5. Essential hypertension ?Patient presented with hypotension antihypertensives on hold 6. GERD ?On PPI 7. Paroxysmal A. fib and PSVT ?Patient is on metoprolol held in view of low blood pressure 8. DVT prophylaxis ?SCDs Inpatient E&M: 01322 Subs Hosp L3
--- NOTE | 2020-04-06 12:10 | CASEMGMT ---
JASE JENKINS Assessment Note Introduced role of CM to patient in room. Patient is sitting up in bed, available to participate in assessment. Demographics, PCP verified. Patient lives in a remote home, is reclusive and currently denies any concerns @ home. He states he has electric and water functioning and a friend who checks on him as well as provides transportation. Patient has animals he cares for. States he is doing this himself and uses a cane to ambulate outside the home. Pt denies any falls in past months. Presentation: Diagnosis: PCP: Dr. Lan Specialists: Dr. Suazo, Nephrology, Dr. Ortiz Insurance: [facility] Preferred Pharmacy: [facility] Prescription Benefit: yes LNOK: Sister Mackenzie Loja; Friend Geovani Dutton Living Arrangements: one story home, log cabin. 3 steps into home. Tranportation: friend drives to grocery store or physician appointments DME: walker, cane- uses cane HHC: none currently. States he does not like to have anyone come to his home. SNF: [facility]. Patient DC Goals: Home DC Plan: undetermined. Pt is very reticent to discuss dc needs as he is anxious that CM will discuss SNF or HHC. He states he just wants to return home and does not like people in his house. RN GREGORY deferred this discussion. PT OT evaluations completed, pt ambulated 5 feet with max assist with transfers. -CM will continue to follow and assist with dc planning. Contact CM for any concerns/needs that may arise. Tatum MELLO RN ACM
--- NOTE | 2020-04-06 13:07 | PCM.PN.REN ---
Patient Problems: Active and Suspected Problems (Last Reviewed 04/05/20 @ 10:[address] Mynor Bolanos MD) BIRGIT (acute kidney injury) (Acute) Subjective: Denies shortness of breath chest pain or any other complaints no nausea vomiting. - Physical Exam Vitals/I&O's: Vital Signs Temp Pulse Resp BP Pulse Ox 97.8 F 65 19 H 89/56 L 92 04/06/20 04:00 04/06/20 07:00 04/06/20 07:00 04/06/20 07:00 04/06/20 08:43 Oxygen Delivery Method Room Air Weight: 60.5 kg Body Mass Index (BMI) 22.1 Finger Stick Blood Glucose 127 Intake and Output for Last 24 Hours 04/04/20 04/05/20 04/06/20 23:59 23:59 23:59 Intake Total 987.55 / 987.55 3071.67 / 3251.67 2040 / 2040 Output Total 350 / 350 750 / 1000 425 / 425 Balance 637.55 / 637.55 2321.67 / 2251.67 1615 / 1615 General: Alert, Cooperative HEENT: Atraumatic, Normocephalic Neck: Supple, Trachea Midline Lungs: Clear to auscultation, Normal air movement Cardiovascular: Regular rate, Regular Rhythm, Normal S1, Normal S2 Abdomen: Bowel Sounds Present, Soft, Non Tender Extremities: No edema Microbiology Past 72 Hours 04/05/20 08:55 Urine Catheter - [place] Urine Culture - Preliminary Culture exhibits no growth. 04/04/20 13:42 Mucosa - Nose SARS-CoV-2 Antigen (Rapid) - Final Laboratory Results 04/05/20 06:15: Crossmatch See Detail 04/05/20 15:38: Hgb 8.3 L, Hct 24.6 L 04/06/20 03:20: WBC 6.1, RBC 2.49 L, Hgb 7.6 L, Hct 23.1 L, MCV 92.8, MCH 30.5, MCHC 32.9, RDW Std Deviation 51.0 H, RDW Coeff of Cathy 15.1 H, Plt Count 124 L, MPV 10.3, Immature Gran % (Auto) 0.200, Neut % (Auto) 77.1 H, Lymph % (Auto) 16.8 L, [place] % (Auto) 3.6, Eos % (Auto) 2.1, Baso % (Auto) 0.2, Absolute Neuts (auto) 4.7, Absolute Lymphs (auto) 1.03, Nucleated RBC % 0 04/06/20 03:20: Sodium 141, Potassium 4.7, Chloride 113 H, Carbon Dioxide 19.0 L, Anion Gap 9, BUN 120 H*, Creatinine 5.69 H, Estim Creat Clear Calc 7.46, Est GFR (MDRD) Af Amer 12 L, Est GFR (MDRD) Non-Af 10 L, BUN/Creatinine Ratio 21.1 H, Glucose 124 H, Calcium 6.5 L* Current Medications Heparin Sodium (Porcine) (Heparin Injection (Vial) 5,000 Unit/Ml Vial) 5,000 unit SC Q12 [facility] Last Admin: 04/04/20 21:34 Dose: 5,000 unit Documented by: Sodium Chloride () 250 mls @ 15 mls/hr IV .[id number] PRN PRN Reason: Saline Flush Sodium Chloride () 250 mls @ 15 mls/hr IV .[id number] PRN PRN Reason: Additional IVPB Infusion Sodium Chloride () 1,000 mls @ 100 mls/hr IV .Q10H [facility] Last Admin: 04/06/20 03:26 Dose: 100 mls/hr Documented by: Nitroglycerin (Nitroglycerin (Inpatient Use) 0.4 Mg Tab.Subl) 0.4 mg SUBLINGUAL Q5M PRN PRN Reason: CARDIAC/CHEST PAIN Ondansetron HCl (Ondansetron 4 Mg/2 Ml Vial) 4 mg IV Q8H PRN PRN PRN Reason: NAUSEA/VOMITING Sodium Chloride (0.9% Saline Lock 10 Ml Syringe) 10 - 40 ml IV UD PRN PRN Reason: SALINE FLUSH Sodium Chloride (0.9% Saline Lock 10 Ml Syringe) 10 - 40 ml IV UD PRN PRN Reason: SALINE FLUSH Medical Necessity - Tobacco Use Smoking Status: Never smoker Assessment/Plan All Active Problems (Last Reviewed 04/05/20 @ 10:[address] Mynor Bolanos MD) BIRGIT (acute kidney injury) (Acute) BIRGIT (acute kidney injury) (Resolved) Acute kidney injury superimposed on chronic kidney disease (Resolved) BIRGIT Metabolic acidosis Bilateral hydronephrosis BPH Renal function is improving continue for now fluids potassium is normal minimal acidosis noted. If worsening acidosis will consider adding bicarb. following the patient and will do surgery later on. Serum creatinine is 5.69 improving Avoid nephrotoxins
[2020-04-07] VITALS (22 sets, daily range): BP systolic 94–122; BP diastolic 52–77; PULSE 52–78; RESP 15–19; TEMP 36.6–37.1; O2SAT 92–99
[2020-04-07] MEDS: 0.45% Normal Saline 1,000 ML 100 ML IV (01:04)
[2020-04-07 05:12] LABS: Hematocrit 26.9 % (40-54); Hemoglobin 8.1 g/dL (13.0-16.5); Mean Corp Hgb Conc 30.1 g/dL (32-36); Mean Corpuscular Volume 103.1 fL (80-94); Mean Platelet Vol. 10.7 fl (6.2-12.0); Platelet Count 115 K/mm3 (150-450); RBC Distribution Width CV 15.2 % (11.6-14.6); RBC Distribution Width SD 57.1 fl (35.1-43.9); Red Blood Count 2.61 M/mm3 (4.6-6.2); White Blood Count 5.7 K/mm3 (4.4-11.0)
[2020-04-07 05:40] LABS: Anion Gap 8 (5-15); BUN 113 mg/dL (7-18); BUN/Creat Ratio 21.5 RATIO (10-20); Calcium,Total 6.3 mg/dL (8.5-10.1); Chloride 113 mmol/L (98-107); Creatinine, Serum 5.25 mg/dL (0.70-1.30); EST Glomerular Filtration Rate 11 mL/min (>60); Est Glom Filt Rate - Afr Amer 14 mL/min (>60); Estimated Creatinine Clearance 8.09 ml/min; Glucose 91 mg/dL (74-106); Magnesium 1.6 mg/dL (1.6-2.6); Potassium 4.3 mmol/L (3.5-5.1); Sodium Level 140 mmol/L (136-145)
--- NOTE | 2020-04-07 06:43 | PCM.PN.INT ---
Subjective: The patient was seen and examined at the bedside this morning. Events from the last 24 hours have been reviewed. The patient is currently afebrile, hemodynamically stable and maintaining appropriate oxygen saturations on room air. There are tentative plans for the patient to be taken to the OR by urology tomorrow. Objective: The patient's most recent lab work, culture data and imaging studies have all been personally reviewed. Rapid coronavirus antigen testing was negative. Urine culture is pending. General: Alert, Cooperative, No apparent distress HEENT: Atraumatic, Normocephalic Oral: No Gingival or Mucosal Lesions/ Ulcerations, - - Poor dentition Neck: Supple, No Nodes, Trachea Midline Lungs: No rhonchi, No wheeze, No rales, Diminished Cardiovascular: Regular rate, Regular Rhythm, Murmur Abdomen: Bowel Sounds Present, Soft, Non Tender Extremities: No clubbing, No cyanosis, No edema Skin: - - No significant change from previous Lymphatic: No Cervical, Supraclavicular, or Inguinal Adenopathy Neurological: Cranial nerves II-XII grossly intact, Neuro grossly intact Psych/Mental Status: Normal Affect Vital Signs Temp Pulse Resp BP Pulse Ox 98.8 F 59 L 18 98/59 L 93 04/07/20 04:00 04/07/20 06:00 04/07/20 06:00 04/07/20 06:00 04/07/20 06:34 Oxygen Delivery Method Room Air Weight: 134 lb 11.239 oz Body Mass Index (BMI) 22.1 Finger Stick Blood Glucose 127 Intake and Output for Last 24 Hours 04/05/20 04/06/20 04/07/20 23:59 23:59 23:59 Intake Total 3071.67 / 3251.67 3480 / 3840 1480 / 1480 Output Total 750 / 1000 625 / 925 650 / 650 Balance 2321.67 / 2251.67 2855 / 2915 830 / 830 Labs (Last 48 Hours) 04/05/20 04/05/20 04/05/20 06:15 06:15 08:00 WBC RBC Hgb Hct MCV MCH MCHC RDW Std Deviation RDW Coeff of Cathy Plt Count MPV Immature Gran % (Auto) Neut % (Auto) Lymph % (Auto) [place] % (Auto) Eos % (Auto) Baso % (Auto) Absolute Neuts (auto) Absolute Lymphs (auto) Nucleated RBC % Sodium 144 Potassium 5.7 H Chloride 116 H Carbon Dioxide 21.0 Anion Gap 7 BUN 131 H* Creatinine 6.31 H Estim Creat Clear Calc 6.73 Est GFR (MDRD) Af Amer 11 L Est GFR (MDRD) Non-Af 9 L BUN/Creatinine Ratio 20.8 H Glucose 135 H Calcium 7.1 L Magnesium Total PSA 9.12 H Blood Type O POSITIVE Antibody Screen NEGATIVE Crossmatch See Detail 04/05/20 04/05/20 04/06/20 08:00 15:38 03:20 WBC 5.8 6.1 RBC 2.10 L 2.49 L Hgb 6.4 L 8.3 L 7.6 L Hct 19.3 L 24.6 L 23.1 L MCV 91.9 92.8 MCH 30.5 30.5 MCHC 33.2 D 32.9 RDW Std Deviation 51.3 H 51.0 H RDW Coeff of Cathy 15.2 H 15.1 H Plt Count 136 L 124 L MPV 9.9 10.3 Immature Gran % (Auto) 0.200 0.200 Neut % (Auto) 78.4 H 77.1 H Lymph % (Auto) 14.4 L 16.8 L [place] % (Auto) 4.7 3.6 Eos % (Auto) 2.1 2.1 Baso % (Auto) 0.2 0.2 Absolute Neuts (auto) 4.5 4.7 Absolute Lymphs (auto) 0.83 1.03 Nucleated RBC % 0 0 Sodium Potassium Chloride Carbon Dioxide Anion Gap BUN Creatinine Estim Creat Clear Calc Est GFR (MDRD) Af Amer Est GFR (MDRD) Non-Af BUN/Creatinine Ratio Glucose Calcium Magnesium Total PSA Blood Type Antibody Screen Crossmatch 04/06/20 04/07/20 04/07/20 03:20 04:45 04:45 WBC 5.7 RBC 2.61 L Hgb 8.1 L Hct 26.9 L MCV 103.1 H D MCH 31.0 MCHC 30.1 L D RDW Std Deviation 57.1 H RDW Coeff of Cathy 15.2 H Plt Count 115 L MPV 10.7 Immature Gran % (Auto) Neut % (Auto) Lymph % (Auto) [place] % (Auto) Eos % (Auto) Baso % (Auto) Absolute Neuts (auto) Absolute Lymphs (auto) Nucleated RBC % Sodium 141 140 Potassium 4.7 4.3 Chloride 113 H 113 H Carbon Dioxide 19.0 L 19.0 L Anion Gap 9 8 BUN 120 H* 113 H* Creatinine 5.69 H 5.25 H Estim Creat Clear Calc 7.46 8.09 Est GFR (MDRD) Af Amer 12 L 14 L Est GFR (MDRD) Non-Af 10 L 11 L BUN/Creatinine Ratio 21.1 H 21.5 H Glucose 124 H 91 Calcium 6.5 L* 6.3 L* Magnesium 1.6 Total PSA Blood Type Antibody Screen Crossmatch Microbiology 04/05/20 08:55 Urine Catheter - [place] Urine Culture - Preliminary Culture exhibits no growth. Clinical Impression(s) from Imaging Studies Chest X-Ray 04/04/20 12:18 IMPRESSION: No active pulmonary disease. Electronically Signed: Garcia Heaton MD at 13:18 EST Tel , Service support , Abdomen/Pelvis CT 04/04/20 16:52 IMPRESSION: 1. Left worse than right hydronephrosis in spite of bilateral ureteral stents. Electronically Signed: Ozzie Curry MD ([place]) at 17:16 EST , Service support , Medical Necessity - Tobacco Use Smoking Status: Never smoker Assessment/Plan All Active Problems (Last Reviewed 04/05/20 @ 10:[address] Mynor Bolanos MD) BIRGIT (acute kidney injury) (Acute) BIRGIT (acute kidney injury) (Resolved) Acute kidney injury superimposed on chronic kidney disease (Resolved) RECOMMENDATIONS: 1. Continue to monitor H&H and transfuse if hemoglobin drops below 7 g/dL. 2. Additional management per nephrology and urology recommendations. 3. Start PPI twice daily. 4. Encourage incentive spirometer use and mobilize patient as tolerated. IMPRESSIONS: 1. Acute on chronic kidney disease Likely multifactorial with prerenal and postobstructive etiologies contributing. The patient did have bilateral hydronephrosis noted on CT abdomen, for which urology is currently following. There are tentative plans for stent removal in the OR. The patient remains on supplemental IV fluid hydration, with slowly improving renal function noted. Will defer need for ongoing fluids to nephrology. 2. Anemia The patient did require transfusion of packed red blood cells. Recommend continuing to monitor H&H and transfuse if hemoglobin drops below 7 g/dL. I would also recommend starting the patient on twice daily PPI therapy. I do anticipate further hemodilution with ongoing supplemental IV fluid administration. 3. History of A. fib/advanced age/poor dentition Complicates care, management, recovery and prognosis. Currently in normal sinus rhythm. Physical therapy to evaluate the patient. This note was generated with [employer] dictation software. It may contain incorrect words, spelling, and punctuation that were not noted in checking the note before signing. Inpatient E&M: [id number] Subs Hosp L2
--- NOTE | 2020-04-07 07:15 | PN_ITS ---
Patient Problems: Active and Suspected Problems (Last Reviewed 04/05/20 @ 10:[address] Mynor Bolanos MD) BIRGIT (acute kidney injury) (Acute) Reason for Visit: Acute kidney injury superimposed on chronic kidney disease Subjective: Patient is an 85-year-old gentleman admitted with weakness and diarrhea found to have acute kidney injury superimposed on chronic kidney disease with hyperkalemia admitted to the intensive care unit for further management 04/07/2020; patient seen had a relatively uneventful night. Slight improvement in kidney function. Hemoglobin appears to be stable. Blood pressure also appears to be relatively stable. Objective: GENERAL: cooperative HEENT: Atraumatic; EYES; Anicteric, Normal Conjunctiva NECK; supple, normal thyroid, RESPIRATORY: Diminished to auscultation CARDIOVASCULAR: Regular S1 S2, loud systolic murmur GI: soft, normoactive bowel sounds, : No Renal angle tenderness; EXTREMITIES: No edema, no clubbing, MUSCULOSKELETAL: no muscle waisting NEURO: Awake; no lateralizing signs. SKIN: No Rash PSYCH; Flat affect Vitals/I&O's: Vital Signs Temp Pulse Resp BP Pulse Ox 98.8 F 54 L 16 110/64 95 04/07/20 04:00 04/07/20 07:00 04/07/20 07:00 04/07/20 07:00 04/07/20 07:00 Oxygen Delivery Method Room Air Weight: 61.1 kg Body Mass Index (BMI) 22.1 Finger Stick Blood Glucose 127 Intake and Output for Last 24 Hours 04/05/20 04/06/20 04/07/20 23:59 23:59 23:59 Intake Total 3071.67 / 3251.67 3480 / 3840 1480 / 1480 Output Total 750 / 1000 625 / 925 650 / 650 Balance 2321.67 / 2251.67 2855 / 2915 830 / 830 Microbiology Past 72 Hours 04/05/20 08:55 Urine Catheter - [place] Urine Culture - Preliminary Culture exhibits no growth. 04/04/20 13:42 Mucosa - Nose SARS-CoV-2 Antigen (Rapid) - Final Laboratory Results 04/07/20 04:45: WBC 5.7, RBC 2.61 L, Hgb 8.1 L, Hct 26.9 L, MCV 103.1 H D, MCH 31.0, MCHC 30.1 L D, RDW Std Deviation 57.1 H, RDW Coeff of Cathy 15.2 H, Plt Count 115 L, MPV 10.7 04/07/20 04:45: Sodium 140, Potassium 4.3, Chloride 113 H, Carbon Dioxide 19.0 L , Anion Gap 8, BUN 113 H*, Creatinine 5.25 H, Estim Creat Clear Calc 8.09, Est GFR (MDRD) Af Amer 14 L, Est GFR (MDRD) Non-Af 11 L, BUN/Creatinine Ratio 21.5 H , Glucose 91, Calcium 6.3 L*, Magnesium 1.6 Current Medications Heparin Sodium (Porcine) (Heparin Injection (Vial) 5,000 Unit/Ml Vial) 5,000 unit SC Q12 [facility] Last Admin: 04/04/20 21:34 Dose: 5,000 unit Documented by: Sodium Chloride () 250 mls @ 15 mls/hr IV .[id number] PRN PRN Reason: Saline Flush Sodium Chloride () 250 mls @ 15 mls/hr IV .[id number] PRN PRN Reason: Additional IVPB Infusion Sodium Chloride () 1,000 mls @ 100 mls/hr IV .Q10H [facility] Last Admin: 04/07/20 01:23 Dose: Not Given Documented by: Nitroglycerin (Nitroglycerin (Inpatient Use) 0.4 Mg Tab.Subl) 0.4 mg SUBLINGUAL Q5M PRN PRN Reason: CARDIAC/CHEST PAIN Ondansetron HCl (Ondansetron 4 Mg/2 Ml Vial) 4 mg IV Q8H PRN PRN PRN Reason: NAUSEA/VOMITING Sodium Chloride (0.9% Saline Lock 10 Ml Syringe) 10 - 40 ml IV UD PRN PRN Reason: SALINE FLUSH Sodium Chloride (0.9% Saline Lock 10 Ml Syringe) 10 - 40 ml IV UD PRN PRN Reason: SALINE FLUSH STROKE Vital Signs/Narrative: Vital Signs Temp Pulse Resp BP Pulse Ox 04/07/20 07:00 54 L 16 110/64 95 04/07/20 06:34 93 04/07/20 06:00 59 L 18 98/59 L 93 04/07/20 05:00 62 16 102/66 94 04/07/20 04:00 98.8 F 57 L 17 97/61 93 Medical Necessity - Tobacco Use Smoking Status: Never smoker Assessment/Plan All Active Problems (Last Reviewed 04/05/20 @ 10:[address] Mynor Bolanos MD) BIRGIT (acute kidney injury) (Acute) BIRGIT (acute kidney injury) (Resolved) Acute kidney injury superimposed on chronic kidney disease (Resolved) Patient is an 85-year-old gentleman admitted with weakness and diarrhea found to have acute kidney injury superimposed on chronic kidney disease with hyperkalemia admitted to the intensive care unit for further management 1. Acute kidney injury superimposed on chronic kidney disease stage III ?Secondary to obstructive uropathy CT of the abdomen obtained demonstrated prostatomegaly with bilateral hydronephrosis. Also placed to both nephrology as well as urology patient was seen in consultation by Dr Bolanos and his plan is for diagnostic cystoscopy and bilateral stent removal possible change stents ?04/07/2020; slight improvement in kidney function 2. Hyperkalemia ?Secondary to above treated with Kayexalate 3. Non-anion gap metabolic acidosis ?Secondary to acute kidney injury patient was started on bicarb drip by nephrology 4. Anemia - Secondary to chronic disorder monitoring H&H patient was transfused once hemoglobin fell below 7 5. Essential hypertension ?Patient presented with hypotension antihypertensives on hold 6. GERD ?On PPI 7. Paroxysmal A. fib and PSVT ?Patient is on metoprolol held in view of low blood pressure 8. DVT prophylaxis ?SCDs Inpatient E&M: [id number] Subs Hosp L2
--- NOTE | 2020-04-07 11:09 | CASEMGMT ---
SW met w/pt in room to review discharge plan, provided a list of nursing homes with the star ratings to pt. SW spoke w/pt about plans at discharge, and if he can manage at home. Pt states he has to get home as soon as possible. 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 Pt states he was able to walk before this but was shaky, but states, I am still able to do my job. SW asked about going to [facility] in the past, pt states he tries not to think about it. SW also spoke w/pt about the option of going to TCU for a week or two here in the hospital prior to discharge, pt still politely insistent he will go home. SW explained that SW will continue to follow, as we want to make sure he can manage when ready to leave the hospital if he goes home. Pt states understanding. Plan: Home, as pt is adamant about returning home and at htis time will not consider SNF for rehab. SW will continue to follow and remains available. SAVI Arora
--- NOTE | 2020-04-07 14:07 | PN.RENAL_ITS ---
Patient Problems: Active and Suspected Problems (Last Reviewed 04/05/20 @ 10:[address] Mynor Bolanos MD) BIRGIT (acute kidney injury) (Acute) Subjective: decreased appetite no nausea no vomiting no shortness of breath no chest pain no other complaints. - Physical Exam Vitals/I&O's: Vital Signs Temp Pulse Resp BP Pulse Ox 98.1 F 78 19 H 110/60 98 04/07/20 12:00 04/07/20 12:00 04/07/20 12:00 04/07/20 12:00 04/07/20 12:00 Oxygen Delivery Method Room Air Weight: 61.1 kg Body Mass Index (BMI) 22.1 Finger Stick Blood Glucose 127 Intake and Output for Last 24 Hours 04/05/20 04/06/20 04/07/20 23:59 23:59 23:59 Intake Total 3071.67 / 3251.67 3480 / 3840 2435 / 2435 Output Total 750 / 1000 625 / 925 1050 / 1050 Balance 2321.67 / 2251.67 2855 / 2915 1385 / 1385 General: Alert, Cooperative HEENT: Atraumatic, Normocephalic Oral: Moist Mucosa Neck: Supple Lungs: Clear to auscultation, Normal air movement, No rales Cardiovascular: Normal S1, Normal S2 Abdomen: Bowel Sounds Present, Soft, Non Tender Microbiology Past 72 Hours 04/05/20 08:55 Urine Catheter - [place] Urine Culture - Final Culture exhibits no growth. 04/04/20 13:42 Mucosa - Nose SARS-CoV-2 Antigen (Rapid) - Final Laboratory Results 04/07/20 04:45: WBC 5.7, RBC 2.61 L, Hgb 8.1 L, Hct 26.9 L, MCV 103.1 H D, MCH 31.0, MCHC 30.1 L D, RDW Std Deviation 57.1 H, RDW Coeff of Cathy 15.2 H, Plt Count 115 L, MPV 10.7 04/07/20 04:45: Sodium 140, Potassium 4.3, Chloride 113 H, Carbon Dioxide 19.0 L , Anion Gap 8, BUN 113 H*, Creatinine 5.25 H, Estim Creat Clear Calc 8.09, Est GFR (MDRD) Af Amer 14 L, Est GFR (MDRD) Non-Af 11 L, BUN/Creatinine Ratio 21.5 H , Glucose 91, Calcium 6.3 L*, Magnesium 1.6 Current Medications Heparin Sodium (Porcine) (Heparin Injection (Vial) 5,000 Unit/Ml Vial) 5,000 unit SC Q12 [facility] Last Admin: 04/04/20 21:34 Dose: 5,000 unit Documented by: Sodium Chloride () 250 mls @ 15 mls/hr IV .[id number] PRN PRN Reason: Saline Flush Sodium Chloride () 250 mls @ 15 mls/hr IV .[id number] PRN PRN Reason: Additional IVPB Infusion Nitroglycerin (Nitroglycerin (Inpatient Use) 0.4 Mg Tab.Subl) 0.4 mg SUBLINGUAL Q5M PRN PRN Reason: CARDIAC/CHEST PAIN Ondansetron HCl (Ondansetron 4 Mg/2 Ml Vial) 4 mg IV Q8H PRN PRN PRN Reason: NAUSEA/VOMITING Sodium Chloride (0.9% Saline Lock 10 Ml Syringe) 10 - 40 ml IV UD PRN PRN Reason: SALINE FLUSH Sodium Chloride (0.9% Saline Lock 10 Ml Syringe) 10 - 40 ml IV UD PRN PRN Reason: SALINE FLUSH Medical Necessity - Tobacco Use Smoking Status: Never smoker Assessment/Plan All Active Problems (Last Reviewed 04/05/20 @ 10:[address] Mynor Bolanos MD) BIRGIT (acute kidney injury) (Acute) BIRGIT (acute kidney injury) (Resolved) Acute kidney injury superimposed on chronic kidney disease (Resolved) BIRGIT Metabolic acidosis Bilateral hydronephrosis BPH Renal function is improving continue for now fluids potassium is normal minimal acidosis noted. If worsening acidosis will consider adding bicarb. following the patient and will do surgery later on. Serum creatinine is 5.25 improving Avoid nephrotoxins
[2020-04-07] MEDS: 0.9% Normal Saline 1,000 ML 100 ML IV (15:00)
[2020-04-08] VITALS (11 sets, daily range): BP systolic 106–140; BP diastolic 50–71; PULSE 50–57; RESP 15–18; TEMP 36.4–36.9; O2SAT 94–98; BMI 24.9; BMI 22.1
[2020-04-08] MEDS: 0.9% Normal Saline 1,000 ML 100 ML IV ×3 (01:00→16:13)
[2020-04-08 05:47] LABS: Hematocrit 24.4 % (40-54); Hemoglobin 7.8 g/dL (13.0-16.5); Mean Corpuscular Volume 93.8 fL (80-94); Platelet Count 101 K/mm3 (150-450); RBC Distribution Width CV 14.8 % (11.6-14.6); RBC Distribution Width SD 50.4 fl (35.1-43.9); White Blood Count 5.8 K/mm3 (4.4-11.0)
[2020-04-08 06:15] LABS: Anion Gap 8 (5-15); BUN 101 mg/dL (7-18); BUN/Creat Ratio 21.6 RATIO (10-20); Calcium,Total 6.1 mg/dL (8.5-10.1); Chloride 116 mmol/L (98-107); Creatinine, Serum 4.68 mg/dL (0.70-1.30); EST Glomerular Filtration Rate 13 mL/min (>60); Est Glom Filt Rate - Afr Amer 15 mL/min (>60); Estimated Creatinine Clearance 9.07 ml/min; Glucose 90 mg/dL (74-106); Potassium 4.2 mmol/L (3.5-5.1); Sodium Level 141 mmol/L (136-145)
--- NOTE | 2020-04-08 06:42 | PCM.PN.PUL ---
Patient Problems: Active and Suspected Problems (Last Reviewed 04/05/20 @ 10:[address] Mynor Bolanos MD) BIRGIT (acute kidney injury) (Acute) Subjective: The patient was seen and examined at the bedside this morning. Events from the last 24 hours have been reviewed. The patient is currently afebrile, hemodynamically stable and maintaining appropriate oxygen saturations on room air. There are tentative plans for urology to take the patient to the OR later this afternoon for stent removal. Objective: The patient's most recent lab work, culture data and imaging studies have all been personally reviewed. Rapid coronavirus antigen testing was negative. Urine culture has shown no growth to date. - Physical Exam Vitals/I&O's: Vital Signs Temp Pulse Resp BP Pulse Ox 98.8 F 57 L 17 122/63 H 95 04/07/20 23:00 04/08/20 03:37 04/07/20 23:00 04/07/20 23:00 04/07/20 23:00 Oxygen Delivery Method Room Air Weight: 135 lb 8 oz Body Mass Index (BMI) 22.1 Finger Stick Blood Glucose 127 Intake and Output for Last 24 Hours 04/06/20 04/07/20 04/08/20 23:59 23:59 23:59 Intake Total 3480 / 3840 2435 / 2435 1000 / 1000 Output Total 625 / 925 1650 / 1700 200 / 200 Balance 2855 / 2915 785 / 735 800 / 800 General: Alert, No apparent distress HEENT: Atraumatic, Normocephalic Oral: No Gingival or Mucosal Lesions/ Ulcerations, - - Poor dentition Neck: Supple, No Nodes, Trachea Midline Lungs: No rhonchi, No wheeze, No rales, Diminished Cardiovascular: Regular rate, Regular Rhythm Abdomen: Bowel Sounds Present, Soft, Non Tender Extremities: No clubbing, No cyanosis, No edema Skin: - - No significant change from previous Musculoskeletal: No Tenderness to Palpation of Joints or Extremities Lymphatic: No Cervical, Supraclavicular, or Inguinal Adenopathy Neurological: Neuro grossly intact Psych/Mental Status: Normal Affect, Appropriate Labs (Last 48 Hours) 04/07/20 04/07/20 04/08/20 04:45 04:45 05:40 WBC 5.7 5.8 RBC 2.61 L 2.60 L Hgb 8.1 L 7.8 L Hct 26.9 L 24.4 L MCV 103.1 H D 93.8 D MCH 31.0 30.0 MCHC 30.1 L D 32.0 D RDW Std Deviation 57.1 H 50.4 H RDW Coeff of Cathy 15.2 H 14.8 H Plt Count 115 L 101 L MPV 10.7 11.0 Sodium 140 Potassium 4.3 Chloride 113 H Carbon Dioxide 19.0 L Anion Gap 8 BUN 113 H* Creatinine 5.25 H Estim Creat Clear Calc 8.09 Est GFR (MDRD) Af Amer 14 L Est GFR (MDRD) Non-Af 11 L BUN/Creatinine Ratio 21.5 H Glucose 91 Calcium 6.3 L* Magnesium 1.6 04/08/20 05:40 WBC RBC Hgb Hct MCV MCH MCHC RDW Std Deviation RDW Coeff of Cathy Plt Count MPV Sodium 141 Potassium 4.2 Chloride 116 H Carbon Dioxide 17.0 L Anion Gap 8 BUN 101 H* Creatinine 4.68 H Estim Creat Clear Calc 9.07 Est GFR (MDRD) Af Amer 15 L Est GFR (MDRD) Non-Af 13 L BUN/Creatinine Ratio 21.6 H Glucose 90 Calcium 6.1 L* Magnesium Microbiology 04/07/20 13:30 Fluid - Other Gram Stain - Final 04/05/20 08:55 Urine Catheter - [facility] Urine Culture - Final Culture exhibits no growth. Clinical Impression(s) from Imaging Studies Chest X-Ray 04/04/20 12:18 IMPRESSION: No active pulmonary disease. Electronically Signed: Garcia Heaton MD at 13:18 EST Tel , Service support , Abdomen/Pelvis CT 04/04/20 16:52 IMPRESSION: 1. Left worse than right hydronephrosis in spite of bilateral ureteral stents. Electronically Signed: Ozzie Curry MD ([place]) at 17:16 EST , Service support , Current Medications Heparin Sodium (Porcine) (Heparin Injection (Vial) 5,000 Unit/Ml Vial) 5,000 unit SC Q12 [facility] Last Admin: 04/04/20 21:34 Dose: 5,000 unit Documented by: Sodium Chloride () 250 mls @ 15 mls/hr IV .[id number] PRN PRN Reason: Saline Flush Sodium Chloride () 250 mls @ 15 mls/hr IV .[id number] PRN PRN Reason: Additional IVPB Infusion Sodium Chloride () 1,000 mls @ 100 mls/hr IV .Q10H [facility] Stop: 04/08/20 10:11 Last Admin: 04/08/20 01:00 Dose: 100 mls/hr Documented by: Nitroglycerin (Nitroglycerin (Inpatient Use) 0.4 Mg Tab.Subl) 0.4 mg SUBLINGUAL Q5M PRN PRN Reason: CARDIAC/CHEST PAIN Ondansetron HCl (Ondansetron 4 Mg/2 Ml Vial) 4 mg IV Q8H PRN PRN PRN Reason: NAUSEA/VOMITING Sodium Chloride (0.9% Saline Lock 10 Ml Syringe) 10 - 40 ml IV UD PRN PRN Reason: SALINE FLUSH Sodium Chloride (0.9% Saline Lock 10 Ml Syringe) 10 - 40 ml IV UD PRN PRN Reason: SALINE FLUSH Medical Necessity - Tobacco Use Smoking Status: Never smoker Assessment/Plan All Active Problems (Last Reviewed 04/05/20 @ 10:[address] Mynor Bolanos MD) BIRGIT (acute kidney injury) (Acute) BIRGIT (acute kidney injury) (Resolved) Acute kidney injury superimposed on chronic kidney disease (Resolved) RECOMMENDATIONS: 1. Continue to monitor H&H and transfuse if hemoglobin drops below 7 g/dL. 2. Additional management per nephrology and urology recommendations. 3. Start PPI twice daily. 4. Encourage incentive spirometer use and mobilize patient as tolerated. 5. If the patient remains clinically stable following OR today, he can be transferred out of the medical intensive care unit. IMPRESSIONS: 1. Acute on chronic kidney disease Likely multifactorial with prerenal and postobstructive etiologies contributing. The patient did have bilateral hydronephrosis noted on CT abdomen, for which urology is currently following. There are tentative plans for stent removal in the OR. The patient remains on supplemental IV fluid hydration, with slowly improving renal function noted. Will defer need for ongoing fluids to nephrology. 2. Anemia The patient did require transfusion of packed red blood cells. Recommend continuing to monitor H&H and transfuse if hemoglobin drops below 7 g/dL. I would also recommend starting the patient on twice daily PPI therapy. I do anticipate further hemodilution with ongoing supplemental IV fluid administration. 3. History of A. fib/advanced age/poor dentition Complicates care, management, recovery and prognosis. Currently in normal sinus rhythm. Physical therapy to evaluate the patient. This note was generated with [employer] dictation software. It may contain incorrect words, spelling, and punctuation that were not noted in checking the note before signing. Inpatient E&M: [id number] Subs Hosp L2
--- NOTE | 2020-04-08 07:30 | PCM.PN.HOSP ---
Patient Problems: Active and Suspected Problems (Last Reviewed 04/05/20 @ 10:[address] Mynor Bolanos MD) BIRGIT (acute kidney injury) (Acute) Reason for Visit: Acute kidney injury superimposed on chronic kidney disease Subjective: Patient is an 85-year-old gentleman admitted with weakness and diarrhea found to have acute kidney injury superimposed on chronic kidney disease with hyperkalemia admitted to the intensive care unit for further management 04/07/2020; patient seen had a relatively uneventful night. Slight improvement in kidney function. Hemoglobin appears to be stable. Blood pressure also appears to be relatively stable. 04/08/2020; patient kidney function continues to improve however rather slowly. Patient is scheduled to undergo bilateral stent removal with possible TURP Objective: GENERAL: cooperative HEENT: Atraumatic; EYES; Anicteric, Normal Conjunctiva NECK; supple, normal thyroid, RESPIRATORY: Diminished to auscultation CARDIOVASCULAR: Regular S1 S2, loud systolic murmur GI: soft, normoactive bowel sounds, : No Renal angle tenderness; EXTREMITIES: No edema, no clubbing, MUSCULOSKELETAL: no muscle waisting NEURO: Awake; no lateralizing signs. SKIN: No Rash PSYCH; Flat affect Vitals/I&O's: Vital Signs Temp Pulse Resp BP Pulse Ox 98.8 F 57 L 17 122/63 H 95 04/07/20 23:00 04/08/20 03:37 04/07/20 23:00 04/07/20 23:00 04/07/20 23:00 Oxygen Delivery Method Room Air Weight: 61.462 kg Body Mass Index (BMI) 22.1 Finger Stick Blood Glucose 127 Intake and Output for Last 24 Hours 04/06/20 04/07/20 04/08/20 23:59 23:59 23:59 Intake Total 3480 / 3840 2435 / 2435 1000 / 1000 Output Total 625 / 925 1650 / 1700 200 / 200 Balance 2855 / 2915 785 / 735 800 / 800 Microbiology Past 72 Hours 04/07/20 13:30 Fluid - Other Gram Stain - Final 04/05/20 08:55 Urine Catheter - Marlow Urine Culture - Final Culture exhibits no growth. Laboratory Results 04/08/20 05:40: WBC 5.8, RBC 2.60 L, Hgb 7.8 L, Hct 24.4 L, MCV 93.8 D, MCH 30.0, MCHC 32.0 D, RDW Std Deviation 50.4 H, RDW Coeff of Cathy 14.8 H, Plt Count 101 L, MPV 11.0 04/08/20 05:40: Sodium 141, Potassium 4.2, Chloride 116 H, Carbon Dioxide 17.0 L, Anion Gap 8, BUN 101 H*, Creatinine 4.68 H, Estim Creat Clear Calc 9.07, Est GFR (MDRD) Af Amer 15 L, Est GFR (MDRD) Non-Af 13 L, BUN/Creatinine Ratio 21.6 H, Glucose 90, Calcium 6.1 L* Current Medications Heparin Sodium (Porcine) (Heparin Injection (Vial) 5,000 Unit/Ml Vial) 5,000 unit SC Q12 [facility] Last Admin: 04/04/20 21:34 Dose: 5,000 unit Documented by: Sodium Chloride () 250 mls @ 15 mls/hr IV .[id number] PRN PRN Reason: Saline Flush Sodium Chloride () 250 mls @ 15 mls/hr IV .[id number] PRN PRN Reason: Additional IVPB Infusion Sodium Chloride () 1,000 mls @ 100 mls/hr IV .Q10H [facility] Stop: 04/08/20 10:11 Last Admin: 04/08/20 01:00 Dose: 100 mls/hr Documented by: Nitroglycerin (Nitroglycerin (Inpatient Use) 0.4 Mg Tab.Subl) 0.4 mg SUBLINGUAL Q5M PRN PRN Reason: CARDIAC/CHEST PAIN Ondansetron HCl (Ondansetron 4 Mg/2 Ml Vial) 4 mg IV Q8H PRN PRN PRN Reason: NAUSEA/VOMITING Sodium Chloride (0.9% Saline Lock 10 Ml Syringe) 10 - 40 ml IV UD PRN PRN Reason: SALINE FLUSH Sodium Chloride (0.9% Saline Lock 10 Ml Syringe) 10 - 40 ml IV UD PRN PRN Reason: SALINE FLUSH STROKE Vital Signs/Narrative: Vital Signs Pulse 04/08/20 03:37 57 L Medical Necessity - Tobacco Use Smoking Status: Never smoker Assessment/Plan All Active Problems (Last Reviewed 04/05/20 @ 10:[address] Mynor Bolanos MD) BIRGIT (acute kidney injury) (Acute) BIRGIT (acute kidney injury) (Resolved) Acute kidney injury superimposed on chronic kidney disease (Resolved) Patient is an 85-year-old gentleman admitted with weakness and diarrhea found to have acute kidney injury superimposed on chronic kidney disease with hyperkalemia admitted to the intensive care unit for further management 1. Acute kidney injury superimposed on chronic kidney disease stage III ?Secondary to obstructive uropathy CT of the abdomen obtained demonstrated prostatomegaly with bilateral hydronephrosis. Also placed to both nephrology as well as urology patient was seen in consultation by Dr Bolanos and his plan is for diagnostic cystoscopy and bilateral stent removal possible change stents ?04/07/2020; slight improvement in kidney function - 04/08/2020; patient kidney function continues to improve however rather slowly. Patient is scheduled to undergo bilateral stent removal with possible TURP 2. Hyperkalemia ?Secondary to above treated with Kayexalate 3. Non-anion gap metabolic acidosis ?Secondary to acute kidney injury patient was started on bicarb drip by nephrology 4. Anemia - Secondary to chronic disorder monitoring H&H patient was transfused once hemoglobin fell below 7 5. Essential hypertension ?Patient presented with hypotension antihypertensives on hold 6. GERD ?On PPI 7. Paroxysmal A. fib and PSVT ?Patient is on metoprolol held in view of low blood pressure 8. DVT prophylaxis ?SCDs Inpatient E&M: [id number] Subs Hosp L2
--- NOTE | 2020-04-08 12:04 | PCM.PN.BLA ---
Progress Note Plan to proceed with bilateral stent changes today and Marlow placement diagnostic cystoscopy STROKE Vital Signs/Narrative: Vital Signs Temp Pulse Resp BP Pulse Ox 04/08/20 11:36 98.0 F 52 L 17 117/71 96 04/08/20 11:00 53 L 04/08/20 08:18 98.5 F 56 L 15 140/61 H 95
--- NOTE | 2020-04-08 12:53 | OP.PCM_ITS ---
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 Placement of a left ureteral stent, placement of a right ureteral stent and balloon dilation of right ureter, placement Hamilton. Description of Surgical Findings:: The patient's urethra and genitals were prepped and draped in usual sterile fashion. I went into the bladder with a 21 Turkish rigid cystourethroscope. I grabbed the stent emanating from the Right ureteral orifice and then gently remove the stent from the bladder, very encrusted black stent. I then drained the patient's bladder. Using a 21 Turkish rigid cystourethroscope the entire length of the urethra was normal then went into the bladder. Identified the trigone the left and right ureteral orifice. I then cannulated the RIGHT orifice and advanced a wire up into the kidney. I then backloaded a 5 Turkish open ended catheter over the wire and injected contrast to delineate the anatomy. After the retrograde was performed I then used fluoroscopic images and guidance to advanced a wire up into the kidney and over the 0.038 glidewire I advanced a 6 Turkish by 26 cm double pigtail stent. I then pulled the 0.038 Glidewire off and the stent coiled in the kidney bladder good position. I went back into the bladder with a 21 Turkish rigid cystourethroscope. I grabbed the stent emanating from the LEFT ureteral orifice and then gently remove the stent from the bladder, very encrusted black stent. I then drained the patient bladder, I then Identified the trigone the left and right ureteral orifice. I then cannulated the right orifice and advanced a wire up into the kidney. I then backloaded a 5 Turkish open ended catheter over the wire and injected contrast to delineate the anatomy. I had to switch over to a Super S tiff wire because it was very difficult navigating the left ureteral orifice and left ureter I then balloon dilated the left ureter and then performed a retrograde pyelogram. After the retrograde was performed I then used fluoroscopic images and guidance to advanced a wire up into the kidney and over the 0.038 glidewire I advanced a 6 Turkish by 26 cm double pigtail stent. I then pulled the 0.038 Glidewire off and the stent coiled in the kidney bladder good position. Since the patient is a poor compliant patient I left strings and the stent and tied the strings to the Hamilton catheter and I put a 18 Turkish Hamilton catheter into the bladder. Plan will be to offer the patient surgery for transurethral resection of the prostate and removal of the stent at that point. The bladder was then drained. We confirmed the position of the stent by fluoroscopy. Patient anesthetic was reversed and was taken back to the PACU in good condition. Type of Anesthesia:: General Drains: hamilton, bilateral stents - Admit VTE Documentation VTE Present on Admission: No VTE Mechan Device Prophylaxis: SCD's
--- NOTE | 2020-04-08 13:31 | PN.RENAL_ITS ---
Patient Problems: Active and Suspected Problems (Last Reviewed 04/05/20 @ 10:[address] Mynor Bolanos MD) BIRGIT (acute kidney injury) (Acute) Subjective: Patient states he has better appetite feels hungry today no nausea vomiting shortness of breath no other complaints. - Physical Exam Vitals/I&O's: Vital Signs Temp Pulse Resp BP Pulse Ox 98.0 F 52 L 17 117/71 96 04/08/20 11:36 04/08/20 11:36 04/08/20 11:36 04/08/20 11:36 04/08/20 11:36 Oxygen Delivery Method Room Air Weight: 61.46 kg Body Mass Index (BMI) 24.9 Finger Stick Blood Glucose 127 Intake and Output for Last 24 Hours 04/06/20 04/07/20 04/08/20 23:59 23:59 23:59 Intake Total 3480 / 3840 2435 / 2435 2000.00 / 2000.00 Output Total 625 / 925 1650 / 1700 800 / 800 Balance 2855 / 2915 785 / 735 1200.00 / 1200.00 General: Alert, Cooperative HEENT: Atraumatic, Normocephalic Neck: Supple, Trachea Midline Lungs: Clear to auscultation, Normal air movement Cardiovascular: Normal S1, Normal S2 Abdomen: Bowel Sounds Present, Soft Extremities: No edema Microbiology Past 72 Hours 04/07/20 13:30 Fluid - Other Gram Stain - Final 04/05/20 08:55 Urine Catheter - Marlow Urine Culture - Final Culture exhibits no growth. Laboratory Results 04/08/20 05:40: WBC 5.8, RBC 2.60 L, Hgb 7.8 L, Hct 24.4 L, MCV 93.8 D, MCH 30.0, MCHC 32.0 D, RDW Std Deviation 50.4 H, RDW Coeff of Cathy 14.8 H, Plt Count 101 L, MPV 11.0 04/08/20 05:40: Sodium 141, Potassium 4.2, Chloride 116 H, Carbon Dioxide 17.0 L , Anion Gap 8, BUN 101 H*, Creatinine 4.68 H, Estim Creat Clear Calc 9.07, Est GFR (MDRD) Af Amer 15 L, Est GFR (MDRD) Non-Af 13 L, BUN/Creatinine Ratio 21.6 H , Glucose 90, Calcium 6.1 L* Current Medications Heparin Sodium (Porcine) (Heparin Injection (Vial) 5,000 Unit/Ml Vial) 5,000 unit SC Q12 [facility] Last Admin: 04/04/20 21:34 Dose: 5,000 unit Documented by: Sodium Chloride () 250 mls @ 15 mls/hr IV .[id number] PRN PRN Reason: Saline Flush Sodium Chloride () 250 mls @ 15 mls/hr IV .[id number] PRN PRN Reason: Additional IVPB Infusion Nitroglycerin (Nitroglycerin (Inpatient Use) 0.4 Mg Tab.Subl) 0.4 mg SUBLINGUAL Q5M PRN PRN Reason: CARDIAC/CHEST PAIN Ondansetron HCl (Ondansetron 4 Mg/2 Ml Vial) 4 mg IV Q8H PRN PRN PRN Reason: NAUSEA/VOMITING Sodium Chloride (0.9% Saline Lock 10 Ml Syringe) 10 - 40 ml IV UD PRN PRN Reason: SALINE FLUSH Sodium Chloride (0.9% Saline Lock 10 Ml Syringe) 10 - 40 ml IV UD PRN PRN Reason: SALINE FLUSH Medical Necessity - Tobacco Use Smoking Status: Never smoker Assessment/Plan All Active Problems (Last Reviewed 04/05/20 @ 10:[address] Mynor Bolanos MD) BIRGIT (acute kidney injury) (Acute) BIRGIT (acute kidney injury) (Resolved) Acute kidney injury superimposed on chronic kidney disease (Resolved) BIRGIT Metabolic acidosis Bilateral hydronephrosis Removal of stents placed 3 years ago,. Placement of a left ureteral stent, placement of a right ureteral stent and balloon dilation of right ureter, placement Marlow on 04/08 BPH Renal function is improving continue for now fluids Start p.o. bicarb following the patient Serum creatinine is 4.68 improving Avoid nephrotoxins
[2020-04-08] MEDS: Sodium Bicarbonate 650 MG Tablet 1300 MG PO ×2 (16:14→23:03)
[2020-04-08] MEDS: 0.9% Saline Lock 10 ML Syringe IV (16:14)
--- NOTE | 2020-04-08 19:27 | PCS.PANDOC ---
PANDEMIC DOCUMENTATION INITIATED: Date: 04/08/2020 Time: 1929
[2020-04-09] VITALS (12 sets, daily range): BP systolic 100–110; BP diastolic 48–62; PULSE 52–75; RESP 16–18; TEMP 36.7–37.2; O2SAT 93–97; BMI 22.1
[2020-04-09] MEDS: 0.9% Normal Saline 1,000 ML 100 ML IV ×4 (00:53→23:32)
[2020-04-09 06:33] LABS: Hemoglobin 8.4 g/dL (13.0-16.5); Mean Corp Hgb Conc 32.3 g/dL (32-36); Mean Corpuscular Hgb 30.7 pg (27.0-32.0); Mean Corpuscular Volume 94.9 fL (80-94); Mean Platelet Vol. 11.4 fl (6.2-12.0); Platelet Count 130 K/mm3 (150-450); RBC Distribution Width CV 14.6 % (11.6-14.6); RBC Distribution Width SD 50.4 fl (35.1-43.9); Red Blood Count 2.74 M/mm3 (4.6-6.2); White Blood Count 6.2 K/mm3 (4.4-11.0)
[2020-04-09 07:06] LABS: Anion Gap 6 (5-15); BUN 100 mg/dL (7-18); BUN/Creat Ratio 21.2 RATIO (10-20); Calcium,Total 6.7 mg/dL (8.5-10.1); Chloride 119 mmol/L (98-107); Creatinine, Serum 4.71 mg/dL (0.70-1.30); EST Glomerular Filtration Rate 13 mL/min (>60); Est Glom Filt Rate - Afr Amer 15 mL/min (>60); Estimated Creatinine Clearance 8.64 ml/min; Glucose 82 mg/dL (74-106); Sodium Level 144 mmol/L (136-145)
[2020-04-09] MEDS: Sodium Bicarbonate 650 MG Tablet 1300 MG PO ×4 (08:31→20:58)
--- NOTE | 2020-04-09 09:53 | PN_ITS ---
Patient Problems: Active and Suspected Problems (Last Reviewed 04/05/20 @ 10:[address] Mynor Bolanos MD) BIRGIT (acute kidney injury) (Acute) Reason for Visit: Acute kidney injury superimposed on chronic kidney disease Subjective: Patient is an 85-year-old gentleman admitted with weakness and diarrhea found to have acute kidney injury superimposed on chronic kidney disease with hyperkalemia admitted to the intensive care unit for further management 04/09/2019. Patient underwent Removal of stents placed 3 years ago,. Placement of a left ureteral stent, placement of a right ureteral stent and balloon dilation of right ureter, placement Marlow. Blood cultures which have been obtained previously came back positive for gram-negative rods. Patient started on Rocephin Objective: GENERAL: cooperative HEENT: Atraumatic; EYES; Anicteric, Normal Conjunctiva NECK; supple, normal thyroid, RESPIRATORY: Diminished to auscultation CARDIOVASCULAR: Regular S1 S2, loud systolic murmur GI: soft, normoactive bowel sounds, : No Renal angle tenderness; EXTREMITIES: No edema, no clubbing, MUSCULOSKELETAL: no muscle waisting NEURO: Awake; no lateralizing signs. SKIN: No Rash PSYCH; Flat affect Vitals/I&O's: Vital Signs Temp Pulse Resp BP Pulse Ox 98.4 F 53 L 18 103/48 L 94 04/09/20 07:00 04/09/20 08:00 04/09/20 07:00 04/09/20 07:00 04/09/20 07:00 Oxygen Delivery Method Room Air Weight: 65 kg Body Mass Index (BMI) 24.9 Finger Stick Blood Glucose 127 Intake and Output for Last 24 Hours 04/07/20 04/08/20 04/09/20 23:59 23:59 23:59 Intake Total 2435 / 2435 2673.33 / 2673.33 1166.67 / 1166.67 Output Total 1650 / 1700 1300 / 1300 900 / 900 Balance 785 / 735 1373.33 / 1373.33 266.67 / 266.67 Microbiology Past 72 Hours 04/07/20 13:30 Fluid - Other Gram Stain - Final 04/07/20 13:30 Fluid - Other Body Fluid Culture - Preliminary Gram negative omi 04/05/20 08:55 Urine Catheter - Marlow Urine Culture - Final Culture exhibits no growth. Laboratory Results 04/09/20 05:45: WBC 6.2, RBC 2.74 L, Hgb 8.4 L, Hct 26.0 L, MCV 94.9 H, MCH 30.7, MCHC 32.3, RDW Std Deviation 50.4 H, RDW Coeff of Cathy 14.6, Plt Count 130 L, MPV 11.4 04/09/20 05:45: Sodium 144, Potassium 5.0, Chloride 119 H, Carbon Dioxide 19.0 L , Anion Gap 6, BUN 100 H, Creatinine 4.71 H, Estim Creat Clear Calc 8.64, Est GFR (MDRD) Af Amer 15 L, Est GFR (MDRD) Non-Af 13 L, BUN/Creatinine Ratio 21.2 H , Glucose 82, Calcium 6.7 L Current Medications Sodium Chloride () 250 mls @ 15 mls/hr IV .[id number] PRN PRN Reason: Saline Flush Sodium Chloride () 250 mls @ 15 mls/hr IV .[id number] PRN PRN Reason: Additional IVPB Infusion Nitroglycerin (Nitroglycerin (Inpatient Use) 0.4 Mg Tab.Subl) 0.4 mg SUBLINGUAL Q5M PRN PRN Reason: CARDIAC/CHEST PAIN Ondansetron HCl (Ondansetron 4 Mg/2 Ml Vial) 4 mg IV Q8H PRN PRN PRN Reason: NAUSEA/VOMITING Sodium Bicarbonate (Sodium Bicarbonate 650 Mg Tablet) 1,300 mg PO 4X/DAY [facility] Last Admin: 04/09/20 08:31 Dose: 1,300 mg Documented by: Sodium Chloride (0.9% Saline Lock 10 Ml Syringe) 10 - 40 ml IV UD PRN PRN Reason: SALINE FLUSH Last Admin: 04/08/20 16:14 Dose: 10 ml Documented by: Sodium Chloride (0.9% Saline Lock 10 Ml Syringe) 10 - 40 ml IV UD PRN PRN Reason: SALINE FLUSH STROKE Vital Signs/Narrative: Vital Signs Temp Pulse Resp BP Pulse Ox 04/09/20 08:00 53 L 04/09/20 07:00 98.4 F 53 L 18 103/48 L 94 Medical Necessity - Tobacco Use Smoking Status: Never smoker Assessment/Plan All Active Problems (Last Reviewed 04/05/20 @ 10:[address] Mynor Bolanos MD) BIRGIT (acute kidney injury) (Acute) BIRGIT (acute kidney injury) (Resolved) Acute kidney injury superimposed on chronic kidney disease (Resolved) Patient is an 85-year-old gentleman admitted with weakness and diarrhea found to have acute kidney injury superimposed on chronic kidney disease with hyperkalemia admitted to the intensive care unit for further management 1. Acute kidney injury superimposed on chronic kidney disease stage III ?Secondary to obstructive uropathy CT of the abdomen obtained demonstrated prostatomegaly with bilateral hydronephrosis. Also placed to both nephrology as well as urology patient was seen in consultation by Dr Bolanos and his plan is for diagnostic cystoscopy and bilateral stent removal possible change stents ?04/07/2020; slight improvement in kidney function - 04/08/2020; patient kidney function continues to improve however rather slowly. Patient is scheduled to undergo bilateral stent removal with possible TURP - 04/09/2019. Patient underwent Removal of stents placed 3 years ago,. Placement of a left ureteral stent, placement of a right ureteral stent and balloon dilation of right ureter, placement Marlow. Blood cultures which have been obtained previously came back positive for gram-negative rods. Patient started on Rocephin 2. Acute cystitis ?Patient started on Rocephin. Patient has gram-negative omi bacteremia awaiting final identification and sensitivity 3. Hyperkalemia ?Secondary to above treated with Kayexalate -04/09/20; resolved 4. Non-anion gap metabolic acidosis ?Secondary to acute kidney injury patient was started on bicarb drip by nephrology 5. Anemia - Secondary to chronic disorder monitoring H&H patient was transfused once hemoglobin fell below 7 6. Essential hypertension ?Patient presented with hypotension antihypertensives on hold 7. GERD ?On PPI 8. Paroxysmal A. fib and PSVT ?Patient is on metoprolol held in view of low blood pressure 9. DVT prophylaxis ?SCDs 10. Physical deconditioning - Requested for PT OT eval and social and human services assistant to assist with discharge planning Inpatient E&M: [id number] Subs Hosp L2
[2020-04-09] MEDS: Ceftriaxone 1 GM/50 mL Premix Q24 IV (11:03)
--- NOTE | 2020-04-09 15:03 | PN.RENAL_ITS ---
Patient Problems: Active and Suspected Problems (Last Reviewed 04/05/20 @ 10:[address] Mynor Bolanos MD) BIRGIT (acute kidney injury) (Acute) Subjective: no cp/sob/n/v/ no c/o - Physical Exam Vitals/I&O's: Vital Signs Temp Pulse Resp BP Pulse Ox 98.8 F 56 L 18 108/58 L 96 04/09/20 13:00 04/09/20 13:00 04/09/20 13:00 04/09/20 13:00 04/09/20 13:00 Oxygen Delivery Method Room Air Weight: 65 kg Body Mass Index (BMI) 24.9 Finger Stick Blood Glucose 127 Intake and Output for Last 24 Hours 04/07/20 04/08/20 04/09/20 23:59 23:59 23:59 Intake Total 2435 / 2435 2673.33 / 2673.33 2586.67 / 2586.67 Output Total 1650 / 1700 1300 / 1300 1250 / 1250 Balance 785 / 735 1373.33 / 1373.33 1336.67 / 1336.67 General: Alert, Cooperative HEENT: Atraumatic, Normocephalic Neck: Supple, Trachea Midline Lungs: Clear to auscultation Cardiovascular: Normal S1, Normal S2 Abdomen: Bowel Sounds Present, Soft, Non Tender Microbiology Past 72 Hours 04/07/20 13:30 Fluid - Other Gram Stain - Final 04/07/20 13:30 Fluid - Other Body Fluid Culture - Preliminary Gram negative omi 04/05/20 08:55 Urine Catheter - Marlow Urine Culture - Final Culture exhibits no growth. Laboratory Results 04/09/20 05:45: WBC 6.2, RBC 2.74 L, Hgb 8.4 L, Hct 26.0 L, MCV 94.9 H, MCH 30.7, MCHC 32.3, RDW Std Deviation 50.4 H, RDW Coeff of Cathy 14.6, Plt Count 130 L, MPV 11.4 04/09/20 05:45: Sodium 144, Potassium 5.0, Chloride 119 H, Carbon Dioxide 19.0 L , Anion Gap 6, BUN 100 H, Creatinine 4.71 H, Estim Creat Clear Calc 8.64, Est GFR (MDRD) Af Amer 15 L, Est GFR (MDRD) Non-Af 13 L, BUN/Creatinine Ratio 21.2 H , Glucose 82, Calcium 6.7 L Current Medications Sodium Chloride () 250 mls @ 15 mls/hr IV .[id number] PRN PRN Reason: Saline Flush Sodium Chloride () 250 mls @ 15 mls/hr IV .[id number] PRN PRN Reason: Additional IVPB Infusion Ceftriaxone Sodium (Rocephin) 1 gm in 50 mls @ 100 mls/hr IV Q24 [facility] Last Infusion: 04/09/20 12:09 Dose: Infused Documented by: Nitroglycerin (Nitroglycerin (Inpatient Use) 0.4 Mg Tab.Subl) 0.4 mg SUBLINGUAL Q5M PRN PRN Reason: CARDIAC/CHEST PAIN Ondansetron HCl (Ondansetron 4 Mg/2 Ml Vial) 4 mg IV Q8H PRN PRN PRN Reason: NAUSEA/VOMITING Sodium Bicarbonate (Sodium Bicarbonate 650 Mg Tablet) 1,300 mg PO 4X/DAY [facility] Last Admin: 04/09/20 08:31 Dose: 1,300 mg Documented by: Sodium Chloride (0.9% Saline Lock 10 Ml Syringe) 10 - 40 ml IV UD PRN PRN Reason: SALINE FLUSH Last Admin: 04/08/20 16:14 Dose: 10 ml Documented by: Sodium Chloride (0.9% Saline Lock 10 Ml Syringe) 10 - 40 ml IV UD PRN PRN Reason: SALINE FLUSH Medical Necessity - Tobacco Use Smoking Status: Never smoker Assessment/Plan All Active Problems (Last Reviewed 04/05/20 @ 10:[address] Mynor Bolanos MD) BIRGIT (acute kidney injury) (Acute) BIRGIT (acute kidney injury) (Resolved) Acute kidney injury superimposed on chronic kidney disease (Resolved) BIRGIT Metabolic acidosis Bilateral hydronephrosis Removal of stents placed 3 years ago,. Placement of a left ureteral stent, placement of a right ureteral stent and balloon dilation of right ureter, placement Marlow on 04/08 BPH continue for now fluids on p.o. bicarb following the patient still gross hematuria in Marlow Serum creatinine is 4.7 stable Avoid nephrotoxins
[2020-04-10] VITALS (9 sets, daily range): BP systolic 104–122; BP diastolic 52–64; PULSE 48–54; RESP 14–17; TEMP 36.6–36.7; O2SAT 94–97
[2020-04-10 05:59] LABS: Hematocrit 24.5 % (40-54); Hemoglobin 7.7 g/dL (13.0-16.5); Mean Corp Hgb Conc 31.4 g/dL (32-36); Mean Corpuscular Hgb 30.1 pg (27.0-32.0); Mean Corpuscular Volume 95.7 fL (80-94); Mean Platelet Vol. 11.1 fl (6.2-12.0); Platelet Count 123 K/mm3 (150-450); RBC Distribution Width CV 14.5 % (11.6-14.6); RBC Distribution Width SD 50.5 fl (35.1-43.9); Red Blood Count 2.56 M/mm3 (4.6-6.2); White Blood Count 5.9 K/mm3 (4.4-11.0)
[2020-04-10 06:35] LABS: Anion Gap 6 (5-15); BUN 93 mg/dL (7-18); Calcium,Total 6.6 mg/dL (8.5-10.1); Chloride 119 mmol/L (98-107); Glucose 83 mg/dL (74-106); Potassium 4.6 mmol/L (3.5-5.1); Sodium Level 145 mmol/L (136-145)
--- NOTE | 2020-04-10 08:49 | PN_ITS ---
Patient Problems: Active and Suspected Problems (Last Reviewed 04/05/20 @ 10:[address] Mynor Bolanos MD) BIRGIT (acute kidney injury) (Acute) Reason for Visit: Acute kidney injury superimposed on chronic kidney disease Subjective: Patient is an 85-year-old gentleman admitted with weakness and diarrhea found to have acute kidney injury superimposed on chronic kidney disease with hyperkalemia admitted to the intensive care unit for further management 04/09/2020. Patient underwent Removal of stents placed 3 years ago,. Placement of a left ureteral stent, placement of a right ureteral stent and balloon dilation of right ureter, placement Malrow. Blood cultures which have been obtained previously came back positive for gram-negative rods. Patient started on Rocephin 04/10/2020; patient seen indwelling Marlow catheter remains in place with hematuria. Cultures obtained following patient's procedure growing gram- negative rods final identification and sensitivities pending Objective: GENERAL: cooperative HEENT: Atraumatic; EYES; Anicteric, Normal Conjunctiva NECK; supple, normal thyroid, RESPIRATORY: Diminished to auscultation CARDIOVASCULAR: Regular S1 S2, loud systolic murmur GI: soft, normoactive bowel sounds, : No Renal angle tenderness; EXTREMITIES: No edema, no clubbing, MUSCULOSKELETAL: no muscle waisting NEURO: Awake; no lateralizing signs. SKIN: No Rash PSYCH; Flat affect Vitals/I&O's: Vital Signs Temp Pulse Resp BP Pulse Ox 97.9 F 50 L 17 106/63 94 04/10/20 03:20 04/10/20 07:00 04/10/20 03:20 04/10/20 03:20 04/10/20 03:20 Oxygen Delivery Method Room Air Weight: 63.594 kg Body Mass Index (BMI) 24.9 Finger Stick Blood Glucose 127 Intake and Output for Last 24 Hours 04/08/20 04/09/20 04/10/20 23:59 23:59 23:59 Intake Total 2673.33 / 2673.33 3523.34 / 3523.34 Output Total 1300 / 1300 1850 / 2300 1550 / 1550 Balance 1373.33 / 1373.33 1673.34 / 1223.34 -1550 / -1550 Microbiology Past 72 Hours 04/07/20 13:30 Fluid - Other Gram Stain - Final 04/07/20 13:30 Fluid - Other Body Fluid Culture - Preliminary Gram negative omi 04/05/20 08:55 Urine Catheter - Marlow Urine Culture - Final Culture exhibits no growth. Laboratory Results 04/10/20 05:04: WBC 5.9, RBC 2.56 L, Hgb 7.7 L, Hct 24.5 L, MCV 95.7 H, MCH 30.1, MCHC 31.4 L, RDW Std Deviation 50.5 H, RDW Coeff of Cathy 14.5, Plt Count 123 L, MPV 11.1 04/10/20 05:04: Sodium 145, Potassium 4.6, Chloride 119 H, Carbon Dioxide 20.0 L , Anion Gap 6, BUN 93 H, Creatinine 3.90 H, Estim Creat Clear Calc 10.43, Est GFR (MDRD) Af Amer 19 L, Est GFR (MDRD) Non-Af 16 L, BUN/Creatinine Ratio 23.8 H , Glucose 83, Calcium 6.6 L Current Medications Sodium Chloride () 250 mls @ 15 mls/hr IV .[id number] PRN PRN Reason: Saline Flush Sodium Chloride () 250 mls @ 15 mls/hr IV .[id number] PRN PRN Reason: Additional IVPB Infusion Ceftriaxone Sodium (Rocephin) 1 gm in 50 mls @ 100 mls/hr IV Q24 [facility] Last Infusion: 04/09/20 12:09 Dose: Infused Documented by: Sodium Chloride () 1,000 mls @ 100 mls/hr IV .Q10H [facility] Stop: 04/11/20 07:06 Last Admin: 04/09/20 23:32 Dose: 100 mls/hr Documented by: Nitroglycerin (Nitroglycerin (Inpatient Use) 0.4 Mg Tab.Subl) 0.4 mg SUBLINGUAL Q5M PRN PRN Reason: CARDIAC/CHEST PAIN Ondansetron HCl (Ondansetron 4 Mg/2 Ml Vial) 4 mg IV Q8H PRN PRN PRN Reason: NAUSEA/VOMITING Sodium Bicarbonate (Sodium Bicarbonate 650 Mg Tablet) 1,300 mg PO 4X/DAY [facility] Last Admin: 04/09/20 20:58 Dose: 1,300 mg Documented by: Sodium Chloride (0.9% Saline Lock 10 Ml Syringe) 10 - 40 ml IV UD PRN PRN Reason: SALINE FLUSH Last Admin: 04/08/20 16:14 Dose: 10 ml Documented by: Sodium Chloride (0.9% Saline Lock 10 Ml Syringe) 10 - 40 ml IV UD PRN PRN Reason: SALINE FLUSH STROKE Vital Signs/Narrative: Vital Signs Pulse 04/10/20 07:00 50 L Medical Necessity - Tobacco Use Smoking Status: Never smoker Assessment/Plan All Active Problems (Last Reviewed 04/05/20 @ 10:[address] Mynor Bolanos MD) BIRGIT (acute kidney injury) (Acute) BIRGIT (acute kidney injury) (Resolved) Acute kidney injury superimposed on chronic kidney disease (Resolved) Patient is an 85-year-old gentleman admitted with weakness and diarrhea found to have acute kidney injury superimposed on chronic kidney disease with hyperkalemia admitted to the intensive care unit for further management 1. Acute kidney injury superimposed on chronic kidney disease stage III ?Secondary to obstructive uropathy CT of the abdomen obtained demonstrated prostatomegaly with bilateral hydronephrosis. Also placed to both nephrology as well as urology patient was seen in consultation by Dr Bolanos and his plan is for diagnostic cystoscopy and bilateral stent removal possible change stents ?04/07/2020; slight improvement in kidney function - 04/08/2020; patient kidney function continues to improve however rather slowly. Patient is scheduled to undergo bilateral stent removal with possible TURP - 04/09/2020. Patient underwent Removal of stents placed 3 years ago,. Placement of a left ureteral stent, placement of a right ureteral stent and balloon dilation of right ureter, placement Marlow. Cultures which have been obtained previously came back positive for gram-negative rods. Patient started on Rocephin - 04/10/2020; patient seen indwelling Marlow catheter remains in place with hematuria. Cultures obtained following patient's procedure growing gram- negative rods final identification and sensitivities pending 2. Acute cystitis ?Cultures which have been obtained previously came back positive for gram- negative rods. Patient started on Rocephin 3. Hyperkalemia ?Secondary to above treated with Kayexalate -04/09/20; resolved 4. Non-anion gap metabolic acidosis ?Secondary to acute kidney injury patient was started on bicarb drip by nephrology 5. Anemia - Secondary to chronic disorder monitoring H&H patient was transfused once hemoglobin fell below 7 6. Essential hypertension ?Patient presented with hypotension antihypertensives on hold 7. GERD ?On PPI 8. Paroxysmal A. fib and PSVT ?Patient is on metoprolol held in view of low blood pressure 9. DVT prophylaxis ?SCDs 10. Physical deconditioning - Requested for PT OT eval and sexual assault social worker to assist with discharge planning Inpatient E&M: [id number] Subs Hosp L2
[2020-04-10] MEDS: Sodium Bicarbonate 650 MG Tablet 1300 MG PO ×4 (09:15→22:00)
[2020-04-10] MEDS: Ceftriaxone 1 GM/50 mL Premix Q24 IV (09:16)
[2020-04-10] MEDS: 0.9% Normal Saline 1,000 ML 100 ML IV ×2 (09:16→18:47)
--- NOTE | 2020-04-10 14:25 | PN.RENAL_ITS ---
Patient Problems: Active and Suspected Problems (Last Reviewed 04/05/20 @ 10:[address] Mynor Bolanos MD) BIRGIT (acute kidney injury) (Acute) Subjective: no sob/cpn/v/ - Physical Exam Vitals/I&O's: Vital Signs Temp Pulse Resp BP Pulse Ox 98.1 F 52 L 14 122/61 H 94 04/10/20 09:08 04/10/20 09:08 04/10/20 09:08 04/10/20 09:08 04/10/20 09:08 Oxygen Delivery Method Room Air Weight: 63.594 kg Body Mass Index (BMI) 24.9 Finger Stick Blood Glucose 127 Intake and Output for Last 24 Hours 04/08/20 04/09/20 04/10/20 23:59 23:59 23:59 Intake Total 2673.33 / 2673.33 3523.34 / 3523.34 1028.33 / 1028.33 Output Total 1300 / 1300 1850 / 2300 2150 / 2150 Balance 1373.33 / 1373.33 1673.34 / 1223.34 -1121.67 / -1121.67 General: Alert, Cooperative HEENT: Atraumatic, Normocephalic Neck: Supple, Trachea Midline Lungs: Clear to auscultation, Normal air movement Cardiovascular: Normal S1, Normal S2 Abdomen: Bowel Sounds Present, Soft Extremities: No edema Microbiology Past 72 Hours 04/07/20 13:30 Fluid - Other Gram Stain - Final 04/07/20 13:30 Fluid - Other Body Fluid Culture - Preliminary No growth-Final to follow 04/07/20 13:30 Fluid - Other Anaerobic Culture - Preliminary No growth in 48 hours. Laboratory Results 04/10/20 05:04: WBC 5.9, RBC 2.56 L, Hgb 7.7 L, Hct 24.5 L, MCV 95.7 H, MCH 30.1, MCHC 31.4 L, RDW Std Deviation 50.5 H, RDW Coeff of Cathy 14.5, Plt Count 123 L, MPV 11.1 04/10/20 05:04: Sodium 145, Potassium 4.6, Chloride 119 H, Carbon Dioxide 20.0 L , Anion Gap 6, BUN 93 H, Creatinine 3.90 H, Estim Creat Clear Calc 10.43, Est GFR (MDRD) Af Amer 19 L, Est GFR (MDRD) Non-Af 16 L, BUN/Creatinine Ratio 23.8 H , Glucose 83, Calcium 6.6 L Current Medications Sodium Chloride () 250 mls @ 15 mls/hr IV .[id number] PRN PRN Reason: Saline Flush Sodium Chloride () 250 mls @ 15 mls/hr IV .[id number] PRN PRN Reason: Additional IVPB Infusion Ceftriaxone Sodium (Rocephin) 1 gm in 50 mls @ 100 mls/hr IV Q24 [facility]S [facility]CLUDE 234 BEDS AT THE [facility] Last Infusion: 04/10/20 10:11 Dose: Infused Documented by: Sodium Chloride () 1,000 mls @ 100 mls/hr IV .Q10H COUNTS INCLUDE 234 BEDS AT THE [facility] Stop: 04/11/20 07:06 Last Infusion: 04/10/20 10:12 Dose: 100 mls/hr Documented by: Nitroglycerin (Nitroglycerin (Inpatient Use) 0.4 Mg Tab.Subl) 0.4 mg SUBLINGUAL Q5M PRN PRN Reason: CARDIAC/CHEST PAIN Ondansetron HCl (Ondansetron 4 Mg/2 Ml Vial) 4 mg IV Q8H PRN PRN PRN Reason: NAUSEA/VOMITING Sodium Bicarbonate (Sodium Bicarbonate 650 Mg Tablet) 1,300 mg PO 4X/DAY COUNTS INCLUDE 234 BEDS AT THE [facility] Last Admin: 04/10/20 09:15 Dose: 1,300 mg Documented by: Sodium Chloride (0.9% Saline Lock 10 Ml Syringe) 10 - 40 ml IV UD PRN PRN Reason: SALINE FLUSH Last Admin: 04/08/20 16:14 Dose: 10 ml Documented by: Sodium Chloride (0.9% Saline Lock 10 Ml Syringe) 10 - 40 ml IV UD PRN PRN Reason: SALINE FLUSH Medical Necessity - Tobacco Use Smoking Status: Never smoker Assessment/Plan All Active Problems (Last Reviewed 04/05/20 @ 10:[address] Mynor Bolanos MD) BIRGIT (acute kidney injury) (Acute) BIRGIT (acute kidney injury) (Resolved) Acute kidney injury superimposed on chronic kidney disease (Resolved) BIRGIT-obstructive uropathy Metabolic acidosis Bilateral hydronephrosis Removal of stents placed 3 years ago,. Placement of a left ureteral stent, placement of a right ureteral stent and balloon dilation of right ureter, placement Marlow on 04/08 BPH continue for now fluids on p.o. bicarb following the patient Serum creatinine is 3.9 from 4.7 better Avoid nephrotoxins
[2020-04-10 15:31] LABS: BUN/Creat Ratio 152.5 RATIO (10-20); Creatinine, Serum 0.61 mg/dL (0.70-1.30); EST Glomerular Filtration Rate 134 mL/min (>60); Est Glom Filt Rate - Afr Amer 162 mL/min (>60); Estimated Creatinine Clearance 40.68 ml/min
[2020-04-11] VITALS (8 sets, daily range): BP systolic 102–109; BP diastolic 50–62; PULSE 44–52; RESP 14–17; TEMP 36.6–37; O2SAT 95
[2020-04-11] MEDS: 0.9% Normal Saline 1,000 ML 100 ML IV (05:53)
[2020-04-11 07:31] LABS: Hematocrit 24.8 % (40-54); Hemoglobin 7.7 g/dL (13.0-16.5); Mean Corpuscular Volume 96.5 fL (80-94); Mean Platelet Vol. 11.2 fl (6.2-12.0); Platelet Count 138 K/mm3 (150-450); RBC Distribution Width CV 14.6 % (11.6-14.6); RBC Distribution Width SD 50.9 fl (35.1-43.9); Red Blood Count 2.57 M/mm3 (4.6-6.2); White Blood Count 6.3 K/mm3 (4.4-11.0)
[2020-04-11 07:48] LABS: Anion Gap 6 (5-15); BUN 85 mg/dL (7-18); BUN/Creat Ratio 24.2 RATIO (10-20); Calcium,Total 6.8 mg/dL (8.5-10.1); Chloride 124 mmol/L (98-107); Creatinine, Serum 3.51 mg/dL (0.70-1.30); EST Glomerular Filtration Rate 18 mL/min (>60); Est Glom Filt Rate - Afr Amer 22 mL/min (>60); Estimated Creatinine Clearance 11.59 ml/min; Glucose 77 mg/dL (74-106); Potassium 4.7 mmol/L (3.5-5.1); Sodium Level 149 mmol/L (136-145)
--- NOTE | 2020-04-11 08:05 | PN_ITS ---
Patient Problems: Active and Suspected Problems (Last Reviewed 04/05/20 @ 10:[address] Mynor Bolanos MD) BIRGIT (acute kidney injury) (Acute) Reason for Visit: Acute kidney injury superimposed on chronic kidney disease Subjective: Patient is an 85-year-old gentleman admitted with weakness and diarrhea found to have acute kidney injury superimposed on chronic kidney disease with hyperkalemia admitted to the intensive care unit for further management 04/09/2020. Patient underwent Removal of stents placed 3 years ago,. Placement of a left ureteral stent, placement of a right ureteral stent and balloon dilation of right ureter, placement Marlow. Blood cultures which have been obtained previously came back positive for gram-negative rods. Patient started on Rocephin 04/10/2020; patient seen indwelling Marlow catheter remains in place with hematuria. Cultures obtained following patient's procedure growing gram- negative rods final identification and sensitivities pending 04/11/2020; patient was started on D5W as a result of hypernatremia. Kidney function continues to improve patient final urine cultures as well as cultures from his procedure was reported as no growth (had earlier on been reported for positive for gram-negative rods). Patient had been started on Rocephin discontinued Objective: GENERAL: cooperative HEENT: Atraumatic; EYES; Anicteric, Normal Conjunctiva NECK; supple, normal thyroid, RESPIRATORY: Diminished to auscultation CARDIOVASCULAR: Regular S1 S2, loud systolic murmur GI: soft, normoactive bowel sounds, : No Renal angle tenderness; EXTREMITIES: No edema, no clubbing, MUSCULOSKELETAL: no muscle waisting NEURO: Awake; no lateralizing signs. SKIN: No Rash PSYCH; Flat affect Vitals/I&O's: Vital Signs Temp Pulse Resp BP Pulse Ox 97.9 F 44 L 17 108/62 95 04/11/20 03:10 04/11/20 07:00 04/11/20 03:10 04/11/20 03:10 04/11/20 03:10 Oxygen Delivery Method Room Air Weight: 64.592 kg Body Mass Index (BMI) 24.9 Finger Stick Blood Glucose 127 Intake and Output for Last 24 Hours 04/09/20 04/10/20 04/11/20 23:59 23:59 23:59 Intake Total 3523.34 / 3523.34 1886.66 / 1886.66 1000 / 1000 Output Total 1850 / 2300 2750 / 3250 700 / 700 Balance 1673.34 / 1223.34 -863.34 / -1363.34 300 / 300 Microbiology Past 72 Hours 04/07/20 13:30 Fluid - Other Gram Stain - Final 04/07/20 13:30 Fluid - Other Body Fluid Culture - Final No growth aerobically. 04/07/20 13:30 Fluid - Other Anaerobic Culture - Preliminary No growth in 48 hours. Laboratory Results 04/10/20 05:04: Creatinine 0.61 L, Estim Creat Clear Calc 40.68, Est GFR (MDRD) Af Amer 162, Est GFR (MDRD) Non-Af 134, BUN/Creatinine Ratio 152.5 H 04/11/20 05:05: WBC 6.3, RBC 2.57 L, Hgb 7.7 L, Hct 24.8 L, MCV 96.5 H, MCH 30.0, MCHC 31.0 L, RDW Std Deviation 50.9 H, RDW Coeff of Cathy 14.6, Plt Count 138 L, MPV 11.2 04/11/20 05:05: Sodium 149 H, Potassium 4.7, Chloride 124 H, Carbon Dioxide 19.0 L, Anion Gap 6, BUN 85 H, Creatinine 3.51 H, Estim Creat Clear Calc 11.59, Est GFR (MDRD) Af Amer 22 L, Est GFR (MDRD) Non-Af 18 L, BUN/Creatinine Ratio 24.2 H , Glucose 77, Calcium 6.8 L Current Medications Sodium Chloride () 250 mls @ 15 mls/hr IV .[id number] PRN PRN Reason: Saline Flush Sodium Chloride () 250 mls @ 15 mls/hr IV .[id number] PRN PRN Reason: Additional IVPB Infusion Ceftriaxone Sodium (Rocephin) 1 gm in 50 mls @ 100 mls/hr IV Q24 [facility] Last Infusion: 04/10/20 10:11 Dose: Infused Documented by: Dextrose () 1,000 mls @ 30 mls/hr IV .[id number] [facility] Nitroglycerin (Nitroglycerin (Inpatient Use) 0.4 Mg Tab.Subl) 0.4 mg SUBLINGUAL Q5M PRN PRN Reason: CARDIAC/CHEST PAIN Ondansetron HCl (Ondansetron 4 Mg/2 Ml Vial) 4 mg IV Q8H PRN PRN PRN Reason: NAUSEA/VOMITING Sodium Bicarbonate (Sodium Bicarbonate 650 Mg Tablet) 1,300 mg PO 4X/DAY [facility] Last Admin: 04/10/20 22:00 Dose: 1,300 mg Documented by: Sodium Chloride (0.9% Saline Lock 10 Ml Syringe) 10 - 40 ml IV UD PRN PRN Reason: SALINE FLUSH Last Admin: 04/08/20 16:14 Dose: 10 ml Documented by: Sodium Chloride (0.9% Saline Lock 10 Ml Syringe) 10 - 40 ml IV UD PRN PRN Reason: SALINE FLUSH STROKE Vital Signs/Narrative: Vital Signs Pulse 04/11/20 07:00 44 L Medical Necessity - Tobacco Use Smoking Status: Never smoker Assessment/Plan All Active Problems (Last Reviewed 04/05/20 @ 10:[address] Mynor Bolanos MD) BIRGIT (acute kidney injury) (Acute) BIRGIT (acute kidney injury) (Resolved) Acute kidney injury superimposed on chronic kidney disease (Resolved) Patient is an 85-year-old gentleman admitted with weakness and diarrhea found to have acute kidney injury superimposed on chronic kidney disease with hyperkalemia admitted to the intensive care unit for further management 1. Acute kidney injury superimposed on chronic kidney disease stage III ?Secondary to obstructive uropathy CT of the abdomen obtained demonstrated prostatomegaly with bilateral hydronephrosis. Also placed to both nephrology as well as urology patient was seen in consultation by Dr Bolanos and his plan is for diagnostic cystoscopy and bilateral stent removal possible change stents ?04/07/2020; slight improvement in kidney function - 04/08/2020; patient kidney function continues to improve however rather slowly. Patient is scheduled to undergo bilateral stent removal with possible TURP - 04/09/2020. Patient underwent Removal of stents placed 3 years ago,. Placement of a left ureteral stent, placement of a right ureteral stent and balloon dilation of right ureter, placement Marlow. Cultures which have been obtained previously came back positive for gram-negative rods. Patient started on Rocephin - 04/10/2020; patient seen indwelling Marlow catheter remains in place with h ematuria. Cultures obtained following patient's procedure growing gram-negative rods final identification and sensitivities pending - 04/11/2020; patient was started on D5W as a result of hypernatremia. Kidney function continues to improve patient final urine cultures as well as cultures from his procedure was reported as no growth (had earlier on been reported for positive for gram-negative rods). Patient had been started on Rocephin discontinued 2. Acute cystitis ?Cultures which have been obtained previously came back positive for gram- negative rods. Patient started on Rocephin -04/11/2020 Rocephin discontinued after final cultures were reported to be negative for any growth. 3. Hyperkalemia ?Secondary to above treated with Kayexalate -04/09/20; resolved 4. Non-anion gap metabolic acidosis ?Secondary to acute kidney injury patient was started on bicarb drip by nephrology 5. Anemia - Secondary to chronic disorder monitoring H&H patient was transfused once hemoglobin fell below 7 6. Essential hypertension ?Patient presented with hypotension antihypertensives on hold 7. GERD ?On PPI 8. Paroxysmal A. fib and PSVT ?Patient is on metoprolol held in view of low blood pressure 9. DVT prophylaxis ?SCDs 10. Physical deconditioning - Requested for PT OT eval and vp digital marketing social media and crm to assist with discharge planning Inpatient E&M: [id number] Subs Hosp L2
[2020-04-11] MEDS: Ceftriaxone 1 GM/50 mL Premix Q24 IV (08:56)
[2020-04-11] MEDS: Sodium Bicarbonate 650 MG Tablet 1300 MG PO ×4 (08:57→21:02)
--- NOTE | 2020-04-11 19:26 | PCM.PN.REN ---
Patient Problems: Active and Suspected Problems (Last Reviewed 04/05/20 @ 10:[address] Mynor Bolanos MD) BIRGIT (acute kidney injury) (Acute) - Physical Exam Vitals/I&O's: Vital Signs Temp Pulse Resp BP Pulse Ox 98.2 F 52 L 16 102/50 L 95 04/11/20 14:42 04/11/20 15:01 04/11/20 14:42 04/11/20 14:42 04/11/20 14:42 Oxygen Delivery Method Room Air Weight: 64.592 kg Body Mass Index (BMI) 24.9 Finger Stick Blood Glucose 127 Intake and Output for Last 24 Hours 04/09/20 04/10/20 04/11/20 23:59 23:59 23:59 Intake Total 3523.34 / 3523.34 1886.66 / 1886.66 1361.67 / 1361.67 Output Total 1850 / 2300 2750 / 3250 2075 / 2075 Balance 1673.34 / 1223.34 -863.34 / -1363.34 -713.33 / -713.33 Microbiology Past 72 Hours 04/07/20 13:30 Fluid - Other Gram Stain - Final 04/07/20 13:30 Fluid - Other Body Fluid Culture - Final No growth aerobically. 04/07/20 13:30 Fluid - Other Anaerobic Culture - Preliminary No growth in 48 hours. Laboratory Results 04/11/20 05:05: WBC 6.3, RBC 2.57 L, Hgb 7.7 L, Hct 24.8 L, MCV 96.5 H, MCH 30.0, MCHC 31.0 L, RDW Std Deviation 50.9 H, RDW Coeff of Cathy 14.6, Plt Count 138 L, MPV 11.2 04/11/20 05:05: Sodium 149 H, Potassium 4.7, Chloride 124 H, Carbon Dioxide 19.0 L, Anion Gap 6, BUN 85 H, Creatinine 3.51 H, Estim Creat Clear Calc 11.59, Est GFR (MDRD) Af Amer 22 L, Est GFR (MDRD) Non-Af 18 L, BUN/Creatinine Ratio 24.2 H, Glucose 77, Calcium 6.8 L Current Medications Sodium Chloride () 250 mls @ 15 mls/hr IV .[id number] PRN PRN Reason: Saline Flush Sodium Chloride () 250 mls @ 15 mls/hr IV .[id number] PRN PRN Reason: Additional IVPB Infusion Dextrose () 1,000 mls @ 30 mls/hr IV .[id number] [facility] Last Admin: 04/11/20 08:59 Dose: 30 mls/hr Documented by: Nitroglycerin (Nitroglycerin (Inpatient Use) 0.4 Mg Tab.Subl) 0.4 mg SUBLINGUAL Q5M PRN PRN Reason: CARDIAC/CHEST PAIN Ondansetron HCl (Ondansetron 4 Mg/2 Ml Vial) 4 mg IV Q8H PRN PRN PRN Reason: NAUSEA/VOMITING Sodium Bicarbonate (Sodium Bicarbonate 650 Mg Tablet) 1,300 mg PO 4X/DAY [facility] Last Admin: 04/11/20 17:43 Dose: 1,300 mg Documented by: Sodium Chloride (0.9% Saline Lock 10 Ml Syringe) 10 - 40 ml IV UD PRN PRN Reason: SALINE FLUSH Last Admin: 04/08/20 16:14 Dose: 10 ml Documented by: Sodium Chloride (0.9% Saline Lock 10 Ml Syringe) 10 - 40 ml IV UD PRN PRN Reason: SALINE FLUSH Medical Necessity - Tobacco Use Smoking Status: Never smoker Assessment/Plan All Active Problems (Last Reviewed 04/05/20 @ 10:[address] Mynor Bolanos MD) BIRGIT (acute kidney injury) (Acute) BIRGIT (acute kidney injury) (Resolved) Acute kidney injury superimposed on chronic kidney disease (Resolved) Assessment: BIRGIT-obstructive uropathy CKD stage IIIb. Creatinine was 1.8 in November 2019. Metabolic acidosis Bilateral hydronephrosis Removal of stents placed 3 years ago. Placement of a left ureteral stent, placement of a right ureteral stent and balloon dilation of right ureter, placement Marlow on 04/08/20. BPH Plan: The patient has acute kidney injury on chronic kidney disease. Acute kidney injury is due to obstruction. However, there may be some permanent damage to the kidney as renal function has slowly improved. Serum creatinine has decreased from 4.71 on 04/09/2020 to 3.57 mg/dL today. Nevertheless, there is no need for kidney replacement therapy at this point. Continue for now fluids. Continue p.o. bicarb. following the patient as well. Avoid nephrotoxins
[2020-04-12] VITALS (9 sets, daily range): BP systolic 103–116; BP diastolic 52–65; PULSE 47–59; RESP 16–18; TEMP 36.8–37.3; O2SAT 95–99
[2020-04-12 07:33] LABS: Hematocrit 25.2 % (40-54); Hemoglobin 7.9 g/dL (13.0-16.5); Mean Corp Hgb Conc 31.3 g/dL (32-36); Mean Corpuscular Hgb 30.5 pg (27.0-32.0); Mean Corpuscular Volume 97.3 fL (80-94); Mean Platelet Vol. 11.1 fl (6.2-12.0); Platelet Count 133 K/mm3 (150-450); RBC Distribution Width CV 14.6 % (11.6-14.6); RBC Distribution Width SD 51.6 fl (35.1-43.9); Red Blood Count 2.59 M/mm3 (4.6-6.2); White Blood Count 6.6 K/mm3 (4.4-11.0)
[2020-04-12 07:55] LABS: Anion Gap 8 (5-15); BUN 80 mg/dL (7-18); BUN/Creat Ratio 25.6 RATIO (10-20); Calcium,Total 6.9 mg/dL (8.5-10.1); Chloride 120 mmol/L (98-107); Creatinine, Serum 3.13 mg/dL (0.70-1.30); EST Glomerular Filtration Rate 20 mL/min (>60); Est Glom Filt Rate - Afr Amer 25 mL/min (>60); Glucose 83 mg/dL (74-106); Potassium 4.7 mmol/L (3.5-5.1); Sodium Level 147 mmol/L (136-145)
--- NOTE | 2020-04-12 08:05 | PN_ITS ---
Patient Problems: Active and Suspected Problems (Last Reviewed 04/05/20 @ 10:[address] Mynor Bolanos MD) BIRGIT (acute kidney injury) (Acute) Reason for Visit: Acute kidney injury superimposed on chronic kidney disease Subjective: Patient is an 85-year-old gentleman admitted with weakness and diarrhea found to have acute kidney injury superimposed on chronic kidney disease with hyperkalemia admitted to the intensive care unit for further management 04/09/2020. Patient underwent Removal of stents placed 3 years ago,. Placement of a left ureteral stent, placement of a right ureteral stent and balloon dilation of right ureter, placement Marlow. Blood cultures which have been obtained previously came back positive for gram-negative rods. Patient started on Rocephin 04/10/2020; patient seen indwelling Marlow catheter remains in place with hematuria. Cultures obtained following patient's procedure growing gram- negative rods final identification and sensitivities pending 04/11/2020; patient was started on D5W as a result of hypernatremia. Kidney function continues to improve patient final urine cultures as well as cultures from his procedure was reported as no growth (had earlier on been reported for positive for gram-negative rods). Patient had been started on Rocephin discontinued 04/12/2020; patient's hematuria. Kidney function continues to improving (down to 3.13 from 6.97 on admission). Sodium levels down to 147. Objective: GENERAL: cooperative HEENT: Atraumatic; EYES; Anicteric, Normal Conjunctiva NECK; supple, normal thyroid, RESPIRATORY: Diminished to auscultation CARDIOVASCULAR: Regular S1 S2, loud systolic murmur GI: soft, normoactive bowel sounds, : No Renal angle tenderness; EXTREMITIES: No edema, no clubbing, MUSCULOSKELETAL: no muscle waisting NEURO: Awake; no lateralizing signs. SKIN: No Rash PSYCH; Flat affect Vitals/I&O's: Vital Signs Temp Pulse Resp BP Pulse Ox 98.3 F 50 L 17 105/55 L 95 04/12/20 02:40 04/12/20 07:05 04/12/20 02:40 04/12/20 02:40 04/12/20 02:40 Oxygen Delivery Method Room Air Weight: 66.9 kg Body Mass Index (BMI) 24.9 Finger Stick Blood Glucose 127 Intake and Output for Last 24 Hours 04/10/20 04/11/20 04/12/20 23:59 23:59 23:59 Intake Total 1886.66 / 1886.66 1361.67 / 1361.67 Output Total 2750 / 3250 2075 / 2425 950 / 950 Balance -863.34 / -1363.34 -713.33 / -1063.33 -950 / -950 Microbiology Past 72 Hours 04/07/20 13:30 Fluid - Other Gram Stain - Final 04/07/20 13:30 Fluid - Other Body Fluid Culture - Final No growth aerobically. 04/07/20 13:30 Fluid - Other Anaerobic Culture - Final No growth in 5 days. Laboratory Results 04/12/20 06:04: WBC 6.6, RBC 2.59 L, Hgb 7.9 L, Hct 25.2 L, MCV 97.3 H, MCH 30.5, MCHC 31.3 L, RDW Std Deviation 51.6 H, RDW Coeff of Cathy 14.6, Plt Count 133 L, MPV 11.1 04/12/20 06:04: Sodium 147 H, Potassium 4.7, Chloride 120 H, Carbon Dioxide 19.0 L, Anion Gap 8, BUN 80 H, Creatinine 3.13 H, Estim Creat Clear Calc 13.00, Est GFR (MDRD) Af Amer 25 L, Est GFR (MDRD) Non-Af 20 L, BUN/Creatinine Ratio 25.6 H , Glucose 83, Calcium 6.9 L Current Medications Sodium Chloride () 250 mls @ 15 mls/hr IV .[id number] PRN PRN Reason: Saline Flush Sodium Chloride () 250 mls @ 15 mls/hr IV .[id number] PRN PRN Reason: Additional IVPB Infusion Dextrose () 1,000 mls @ 30 mls/hr IV .[id number] MALICK Last Admin: 04/11/20 08:59 Dose: 30 mls/hr Documented by: Nitroglycerin (Nitroglycerin (Inpatient Use) 0.4 Mg Tab.Subl) 0.4 mg SUBLINGUAL Q5M PRN PRN Reason: CARDIAC/CHEST PAIN Ondansetron HCl (Ondansetron 4 Mg/2 Ml Vial) 4 mg IV Q8H PRN PRN PRN Reason: NAUSEA/VOMITING Sodium Bicarbonate (Sodium Bicarbonate 650 Mg Tablet) 1,300 mg PO 4X/DAY MALICK Last Admin: 04/11/20 21:02 Dose: 1,300 mg Documented by: Sodium Chloride (0.9% Saline Lock 10 Ml Syringe) 10 - 40 ml IV UD PRN PRN Reason: SALINE FLUSH Last Admin: 04/08/20 16:14 Dose: 10 ml Documented by: Sodium Chloride (0.9% Saline Lock 10 Ml Syringe) 10 - 40 ml IV UD PRN PRN Reason: SALINE FLUSH STROKE Vital Signs/Narrative: Vital Signs Pulse 04/12/20 07:05 50 L Medical Necessity - Tobacco Use Smoking Status: Never smoker Assessment/Plan All Active Problems (Last Reviewed 04/05/20 @ 10:[address] Mynor Bolanos MD) BIRGIT (acute kidney injury) (Acute) BIRGIT (acute kidney injury) (Resolved) Acute kidney injury superimposed on chronic kidney disease (Resolved) Patient is an 85-year-old gentleman admitted with weakness and diarrhea found to have acute kidney injury superimposed on chronic kidney disease with hyperkalemia admitted to the intensive care unit for further management 1. Acute kidney injury superimposed on chronic kidney disease stage III ?Secondary to obstructive uropathy CT of the abdomen obtained demonstrated prostatomegaly with bilateral hydronephrosis. Also placed to both nephrology as well as urology patient was seen in consultation by Dr Bolanos and his plan is for diagnostic cystoscopy and bilateral stent removal possible change stents ?04/07/2020; slight improvement in kidney function - 04/08/2020; patient kidney function continues to improve however rather slowly. Patient is scheduled to undergo bilateral stent removal with possible TURP - 04/09/2020. Patient underwent Removal of stents placed 3 years ago,. Placement of a left ureteral stent, placement of a right ureteral stent and balloon dilation of right ureter, placement Marlow. Cultures which have been obtained previously came back positive for gram-negative rods. Patient started on Rocephin - 04/10/2020; patient seen indwelling Marlow catheter remains in place with hematuria. Cultures obtained following patient's procedure growing gram- negative rods final identification and sensitivities pending - 04/11/2020; patient was started on D5W as a result of hypernatremia. Kidney function continues to improve patient final urine cultures as well as cultures from his procedure was reported as no growth (had earlier on been reported for positive for gram-negative rods). Patient had been started on Rocephin discontinued -04/12/2020. Patient hematuria is improving. Did discuss case with Dr Bolanos his recommendation is for patient to be discharged when ready with a Marlow catheter in for patient to follow-up with him for stent removal. Did place consult to case management to assist with disposition possibly home health due to patient on reliability. 2. Acute cystitis ?Cultures which have been obtained previously came back positive for gram- negative rods. Patient started on Rocephin -04/11/2020 Rocephin discontinued after final cultures were reported to be negative for any growth. 3. Hyperkalemia ?Secondary to above treated with Kayexalate -04/09/20; resolved 4. Non-anion gap metabolic acidosis ?Secondary to acute kidney injury patient was started on bicarb drip by nephrology 5. Anemia - Secondary to chronic disorder monitoring H&H patient was transfused once hemoglobin fell below 7 6. Essential hypertension ?Patient presented with hypotension antihypertensives on hold 7. GERD ?On PPI 8. Paroxysmal A. fib and PSVT ?Patient is on metoprolol held in view of low blood pressure 9. DVT prophylaxis ?SCDs 10. Physical deconditioning - Requested for PT OT eval and [employer] social science teacher to assist with discharge planning Inpatient E&M: 21071 Subs Hosp L2
[2020-04-12] MEDS: Sodium Bicarbonate 650 MG Tablet 1300 MG PO ×4 (09:53→20:59)
--- NOTE | 2020-04-12 19:33 | PN.RENAL_ITS ---
Patient Problems: Active and Suspected Problems (Last Reviewed 04/05/20 @ 10:[address] Mynor Bolanos MD) BIRGIT (acute kidney injury) (Acute) Subjective: Following for acute kidney injury. The patient denies chest pain, shortness of breath, nausea or edema. Appetite is not too bad. - Physical Exam Vitals/I&O's: Vital Signs Temp Pulse Resp BP Pulse Ox 98.3 F 59 L 16 103/52 L 95 04/12/20 14:10 04/12/20 19:11 04/12/20 14:10 04/12/20 14:10 04/12/20 14:10 Oxygen Delivery Method Room Air Weight: 66.9 kg Body Mass Index (BMI) 24.9 Finger Stick Blood Glucose 127 Intake and Output for Last 24 Hours 04/10/20 04/11/20 04/12/20 23:59 23:59 23:59 Intake Total 1886.66 / 1886.66 1361.67 / 1361.67 1840 / 1840 Output Total 2750 / 3250 2075 / 2425 1900 / 1900 Balance -863.34 / -1363.34 -713.33 / -1063.33 -60 / -60 General: Alert, Oriented x3 HEENT: Atraumatic, Normocephalic Oral: Moist Mucosa Neck: Supple Lungs: Clear to auscultation - Anteriorly Cardiovascular: Normal S1, Normal S2, Murmur - 4/6 systolic murmur Abdomen: Bowel Sounds Present, Soft, Non Tender Extremities: No edema Microbiology Past 72 Hours 04/07/20 13:30 Fluid - Other Gram Stain - Final 04/07/20 13:30 Fluid - Other Body Fluid Culture - Final No growth aerobically. 04/07/20 13:30 Fluid - Other Anaerobic Culture - Final No growth in 5 days. Laboratory Results 04/12/20 06:04: WBC 6.6, RBC 2.59 L, Hgb 7.9 L, Hct 25.2 L, MCV 97.3 H, MCH 30.5, MCHC 31.3 L, RDW Std Deviation 51.6 H, RDW Coeff of Cathy 14.6, Plt Count 133 L, MPV 11.1 04/12/20 06:04: Sodium 147 H, Potassium 4.7, Chloride 120 H, Carbon Dioxide 19.0 L, Anion Gap 8, BUN 80 H, Creatinine 3.13 H, Estim Creat Clear Calc 13.00, Est GFR (MDRD) Af Amer 25 L, Est GFR (MDRD) Non-Af 20 L, BUN/Creatinine Ratio 25.6 H , Glucose 83, Calcium 6.9 L Current Medications Sodium Chloride () 250 mls @ 15 mls/hr IV .[id number] PRN PRN Reason: Saline Flush Sodium Chloride () 250 mls @ 15 mls/hr IV .[id number] PRN PRN Reason: Additional IVPB Infusion Dextrose () 1,000 mls @ 30 mls/hr IV .[id number] COUNTS INCLUDE 234 BEDS AT THE [facility] Last Admin: 04/12/20 17:21 Dose: 30 mls/hr Documented by: Nitroglycerin (Nitroglycerin (Inpatient Use) 0.4 Mg Tab.Subl) 0.4 mg SUBLINGUAL Q5M PRN PRN Reason: CARDIAC/CHEST PAIN Ondansetron HCl (Ondansetron 4 Mg/2 Ml Vial) 4 mg IV Q8H PRN PRN PRN Reason: NAUSEA/VOMITING Sodium Bicarbonate (Sodium Bicarbonate 650 Mg Tablet) 1,300 mg PO 4X/DAY COUNTS INCLUDE 234 BEDS AT THE [facility] Last Admin: 04/12/20 17:22 Dose: 1,300 mg Documented by: Sodium Chloride (0.9% Saline Lock 10 Ml Syringe) 10 - 40 ml IV UD PRN PRN Reason: SALINE FLUSH Last Admin: 04/08/20 16:14 Dose: 10 ml Documented by: Sodium Chloride (0.9% Saline Lock 10 Ml Syringe) 10 - 40 ml IV UD PRN PRN Reason: SALINE FLUSH Medical Necessity - Tobacco Use Smoking Status: Never smoker Assessment/Plan All Active Problems (Last Reviewed 04/05/20 @ 10:[address] Mynor Bolanos MD) BIRGIT (acute kidney injury) (Acute) BIRGIT (acute kidney injury) (Resolved) Acute kidney injury superimposed on chronic kidney disease (Resolved) Assessment: BIRGIT-obstructive uropathy CKD stage IIIb. Creatinine was 1.8 mg/dL in November 2019. Metabolic acidosis Bilateral hydronephrosis Removal of stents placed 3 years ago. Placement of a left ureteral stent, placement of a right ureteral stent and balloon dilation of right ureter, placement Marlow on 04/08/20. BPH Plan: The patient has acute kidney injury on chronic kidney disease. Acute kidney injury is due to obstruction. However, there may be some permanent damage to the kidney as renal function has been slowly improving. Serum creatinine has decreased from 4.71 on 04/09/2020 to 3.57 mg/dL on 04/11/2020. Serum creatinine is 3.13 mg/dL today. There is no need for kidney replacement therapy at this point. Continue to push oral intake particularly fluids. Continue p.o. bicarbonate. Serum bicarbonate has been relatively stable. Continue Marlow catheter. The patient will need outpatient urologic follow-up as well. The current medications were reviewed and are all appropriately dosed for this patient's creatinine clearance.
[2020-04-12 23:39] LABS: Magnesium 1.5 mg/dL (1.6-2.6)
[2020-04-13] MEDS: Magnesium Sulfate 4gm/100mL 4 GM/100 ML IV.SOLN. IV (00:10)
[2020-04-13 02:20] VITALS: BP 110/54; PULSE 54; RESP 18; TEMP 36.7; O2SAT 97
[2020-04-13 03:05] VITALS: PULSE 46
[2020-04-13 05:09] LABS: Hematocrit 25.4 % (40-54); Hemoglobin 7.9 g/dL (13.0-16.5); Mean Corp Hgb Conc 31.1 g/dL (32-36); Mean Corpuscular Volume 96.6 fL (80-94); Mean Platelet Vol. 10.7 fl (6.2-12.0); Platelet Count 132 K/mm3 (150-450); RBC Distribution Width CV 14.3 % (11.6-14.6); RBC Distribution Width SD 50.3 fl (35.1-43.9); Red Blood Count 2.63 M/mm3 (4.6-6.2); White Blood Count 6.3 K/mm3 (4.4-11.0)
[2020-04-13 05:30] LABS: Anion Gap 7 (5-15); BUN 78 mg/dL (7-18); BUN/Creat Ratio 26.9 RATIO (10-20); Calcium,Total 6.9 mg/dL (8.5-10.1); Chloride 117 mmol/L (98-107); EST Glomerular Filtration Rate 22 mL/min (>60); Est Glom Filt Rate - Afr Amer 27 mL/min (>60); Estimated Creatinine Clearance 14.03 ml/min; Glucose 91 mg/dL (74-106); Magnesium 2.6 mg/dL (1.6-2.6); Sodium Level 144 mmol/L (136-145)
[2020-04-13 07:00] VITALS: PULSE 49
[2020-04-13 08:20] VITALS: BP 104/53; PULSE 46; RESP 16; TEMP 36.8; O2SAT 94
[2020-04-13] MEDS: Sodium Bicarbonate 650 MG Tablet 1300 MG PO ×2 (08:26→13:57)
--- NOTE | 2020-04-13 10:55 | DCINST_ITS ---
- Discharge Diagnoses Current Active Problems: Current Active and Chronic Problems (Last Reviewed 04/05/20 @ 10:[address] Mynor Bolanos MD) BIRGIT (acute kidney injury) (Acute) Nonrheumatic aortic (valve) stenosis (Chronic) Paroxysmal atrial fibrillation (Chronic) History of supraventricular tachycardia (Chronic) Essential (primary) hypertension (Chronic) HLD (hyperlipidemia) (Chronic) CKD (chronic kidney disease), stage IV (Chronic) You will use the following diet at home:: Cardiac Your food should be the consistency of: Regular Your liquids should be the consistency of: Regular/Thin Discharge Activity: Return to Normal Activity Call your doctor if you observe: Fever of 101 or Higher, Shortness of breath, Dizziness, Fainting spells, Swelling in the ankles, Chest pain, Increased palpitations (irregular heartbeat) Instructions: Acute Kidney Failure, Chronic Kidney Disease, Anemia Additional Instructions: Obtain a CBC and a BMP by her primary care doctor as an outpatient. Do not resume aspirin until given the okay by her primary care physician Allergies/Adverse Reactions: Allergies No Known Allergies Allergy (Verified 04/04/20 12:06) Medications to take at Discharge Ferrous Sulfate 325 mg PO 1200,1700 #90 tab 09/16/18 Pantoprazole Sodium [Protonix] 40 mg PO DAILY #30 tab 09/16/18 Tamsulosin HCl [Flomax] 0.4 mg PO DAILY #90 cap 09/16/18 Ascorbic Acid [Vitamin C] 500 mg PO DAILY #60 tab 04/13/20 Aspirin [Aspirin, Baby] 81 mg PO DAILY@0800 #90 tab.chew 04/13/20 The following prescriptions were given: Ascorbic Acid [Vitamin C] 500 mg PO DAILY #60 tab Transmission Status: Pending to [facility] Primary Care Physician: Rigo Lan Chi, MD [Primary Care Provider] - Test Results: Test results from this visit will be discussed in further detail at your follow- up appointment, if applicable. Please Follow Up With: Rigo Lan Chi, MD Please Follow Up With: Mynor Bolanos MD When: 2-4 weeks Please Follow Up With: Sierra Paulino MD When: 2-3 weeks
--- NOTE | 2020-04-13 11:31 | NURSING ---
wound photo: right hip
--- NOTE | 2020-04-13 12:00 | PHA.DC.MR ---
Pharmacy Service has performed discharge medication reconciliation for this patient. Home Medications Ascorbic Acid [Vitamin C] 500 mg PO DAILY #60 tab 04/13/20 Aspirin [Aspirin, Baby] 81 mg PO DAILY@0800 #90 tab.chew 04/13/20 Ferrous Sulfate 325 mg PO 1200,1700 04/13/20 Pantoprazole Sodium [Protonix] 40 mg PO DAILY 04/13/20 Tamsulosin HCl [Flomax] 0.4 mg PO DAILY 04/13/20 The patient's discharge medication list was reviewed for discrepancies and discrepancies were resolved.
--- NOTE | 2020-04-13 13:10 | CASEMGMT ---
This RN CM to room to discuss discharge plan with pt at this time. Pt will be going home with hamilton catheter and leg bag in place. Pt is agreeable to [facility] SN at this time for catheter care and wound care for right hip. Pt states he would like [facility] at this time after provided verbal list of local [facility] agencies. Call to Ivet at [facility] with referral for SN, voices understanding and then calls this RN GREGORY back and states they can take pt at this time. She states they will do start of care on 04/15/20. This RN CM also set up [facility] van transportation to and from for his f/u appt with Dr. Lan on 04/16/20 and they will pick him up at 1500. Pt also requests [facility] van transportation home today and this was set up by Sandeep, nursing secretary, for 1500 at this time. Pt is updated on all, voices understanding at this time and this RN CM organized all pt's papers with appt's/van contact info into admission folder at this time. Pt states normally uses a cane to get around at home and declines need for any further therapy at this time. Pt voices no further questions/concerns/needs at this time. SStaten JASE JENKINS
--- NOTE | 2020-04-13 17:26 | DS.PCM_ITS ---
Discharge Date and Diagnosis - Problem List Patient Problems: Active and Suspected Problems (Last Reviewed 04/05/20 @ 10:[address] Mynor Bolanos MD) BIRGIT (acute kidney injury) (Acute) Date of Admission: 04/04/20 Date of Discharge: 04/13/20 - Primary Discharge Diagnosis Acute Problems: Active Problems (Last Reviewed 04/05/20 @ 10:[address] Mynor Bolanos MD) BIRGIT (acute kidney injury) (Acute) - Secondary Discharge Diagnosis Chronic Problems: Chronic Problems (Last Reviewed 04/05/20 @ 10:[address] Mynor Bolanos MD) Nonrheumatic aortic (valve) stenosis (Chronic) Paroxysmal atrial fibrillation (Chronic) History of supraventricular tachycardia (Chronic) Essential (primary) hypertension (Chronic) HLD (hyperlipidemia) (Chronic) CKD (chronic kidney disease), stage IV (Chronic) Hospital Course and Treatment Imaging Results: Clinical Impression(s) from Imaging Studies Chest X-Ray 04/04/20 12:18 IMPRESSION: No active pulmonary disease. Electronically Signed: Garcia Heaton MD at 13:18 EST Tel , Service support , Abdomen/Pelvis CT 04/04/20 16:52 IMPRESSION: 1. Left worse than right hydronephrosis in spite of bilateral ureteral stents. Electronically Signed: Ozzie Curry MD (Brooks) at 17:16 EST , Service support , Report of Operation Date of Procedure: 04/08/20 Pre-Operative Diagnosis: Bilateral chronic stents BPH with obstruction retention Post-Operative Diagnosis: Same Surgery/Procedure Performed:: Removal of stents placed 3 years ago,. Placement of a left ureteral stent, placement of a right ureteral stent and balloon dilation of right ureter, placement Marlow. Consultations 04/07/20 13:47 Consult: Onc/Wound/crew boss Routine Comment: Reason for Consult:: open R Hip hematoma Nephrology Urology Pulmonology Operations: - - Cystoscopy Procedures: None Summary of Care Provided: Per HPI: The patient is a 85 year old M with PMH as outlined who was admitted with a complaint of generalised malaise. He checked his BP at home and it was in the 80s systolic. HE says he has been urinating well,a nd denied any fever, chills, nausea or vomiting.; he did admit to diarrhea. He says he has been ea ting well, but not much. Review of systems is otherwise negative. Vitals showed BP of 86/53, Temp of 97.3F and CO of 64 adn RR of 18. Chemistry showed potassium of 6.9, and BUN of 140, as well as Cr of 6.97, and lactic acid of 1.4. CBC was 7.8, with Hb of 9 and platelets of 195. CXR showed no active pulmonary disease.urinalysis showed wbc of 10-25, urine bacteria of 1+. He is being admitted to be managed for Birgit and hyperkalemia. Hospital Course: 1. BIRGIT on CKD 3 secondary to obstructive uropathy with hyperkalemia non-anion gap metabolic [id number] male presented to the hospital with generalized malaise he checked his blood pressure at home and it was in the 80s so he presented to the hospital. Initially there was a concern for acute cystitis as well however cultures were negative for any growth. Initially he was found to have a creatinine of 6.97 as well as a potassium of 6.92 he was placed in the ICU. He did have significant improvement in all of his numbers especially after his bilateral ureteral stents were removed by urology and had new stents placed. He had a Marlow also inserted during the cystoscopy. Cultures obtained after the procedure also remain negative. His hematuria also continued to improve. He is to follow-up with urology as an outpatient, his previous stents have been in place for at least 3 years. He will also have his Marlow in place and will follow up with urology this week if possible. Nephrology also was consulted and helped manage him, he did have significant improvement in his creatinine though he will likely have chronic damage secondary to the uropathy. However today on discharge his creatinine was 2.9 and his sodium was 144. Patient has with him the plan for discharge today he expressed understanding the risk benefits of going home. Initially he was hesitant about going home with home health however after some discussion he was willing to accept the help at home. He still refuses to go to a SNF. 2. Acute on chronic anemia-his hemoglobin has routinely been below 9 in 2017. And then he was below 9 in 2019 and then during his admission he need to be transfused 2 units because of a hemoglobin of 6.4 he did correct to 8.4 at his highest and he is currently maintaining 7.9. His acute anemia was likely secondary to his acute hematuria. Would recommend continued ferrous sulfate replacement however he is on a PPI at home so I did add a vitamin C tablet to take with his iron to assist with absorption. 3. Essential hypertension, GERD, paroxysmal A. fib and PSVT are all chronic medical conditions which complicate his care. His metoprolol was held secondary to low blood pressures and it was discontinued on discharge because of bradycardia. Would recommend following up with his PCP in 3 to 5 days for further evaluation and possible restarting beta-lyndsay therapy. Patient Problems: Active and Suspected Problems (Last Reviewed 04/05/20 @ 10:[address] Mynor Bolanos MD) BIRGIT (acute kidney injury) (Acute) - Physical Exam Vitals/I&O's: Vital Signs Temp Pulse Resp BP Pulse Ox 98.3 F 46 L 16 104/53 L 94 04/13/20 08:20 04/13/20 08:20 04/13/20 08:20 04/13/20 08:20 04/13/20 08:20 Oxygen Delivery Method Room Air Weight: 150 lb 2.157 oz Body Mass Index (BMI) 24.9 Finger Stick Blood Glucose 127 Intake and Output for Last 24 Hours 04/11/20 04/12/20 04/13/20 23:59 23:59 23:59 Intake Total 1361.67 / 1361.67 1840 / 2060 756.17 / 756.17 Output Total 2075 / 2425 1900 / 2400 1700 / 1700 Balance -713.33 / -1063.33 -60 / -340 -943.83 / -943.83 General: Alert, Oriented x3, Cooperative, No apparent distress HEENT: Atraumatic, PERRLA, EOMI, Normocephalic Oral: Moist Mucosa Neck: Supple, No JVD Lungs: Normal air movement, No rhonchi, No wheeze, No rales, Diminished Cardiovascular: Regular Rhythm, Normal S1, Normal S2, Bradycardic, Murmur - 5 out of 6 holosystolic murmur Abdomen: Soft, Non Tender, Non-Distended, No Hepato-splenomegaly Extremities: No edema, Capillary Refill Less than 3 Seconds Skin: No rashes, No breakdown Neurological: Neuro grossly intact, Sensory exam intact to light touch and pain Psych/Mental Status: Normal Affect, Appropriate Microbiology Past 72 Hours 04/07/20 13:30 Fluid - Other Gram Stain - Final 04/07/20 13:30 Fluid - Other Body Fluid Culture - Final No growth aerobically. 04/07/20 13:30 Fluid - Other Anaerobic Culture - Final No growth in 5 days. Laboratory Results 04/12/20 23:25: Magnesium 1.5 L 04/13/20 04:45: WBC 6.3, RBC 2.63 L, Hgb 7.9 L, Hct 25.4 L, MCV 96.6 H, MCH 30.0, MCHC 31.1 L, RDW Std Deviation 50.3 H, RDW Coeff of Cathy 14.3, Plt Count 132 L, MPV 10.7 04/13/20 04:45: Sodium 144, Potassium 5.0, Chloride 117 H, Carbon Dioxide 20.0 L , Anion Gap 7, BUN 78 H, Creatinine 2.90 H, Estim Creat Clear Calc 14.03, Est GFR (MDRD) Af Amer 27 L, Est GFR (MDRD) Non-Af 22 L, BUN/Creatinine Ratio 26.9 H , Glucose 91, Calcium 6.9 L, Magnesium 2.6 Discharge Activity: Return to Normal Activity Call your doctor if you observe: Fever of 101 or Higher, Shortness of breath, Dizziness, Fainting spells, Swelling in the ankles, Chest pain, Increased palpitations (irregular heartbeat) Home Medications: Medications to take at Discharge Ascorbic Acid [Vitamin C] 500 mg PO DAILY #60 tab 04/13/20 Aspirin [Aspirin, Baby] 81 mg PO DAILY@0800 #90 tab.chew 04/13/20 Ferrous Sulfate 325 mg PO 1200,1700 04/13/20 Pantoprazole Sodium [Protonix] 40 mg PO DAILY 04/13/20 Tamsulosin HCl [Flomax] 0.4 mg PO DAILY 04/13/20 Following Prescriptions Were Given to Patient: Ascorbic Acid [Vitamin C] 500 mg PO DAILY #60 tab Transmission Status: Received by [facility] Primary Care Physician: Rigo Lan Chi, MD [Primary Care Provider] - Please Follow Up With: Rigo Lan Chi, MD Please Follow Up With: Mynor Bolanos MD When: 2-4 weeks Please Follow Up With: Vahe Purcell MD When: 2-3 weeks Patient Instructions: Anemia, Acute Kidney Failure, Chronic Kidney Disease Disposition: Home with Home Health Minutes spent on discharge:: 35 Patient Condition:: Stable Medical Necessity - Tobacco Use Smoking Status: Never smoker Meaningful Use Info Meaningful Use Diagnoses (Choose all that apply): None applicable Inpatient E&M: [id number] [facility]
--- NOTE | 2020-04-14 13:49 | CASEMGMT ---
Addendum entered by Bruna Tripathi 04/15/20 14:03: Attempted to reach pt x2 at this time without success. The first time, the pt did picking tech phone but did not speak to this RN CM and the second time, the call went to voicemail and his voicemail has not been set up yet, so unable to leave message at this time. Paris LAGUNA CM Original Note: JASE JENKINS Discharge F/U Phone Call LACE: 13 Strata: 3 Discharge date: 04/13/20 Call date: 04/14/20 Call time: 1350 Attempted to reach pt without success at this time and pt does not have voicemail box set up at this time, so unable to leave message. JASE JENKINS to try back at another time. Paris LAGUNA CM Admission dx: Hyperkalemia, BIRGIT on CKD
== END 2020-04-13 16:10 | disposition home health service (06) | DRG 988 ==
LOC: ED 12:36 → ICU 13:48 → PCU 04-08 15:23
PROVIDERS: Hospitalist; Internal Medicine; Internal Medicine Critical Care Medicine; Urology; Admitting Provider Student in an Organized Health Care Education/Training Program; Emergency Provider Emergency Medicine; PCP Family Medicine Geriatric Medicine; Visit Provider Family Medicine
PROC: 0T788DZ Dilation of Bilateral Ureters with Intraluminal Device, Via Natural or Artificial Opening Endoscopic (ICD-10-PCS; CPT 52332; principal; 2020-04-08 13:55)
DX: N40.1 Benign prostatic hyperplasia with lower urinary tract symptoms (principal); N13.8 Other obstructive and reflux uropathy; R33.8 Other retention of urine; N17.9 Acute kidney failure, unspecified; I47.1 Supraventricular tachycardia; D62 Acute posthemorrhagic anemia; N13.6 Pyonephrosis; R78.81 Bacteremia; E87.0 Hyperosmolality and hypernatremia; E87.2 Acidosis; N18.4 Chronic kidney disease, stage 4 (severe); R31.0 Gross hematuria; B96.89 Other specified bacterial agents as the cause of diseases classified elsewhere; I95.9 Hypotension, unspecified; E87.5 Hyperkalemia; I12.9 Hypertensive chronic kidney disease with stage 1 through stage 4 chronic kidney disease, or unspecified chronic kidney disease; I48.0 Paroxysmal atrial fibrillation; I35.0 Nonrheumatic aortic (valve) stenosis; E78.5 Hyperlipidemia, unspecified; Z20.822 Contact with and (suspected) exposure to COVID-19; M19.90 Unspecified osteoarthritis, unspecified site; K21.9 Gastro-esophageal reflux disease without esophagitis; F32.9 Major depressive disorder, single episode, unspecified; F41.9 Anxiety disorder, unspecified; Z79.82 Long term (current) use of aspirin; Z79.899 Other long term (current) drug therapy; D64.9 Anemia, unspecified
CPT/HCPCS: 36415; 71045; 74176; 76000; 80048; 80053; 81001; 83605; 83735; 84153; 84484; 85014; 85018; 85025; 85027; 85610; 86850; 86900; 86901; 86920; 86922; 87070; 87075; 87077; 87086; 87205; 87426; 93005; 94640; 97110; 97162; 97166; 97530; 97535; 99285; J7030; J7040; P9016; A4216; C1726; C1769; J0610; J2405

== ENCOUNTER → 2020-04-17 11:57 | Outpatient (CLI) | payer MEDICARE, SELFPAY ==
[2020-04-08 11:36] VITALS: BMI 24.9
[2020-04-17 13:11] LABS: Absolute Lymphocyte Count 0.93 X10^3/uL (0.83-4.51); Absolute Neutrophil Count 4.5 X10^3/uL (2.0-7.7); Basophil# 0.02 X10^3/uL; Basophil% 0.3 % (0-1); Eosinophil# 0.16 X10^3/uL; Eosinophils% 2.7 % (0-5); Hematocrit 28.3 % (40-54); Hemoglobin 8.7 g/dL (13.0-16.5); Lymphocyte # 0.93 X10^3/ul (4.0); Lymphocyte % 15.6 % (19-41); Mean Corp Hgb Conc 30.7 g/dL (32-36); Mean Corpuscular Hgb 30.4 pg (27.0-32.0); Mean Platelet Vol. 10.6 fl (6.2-12.0); Monocyte# 0.31 X10^3/uL; Monocyte% 5.2 % (0-10); NRBC Flagged by Analyzer 0 % (0-5); Neutrophil % 75.7 % (47-70); Platelet Count 179 K/mm3 (150-450); RBC Distribution Width CV 14.1 % (11.6-14.6); RBC Distribution Width SD 50.9 fl (35.1-43.9); Red Blood Count 2.86 M/mm3 (4.6-6.2)
[2020-04-17 13:25] LABS: Vitamin D,25 Hydroxy 16.8 ng/mL
[2020-04-17 13:33] LABS: ALB/GLOB Ratio 0.7 RATIO (0.9-2.4); AST(SGOT) 28 U/L (15-37); Alanine Aminotransfer ALT/SGPT 53 U/L (16-61); Albumin, Serum 2.6 g/dL (3.2-5.0); Alkaline Phosphatase 79 U/L (45-117); Anion Gap 6 (5-15); BUN 62 mg/dL (7-18); BUN/Creat Ratio 20.5 RATIO (10-20); Calcium,Total 7.9 mg/dL (8.5-10.1); Chloride 117 mmol/L (98-107); Creatinine, Serum 3.02 mg/dL (0.70-1.30); EST Glomerular Filtration Rate 21 mL/min (>60); Est Glom Filt Rate - Afr Amer 26 mL/min (>60); Globulin 3.9 g/dL (2.2-4.2); Glucose 138 mg/dL (74-106); Protein, Total 6.5 g/dL (6.4-8.2); Sodium Level 146 mmol/L (136-145); Thyroid Stim Hormone (TSH) 1.46 uIU/mL (0.358-3.74)
== END ==
PROVIDERS: PCP Family Medicine Geriatric Medicine; Visit Provider Family Medicine Geriatric Medicine
DX: I10 Essential (primary) hypertension (principal); E55.9 Vitamin D deficiency, unspecified
CPT/HCPCS: 36415; 80053; 82306; 84443; 85025

== ENCOUNTER → 2020-04-30 15:46 | Outpatient (CLI) | payer MEDICARE, SELFPAY ==
[2020-04-08 11:36] VITALS: BMI 24.9
[2020-04-30 17:43] LABS: Anion Gap 5 (5-15); BUN 41 mg/dL (7-18); BUN/Creat Ratio 17.8 RATIO (10-20); Calcium,Total 8.2 mg/dL (8.5-10.1); Chloride 116 mmol/L (98-107); EST Glomerular Filtration Rate 29 mL/min (>60); Est Glom Filt Rate - Afr Amer 35 mL/min (>60); Glucose 80 mg/dL (74-106); PSA,Total- Diagnostic 6.54 ng/mL (0.0-4.0); Potassium 5.7 mmol/L (3.5-5.1); Sodium Level 142 mmol/L (136-145)
== END ==
PROVIDERS: PCP Family Medicine Geriatric Medicine; Referring Provider Urology; Visit Provider Urology
DX: N18.4 Chronic kidney disease, stage 4 (severe) (principal); N40.2 Nodular prostate without lower urinary tract symptoms
CPT/HCPCS: 36415; 80048; 84153

== ENCOUNTER 2020-05-11 14:22 | Emergency (ER) | payer MEDICARE, SELFPAY ==
[2020-04-08 11:36] VITALS: BMI 24.9
[2020-05-11 14:23] VITALS: BP 171/96; PULSE 87; RESP 16; TEMP 35.4; O2SAT 96; BMI 23.8
--- NOTE | 2020-05-11 15:06 | ED.VIS.GEN ---
History of Present Illness Chief Complaint: Upper Extremity Injury Detail of Chief Complaint: Swelling to right hand Informant: Patient Onset: Days Context: Gradual Onset Current Severity: Moderate Maximum Severity: Moderate Narrative: Patient presents with focal swelling to the back of his right hand. He was recently hospitalized and had an IV placed in his right hand. He states since going home he has noted increased swelling to that area. The area is not red or warm. He is able to flex and extend his there is no tenderness or swelling throughout the forearm or upper arm. - Past Medical History (1) Nonrheumatic aortic (valve) stenosis Status: Chronic (2) Paroxysmal atrial fibrillation Status: Chronic (3) Essential (primary) hypertension Status: Chronic (4) HLD (hyperlipidemia) Status: Chronic (5) CKD (chronic kidney disease), stage IV Status: Chronic Past Medical History - Allergies and Home Meds Allergies/Adverse Reactions: Allergies No Known Allergies Allergy (Verified 04/04/20 12:06) Primary Care Physician: Rigo Lan Chi, MD [Primary Care Provider] - Surgical History: arthscropcy, hip, arthroscopy, knee, herniorrhaphy, - - Cystoscopy with bilateral ureteral stent placement Smoking Status: Never smoker - Family History Maternal Family History: Family History (Last Reviewed 11/06/19 @ 14:[address] Joselito Ortiz MD) Mother CAD (coronary artery disease) Myocardial infarction Family History: Reports: Heart Disease Paternal Family History: Family History (Last Reviewed 11/06/19 @ 14:[address] Joselito Ortiz MD) Mother CAD (coronary artery disease) Myocardial infarction Family History: Reports: Heart Disease Review of Systems General: Denies: Chills, Fever Eyes: Denies: Visual changes - bilaterally ENT: Denies: Bilateral ear pain Cardiovascular: Denies: Chest pain Respiratory: Denies: Dyspnea, Cough Gastrointestinal: Denies: Vomiting, Diarrhea Musculoskeletal: Reports: Swelling, Extremity Pain Skin: Denies: Wounds Neurological: Denies: Headache Hematologic: Denies: Easy bruising, Easy bleeding Allergy: Denies: Uticaria Physical Exam Vital Signs/Narrative: Vital Signs Temp Pulse Resp BP Pulse Ox 05/11/20 14:23 95.8 F L 87 16 171/96 H 96 Inital Vital Signs reviewed: Yes General: Well nourished, Well developed Head: Normocephalic Neck: Supple Cardiovascular: Regular rate, Regular rhythm, Murmur Respiratory: No distress, CTA bilaterally Abdomen: Soft, Nontender Extremities: - - Focal area of fluctuance and swelling over the dorsum of the right hand, over the third and fourth metacarpals. No overlying erythema or warmth. No edema or tenderness throughout the forearm or humerus. Skin: Normal color Neurological: Alert, Oriented x3 Psychological: Normal affect Diagnostic/Tx/Re-eval - Medical Decision Making LET applied to the area of interest. After 15 minutes an 18-gauge needle was introduced to the area. 6 cc of blood was withdrawn. This decrease the size of the swelling significantly. Following this a folded 4 x 4 gauze pad was placed over the area and an Guillermo wrap was applied to prevent reaccumulation of blood. Wound care is discussed with patient. ED Disposition - Plan for ED Patient: Disposition: Home or Assisted Living Diagnosis: Status post evacuation of hematoma Instructions: ED Hematoma Referrals: Rigo Lan Chi, MD [Primary Care Provider] - As Needed
[2020-05-11] MEDS: Lidocaine/Epi/Tetracaine 50 ML 1 APPLIC TOPICAL (15:12)
== END 2020-05-11 15:56 | disposition home or self-care (01) ==
LOC: ED 15:42
PROVIDERS: Emergency Provider Emergency Medicine; PCP Family Medicine Geriatric Medicine
DX: S60.221A Contusion of right hand, initial encounter (principal); Y84.8 Other medical procedures as the cause of abnormal reaction of the patient, or of later complication, without mention of misadventure at the time of the procedure; Y92.9 Unspecified place or not applicable; Y93.9 Activity, unspecified; Y99.9 Unspecified external cause status; M79.89 Other specified soft tissue disorders; I48.0 Paroxysmal atrial fibrillation; I12.9 Hypertensive chronic kidney disease with stage 1 through stage 4 chronic kidney disease, or unspecified chronic kidney disease; N18.4 Chronic kidney disease, stage 4 (severe); E78.5 Hyperlipidemia, unspecified; Z79.82 Long term (current) use of aspirin; Z79.899 Other long term (current) drug therapy
CPT/HCPCS: 10140; 10060; 99282

== ENCOUNTER 2020-05-16 11:49 | Emergency (ER) | payer MEDICARE, SELFPAY ==
[2020-05-16 11:51] VITALS: BP 175/109; PULSE 91; RESP 18; TEMP 36.3; O2SAT 98; BMI 25.3
[2020-05-16] MEDS: Lidocaine/Epi/Tetracaine 50 ML 1 APPLIC TOPICAL (12:34)
--- NOTE | 2020-05-16 13:37 | ED.VIS.GEN ---
History of Present Illness Chief Complaint: Edema Informant: Patient Narrative: 85-year-old male presenting from home with a chief complaint of right hand swelling. Patient states he was in the hospital in March discharged home on April 13. He states he had an IV in his right hand. He reports that he developed swelling over the dorsum of his hand and 5 days ago came to the emergency department had it aspirated and 6 cc of blood came out. He states is now reaccumulated and he notes problems extending the right middle and ring fingers. No fevers. No redness. - Past Medical History (1) CKD (chronic kidney disease), stage IV Status: Chronic (2) Essential (primary) hypertension Status: Chronic (3) HLD (hyperlipidemia) Status: Chronic (4) History of supraventricular tachycardia Status: Chronic (5) Nonrheumatic aortic (valve) stenosis Status: Chronic (6) Paroxysmal atrial fibrillation Status: Chronic Past Medical History - Allergies and Home Meds Allergies/Adverse Reactions: Allergies No Known Allergies Allergy (Verified 05/16/20 11:53) Primary Care Physician: Rigo Lan Chi, MD [Primary Care Provider] - Surgical History: arthscropcy, hip, arthroscopy, knee, herniorrhaphy, - - Cystoscopy with bilateral ureteral stent placement Smoking Status: Never smoker Drugs: None - Family History Maternal Family History: Family History (Last Reviewed 11/06/19 @ 14:[address] Joselito Ortiz MD) Mother CAD (coronary artery disease) Myocardial infarction Family History: Reports: Heart Disease Paternal Family History: Family History (Last Reviewed 11/06/19 @ 14:[address] Joselito Ortiz MD) Mother CAD (coronary artery disease) Myocardial infarction Family History: Reports: Heart Disease Review of Systems General: Denies: Chills, Fever, Sweats Eyes: Denies: Visual changes - bilaterally, Diplopia ENT: Denies: Rhinorrhea, Sore throat Cardiovascular: Denies: Chest pain, Palpitations Respiratory: Denies: Dyspnea, Cough, Dyspnea on exertion Gastrointestinal: Denies: Abdominal pain, Nausea, Vomiting, Diarrhea, Melena, Hematochezia Genitourinary: Denies: Dysuria, Hematuria, Frequency Musculoskeletal: Reports: Swelling, Extremity Pain. Denies: Back pain Skin: Denies: Rash, Wounds Neurological: Denies: Headache, Weakness, Numbness Physical Exam Vital Signs/Narrative: Vital Signs Temp Pulse Resp BP Pulse Ox 05/16/20 11:51 97.4 F L 91 18 175/109 H 98 Inital Vital Signs reviewed: Yes General: Well nourished, Well developed, No Acute Distress Head: Normocephalic, Atraumatic Eyes: Perrl, EOMI ENT: Moist mucous membranes, No rhinorrhea Neck: Supple, Nontender Cardiovascular: Regular rate, Regular rhythm, No murmurs Respiratory: No distress, CTA bilaterally, Chest nontender Abdomen: Soft, Nontender, Nondistended, Normal bowel sounds Back: Nontender, Normal Inspection Extremities: No edema, Tenderness - There is a 3 cm round area on the dorsum of the right hand along the third and fourth metacarpal region. There is no overlying erythema or ecchymosis. It is fluctuant. He is able to fully extend and flex though notes it is discomforting to extend all the way. Skin: Normal color, No rash Neurological: Alert, Oriented x3, Cranial nerves II-XII grossly intact, Normal Strength, Normal Sensation Psychological: Normal affect, Normal Mood Diagnostic/Tx/Re-eval - Medical Decision Making Let was applied to the hand. An 18-gauge needle was used to aspirate approximately 8 cc of dark red fluid. It had viscosity similar to synovial fluid. Pressure dressing was applied. Concerned about a cystic component possibly on the tendon. And refer him to hand surgery for further evaluation. He was advised this will most likely reaccumulate. ED Disposition - Plan for ED Patient: Disposition: Home or Assisted Living Diagnosis: Ganglion cyst Instructions: ED Ganglion Cyst Referrals: Garth Arce MD [STAFF PHYSICIAN] - As soon as possible
[2020-05-16 14:02] VITALS: RESP 16
== END 2020-05-16 14:02 | disposition home or self-care (01) ==
PROVIDERS: Emergency Provider Emergency Medicine; PCP Family Medicine Geriatric Medicine
DX: M67.441 Ganglion, right hand (principal); I12.9 Hypertensive chronic kidney disease with stage 1 through stage 4 chronic kidney disease, or unspecified chronic kidney disease; N18.4 Chronic kidney disease, stage 4 (severe); I48.0 Paroxysmal atrial fibrillation; I35.0 Nonrheumatic aortic (valve) stenosis; E78.5 Hyperlipidemia, unspecified; Z79.82 Long term (current) use of aspirin; Z79.899 Other long term (current) drug therapy
CPT/HCPCS: 20612; 10060; 99282

== ENCOUNTER 2020-06-02 13:07 | Outpatient (RCR) | payer MEDICARE, SELFPAY ==
[2020-06-02] MEDS: COVID-19 VACC, MRNA(PFIZER)/PF 30 MCG/0.3 ML SYRINGE IM (10:01)
[2020-06-23] MEDS: COVID-19 VACC, MRNA(PFIZER)/PF 30 MCG/0.3 ML SYRINGE IM (09:43)
== END 2020-09-01 23:59 ==
LOC: IMMUN 13:07
PROVIDERS: PCP Family Medicine Geriatric Medicine; Visit Provider Family Medicine
DX: Z23 Encounter for immunization (principal)
CPT/HCPCS: 0001A; 0002A; 91300